=== PATIENT | male | born 1995 | race Caucasian/White ===

== ENCOUNTER 2020-09-20 23:34 | Emergency (ER) | payer OTHER, SELFPAY ==
[2020-09-21 00:16] VITALS: BP 141/100; PULSE 116; RESP 20; TEMP 37.1; O2SAT 98; BMI 27.3
--- NOTE | 2020-09-21 00:21 | ED.GENADULT ---
HPI - General Adult General Chief complaint: General Medical Stated complaint: Covid Symptoms Time Seen by Provider: 09/21/20 01:19 Source: patient Mode of arrival: ambulatory Limitations: no limitations History of Present Illness HPI narrative: 25-year-old male with past medical history of asthma recently treated for sinusitis on 09/12/2020 with antibiotic Augmentin and prednisone, presents with upper respiratory symptoms, nausea and vomiting. He does report fevers and chills but did not take a temperature, has been taking his Augmentin last dose was yesterday. Upon presentation to the emergency department he vomited, is currently tachycardic and diaphoretic. He does not report any other symptoms. He states that he felt better for short period of time during his Augmentin course but symptoms persisted, he has been working and has had multiple sick contacts. Onset (ago): week(s) Location: chest and abdomen Radiation: non-radiation Severity: moderate Relieving factors: none Associated symptoms: diaphoresis, fever/chills, malaise and nausea/vomiting Treatments prior to arrival: NSAID Related Data Home Medications Medication Instructions Recorded Confirmed albuterol sulfate 90 mcg/actuation 2 puff INHALATION Q4H PRN 09/12/20 09/12/20 aerosol inhaler budesonide-formoterol HFA 80 2 puff PO BID 09/12/20 09/12/20 mcg-4.5 mcg/actuation aerosol inhaler flu vac qs 2019(4 yr up)CD(PF) ml IM 09/12/20 09/12/20 fluticasone propionate 50 2 spray INTRANASAL DAILY 09/12/20 09/12/20 mcg/actuation nasal spray,suspension levocetirizine 5 mg tablet 5 mg PO DAILY 09/12/20 09/12/20 Previous Rx's Medication Instructions Recorded amoxicillin 875 mg-potassium 1 tab PO BID #20 tab 09/10/20 clavulanate 125 mg tablet prednisone 20 mg tablet 20 mg PO .COMPLEX #18 tab 09/10/20 ondansetron HCl [Zofran] 4 mg PO Q8H PRN #10 tab 09/21/20 Allergies Allergy/AdvReac Type Severity Reaction Status Date / Time peanut [PEANUT] Allergy Severe ANAPHYLAXIS Verified 09/17/20 01:53 Peanut (Diagnostic) Allergy Unknown swelling/hi Uncoded 09/12/20 11:14 ves Peanut Butter Flavor Allergy Unknown swelling/hi Uncoded 09/12/20 11:14 ves Peanuts Bandages Allergy Unknown swelling/hi Uncoded 09/12/20 11:14 ves Pumpkin Seed Allergy Unknown hives Uncoded 09/12/20 11:14 Review of Systems Review of Systems: Constitutional: positive Fever, positive Chills, positive fatigue, positive Malaise ENT/Mouth: No sore throat, positive runny nose Eyes: No Discharge Cardiovascular: No Chest Pain, No SOB Respiratory: No Cough, No Sputum, No Wheezing, No Smoke Exposure, No Dyspnea Gastrointestinal: Positive Nausea, positive Vomiting, No Diarrhea Genitourinary: no irregular bleeding, No Dysuria, No Urinary Frequency, No Hematuria, No Urinary Incontinence, No Urgency, No Flank Pain, Musculoskeletal: positive Myalgia Skin: No rash Neuro: No Headache Yes all other systems are reviewed and are negative [facility] Past Medical History Attestation statement: The following information was validated with the patient. Source: old records reviewed Medical History Acne vulgaris Chronic GERD Environmental and seasonal allergies Learning disability Mild intermittent asthma in adult without complication Recurrent otitis media Surgical History No pertinent past surgical history Family History Family History Father No problems noted. Mother No problems noted. Social History Social History Alcohol intake: current Alcohol intake frequency: a few times a month Alcohol type: beer Smoking Status: Never smoker Smoked in Last 30 Days: No Use of substances other than those prescribed or required for medical reasons: No Advance Directives: No Advance Directives Information Provided: No Physical Exam Vital Signs: Vital Signs: Last Vital Signs Temp 98.7 F 09/21/20 00:16 Pulse 120 H 09/21/20 01:35 Resp 20 09/21/20 01:35 BP 123/80 09/21/20 01:35 Pulse Ox 100 09/21/20 01:35 Body Mass Index 27.3 Appearance: Alert. Oriented X3. Mild distress. Positive diaphoresis, pallor, tachycardia Eyes: Pupils equal, round and reactive to light. ENT: Pharynx normal. Neck: Normal inspection. Neck supple. CVS: Tachycardic heart rate and rhythm. Pulses normal. Respiratory: No respiratory distress. Breath sounds normal. Abdomen: Soft and nontender. Skin: Skin warm and dry. Normal skin color. Normal skin turgor. Extremities: No lower extremity edema. Neuro: No motor deficit. No sensory deficit. Course Course Course Narrative: 25-year-old male with asthma recently treated for sinusitis with Augmentin presents for upper respiratory symptoms, nausea vomiting and diaphoresis. Plan of care is for CBC, Chem 7, lactic acid, cultures, and chest x-ray. We will test for COVID-19. Chest x-rays negative for acute findings. At 1:23 a.m. white count 13.4 which is consistent with his story of being treated for sinusitis with Augmentin and prednisone and current URI and gastroenteritis, sodium 134 which was repleted with 2 L of normal saline, BUN 17 indicates mild dehydration which was repleted with 2 L of normal saline. Plan of care is to discharge home. Patient verbalized understanding of and agrees to plan of care. Medical Decision Making Differential Diagnosis Differential Diagnosis: COVID-19, gastritis, gastroenteritis, influenza, viral illness Medical Records Medical records reviewed: Yes I reviewed the patient's medical records. Lab Data Lab results reviewed: Yes I reviewed the patient's lab results. Result diagrams: 09/21/20 00:47 09/21/20 00:47 Labs: Lab Results 09/21/20 09/21/20 09/21/20 Range/Units 00:46 00:47 00:47 WBC 13.4 H (4.8-10.8) X10*3/uL RBC 5.24 (4.60-5.80) X10*6/uL Hgb 15.3 (14.0-18.0) g/dl Hct 44.3 (42-52) % MCV 84.5 (80-98) fL MCH 29.2 (27.0-33.0) pg MCHC 34.5 (31.0-36.0) g/dl RDW 12.3 (11.0-16.0) % Plt Count 199 (160-400) X10*3/uL MPV 10.8 (9.4-12.4) fL Immature Gran % (Auto) 1.0 H (0.0-0.4) % Neut % (Auto) 84.0 H (45-73) % Lymph % (Auto) 6.4 L (20-40) % [place] % (Auto) 7.3 (2-11) % Eos % (Auto) 1.0 (0-4) % Baso % (Auto) 0.3 (0-2) % Lymph # (Auto) 0.9 L (1.2-4.9) X10*3/uL [place] # (Auto) 1.0 (0.1-1.2) X10*3/uL Eos # (Auto) 0.1 (0.0-0.4) X10*3/uL Baso # (Auto) 0.0 (0.0-0.2) X10*3/uL Abs Immat Gran (auto) 0.14 H (0.00-0.03) X10*3/uL Absolute Neuts (auto) 11.3 H (2.0-8.3) X10*3/uL Absolute Nucleated RBC 0.000 (0.0-0.012) X10*3/uL Nucleated RBC % (auto) 0.0 (0.0-0.2) /100WBC Sodium 134 L (135-145) mmol/L Potassium 3.9 (3.3-5.1) mmol/l Chloride 97 (96-108) mmol/L Carbon Dioxide 26 (22-29) mmol/L Anion Gap 15 (12-20) BUN 17 H (9-16) mg/dL Creatinine 0.83 (0.5-1.4) mg/dL Estim Creat Clear Calc 131.6 Estimated GFR > 60 Random Glucose 113 (60-115) mg/dL Lactic Acid 1.6 (0.5-2.0) mmol/L Calcium 9.2 (8.4-10.2) mg/dL Imaging Data Chest x-ray: Attestation: I personally reviewed and interpreted this imaging study as follows: Radiologist's impression: EXAMINATION: CHEST 1 VIEW CLINICAL INFORMATION: URI symptoms. COMPARISON: 01/26/2019. TECHNIQUE: An AP view of the chest is provided. FINDINGS: The cardiac silhouette is not enlarged. The mediastinal and hilar contours are unremarkable. There are neither pleural effusions nor pneumothoraces. There are no consolidations. The osseous structures are stable. XR/XR chest 1V IMPRESSION: No evidence for acute disease. Discharge Plan Discharge Clinical Impression: Gastroenteritis, Acute viral syndrome, COVID-19 Patient Disposition: Home, Self-Care Instructions: Acute Nausea and Vomiting (ED) Additional Instructions: You were evaluated for upper respiratory symptoms with nausea and vomiting. Your lab values are unremarkable, your chest x-ray is negative for acute findings. We tested you for COVID-19. Please maintain social isolation guidelines per State and Federal regulations. We prescribed Zofran for nausea and vomiting. Please take this medication as directed. Follow-up with primary care physician for further workup. Thank you for choosing this emergency department for evaluation. Please follow-up with primary care physician as needed. Return to the emergency department for any new, concerning, or worsening symptoms. Prescriptions: New ondansetron HCl [Zofran] 4 mg tablet 4 mg PO Q8H PRN (Reason: nausea and vomiting) Qty: 10 RF: 0 No Action fluticasone propionate 50 mcg/actuation spray,suspension 2 spray intranasal DAILY RF: 0 budesonide-formoterol 80-4.5 mcg/actuation HFA aerosol inhaler 2 puff PO BID RF: 0 Flucelvax Quad [id number] (PF) 60 mcg (15 mcg x 4)/0.5 mL syringe IM RF: 0 levocetirizine 5 mg tablet 5 mg PO DAILY RF: 0 albuterol sulfate 90 mcg/actuation HFA aerosol inhaler 2 puff inhalation Q4H PRNRF: 0 prednisone 20 mg tablet 20 mg PO .COMPLEX Qty: 18 RF: 0 amoxicillin-pot clavulanate [Augmentin] 875-125 mg tablet 1 tab PO BID Qty: 20 RF: 0
--- NOTE | 2020-09-21 00:26 | XR_ITS ---
EXAMINATION: CHEST 1 VIEW CLINICAL INFORMATION: URI symptoms. COMPARISON: 01/26/2019. TECHNIQUE: An AP view of the chest is provided. FINDINGS: The cardiac silhouette is not enlarged. The mediastinal and hilar contours are unremarkable. There are neither pleural effusions nor pneumothoraces. There are no consolidations. The osseous structures are stable. XR/XR chest 1V IMPRESSION: No evidence for acute disease.
[2020-09-21] MEDS: 0.9 % Sodium Chloride 1,000 ML 999 ML IVCONT ×2 (00:54→02:03)
[2020-09-21] MEDS: ondansetron HCL 4 MG/2 ML VIAL IVPUSH (00:55)
[2020-09-21 00:58] LABS: MANUAL DIFF FLAG NO
--- NOTE | 2020-09-21 01:10 | PC.NURSE ---
20g right ac no complications
[2020-09-21 01:13] LABS: Basophils Percent Auto 0.3 % (0-2); Eosinophils Absolute Auto 0.1 X10*3/uL (0.0-0.4); Hematocrit 44.3 % (42-52); Hemoglobin 15.3 g/dl (14.0-18.0); Imm Gran Abs Auto 0.14 X10*3/uL (0.00-0.03); Lymphocytes Absolute Auto 0.9 X10*3/uL (1.2-4.9); Lymphocytes Percent Auto 6.4 % (20-40); Mean Corpuscular HGB Conc 34.5 g/dl (31.0-36.0); Mean Corpuscular Hemoglobin 29.2 pg (27.0-33.0); Mean Corpuscular Volume 84.5 fL (80-98); Mean Platelet Volume 10.8 fL (9.4-12.4); Monocytes Percent Auto 7.3 % (2-11); Neutrophils Absolute Auto 11.3 X10*3/uL (2.0-8.3); Platelet Count 199 X10*3/uL (160-400); Red Blood Count 5.24 X10*6/uL (4.60-5.80); Red Cell Distribution Width 12.3 % (11.0-16.0); White Blood Count 13.4 X10*3/uL (4.8-10.8)
[2020-09-21 01:26] LABS: Lactic Acid 1.6 mmol/L (0.5-2.0)
[2020-09-21 01:29] LABS: Anion Gap 15 (12-20); Blood Urea Nitrogen 17 mg/dL (9-16); Calcium 9.2 mg/dL (8.4-10.2); Carbon Dioxide 26 mmol/L (22-29); Chloride 97 mmol/L (96-108); Creatinine Clr Calc Pharmacy 131.6; Estimated Glomerular Filt Rate > 60; Glucose Random 113 mg/dL (60-115); Potassium 3.9 mmol/l (3.3-5.1); Sodium 134 mmol/L (135-145)
--- NOTE | 2020-09-21 01:31 | PC.NURSE ---
pt hadley ivf, pt sitting up in bed no further vomiting noted.
[2020-09-21 01:35] VITALS: BP 123/80; PULSE 120; RESP 20; O2SAT 100
[2020-09-21 02:03] LABS: Influenza A PCR NEGATIVE (Negative); Influenza B PCR NEGATIVE (Negative); Resp Syncy Virus RNA Qual PCR NEGATIVE (Negative)
[2020-09-21 02:34] LABS: SARS COV2 PCR INHOUSE POSITIVE (Negative)
== END 2020-09-21 02:56 | disposition home or self-care (01) ==
PROVIDERS: Nurse Practitioner Family; Emergency Provider Internal Medicine; PCP Internal Medicine
DX: U07.1 COVID-19 (principal); R50.9 Fever, unspecified; K52.9 Noninfective gastroenteritis and colitis, unspecified; Z79.899 Other long term (current) drug therapy
CPT/HCPCS: 0241U; 36415; 71045; 80048; 83605; 85025; 87040; 96361; 96374; 99284; J2405

== ENCOUNTER 2020-11-07 10:26 | Outpatient (REF) | payer OTHER, SELFPAY ==
[2020-11-07 13:53] LABS: MANUAL DIFF FLAG NO
[2020-11-07 14:04] LABS: Basophils Absolute Auto 0.1 X10*3/uL (0.0-0.2); Basophils Percent Auto 0.8 % (0-2); Eosinophils Absolute Auto 0.1 X10*3/uL (0.0-0.4); Eosinophils Percent Auto 1.6 % (0-4); Hematocrit 46.7 % (42-52); Hemoglobin 15.3 g/dl (14.0-18.0); Imm Gran Abs Auto 0.03 X10*3/uL (0.00-0.03); Imm Gran Pct Auto 0.5 % (0.0-0.4); Lymphocytes Percent Auto 16.4 % (20-40); Mean Corpuscular HGB Conc 32.8 g/dl (31.0-36.0); Mean Corpuscular Hemoglobin 29.2 pg (27.0-33.0); Mean Corpuscular Volume 89.1 fL (80-98); Mean Platelet Volume 11.6 fL (9.4-12.4); Monocytes Absolute Auto 0.6 X10*3/uL (0.1-1.2); Monocytes Percent Auto 9.1 % (2-11); Neutrophils Absolute Auto 4.5 X10*3/uL (2.0-8.3); Neutrophils Percent Auto 71.6 % (45-73); Platelet Count 216 X10*3/uL (160-400); Red Blood Count 5.24 X10*6/uL (4.60-5.80); Red Cell Distribution Width 12.7 % (11.0-16.0); White Blood Count 6.3 X10*3/uL (4.8-10.8)
[2020-11-08 14:02] LABS: Absolute CD3 Count 749 cells/uL (840-3060); Absolute CD4 Count 331 cells/uL (490-1740); Absolute CD8 Count 370 cells/uL (180-1170); Absolute Lymphocytes 1200 cells/uL (850-3900); CD4 CD8 Ratio 0.89 (0.86-5.00); Percent CD3 Cells 62 % (57-85); Percent CD4 Cells 28 % (30-61); Percent CD8 Cells 31 % (12-42)
[2020-11-08 14:27] LABS: Immunoglobulin A 252 mg/dL (47-310); Immunoglobulin G 1049 mg/dL (600-1640); Immunoglobulin M 108 mg/dL (50-300)
== END 2020-11-07 10:27 | disposition home or self-care (01) ==
LOC: HO.HMGCLDS 10:26
PROVIDERS: PCP Internal Medicine; Visit Provider Physician Assistant
DX: H66.90 Otitis media, unspecified, unspecified ear (principal)
CPT/HCPCS: 36415; 82784; 85025; 86317; 86359; 86360; 86774

== ENCOUNTER → 2020-11-30 10:10 | Outpatient (BNVA) | payer OTHER, SELFPAY | PROVIDERS: PCP Internal Medicine; Visit Provider Urology ==

== ENCOUNTER 2020-12-19 08:01 | Outpatient (REF) | payer OTHER, SELFPAY ==
[2020-12-19 12:09] LABS: Anion Gap 18 (12-20); Blood Urea Nitrogen 14 mg/dL (9-16); Calcium 9.5 mg/dL (8.4-10.2); Carbon Dioxide 24 mmol/L (22-29); Chloride 102 mmol/L (96-108); Cholesterol 155 mg/dL; Estimated Glomerular Filt Rate > 60; Glucose Fasting 91 mg/dL (60-99); HDL Cholesterol 47 mg/dL; LDL Cholesterol Calculated 95 mg/dl; Potassium 3.9 mmol/L (3.3-5.1); Sodium 140 mmol/L (135-145); Triglycerides 67 mg/dL
[2020-12-19 12:10] LABS: Vitamin D 25-OH Total 10.9 ng/mL (>30)
== END 2020-12-19 08:02 | disposition home or self-care (01) ==
LOC: HO.HMGCLDS 08:01
PROVIDERS: PCP Internal Medicine; Visit Provider Internal Medicine
DX: Z00.00 Encounter for general adult medical examination without abnormal findings (principal); I10 Essential (primary) hypertension
CPT/HCPCS: 36415; 80048; 80061; 82306

== ENCOUNTER 2021-05-21 08:28 | Emergency (ER) | payer OTHER, SELFPAY ==
--- NOTE | 2021-05-21 | ECG_ITS ---
Test Reason : CHEST TIGHTNESS Blood Pressure : / mmHG Vent. Rate : 105 BPM Atrial Rate : 105 BPM P-R Int : 182 ms QRS Dur : 096 ms QT Int : 316 ms P-R-T Axes : 077 090 049 degrees QTc Int : 417 ms Sinus tachycardia Rightward axis Nonspecific ST abnormality Abnormal ECG When compared with ECG of 26-JAN-2019 19:33, No significant change was found Referred By: Generic ED Physician Electronically Signed By:ROQUE FONG
--- NOTE | 2021-05-21 10:54 | ED_ITS ---
HPI - Arrhythmia/Palpitations General Chief Complaint: Arrhythmia/Palpitations Stated Complaint: rapid heartbeat Time Seen by Provider: 05/21/21 10:45 Source: patient Mode of arrival: ambulatory Limitations: no limitations History of Present Illness HPI narrative: This is a pleasant 26 years old patient presented to the emergency department with a chief complaint of palpitations. Denies any chest pain, shortness of breath, fever, syncope or near-syncope symptoms. He was started on prednisone by his primary care physician yesterday prior to that he has been on antibiotic for sinus infection MD complaint: heart racing Onset (ago): day(s) (1) Duration: constant Severity: mild Context: occurred during rest Associated symptoms: denies other symptoms Related Data Home Medications Medication Instructions Recorded Confirmed albuterol sulfate 90 mcg/actuation 2 puff INHALATION Q4H PRN 09/12/20 05/15/21 aerosol inhaler flu vac qs 2019(4 yr up)CD(PF) ml IM 09/12/20 05/15/21 fluticasone propionate 50 2 spray INTRANASAL DAILY 09/12/20 05/15/21 mcg/actuation nasal spray,suspension levocetirizine 5 mg tablet 5 mg PO DAILY 09/12/20 05/15/21 budesonide-formoterol HFA 160 2 puff INHALATION Q12H 05/15/21 05/15/21 mcg-4.5 mcg/actuation aerosol inhaler (Symbicort) Previous Rx's Medication Instructions Recorded naproxen 500 mg tablet (Naprosyn) 500 mg PO Q12H PRN #30 tab 11/30/20 cholecalciferol (vitamin D3) 1,250 1,250 mcg PO QWEEK 90 Days #13 cap 03/12/21 mcg (50,000 unit) capsule buspirone 5 mg tablet 5 mg PO BID #60 tab 05/15/21 fexofenadine 60 mg-pseudoephedrine 1 tab PO Q12H PRN #30 tab 05/15/21 ER 120 mg tablet,ext.release,12 hr (Delfina-D 12 Hour) doxycycline hyclate 100 mg capsule 100 mg PO BID 7 Days #14 cap 05/18/21 prednisone 20 mg tablet 20 mg PO .COMPLEX #18 tab 05/20/21 Allergies Allergy/AdvReac Type Severity Reaction Status Date / Time peanut [PEANUT] Allergy Severe ANAPHYLAXIS Verified 05/20/21 08:27 levofloxacin Allergy dizzy, Verified 05/20/21 08:29 anxious could not sleep, heart racing, headaches Pumpkin Seed Allergy Unknown hives Uncoded 05/20/21 08:27 Review of Systems Review of Systems: Yes all other systems are reviewed and are negative Constitutional: Constitutional: Reports no additional constitutional complaints Eyes: Eyes: Reports no additional eye complaints ENT: Reports system reviewed and no additional complaints, except as documented Cardiovascular: Cardiovascular: Reports no additional cardiovascular complaints Psychiatric: Comments: Anxious appearing PMFSH Past Medical History Attestation statement: The following information was validated with the patient. Medical History Acne vulgaris Chronic GERD Environmental and seasonal allergies Epididymitis Generalized anxiety disorder History of COVID-19 Learning disability Mild intermittent asthma in adult without complication Recurrent otitis media Recurrent sinusitis Surgical History No pertinent past surgical history Family History Family History Father No problems noted. Mother No problems noted. Social History Social History Housing: House Alcohol intake: current Alcohol intake frequency: a few times a month Alcohol type: beer Patient Tobacco Use Status: Never used Tobacco e-Cigarette/Vaping Use: Never Used Second Hand Smoke Exposure: No Advance Directives: Yes Advance Directives Information Provided: Yes Advance Directives on File: No service: No Current occupational status: employed Physical Exam Vital Signs: Vital Signs: Last Vital Signs Temp 99 F 05/21/21 12:20 Pulse 106 H 05/21/21 12:20 Resp 16 05/21/21 12:20 BP 141/73 H 05/21/21 12:20 Pulse Ox 100 05/21/21 12:20 Body Mass Index 25.0 Const: General: cooperative and healthy appearing Orien tation/consciousness: oriented to person, oriented to place, oriented to time and patient oriented x3 HENMT: Head: Yes normal to inspection Ears: hearing grossly normal bilaterally and external ears normal Face and sinus: Yes normal facial exam and Yes sinuses nontender Mouth: Normal oral and palatal mucosa present Throat: Yes posterior oropharynx normal Neck: Neck: Yes normal visual inspection and Yes full ROM Chest: Chest palpation & inspection: normal inspection of the chest and normal palpation of entire chest wall Resp: Effort & Inspection: normal respiratory effort Auscultation: clear to auscultation bilaterally Cardio: Jugular venous distension: no JVD Rate: regular rate Rhythm: regular rhythm Heart sounds: S1 normal heart sound present GI: Inspection: Yes normal to inspection and Yes abdominal wall ecchymosis Palpation (GI): Soft to palpation and nontender Skin: General skin exam: no rashes or lesions noted and elasticity normal R ashes: no rashes Neuro: General: oriented to person, oriented to place, oriented to time and patient oriented x3 Cranial nerves: Yes CN's II-XII intact bilaterally and Yes Facial sensation intact/muscles of mastication intact Course Course Course Narrative: His workup is essentially negative, his EKG is within normal limit he has I suggested troponin is negative. I think we could discharge the patient home with follow-up with his primary care physician MDM - Arrhythmia/Palpitations Differential Diagnosis Differential diagnosis: Likely palpitations Lab Data Result diagrams: 05/21/21 10:59 05/21/21 10:59 Labs: Lab Results 05/21/21 05/21/21 05/21/21 Range/Units 10:59 10:59 10:59 WBC 11.9 H (4.8-10.8) X10*3/uL RBC 4.94 (4.60-5.80) X10*6/uL Hgb 14.5 (14.0-18.0) g/dl Hct 42.8 (42-52) % MCV 86.6 (80-98) fL MCH 29.4 (27.0-33.0) pg MCHC 33.9 (31.0-36.0) g/dl RDW 12.2 (11.0-16.0) % Plt Count 209 (160-400) X10*3/uL MPV 10.5 (9.4-12.4) fL Immature Gran % (Auto) 0.5 H (0.0-0.4) % Neut % (Auto) 77.6 H (45-73) % Lymph % (Auto) 11.0 L (20-40) % [place] % (Auto) 10.4 (2-11) % Eos % (Auto) 0.2 (0-4) % Baso % (Auto) 0.3 (0-2) % Lymph # (Auto) 1.3 (1.2-4.9) X10*3/uL [place] # (Auto) 1.2 (0.1-1.2) X10*3/uL Eos # (Auto) 0.0 (0.0-0.4) X10*3/uL Baso # (Auto) 0.0 (0.0-0.2) X10*3/uL Abs Immat Gran (auto) 0.06 H (0.00-0.03) X10*3/uL Absolute Neuts (auto) 9.2 H (2.0-8.3) X10*3/uL Absolute Nucleated RBC 0.000 (0.0-0.012) X10*3/uL Nucleated RBC % (auto) 0.0 (0.0-0.2) /100WBC Sodium 142 (135-145) mmol/L Potassium 4.2 (3.3-5.1) mmol/L Chloride 107 (96-108) mmol/L Carbon Dioxide 25 (22-29) mmol/L Anion Gap 14 (12-20) BUN 15 (9-16) mg/dL Creatinine 0.91 (0.5-1.4) mg/dL Estim Creat Clear Calc TNP Estimated GFR > 60 Random Glucose 101 (60-115) mg/dL Calcium 10.4 H D (8.4-10.2) mg/dL Total Bilirubin 0.8 (0.0-1.0) mg/dL AST 14 (5-37) U/L ALT 22 (0-40) U/L Alkaline Phosphatase 50 (39-117) U/L Troponin I High Sens < 3.5 (<3.5-35.0) ng/L Total Protein 7.9 (6.5-8.0) g/dL Albumin 5.0 (3.5-5.0) g/dL ECG Data Attestation: I personally reviewed and interpreted this ECG as follows: Pacemaker model: EKG shows sinus tachycardia rate is 105 ST-T segment isoelectric Discharge Plan Discharge Clinical Impression: Palpitation Patient Disposition: Home, Self-Care Instructions: Heart Palpitations (ED) Prescriptions: No Action cholecalciferol (vitamin D3) 1,250 mcg (50,000 unit) capsule 1,250 mcg PO QWEEK 90 Days Qty: 13 RF: 0 doxycycline hyclate 100 mg capsule 100 mg PO BID 7 Days Qty: 14 RF: 0 fluticasone propionate 50 mcg/actuation spray,suspension 2 spray intranasal DAILY RF: 0 Flucelvax Quad [id number] (PF) 60 mcg (15 mcg x 4)/0.5 mL syringe IM RF: 0 levocetirizine 5 mg tablet 5 mg PO DAILY RF: 0 albuterol sulfate 90 mcg/actuation HFA aerosol inhaler 2 puff inhalation Q4H PRNRF: 0 prednisone 20 mg tablet 20 mg PO .COMPLEX Qty: 18 RF: 0 fexofenadine-pseudoephedrine [Delfina-D 12 Hour] 60-120 mg tablet extended release 12 hr 1 tab PO Q12H PRN (Reason: allergy symptoms) Qty: 30 RF: 0 buspirone 5 mg tablet 5 mg PO BID Qty: 60 RF: 0 budesonide-formoterol [Symbicort] 160-4.5 mcg/actuation HFA aerosol inhaler 2 puff inhalation Q12H RF: 0 naproxen [Naprosyn] 500 mg tablet 500 mg PO Q12H PRN (Reason: pain) Qty: 30 RF: 0 Referrals: Melani Mayfield MD [Primary Care Provider] - 2 days Stand Alone Forms: Work/School Release Interventions: ED Discharge Assessment Last Done: 05/21/21 12:47 Discharge Date/Time: 05/21/21 12:47
[2021-05-21 11:03] LABS: MANUAL DIFF FLAG NO
[2021-05-21 11:05] LABS: Basophils Percent Auto 0.3 % (0-2); Eosinophils Percent Auto 0.2 % (0-4); Hematocrit 42.8 % (42-52); Hemoglobin 14.5 g/dl (14.0-18.0); Imm Gran Abs Auto 0.06 X10*3/uL (0.00-0.03); Imm Gran Pct Auto 0.5 % (0.0-0.4); Lymphocytes Absolute Auto 1.3 X10*3/uL (1.2-4.9); Mean Corpuscular HGB Conc 33.9 g/dl (31.0-36.0); Mean Corpuscular Hemoglobin 29.4 pg (27.0-33.0); Mean Corpuscular Volume 86.6 fL (80-98); Mean Platelet Volume 10.5 fL (9.4-12.4); Monocytes Absolute Auto 1.2 X10*3/uL (0.1-1.2); Monocytes Percent Auto 10.4 % (2-11); Neutrophils Absolute Auto 9.2 X10*3/uL (2.0-8.3); Neutrophils Percent Auto 77.6 % (45-73); Platelet Count 209 X10*3/uL (160-400); Red Blood Count 4.94 X10*6/uL (4.60-5.80); Red Cell Distribution Width 12.2 % (11.0-16.0); White Blood Count 11.9 X10*3/uL (4.8-10.8)
[2021-05-21 11:35] LABS: Alanine Aminotransferase 22 U/L (0-40); Alkaline Phosphatase 50 U/L (39-117); Anion Gap 14 (12-20); Aspartate Amino Transferase 14 U/L (5-37); Bilirubin Total 0.8 mg/dL (0.0-1.0); Blood Urea Nitrogen 15 mg/dL (9-16); Calcium 10.4 mg/dL (8.4-10.2); Carbon Dioxide 25 mmol/L (22-29); Chloride 107 mmol/L (96-108); Estimated Glomerular Filt Rate > 60; Glucose Random 101 mg/dL (60-115); Potassium 4.2 mmol/L (3.3-5.1); Sodium 142 mmol/L (135-145); Total Protein 7.9 g/dL (6.5-8.0)
[2021-05-21 11:41] LABS: Troponin-I High Sensitivity < 3.5 ng/L (<3.5-35.0)
[2021-05-21 12:20] VITALS: BP 141/73; PULSE 106; RESP 16; TEMP 37.2; O2SAT 100; BMI 25.0
[2021-05-21] MEDS: LORazepam 1 MG TABLET PO (12:28)
== END 2021-05-21 12:47 | disposition home or self-care (01) ==
PROVIDERS: Emergency Provider Emergency Medicine; PCP Internal Medicine
DX: R00.2 Palpitations (principal); R00.0 Tachycardia, unspecified
CPT/HCPCS: 36415; 80053; 84484; 85025; 93005; 99283

== ENCOUNTER 2021-05-23 08:42 | Emergency (ER) | payer OTHER, SELFPAY ==
[2021-05-23 08:50] VITALS: BP 141/94; PULSE 100; RESP 18; TEMP 36.7; O2SAT 97; BMI 25.0
--- NOTE | 2021-05-23 09:13 | ED_ITS ---
HPI - General Adult General Chief complaint: General Medical Stated complaint: heart racing blood in saliva Time Seen by Provider: 05/23/21 09:13 Source: patient Mode of arrival: ambulatory Limitations: no limitations History of Present Illness HPI narrative: 26-year-old male is here today for complaints of heart racing, mouth sores, sinus pain. Patient reports that 2 weeks ago he was placed on levofloxacin for ear infection, however he was not feeling well, had symptoms of heart racing and dizziness his antibiotic was switched to Augmentin. Patient reports that he missed couple doses at the end of the treatment and was placed on doxycycline. Patient reports that he was having headaches and not feeling well so he was stopped and was placed on prednisone. He took 1 dose of prednisone and that made his heart rate very high, patient was anxious not sleeping all night. Patient has mild rhinitis, postnasal drip, denies earaches. Reports having cold sores in the right bucal area. Patient denies SOB, CP, syncope, presyncope. Denies fever or chills. Reports to have both of the COVID vaccines Related Data Home Medications Medication Instructions Recorded Confirmed albuterol sulfate 90 mcg/actuation 2 puff INHALATION Q4H PRN 09/12/20 05/15/21 aerosol inhaler flu vac qs 2019(4 yr up)CD(PF) ml IM 09/12/20 05/15/21 fluticasone propionate 50 2 spray INTRANASAL DAILY 09/12/20 05/15/21 mcg/actuation nasal spray,suspension levocetirizine 5 mg tablet 5 mg PO DAILY 09/12/20 05/15/21 budesonide-formoterol HFA 160 2 puff INHALATION Q12H 05/15/21 05/15/21 mcg-4.5 mcg/actuation aerosol inhaler (Symbicort) Previous Rx's Medication Instructions Recorded naproxen 500 mg tablet (Naprosyn) 500 mg PO Q12H PRN #30 tab 11/30/20 cholecalciferol (vitamin D3) 1,250 1,250 mcg PO QWEEK 90 Days #13 cap 03/12/21 mcg (50,000 unit) capsule buspirone 5 mg tablet 5 mg PO BID #60 tab 05/15/21 fexofenadine 60 mg-pseudoephedrine 1 tab PO Q12H PRN #30 tab 05/15/21 ER 120 mg tablet,ext.release,12 hr (Delfina-D 12 Hour) doxycycline hyclate 100 mg capsule 100 mg PO BID 7 Days #14 cap 05/18/21 prednisone 20 mg tablet 20 mg PO .COMPLEX #18 tab 05/20/21 cetirizine 10 mg capsule (Allergy 10 mg PO DAILY PRN #30 cap 05/23/21 Relief (cetirizine)) famotidine 20 mg tablet 20 mg PO BEDTIME #10 tab 05/23/21 fluticasone propionate 50 1 spray INTRANASAL BID #16 g 05/23/21 mcg/actuation nasal spray,suspension (Flonase Allergy Relief) nystatin 100,000 unit/mL oral 5 ml PO QID 7 Days #140 ml 05/23/21 suspension Allergies Allergy/AdvReac Type Severity Reaction Status Date / Time peanut [PEANUT] Allergy Severe ANAPHYLAXIS Verified 05/23/21 08:53 levofloxacin Allergy dizzy, Verified 05/23/21 08:53 anxious could not sleep, heart racing, headaches Pumpkin Seed Allergy Unknown hives Uncoded 05/20/21 08:27 Review of Systems Review of Systems: Constitutional : No Weight loss, No Fever, No Chills, No Night Sweats, No Fatigue, No Malaise ENT/Mouth : No Hearing loss, No Ear Pain, No Nasal Congestion, No Sinus Pain, No Hoarseness, No sore throat, No Rhinorrhea, No Swallowing Difficulty Eyes: No Eye Pain, No Swelling, No Redness, No Foreign Body, No Discharge, No Vision Changes Cardiovascular : No Chest Pain, No SOB, No Dyspnea on Exertion, No Orthopnea, No Edema, No Palpitations Respiratory : No Cough, No Sputum, No Wheezing, No Smoke Exposure, No Dyspnea Gastrointestinal : No Nausea, No Vomiting, No Diarrhea, No Constipation, reports dyspepsia, No abdominal Pain, No Hematochezia, No Melena Genitourinary : no irregular bleeding, No Dysuria, No Urinary Frequency, No Hematuria, No Urinary Incontinence, No Urgency, No Flank Pain, No Urinary Flow Changes, No Hesitancy Musculoskeletal : No joint pain, No Myalgias, No Joint Swelling Skin : No Skin Lesions, No rash Neuro : No Weakness, No Numbness, No Paresthesias, No Loss of Consciousness, No Dizziness, No Headache Psych : Anxiety/Panic, No Depression, No SI/HI/AH/VH, No Social Issues, Heme/Lymph: No Bruising, No Bleeding,No Lymphadenopathy Endocrine : No Polyuria, No Polydipsia, No Temperature Intolerance Yes all o ther systems are reviewed and are negative [facility] Past Medical History Medical History Acne vulgaris Chronic GERD Environmental and seasonal allergies Epididymitis Generalized anxiety disorder History of COVID-19 Learning disability Mild intermittent asthma in adult without complication Recurrent otitis media Recurrent sinusitis Surgical History No pertinent past surgical history Family History Family History Father No problems noted. Mother No problems noted. Social History Social History Housing: House Alcohol intake: current Alcohol intake frequency: a few times a month Alcohol type: beer Patient Tobacco Use Status: Never used Tobacco e-Cigarette/Vaping Use: Never Used Second Hand Smoke Exposure: No Advance Directives: No Advance Directives Information Provided: No service: No Current occupational status: employed Physical Exam Vital Signs: Vital Signs: Last Vital Signs Temp 98.0 F 05/23/21 08:50 Pulse 100 05/23/21 08:50 Resp 18 05/23/21 08:50 BP 141/94 H 05/23/21 08:50 Pulse Ox 97 05/23/21 08:50 Body Mass Index 25.0 Const: General: healthy appearing, no acute distress and well developed Nutritional Appearance: well nourished Orientation/consciousness: patient oriented x3 HENMT: Head: Yes normal to inspection, Yes normocephalic and Yes atraumatic Ears: hearing grossly normal bilaterally, external ears normal, TM's normal bilaterally and EAC's normal (Dry and pink patient was using Q-tips) General nose exam: Normal external nose present Face and sinus: Yes normal facial exam Mouth: Normal oral and palatal mucosa present and oropharynx normal (White and patchy) Teeth and gingiva: dentition normal Throat: Yes posterior oropharynx normal (White and patchy), Yes tonsils normal and Yes uvula midline Eyes: General: appearance normal, both eyes and all related structures Neck: Neck: Yes normal visual inspection, Yes full ROM and Yes trachea midline Thyroid: Thyroid normal Resp: Auscultation: clear to auscultation bilaterally Cardio: Rate: regular rate Rhythm: regular rhythm GI: Inspection: Yes normal to inspection and No distended Palpation (GI): No hepatosplenomegaly present Auscultation: normal bowel sounds Skin: General skin exam: elasticity normal, turgor normal and dry skin Neuro: General: patient oriented x3 Course Course Course Narrative: 26 years old male is here today for complaining of sores in his mouth. Patient was placed on 3 different antibiotics for total of 2 weeks. His ears look normal dry external ear and mild pink. Patient reports that he has been using Q-tips to dry his ears. Patient was asked to avoid cleaning his ears with Q-tips. Patient reports that he had both of his COVID vaccines, however he is little concerned with his symptoms. I will test him for COVID. Nystatin swish and swallow for his mouth sores. I will send him home with nystatin, Flonase and Zyrtec. I will also give him Pepcid so he can take it at night. Patient was instructed to see his PCP for anxiety. Patient was advised to use mouth guard at night. Right side of his bucal area ? Overbite versus canker sore. Medical Decision Making Lab Data Labs: Lab Results 05/23/21 Range/Units 09:34 COVID-19 (LUL) Negative (Negative) COVID-19 Clin Com See Note Discharge Plan Discharge Clinical Impression: Recurrent sinusitis, Environmental and seasonal allergies Patient Disposition: Home, Self-Care Instructions: Canker Sores (ED), Allergic Rhinitis (ED) Additional Instructions: You were seen here today for ear pain, mouth sores. Your symptoms are most likely related to seasonal allergies. Please take Flonase twice a day for 7 days then once a day and Zyrtec once daily. Please use nystatin swish and swallow as ordered. Please use a mouth guard at night. Please follow-up with your primary care provider in 2-3 days. You may return to emergency department if your symptoms will get worse or if you will experience any additional concerning symptoms. Prescriptions: New fluticasone propionate [Flonase Allergy Relief] 50 mcg/actuation spray,suspension 1 spray intranasal BID Qty: 16 RF: 0 Allergy Relief (cetirizine) 10 mg capsule 10 mg PO DAILY PRN (Reason: allergy symptoms) Qty: 30 RF: 0 nystatin 100,000 unit/mL suspension 5 ml PO QID 7 Days Qty: 140 RF: 0 famotidine 20 mg tablet 20 mg PO BEDTIME Qty: 10 RF: 0 No Action cholecalciferol (vitamin D3) 1,250 mcg (50,000 unit) capsule 1,250 mcg PO QWEEK 90 Days Qty: 13 RF: 0 doxycycline hyclate 100 mg capsule 100 mg PO BID 7 Days Qty: 14 RF: 0 fluticasone propionate 50 mcg/actuation spray,suspension 2 spray intranasal DAILY RF: 0 Flucelvax Quad (PF) 60 mcg (15 mcg x 4)/0.5 mL syringe IM RF: 0 levocetirizine 5 mg tablet 5 mg PO DAILY RF: 0 albuterol sulfate 90 mcg/actuation HFA aerosol inhaler 2 puff inhalation Q4H PRNRF: 0 prednisone 20 mg tablet 20 mg PO .COMPLEX Qty: 18 RF: 0 fexofenadine-pseudoephedrine [Delfina-D 12 Hour] 60-120 mg tablet extended release 12 hr 1 tab PO Q12H PRN (Reason: allergy symptoms) Qty: 30 RF: 0 buspirone 5 mg tablet 5 mg PO BID Qty: 60 RF: 0 budesonide-formoterol [Symbicort] 160-4.5 mcg/actuation HFA aerosol inhaler 2 puff inhalation Q12H RF: 0 naproxen [Naprosyn] 500 mg tablet 500 mg PO Q12H PRN (Reason: pain) Qty: 30 RF: 0
[2021-05-23] MEDS: Nystatin Oral Susp 500,000 UNIT/5 ML ORAL.SUSP 400000 UNIT PO (09:37)
[2021-05-23 10:03] LABS: COVID-19 Test Negative (Negative)
== END 2021-05-23 10:20 | disposition home or self-care (01) ==
PROVIDERS: Nurse Practitioner Family; Emergency Provider Emergency Medicine; PCP Internal Medicine
DX: J32.9 Chronic sinusitis, unspecified (principal); J30.2 Other seasonal allergic rhinitis; Z20.822 Contact with and (suspected) exposure to COVID-19; K13.79 Other lesions of oral mucosa
CPT/HCPCS: 36415; 87635; 99283

== ENCOUNTER → 2021-06-05 11:30 | Outpatient (BNVA) | payer OTHER, SELFPAY | PROVIDERS: Visit Provider Urology ==

== ENCOUNTER 2021-06-15 08:00 | Emergency (ER) | payer OTHER, SELFPAY ==
--- NOTE | ~2021-06-15 | US_ITS ---
EXAMINATION: US SCROTUM CLINICAL INFORMATION: Right testicular pain. COMPARISON: Previous scrotal ultrasound January 2019 TECHNIQUE: A sonogram of the scrotum was performed assessing hood-scale appearance and color Doppler flow. Spectral Doppler analysis of the arterial and venous flow were performed in the testes bilaterally. FINDINGS: RIGHT: Right testicle measures 5 x 2.7 x 2.8 cm, volume 19 mL. No focal testicular parenchymal lesions are visualized. Spectral Doppler analysis of the arterial and venous flow is normal in the right testis. Right epididymal head is normal in size. No right hydrocele or varicocele is seen. Right epididymal Doppler flow is normal. LEFT: Left testicle measures 4.8 x 2.5 x 3.3 cm, volume 21 mL. No focal testicular parenchymal lesions are visualized. Spectral Doppler analysis of the arterial and venous flow is normal in the left testis. Left epididymal head is normal in size. There is a small left varicocele. There is a small left hydrocele.. Left epididymal Doppler flow is normal. US/US scrotum doppler IMPRESSION: No evidence of torsion. Small left hydrocele and small left varicocele.
--- NOTE | ~2021-06-15 | US_ITS ---
EXAMINATION: US SCROTUM CLINICAL INFORMATION: Right testicular pain. COMPARISON: Previous scrotal ultrasound January 2019 TECHNIQUE: A sonogram of the scrotum was performed assessing hood-scale appearance and color Doppler flow. Spectral Doppler analysis of the arterial and venous flow were performed in the testes bilaterally. FINDINGS: RIGHT: Right testicle measures 5 x 2.7 x 2.8 cm, volume 19 mL. No focal testicular parenchymal lesions are visualized. Spectral Doppler analysis of the arterial and venous flow is normal in the right testis. Right epididymal head is normal in size. No right hydrocele or varicocele is seen. Right epididymal Doppler flow is normal. LEFT: Left testicle measures 4.8 x 2.5 x 3.3 cm, volume 21 mL. No focal testicular parenchymal lesions are visualized. Spectral Doppler analysis of the arterial and venous flow is normal in the left testis. Left epididymal head is normal in size. There is a small left varicocele. There is a small left hydrocele.. Left epididymal Doppler flow is normal. US/US scrotum IMPRESSION: No evidence of torsion. Small left hydrocele and small left varicocele.
--- NOTE | 2021-06-15 08:54 | ED.ABDPAIN ---
HPI - Abdominal Pain General Chief Complaint: Abdominal Pain Stated Complaint: ABD PAIN Time Seen by Provider: 06/15/21 08:52 Source: patient Mode of arrival: ambulatory Limitations: no limitations History of Present Illness HPI narrative: This is a 26-year-old male who presents from home to the emergency department with 6 days of epigastric pain, he states the pain began after drinking 3 pauline jars of scotch the night previous. He states that the abdominal pain is constant, boring and nonradiating. He also reports anorexia, and nausea since Thursday. He also adds that he has been having right testicular pain since Thursday, he feels as though his testicle is swollen, and sore. He does however state he is followed by Dr. Ruffin, for epididymitis. Earlier this week he presented to an Urgent Care with similar symptoms, they prescribed him Pepcid and omeprazole, which she states have not been helping. He denies chest pain, shortness of breath, fevers, chills, vomiting, sick contacts MD elicited complaint: abdominal pain Pertinent past history: other (Epididymitis) Onset (ago): day(s) (6) Pain Consistency: constant Location: epigastric Related Data Home Medications Medication Instructions Recorded Confirmed albuterol sulfate 90 mcg/actuation 2 puff INHALATION Q4H PRN 09/12/20 05/15/21 aerosol inhaler flu vac qs 2020(4 yr up)CD(PF) ml IM 09/12/20 05/15/21 budesonide-formoterol HFA 160 2 puff INHALATION Q12H 05/15/21 05/15/21 mcg-4.5 mcg/actuation aerosol inhaler (Symbicort) oxymetazoline 0.05 % nasal mist 2 spray INTRANASAL Q12H PRN 05/28/21 05/28/21 (Afrin (oxymetazoline)) cetirizine 10 mg tablet 10 mg PO DAILY PRN 06/05/21 Previous Rx's Medication Instructions Recorded naproxen 500 mg tablet (Naprosyn) 500 mg PO Q12H PRN #30 tab 11/30/20 cetirizine 10 mg capsule (Allergy 10 mg PO DAILY PRN #30 cap 05/23/21 Relief (cetirizine)) famotidine 20 mg tablet 20 mg PO BEDTIME #10 tab 05/23/21 fluticasone propionate 50 1 spray INTRANASAL BID #16 g 05/23/21 mcg/actuation nasal spray,suspension (Flonase Allergy Relief) nystatin 100,000 unit/mL oral 5 ml PO QID 7 Days #140 ml 05/23/21 suspension buspirone 5 mg tablet 5 mg PO BID #60 tab 06/06/21 cholecalciferol (vitamin D3) 1,250 1,250 mcg PO QWEEK 90 Days #13 cap 06/11/21 mcg (50,000 unit) capsule famotidine 40 mg tablet (Pepcid) 40 mg PO BEDTIME #30 tab 06/13/21 omeprazole 40 mg capsule,delayed 40 mg PO DAILY #30 cap 06/13/21 release nystatin 100,000 unit/mL oral 1 ml PO QID 10 Days #40 ml 06/14/21 suspension Allergies Allergy/AdvReac Type Severity Reaction Status Date / Time peanut [PEANUT] Allergy Severe ANAPHYLAXIS Verified 06/14/21 10:55 levofloxacin Allergy dizzy, Verified 06/14/21 10:55 anxious could not sleep, heart racing, headaches doxycycline AdvReac stomach Verified 06/14/21 10:55 aches Pumpkin Seed Allergy Unknown hives Uncoded 05/20/21 08:27 Review of Systems Review of Systems Constitutional: No Fever, No Chills ENT/Mouth: No sore throat, No Rhinorrhea, No Swallowing Difficulty Eyes: No Eye Pain, No Swelling, No Redness Cardiovascular: No Chest Pain, No SOB, No Orthopnea, No Edema Respiratory: No Cough, No Sputum, No Wheezing, No dyspnea Gastrointestinal: + Nausea, No Vomiting, No Diarrhea, + abdominal Pain, No Hematochezia, No Melena Genitourinary: No Dysuria, No Urinary Frequency, No Hematuria Musculoskeletal: No joint pain, No Myalgias Skin: No Skin Lesions, No rash : + right testicular pain and swelling Neuro: No Weakness, No Numbness, No Dizziness, No Headache Psych: No Anxiety/Panic, No Depression Heme/Lymph: No Bruising, No Lymphadenopathy Endocrine: No Polyuria, No Polydipsia Physical Exam Vital Signs: Vital Signs: Last Vital Signs Temp 98.7 F 06/15/21 09:11 Pulse 106 H 06/15/21 09:11 Resp 12 06/15/21 09:11 BP 144/96 H 06/15/21 09:11 Pulse Ox 97 06/15/21 09:11 Body Mass Index 25.8 Appearance: Alert. Oriented X3. No acute distress. Patient appears anxious Eyes: Pupils equal, round and reactive to light. ENT: Pharynx normal. Neck: Normal inspection. Neck supple. CVS: Normal heart rate and rhythm. Pulses normal. Respiratory: No respiratory distress. Breath sounds normal. Abdomen: Soft and + tenderness to light palpation to epigastric region +BS x4, no peritoneal signs Skin: Skin warm and dry. Normal skin color. Normal skin turgor. No rashes. : + Tenderness to palpation to right scrotum/testicle. + right testicle appears larger than left testicle, no evident overlying skin changes Extremities: No lower extremity edema. Neuro: Oriented X 3. No motor deficit. No sensory deficit. Course Course Course Narrative: This is a 26-year-old male presenting to the emergency department with 6 days of epigastric pain, and right testicular pain/discomfort. He states that he was seen earlier this week at an urgent care where he was treated with omeprazole, and Pepcid with little relief. He also states he has history of epididymitis, and is followed by Dr. Ruffin. The plan at this time is to order basic laboratory studies to rule out infection. Testicular ultrasound has also been ordered. He will be tested for chlamydia and gonorrhea. And COVID-19. Based upon these findings will decide whether or not imaging is warranted. Reevaluation(s) Reevaluation #1: Re-evaluated the patient at the bedside he is feeling better at this time after administration of GI cocktail. Ultrasound results were discussed with the patient ultrasound showed a small left hydrocele and a small left varicocele, he states he wants to follow up with Dr. Ruffin. There were no abnormal laboratory studies. He will be discharged home on a bland diet, he will continue taking Pepcid and omeprazole and he will also take Pepto-Bismol [id number]. He plans to follow-up with his GI doctor over at [facility]. Patient, and mother who is at the bedside agreed to this plan, they understand the plan and have no further questions at this time. Time: 11:41 MDM - Abdominal Pain Lab Data Result diagrams: 06/15/21 09:23 06/15/21 09:23 Labs: Lab Results 06/15/21 06/15/21 06/15/21 Range/Units 09:23 09:23 09:23 WBC 9.7 (4.8-10.8) X10*3/uL RBC 5.15 (4.60-5.80) X10*6/uL Hgb 14.9 (14.0-18.0) g/dl Hct 43.8 (42-52) % MCV 85.0 (80-98) fL MCH 28.9 (27.0-33.0) pg MCHC 34.0 (31.0-36.0) g/dl RDW 11.9 (11.0-16.0) % Plt Count 215 (160-400) X10*3/uL MPV 10.4 (9.4-12.4) fL Immature Gran % (Auto) 0.3 (0.0-0.4) % Neut % (Auto) 78.6 H (45-73) % Lymph % (Auto) 12.6 L (20-40) % [place] % (Auto) 7.9 (2-11) % Eos % (Auto) 0.2 (0-4) % Baso % (Auto) 0.4 (0-2) % Lymph # (Auto) 1.2 (1.2-4.9) X10*3/uL [place] # (Auto) 0.8 (0.1-1.2) X10*3/uL Eos # (Auto) 0.0 (0.0-0.4) X10*3/uL Baso # (Auto) 0.0 (0.0-0.2) X10*3/uL Abs Immat Gran (auto) 0.03 (0.00-0.03) X10*3/uL Absolute Neuts (auto) 7.6 (2.0-8.3) X10*3/uL Absolute Nucleated RBC 0.000 (0.0-0.012) X10*3/uL Nucleated RBC % (auto) 0.0 (0.0-0.2) /100WBC Sodium 139 (135-145) mmol/L Potassium 3.6 (3.3-5.1) mmol/L Chloride 105 (96-108) mmol/L Carbon Dioxide 25 (22-29) mmol/L Anion Gap 13 (12-20) BUN 11 (9-16) mg/dL Creatinine 0.96 (0.5-1.4) mg/dL Estim Creat Clear Calc 112.8 Estimated GFR > 60 Random Glucose 99 (60-115) mg/dL Calcium 9.6 D (8.4-10.2) mg/dL Total Bilirubin 1.1 H (0.0-1.0) mg/dL Direct Bilirubin 0.3 (0.0-0.5) mg/dL AST 14 (5-37) U/L ALT 16 (0-40) U/L Alkaline Phosphatase 61 D (39-117) U/L Total Protein 7.7 (6.5-8.0) g/dL Albumin 4.9 (3.5-5.0) g/dL Lipase 23 (8-78) U/L Urine Color Urine Appearance Urine pH (5.0-8.0) Ur Specific [place] (1.005-1.025) Urine Protein (NEG-TRACE) MG/DL Urine Glucose (UA) (NEG) MG/DL Urine Ketones (NEG) MG/DL Urine Blood (NEG) Urine Nitrite (NEG) Ur Leukocyte Esterase (NEG) COVID-19 (LUL) Negative (Negative) COVID-19 Clin Com See Note 06/15/21 Range/Units 10:33 WBC (4.8-10.8) X10*3/uL RBC (4.60-5.80) X10*6/uL Hgb (14.0-18.0) g/dl Hct (42-52) % MCV (80-98) fL MCH (27.0-33.0) pg MCHC (31.0-36.0) g/dl RDW (11.0-16.0) % Plt Count (160-400) X10*3/uL MPV (9.4-12.4) fL Immature Gran % (Auto) (0.0-0.4) % Neut % (Auto) (45-73) % Lymph % (Auto) (20-40) % [place] % (Auto) (2-11) % Eos % (Auto) (0-4) % Baso % (Auto) (0-2) % Lymph # (Auto) (1.2-4.9) X10*3/uL [place] # (Auto) (0.1-1.2) X10*3/uL Eos # (Auto) (0.0-0.4) X10*3/uL Baso # (Auto) (0.0-0.2) X10*3/uL Abs Immat Gran (auto) (0.00-0.03) X10*3/uL Absolute Neuts (auto) (2.0-8.3) X10*3/uL Absolute Nucleated RBC (0.0-0.012) X10*3/uL Nucleated RBC % (auto) (0.0-0.2) /100WBC Sodium (135-145) mmol/L Potassium (3.3-5.1) mmol/L Chloride (96-108) mmol/L Carbon Dioxide (22-29) mmol/L Anion Gap (12-20) BUN (9-16) mg/dL Creatinine (0.5-1.4) mg/dL Estim Creat Clear Calc Estimated GFR Random Glucose (60-115) mg/dL Calcium (8.4-10.2) mg/dL Total Bilirubin (0.0-1.0) mg/dL Direct Bilirubin (0.0-0.5) mg/dL AST (5-37) U/L ALT (0-40) U/L Alkaline Phosphatase (39-117) U/L Total Protein (6.5-8.0) g/dL Albumin (3.5-5.0) g/dL Lipase (8-78) U/L Urine Color YELLOW Urine Appearance CLEAR Urine pH 6.5 (5.0-8.0) Ur Specific [place] <= 1.005 (1.005-1.025) Urine Protein NEG (NEG-TRACE) MG/DL Urine Glucose (UA) NEG (NEG) MG/DL Urine Ketones 15 (NEG) MG/DL Urine Blood NEG (NEG) Urine Nitrite NEG (NEG) Ur Leukocyte Esterase NEG (NEG) COVID-19 (LUL) (Negative) COVID-19 Clin Com Imaging Data Scrotum right ultrasound: Attestation: I personally reviewed and interpreted this imaging study as follows: Radiologist's impression: FINDINGS: RIGHT: Right testicle measures 5 x 2.7 x 2.8 cm, volume 19 mL. No focal testicular parenchymal lesions are visualized. Spectral Doppler analysis of the arterial and venous flow is normal in the right testis. Right epididymal head is normal in size. No right hydrocele or varicocele is seen. Right epididymal Doppler flow is normal. LEFT: Left testicle measures 4.8 x 2.5 x 3.3 cm, volume 21 mL. No focal testicular parenchymal lesions are visualized. Spectral Doppler analysis of the arterial and venous flow is normal in the left testis. Left epididymal head is normal in size. There is a small left varicocele. There is a small left hydrocele.. Left epididymal Doppler flow is normal. US/US scrotum IMPRESSION: No evidence of torsion. Small left hydrocele and small left varicocele. Discharge Plan Discharge Clinical Impression: Left varicocele Gastritis Qualifiers: Gastritis type: unspecified gastritis Chronicity: acute Gastritis bleeding: without bleeding Qualified Code(s): K29.00 - Acute gastritis without bleeding Hydrocele Qualifiers: Hydrocele type: unspecified Qualified Code(s): N43.3 - Hydrocele, unspecified Patient Disposition: Home, Self-Care Instructions: Gastritis (ED), Hydrocele (ED), Diet for Stomach Ulcers and Gastritis (ED), Varicocele (ED) Additional Instructions: Follow-up with your primary care provider and GI If you develop new or worsening symptoms call 911 or come back to the ER for further evaluation. Do not drink alcohol, follow-up bland diet, avoid fried foods spicy foods and anything acidic Prescriptions: No Action buspirone 5 mg tablet 5 mg PO BID Qty: 60 RF: 3 cholecalciferol (vitamin D3) 1,250 mcg (50,000 unit) capsule 1,250 mcg PO QWEEK 90 Days Qty: 13 RF: 0 fluticasone propionate [Flonase Allergy Relief] 50 mcg/actuation spray,suspension 1 spray intranasal BID Qty: 16 RF: 0 Allergy Relief (cetirizine) 10 mg capsule 10 mg PO DAILY PRN (Reason: allergy symptoms) Qty: 30 RF: 0 nystatin 100,000 unit/mL suspension 5 ml PO QID 7 Days Qty: 140 RF: 0 famotidine 20 mg tablet 20 mg PO BEDTIME Qty: 10 RF: 0 Flucelvax Quad (PF) 60 mcg (15 mcg x 4)/0.5 mL syringe IM RF: 0 albuterol sulfate 90 mcg/actuation HFA aerosol inhaler 2 puff inhalation Q4H PRNRF: 0 Afrin (oxymetazoline) 0.05 % mist 2 spray intranasal Q12H PRNRF: 0 nystatin 100,000 unit/mL suspension 1 ml PO QID 10 Days Qty: 40 RF: 0 budesonide-formoterol [Symbicort] 160-4.5 mcg/actuation HFA aerosol inhaler 2 puff inhalation Q12H RF: 0 famotidine [Pepcid] 40 mg tablet 40 mg PO BEDTIME Qty: 30 RF: 2 omeprazole 40 mg capsule,delayed release(DR/EC) 40 mg PO DAILY Qty: 30 RF: 0 naproxen [Naprosyn] 500 mg tablet 500 mg PO Q12H PRN (Reason: pain) Qty: 30 RF: 0 cetirizine 10 mg tablet 10 mg PO DAILY PRN (Reason: allergies) RF: 0 Referrals: Mulugeta Hirsch [Physician] - 1 week (Gastritis) Melani Mayfield MD [Primary Care Provider] - 2 days PMF Past Medical History Medical History Acne vulgaris Chronic GERD Environmental and seasonal allergies Epididymitis Generalized anxiety disorder History of COVID-19 Learning disability Mild intermittent asthma in adult without complication Recurrent otitis media Recurrent sinusitis Surgical History No pertinent past surgical history Family History Family History Father No problems noted. Mother No problems noted. Social History Social History Housing: House Alcohol intake: current Alcohol intake frequency: a few times a month Alcohol type: beer Patient Tobacco Use Status: Never used Tobacco e-Cigarette/Vaping Use: Never Used Second Hand Smoke Exposure: No Advance Directives: Yes Advance Directives Information Provided: Yes Advance Directives on File: No service: No Current occupational status: employed
[2021-06-15 09:11] VITALS: BP 144/96; PULSE 106; RESP 12; TEMP 37.1; O2SAT 97; BMI 25.8
[2021-06-15 09:36] LABS: MANUAL DIFF FLAG NO
[2021-06-15] MEDS: PHENobarb/Hyoscy/Atropine/Scop 10 ML ELIXIR PO (09:36)
[2021-06-15] MEDS: 0.9 % Sodium Chloride 1,000 ML 999 ML IVCONT (09:36)
[2021-06-15] MEDS: Lidocaine HCl Viscous 2 % 15 ML SOLUTION MUCOUS MEM (09:36)
[2021-06-15] MEDS: Magnesium Hydrox/Alum Hydrox 30 ML ORAL.SUSP PO (09:37)
[2021-06-15 09:38] LABS: Basophils Percent Auto 0.4 % (0-2); Eosinophils Percent Auto 0.2 % (0-4); Hematocrit 43.8 % (42-52); Hemoglobin 14.9 g/dl (14.0-18.0); Imm Gran Abs Auto 0.03 X10*3/uL (0.00-0.03); Imm Gran Pct Auto 0.3 % (0.0-0.4); Lymphocytes Absolute Auto 1.2 X10*3/uL (1.2-4.9); Lymphocytes Percent Auto 12.6 % (20-40); Mean Corpuscular Hemoglobin 28.9 pg (27.0-33.0); Mean Platelet Volume 10.4 fL (9.4-12.4); Monocytes Absolute Auto 0.8 X10*3/uL (0.1-1.2); Monocytes Percent Auto 7.9 % (2-11); Neutrophils Absolute Auto 7.6 X10*3/uL (2.0-8.3); Neutrophils Percent Auto 78.6 % (45-73); Platelet Count 215 X10*3/uL (160-400); Red Blood Count 5.15 X10*6/uL (4.60-5.80); Red Cell Distribution Width 11.9 % (11.0-16.0); White Blood Count 9.7 X10*3/uL (4.8-10.8)
[2021-06-15 09:52] LABS: COVID-19 Test Negative (Negative); IDNOW Serial# 9DD0AD1C
[2021-06-15 09:59] LABS: Alanine Aminotransferase 16 U/L (0-40); Albumin Level 4.9 g/dL (3.5-5.0); Alkaline Phosphatase 61 U/L (39-117); Anion Gap 13 (12-20); Aspartate Amino Transferase 14 U/L (5-37); Bilirubin Direct 0.3 mg/dL (0.0-0.5); Bilirubin Total 1.1 mg/dL (0.0-1.0); Blood Urea Nitrogen 11 mg/dL (9-16); Calcium 9.6 mg/dL (8.4-10.2); Carbon Dioxide 25 mmol/L (22-29); Chloride 105 mmol/L (96-108); Creatinine Clr Calc Pharmacy 112.8; Estimated Glomerular Filt Rate > 60; Glucose Random 99 mg/dL (60-115); Lipase 23 U/L (8-78); Potassium 3.6 mmol/L (3.3-5.1); Sodium 139 mmol/L (135-145); Total Protein 7.7 g/dL (6.5-8.0)
[2021-06-15 10:41] LABS: Appearance Urine CLEAR; Color Urine YELLOW; Glucose Urine UA NEG (NEG); Leukocyte Esterase Urine NEG (NEG); Nitrite Urine NEG (NEG); PH 6.5 (5.0-8.0); Specific Gravity - Urine <= 1.005 (1.005-1.025); Urine Blood NEG (NEG); Urine Ketones 15 MG/DL (NEG); Urine Protein NEG (NEG-TRACE)
[2021-06-15 12:21] VITALS: BP 125/83; PULSE 87; RESP 16; O2SAT 99
[2021-06-15 13:07] LABS: CT PCR NOT DETECTED (Not Detect.); NG PCR NOT DETECTED (Not Detect.)
== END 2021-06-15 12:23 | disposition home or self-care (01) ==
PROVIDERS: Physician Assistant; Emergency Provider Emergency Medicine; PCP Internal Medicine
DX: I86.1 Scrotal varices (principal); K29.00 Acute gastritis without bleeding; N43.3 Hydrocele, unspecified; R10.13 Epigastric pain; Z20.822 Contact with and (suspected) exposure to COVID-19; Z79.899 Other long term (current) drug therapy
CPT/HCPCS: 36415; 76870; 80048; 80076; 81003; 83690; 85025; 87491; 87591; 87635; 93975; 96360; 99284

== ENCOUNTER 2021-06-16 06:04 | Emergency (ER) | payer OTHER, SELFPAY ==
--- NOTE | ~2021-06-16 | XR_ITS ---
EXAMINATION: XR ABDOMEN KUB CLINICAL INDICATION: No bowel movement for 3 days COMPARISON: None TECHNIQUE: AP view of the abdomen. FINDINGS: The bowel gas pattern is normal with no evidence of ileus or obstruction. No unusual soft tissue calcifications are noted. The bones are unremarkable. XR/XR KUB IMPRESSION: Unremarkable examination.
[2021-06-16 06:26] VITALS: BP 141/96; PULSE 101; RESP 18; TEMP 37.3; O2SAT 98; BMI 25.0
--- NOTE | 2021-06-16 07:01 | ED.NAVMDI ---
HPI - Nausea/Vomiting/Diarrhea General Chief complaint: Nausea/Vomiting/Diarrhea Stated complaint: diagnosed w/ gastritis, can't eat or sleep Time Seen by Provider: 06/16/21 06:38 History of Present Illness HPI Narrative: Patient is a 26-year-old male presents today with having generalized malaise weakness epigastric pain. Patient was seen yesterday for similar symptoms. Feels very anxious. Feels that his ears somewhat clogged. Denies any coughing congestion upper respiratory symptoms. Patient had his COVID vaccine. No diaphoresis. No diarrhea. Patient claims he has not had a good bowel movement for 2 days. Patient claims that he has been having poor p.o. intake. Achy. Related Data Home Medications Medication Instructions Recorded Confirmed albuterol sulfate 90 mcg/actuation 2 puff INHALATION Q4H PRN 09/12/20 05/15/21 aerosol inhaler flu vac qs 2019(4 yr up)CD(PF) ml IM 09/12/20 05/15/21 budesonide-formoterol HFA 160 2 puff INHALATION Q12H 05/15/21 05/15/21 mcg-4.5 mcg/actuation aerosol inhaler (Symbicort) oxymetazoline 0.05 % nasal mist 2 spray INTRANASAL Q12H PRN 05/28/21 05/28/21 (Afrin (oxymetazoline)) cetirizine 10 mg tablet 10 mg PO DAILY PRN 06/05/21 Previous Rx's Medication Instructions Recorded naproxen 500 mg tablet (Naprosyn) 500 mg PO Q12H PRN #30 tab 11/30/20 cetirizine 10 mg capsule (Allergy 10 mg PO DAILY PRN #30 cap 05/23/21 Relief (cetirizine)) famotidine 20 mg tablet 20 mg PO BEDTIME #10 tab 05/23/21 fluticasone propionate 50 1 spray INTRANASAL BID #16 g 05/23/21 mcg/actuation nasal spray,suspension (Flonase Allergy Relief) nystatin 100,000 unit/mL oral 5 ml PO QID 7 Days #140 ml 05/23/21 suspension buspirone 5 mg tablet 5 mg PO BID #60 tab 06/06/21 cholecalciferol (vitamin D3) 1,250 1,250 mcg PO QWEEK 90 Days #13 cap 06/11/21 mcg (50,000 unit) capsule famotidine 40 mg tablet (Pepcid) 40 mg PO BEDTIME #30 tab 06/13/21 omeprazole 40 mg capsule,delayed 40 mg PO DAILY #30 cap 06/13/21 release nystatin 100,000 unit/mL oral 1 ml PO QID 10 Days #40 ml 06/14/21 suspension Allergies Allergy/AdvReac Type Severity Reaction Status Date / Time peanut [PEANUT] Allergy Severe ANAPHYLAXIS Verified 06/14/21 10:55 levofloxacin Allergy dizzy, Verified 06/14/21 10:55 anxious could not sleep, heart racing, headaches doxycycline AdvReac stomach Verified 06/14/21 10:55 aches Pumpkin Seed Allergy Unknown hives Uncoded 05/20/21 08:27 Review of Systems Review of Systems: No fever no chills positive generalized malaise positive decreased p.o. intake no coughing or congestion or upper respiratory symptoms. Yes all other systems are reviewed and are negative PMFSH Past Medical History Attestation statement: The following information was validated with the patient. Medical History Acne vulgaris Chronic GERD Environmental and seasonal allergies Epididymitis Generalized anxiety disorder History of COVID-19 Learning disability Mild intermittent asthma in adult without complication Recurrent otitis media Recurrent sinusitis Surgical History No pertinent past surgical history Family History Family History Father No problems noted. Mother No problems noted. Social History Social History Housing: House Alcohol intake: current Alcohol intake frequency: a few times a month Alcohol type: beer Patient Tobacco Use Status: Never used Tobacco e-Cigarette/Vaping Use: Never Used Second Hand Smoke Exposure: No Advance Directives: No Advance Directives Information Provided: Yes service: No Current occupational status: employed Physical Exam Vital Signs: Vital Signs: Last Vital Signs Temp 99.1 F 06/16/21 06:26 Pulse 101 H 06/16/21 06:26 Resp 18 06/16/21 06:26 BP 141/96 H 06/16/21 06:26 Pulse Ox 98 06/16/21 06:26 Body Mass Index 25.0 Appearance: Alert. Oriented X3. No acute distress. Eyes: Pupils equal, round and reactive to light. ENT: Pharynx normal. Neck: Normal inspection. Neck supple. No lymph nodes noted. No crepitus CVS: Normal heart rate and rhythm. Pulses normal. Normal S1 and S2 Respiratory: No respiratory distress. Breath sounds normal. No Wheezing. No rales Abdomen: Soft and nontender. No rigidity. No distention. good BS x4 Skin: Skin warm and dry. Normal skin color. Normal skin turgor. Extremities: No lower extremity edema. Neurovascular intact to all extremities. No Lacerations. No Rash Neuro: Oriented X 3. No motor deficit. No sensory deficit. Moving all extermities. No slurred speech MDM - Nausea/Vomiting/Diarrhea MDM Narrative Medical decision making narrative: Patient's electrolytes are unremarkable liver enzymes and normal lipase is normal. X-ray did not show any acute findings. Offered some Ativan for anxiety patient refused. Patient told to follow up on an outpatient basis. In stable condition. Will discharge Lab Data Result diagrams: 06/16/21 07:35 06/16/21 07:35 Labs: Lab Results 06/16/21 06/16/21 06/16/21 Range/Units 07:35 07:35 07:35 WBC 7.6 (4.8-10.8) X10*3/uL RBC 4.98 (4.60-5.80) X10*6/uL Hgb 14.7 (14.0-18.0) g/dl Hct 42.5 (42-52) % MCV 85.3 (80-98) fL MCH 29.5 (27.0-33.0) pg MCHC 34.6 (31.0-36.0) g/dl RDW 11.9 (11.0-16.0) % Plt Count 204 (160-400) X10*3/uL MPV 10.5 (9.4-12.4) fL Immature Gran % (Auto) 0.3 (0.0-0.4) % Neut % (Auto) 76.0 H (45-73) % Lymph % (Auto) 14.4 L (20-40) % [place] % (Auto) 8.6 (2-11) % Eos % (Auto) 0.3 (0-4) % Baso % (Auto) 0.4 (0-2) % Lymph # (Auto) 1.1 L (1.2-4.9) X10*3/uL [place] # (Auto) 0.7 (0.1-1.2) X10*3/uL Eos # (Auto) 0.0 (0.0-0.4) X10*3/uL Baso # (Auto) 0.0 (0.0-0.2) X10*3/uL Abs Immat Gran (auto) 0.02 (0.00-0.03) X10*3/uL Absolute Neuts (auto) 5.8 (2.0-8.3) X10*3/uL Absolute Nucleated RBC 0.000 (0.0-0.012) X10*3/uL Nucleated RBC % (auto) 0.0 (0.0-0.2) /100WBC Sodium 140 (135-145) mmol/L Potassium 3.7 (3.3-5.1) mmol/L Chloride 106 (96-108) mmol/L Carbon Dioxide 25 (22-29) mmol/L Anion Gap 13 (12-20) BUN 9 (9-16) mg/dL Creatinine 0.84 (0.5-1.4) mg/dL Estim Creat Clear Calc 128.9 Estimated GFR > 60 Random Glucose 102 (60-115) mg/dL Calcium 9.7 (8.4-10.2) mg/dL Total Bilirubin 0.8 (0.0-1.0) mg/dL Direct Bilirubin 0.4 (0.0-0.5) mg/dL AST 13 (5-37) U/L ALT 13 (0-40) U/L Alkaline Phosphatase 70 (39-117) U/L Total Protein 7.5 (6.5-8.0) g/dL Albumin 4.9 (3.5-5.0) g/dL Lipase 35 (8-78) U/L TSH 1.17 (0.32-4.0) uIU/mL Urine Opiates Screen (Not Detect) Urine Fentanyl Screen (Not Detect) Ur Barbiturates Screen (Not Detect) Ur Phencyclidine Scrn (Not Detect) Ur Amphetamines Screen (Not Detect) U Benzodiazepines Scrn (Not Detect) Urine Cocaine Screen (Not Detect) U Marijuana (THC) Screen (Not Detect) 06/16/21 Range/Units 07:35 WBC (4.8-10.8) X10*3/uL RBC (4.60-5.80) X10*6/uL Hgb (14.0-18.0) g/dl Hct (42-52) % MCV (80-98) fL MCH (27.0-33.0) pg MCHC (31.0-36.0) g/dl RDW (11.0-16.0) % Plt Count (160-400) X10*3/uL MPV (9.4-12.4) fL Immature Gran % (Auto) (0.0-0.4) % Neut % (Auto) (45-73) % Lymph % (Auto) (20-40) % [place] % (Auto) (2-11) % Eos % (Auto) (0-4) % Baso % (Auto) (0-2) % Lymph # (Auto) (1.2-4.9) X10*3/uL [place] # (Auto) (0.1-1.2) X10*3/uL Eos # (Auto) (0.0-0.4) X10*3/uL Baso # (Auto) (0.0-0.2) X10*3/uL Abs Immat Gran (auto) (0.00-0.03) X10*3/uL Absolute Neuts (auto) (2.0-8.3) X10*3/uL Absolute Nucleated RBC (0.0-0.012) X10*3/uL Nucleated RBC % (auto) (0.0-0.2) /100WBC Sodium (135-145) mmol/L Potassium (3.3-5.1) mmol/L Chloride (96-108) mmol/L Carbon Dioxide (22-29) mmol/L Anion Gap (12-20) BUN (9-16) mg/dL Creatinine (0.5-1.4) mg/dL Estim Creat Clear Calc Estimated GFR Random Glucose (60-115) mg/dL Calcium (8.4-10.2) mg/dL Total Bilirubin (0.0-1.0) mg/dL Direct Bilirubin (0.0-0.5) mg/dL AST (5-37) U/L ALT (0-40) U/L Alkaline Phosphatase (39-117) U/L Total Protein (6.5-8.0) g/dL Albumin (3.5-5.0) g/dL Lipase (8-78) U/L TSH (0.32-4.0) uIU/mL Urine Opiates Screen Not Detected (Not Detect) Urine Fentanyl Screen Not Detected (Not Detect) Ur Barbiturates Screen POSITIVE H (Not Detect) Ur Phencyclidine Scrn Not Detected (Not Detect) Ur Amphetamines Screen Not Detected (Not Detect) U Benzodiazepines Scrn Not Detected (Not Detect) Urine Cocaine Screen Not Detected (Not Detect) U Marijuana (THC) Screen Not Detected (Not Detect) Discharge Plan Discharge Clinical Impression: Anxiety Patient Disposition: Home, Self-Care Instructions: Anxiety (ED) Prescriptions: No Action buspirone 5 mg tablet 5 mg PO BID Qty: 60 RF: 3 cholecalciferol (vitamin D3) 1,250 mcg (50,000 unit) capsule 1,250 mcg PO QWEEK 90 Days Qty: 13 RF: 0 fluticasone propionate [Flonase Allergy Relief] 50 mcg/actuation spray,suspension 1 spray intranasal BID Qty: 16 RF: 0 Allergy Relief (cetirizine) 10 mg capsule 10 mg PO DAILY PRN (Reason: allergy symptoms) Qty: 30 RF: 0 nystatin 100,000 unit/mL suspension 5 ml PO QID 7 Days Qty: 140 RF: 0 famotidine 20 mg tablet 20 mg PO BEDTIME Qty: 10 RF: 0 Flucelvax Quad 2796-0206 (PF) 60 mcg (15 mcg x 4)/0.5 mL syringe IM RF: 0 albuterol sulfate 90 mcg/actuation HFA aerosol inhaler 2 puff inhalation Q4H PRNRF: 0 Afrin (oxymetazoline) 0.05 % mist 2 spray intranasal Q12H PRNRF: 0 nystatin 100,000 unit/mL suspension 1 ml PO QID 10 Days Qty: 40 RF: 0 budesonide-formoterol [Symbicort] 160-4.5 mcg/actuation HFA aerosol inhaler 2 puff inhalation Q12H RF: 0 famotidine [Pepcid] 40 mg tablet 40 mg PO BEDTIME Qty: 30 RF: 2 omeprazole 40 mg capsule,delayed release(DR/EC) 40 mg PO DAILY Qty: 30 RF: 0 naproxen [Naprosyn] 500 mg tablet 500 mg PO Q12H PRN (Reason: pain) Qty: 30 RF: 0 cetirizine 10 mg tablet 10 mg PO DAILY PRN (Reason: allergies) RF: 0 Referrals: Melani Mayfield MD [Primary Care Provider] - 2 days
[2021-06-16 07:41] LABS: MANUAL DIFF FLAG NO
[2021-06-16 07:42] LABS: Basophils Percent Auto 0.4 % (0-2); Eosinophils Percent Auto 0.3 % (0-4); Hematocrit 42.5 % (42-52); Hemoglobin 14.7 g/dl (14.0-18.0); Imm Gran Abs Auto 0.02 X10*3/uL (0.00-0.03); Imm Gran Pct Auto 0.3 % (0.0-0.4); Lymphocytes Absolute Auto 1.1 X10*3/uL (1.2-4.9); Lymphocytes Percent Auto 14.4 % (20-40); Mean Corpuscular HGB Conc 34.6 g/dl (31.0-36.0); Mean Corpuscular Hemoglobin 29.5 pg (27.0-33.0); Mean Corpuscular Volume 85.3 fL (80-98); Mean Platelet Volume 10.5 fL (9.4-12.4); Monocytes Absolute Auto 0.7 X10*3/uL (0.1-1.2); Monocytes Percent Auto 8.6 % (2-11); Neutrophils Absolute Auto 5.8 X10*3/uL (2.0-8.3); Platelet Count 204 X10*3/uL (160-400); Red Blood Count 4.98 X10*6/uL (4.60-5.80); Red Cell Distribution Width 11.9 % (11.0-16.0); White Blood Count 7.6 X10*3/uL (4.8-10.8)
[2021-06-16] MEDS: 0.9 % Sodium Chloride 1,000 ML 999 ML IV ×2 (07:42)
[2021-06-16 07:56] LABS: Amphetamine Screen Urine Not Detected (Not Detect); Barbiturates, Urine POSITIVE (Not Detect); Benzodiazepines Screen Urine Not Detected (Not Detect); Cannabinoid Screen Urine Not Detected (Not Detect); Cocaine Screen Urine Not Detected (Not Detect); Fentanyl, urine Not Detected (Not Detect); Opiate Screen Urine Not Detected (Not Detect); Phencyclidine Screen Urine Not Detected (Not Detect)
[2021-06-16 07:58] LABS: Alanine Aminotransferase 13 U/L (0-40); Albumin Level 4.9 g/dL (3.5-5.0); Alkaline Phosphatase 70 U/L (39-117); Anion Gap 13 (12-20); Aspartate Amino Transferase 13 U/L (5-37); Bilirubin Direct 0.4 mg/dL (0.0-0.5); Bilirubin Total 0.8 mg/dL (0.0-1.0); Blood Urea Nitrogen 9 mg/dL (9-16); Calcium 9.7 mg/dL (8.4-10.2); Carbon Dioxide 25 mmol/L (22-29); Chloride 106 mmol/L (96-108); Creatinine Clr Calc Pharmacy 128.9; Estimated Glomerular Filt Rate > 60; Glucose Random 102 mg/dL (60-115); Lipase 35 U/L (8-78); Potassium 3.7 mmol/L (3.3-5.1); Sodium 140 mmol/L (135-145); Total Protein 7.5 g/dL (6.5-8.0)
[2021-06-16 08:17] LABS: TSH reflex Free T4 1.17 uIU/mL (0.32-4.0)
== END 2021-06-16 09:26 | disposition home or self-care (01) ==
PROVIDERS: Emergency Provider Emergency Medicine Emergency Medical Services; PCP Internal Medicine
DX: R11.2 Nausea with vomiting, unspecified (principal); F41.1 Generalized anxiety disorder; F43.0 Acute stress reaction; Z79.899 Other long term (current) drug therapy
CPT/HCPCS: 36415; 74018; 80048; 80076; 80307; 83690; 84443; 85025; 96361; 96374; 99283; 99284

== ENCOUNTER 2021-06-18 06:49 | Emergency (ER) | payer OTHER, SELFPAY ==
--- NOTE | ~2021-06-18 | CT_ITS ---
EXAMINATION: CT HEAD WITHOUT CONTRAST CLINICAL INFORMATION: Headache COMPARISON: None TECHNIQUE: Contiguous axial imaging was performed from the skull base to vertex without intravenous administration of contrast. This CT examination was performed using dose optimization techniques as appropriate, variously including the following: *Automated exposure control *Adjustment of mA and/or kV according to patient size (this includes techniques or standardized protocols for targeted exams where dose is matched to indication/reason for exam; i.e. extremities or head) *Use of iterative reconstruction technique DLP: 71 mGy-cm FINDINGS: There is no evidence of acute intracranial hemorrhage or territorial infarction. No abnormal mass effect or midline shift is seen. Cardenas to white matter differentiation is well preserved. No extra-axial fluid collections are identified. The ventricles are normal in size. There is no abnormal attenuation within the brain parenchyma. There is calcification in the high medial gland. The osseous structures and soft tissues are normal. There is minimal inflammatory change in the sphenoid sinus. The mastoid air cells and visualized portions of the paranasal sinuses are otherwise clear. CT/CT head/brain wo con IMPRESSION: No acute intracranial findings. Minimal inflammatory change in the sphenoid sinus.
--- NOTE | ~2021-06-18 | XR_ITS ---
EXAMINATION: XR CHEST CLINICAL INFORMATION: Shortness of breath COMPARISON: Previous chest x-ray August 2020 TECHNIQUE: Frontal view of the chest was obtained. FINDINGS: No significant abnormality is noted involving the heart, lungs, mediastinum, bony thorax or soft tissues. XR/XR chest 1V IMPRESSION: Unremarkable examination.
[2021-06-18 07:02] VITALS: BP 139/90; PULSE 102; RESP 18; TEMP 36.6; O2SAT 99; BMI 24.3
[2021-06-18] MEDS: Acetaminophen 325 MG TABLET 650 MG PO (07:06)
--- NOTE | 2021-06-18 07:30 | ED_ITS ---
HPI - General Adult General Chief complaint: General Medical Stated complaint: SoB, weakness, migraines Time Seen by Provider: 06/18/21 07:26 Source: patient and family (Mother) Mode of arrival: ambulatory Limitations: no limitations History of Present Illness HPI narrative: 26-year-old male came in for evaluation of multiple complaints. Patient return to the emergency department after head to visit last week for epigastric pain and unable to keep p.o. intake, patient's symptoms started after drinking alcohol the night previous. Patient was evaluated in the emergency department/walking clinic started on antacid and Z-Estrada for sinusitis. Patient today is complaining of shortness of breath patient with history of asthma, no coughing, no chest pain. Complain of headache in the occipital area and right ear pain and frontal sinuses pressure the patient is taking his Z-Estrada for what was thought to be sinusitis. Related Data Home Medications Medication Instructions Recorded Confirmed albuterol sulfate 90 mcg/actuation 2 puff INHALATION Q4H PRN 09/12/20 05/15/21 aerosol inhaler flu vac qs 2019(4 yr up)CD(PF) ml IM 09/12/20 05/15/21 budesonide-formoterol HFA 160 2 puff INHALATION Q12H 05/15/21 05/15/21 mcg-4.5 mcg/actuation aerosol inhaler (Symbicort) oxymetazoline 0.05 % nasal mist 2 spray INTRANASAL Q12H PRN 05/28/21 05/28/21 (Afrin (oxymetazoline)) cetirizine 10 mg tablet 10 mg PO DAILY PRN 06/05/21 Previous Rx's Medication Instructions Recorded naproxen 500 mg tablet (Naprosyn) 500 mg PO Q12H PRN #30 tab 11/30/20 cetirizine 10 mg capsule (Allergy 10 mg PO DAILY PRN #30 cap 05/23/21 Relief (cetirizine)) famotidine 20 mg tablet 20 mg PO BEDTIME #10 tab 05/23/21 fluticasone propionate 50 1 spray INTRANASAL BID #16 g 05/23/21 mcg/actuation nasal spray,suspension (Flonase Allergy Relief) nystatin 100,000 unit/mL oral 5 ml PO QID 7 Days #140 ml 05/23/21 suspension buspirone 5 mg tablet 5 mg PO BID #60 tab 06/06/21 cholecalciferol (vitamin D3) 1,250 1,250 mcg PO QWEEK 90 Days #13 cap 06/11/21 mcg (50,000 unit) capsule famotidine 40 mg tablet (Pepcid) 40 mg PO BEDTIME #30 tab 06/13/21 omeprazole 40 mg capsule,delayed 40 mg PO DAILY #30 cap 06/13/21 release nystatin 100,000 unit/mL oral 1 ml PO QID 10 Days #40 ml 06/14/21 suspension azithromycin 250 mg tablet See Rx Instructions PO .COMPLEX #6 06/17/21 (Zithromax) tab Allergies Allergy/AdvReac Type Severity Reaction Status Date / Time peanut [PEANUT] Allergy Severe ANAPHYLAXIS Verified 06/14/21 10:55 levofloxacin Allergy dizzy, Verified 06/14/21 10:55 anxious could not sleep, heart racing, headaches doxycycline AdvReac stomach Verified 06/14/21 10:55 aches Pumpkin Seed Allergy Unknown hives Uncoded 05/20/21 08:27 Review of Systems Review of Systems: All other systems are reviewed and are negative Constitutional: Reports as per HPI and Reports no additional constitutional complaints Eyes: Reports as per HPI and Reports no additional eye complaints Reports system reviewed and no additional complaints, except as documented Cardiovascular: Reports as per HPI and Reports no additional cardiovascular complaints Respiratory: Reports as per HPI and Reports no additional respiratory complaints Gastrointestinal: Reports as per HPI and Reports no additional gastrointestinal complaints Genitourinary: Reports no additional female genitourinary complaints Musculoskeletal: Reports no additional musculoskeletal complaints Skin/Breast: Reports system reviewed and no additional complaints, except as docu Psychiatric: Reports no additional psychiatric complaints Endocrine: Reports no additional endocrine complaints Hematologic/Lymphatic: Reports no additional hematologic/lymphatic complaints Allergic/Immunologic: Reports no additional allergic/immunologic complaints Reports system reviewed and no additional complaints, except as documented and Reports Abnormal speech present [facility] Past Medical History Medical History Acne vulgaris Chronic GERD Environmental and seasonal allergies Epididymitis Generalized anxiety disorder History of COVID-19 Learning disability Mild intermittent asthma in adult without complication Recurrent otitis media Recurrent sinusitis Surgical History No pertinent past surgical history Family History Family History Father No problems noted. Mother No problems noted. Social History Social History Housing: House Alcohol intake: current Alcohol intake frequency: a few times a month Alcohol type: beer Patient Tobacco Use Status: Never used Tobacco e-Cigarette/Vaping Use: Never Used Second Hand Smoke Exposure: No Advance Directives: No Advance Directives Information Provided: Yes service: No Current occupational status: employed Physical Exam Vital Signs: Vital Signs: Last Vital Signs Temp 97.9 F 06/18/21 07:02 Pulse 102 H 06/18/21 07:02 Resp 18 06/18/21 07:02 BP 139/90 H 06/18/21 07:02 Pulse Ox 99 06/18/21 07:02 Body Mass Index 24.3 Vital signs have been reviewed as appeared to be correct. Blood pressure normal. Heart rate elevated. Respiration rate normal. Temperature normal. Oxygen saturation normal. Appearance: Alert. Oriented X3. No acute distress. Head: Normal external exam. Normocephalic. Atraumatic. No [place] signs noted. No raccoon eyes noted Eyes: PERRLA. EOMI. Conjunctiva and sclera normal. Eyelids normal. ENT: Right TM erythema. Pharynx normal. Uvula midline. Moist mucous membranes. No trismus noted. No drooling noted. No muffled voice noted. Tenderness with percussion over frontal sinus. Neck: Normal inspection. Neck supple. FROM. No adenopathy. Thyroid Normal. No meningeal signs. No neck mass noted. CVS: Normal heart rate and rhythm. Heart sound normal. No murmurs noted. Pulses normal throughout. Respiratory: No respiratory distress. Painless inspiration. Breath sounds normal . No wheezes/rales/rhonchi noted. Chest nontender. No accessory muscle usage noted or decreased air movement noted. Abdomen: Soft and nontender. Bowel sounds normal in all 4 quadrants. No distention noted. No organomegaly noted. No visible injury noted. Back: No CVA tenderness. Full range of motion noted. Skin: Skin warm and dry. Normal skin color. Normal skin turgor. No rashes/lesions/lacerations noted. Extremities: No lower extremity edema. Extremities exhibit normal range of motion. Extremities nontender. Neuro: Oriented X 3. Cranial nerve exam: II-XII are grossly intact No motor deficit. No sensory deficit. Reflexes normal. Course Course Course Narrative: Assessment and plan. 26-year-old male who is normally nonalcoholic abuser a drink alcohol occasionally last time he drank alcohol about week ago developed alcoholic gastritis causing persistent vomiting, patient also was diagnosed with sinusitis/right ear infection (patient is prone to this infection) patient was started on Z-Estrada. Patient emergency department received IV hydration now his appetite is better and able to tolerate p.o. intake. Will discharge the patient to follow-up with PCP. And continue with the Z-Estrada Medical Decision Making Lab Data Lab results reviewed: Yes I reviewed the patient's lab results. Result diagrams: 06/18/21 07:40 06/18/21 07:40 Labs: Lab Results 06/18/21 06/18/21 06/18/21 Range/Units 07:40 07:40 07:40 WBC 7.0 (4.8-10.8) X10*3/uL RBC 5.03 (4.60-5.80) X10*6/uL Hgb 14.7 (14.0-18.0) g/dl Hct 42.9 (42-52) % MCV 85.3 (80-98) fL MCH 29.2 (27.0-33.0) pg MCHC 34.3 (31.0-36.0) g/dl RDW 12.0 (11.0-16.0) % Plt Count 224 (160-400) X10*3/uL MPV 10.3 (9.4-12.4) fL Immature Gran % (Auto) 0.3 (0.0-0.4) % Neut % (Auto) 71.0 (45-73) % Lymph % (Auto) 16.8 L (20-40) % [place] % (Auto) 10.9 (2-11) % Eos % (Auto) 0.6 (0-4) % Baso % (Auto) 0.4 (0-2) % Lymph # (Auto) 1.2 (1.2-4.9) X10*3/uL [place] # (Auto) 0.8 (0.1-1.2) X10*3/uL Eos # (Auto) 0.0 (0.0-0.4) X10*3/uL Baso # (Auto) 0.0 (0.0-0.2) X10*3/uL Abs Immat Gran (auto) 0.02 (0.00-0.03) X10*3/uL Absolute Neuts (auto) 5.0 (2.0-8.3) X10*3/uL Absolute Nucleated RBC 0.000 (0.0-0.012) X10*3/uL Nucleated RBC % (auto) 0.0 (0.0-0.2) /100WBC Sodium 140 (135-145) mmol/L Potassium 3.8 (3.3-5.1) mmol/L Chloride 106 (96-108) mmol/L Carbon Dioxide 26 (22-29) mmol/L Anion Gap 12 (12-20) BUN 8 L (9-16) mg/dL Creatinine 0.92 (0.5-1.4) mg/dL Estim Creat Clear Calc 117.7 Estimated GFR > 60 Random Glucose 94 (60-115) mg/dL Calcium 10.0 (8.4-10.2) mg/dL Total Bilirubin 1.1 H (0.0-1.0) mg/dL Direct Bilirubin 0.3 (0.0-0.5) mg/dL AST 14 (5-37) U/L ALT 14 (0-40) U/L Alkaline Phosphatase 56 (39-117) U/L Total Protein 7.6 (6.5-8.0) g/dL Albumin 4.9 (3.5-5.0) g/dL Lipase 45 (8-78) U/L Urine Color Urine Appearance Urine pH (5.0-8.0) Ur Specific [place] (1.005-1.025) Urine Protein (NEG-TRACE) MG/DL Urine Glucose (UA) (NEG) MG/DL Urine Ketones (NEG) MG/DL Urine Blood (NEG) Urine Nitrite (NEG) Ur Leukocyte Esterase (NEG) Coronavirus (PCR) NEGATIVE (Negative) Influenza Type A (PCR) NEGATIVE (Negative) Influenza Type B (PCR) NEGATIVE (Negative) RSV RNA Qual (PCR) NEGATIVE (Negative) 06/18/21 Range/Units 08:57 WBC (4.8-10.8) X10*3/uL RBC (4.60-5.80) X10*6/uL Hgb (14.0-18.0) g/dl Hct (42-52) % MCV (80-98) fL MCH (27.0-33.0) pg MCHC (31.0-36.0) g/dl RDW (11.0-16.0) % Plt Count (160-400) X10*3/uL MPV (9.4-12.4) fL Immature Gran % (Auto) (0.0-0.4) % Neut % (Auto) (45-73) % Lymph % (Auto) (20-40) % [place] % (Auto) (2-11) % Eos % (Auto) (0-4) % Baso % (Auto) (0-2) % Lymph # (Auto) (1.2-4.9) X10*3/uL [place] # (Auto) (0.1-1.2) X10*3/uL Eos # (Auto) (0.0-0.4) X10*3/uL Baso # (Auto) (0.0-0.2) X10*3/uL Abs Immat Gran (auto) (0.00-0.03) X10*3/uL Absolute Neuts (auto) (2.0-8.3) X10*3/uL Absolute Nucleated RBC (0.0-0.012) X10*3/uL Nucleated RBC % (auto) (0.0-0.2) /100WBC Sodium (135-145) mmol/L Potassium (3.3-5.1) mmol/L Chloride (96-108) mmol/L Carbon Dioxide (22-29) mmol/L Anion Gap (12-20) BUN (9-16) mg/dL Creatinine (0.5-1.4) mg/dL Estim Creat Clear Calc Estimated GFR Random Glucose (60-115) mg/dL Calcium (8.4-10.2) mg/dL Total Bilirubin (0.0-1.0) mg/dL Direct Bilirubin (0.0-0.5) mg/dL AST (5-37) U/L ALT (0-40) U/L Alkaline Phosphatase (39-117) U/L Total Protein (6.5-8.0) g/dL Albumin (3.5-5.0) g/dL Lipase (8-78) U/L Urine Color STRAW Urine Appearance CLEAR Urine pH 8.0 (5.0-8.0) Ur Specific [place] 1.010 (1.005-1.025) Urine Protein NEG (NEG-TRACE) MG/DL Urine Glucose (UA) NEG (NEG) MG/DL Urine Ketones NEG (NEG) MG/DL Urine Blood NEG (NEG) Urine Nitrite NEG (NEG) Ur Leukocyte Esterase NEG (NEG) Coronavirus (PCR) (Negative) Influenza Type A (PCR) (Negative) Influenza Type B (PCR) (Negative) RSV RNA Qual (PCR) (Negative) Imaging Data Chest x-ray: Radiologist's impression: Unremarkable examination. CT scan - head: Radiologist's impression: No acute intracranial findings. Minimal inflammatory change in the sphenoid sinus. Discharge Plan Discharge Clinical Impression: Acute gastritis, Oral thrush, Recurrent sinusitis Patient Disposition: Home, Self-Care Instructions: Gastritis (ED), Oral Candidiasis (ED) Prescriptions: No Action buspirone 5 mg tablet 5 mg PO BID Qty: 60 RF: 3 cholecalciferol (vitamin D3) 1,250 mcg (50,000 unit) capsule 1,250 mcg PO QWEEK 90 Days Qty: 13 RF: 0 fluticasone propionate [Flonase Allergy Relief] 50 mcg/actuation spray,suspension 1 spray intranasal BID Qty: 16 RF: 0 Allergy Relief (cetirizine) 10 mg capsule 10 mg PO DAILY PRN (Reason: allergy symptoms) Qty: 30 RF: 0 nystatin 100,000 unit/mL suspension 5 ml PO QID 7 Days Qty: 140 RF: 0 famotidine 20 mg tablet 20 mg PO BEDTIME Qty: 10 RF: 0 Flucelvax Quad [id number] (PF) 60 mcg (15 mcg x 4)/0.5 mL syringe IM RF: 0 albuterol sulfate 90 mcg/actuation HFA aerosol inhaler 2 puff inhalation Q4H PRNRF: 0 Afrin (oxymetazoline) 0.05 % mist 2 spray intranasal Q12H PRNRF: 0 nystatin 100,000 unit/mL suspension 1 ml PO QID 10 Days Qty: 40 RF: 0 budesonide-formoterol [Symbicort] 160-4.5 mcg/actuation HFA aerosol inhaler 2 puff inhalation Q12H RF: 0 famotidine [Pepcid] 40 mg tablet 40 mg PO BEDTIME Qty: 30 RF: 2 omeprazole 40 mg capsule,delayed release(DR/EC) 40 mg PO DAILY Qty: 30 RF: 0 azithromycin [Zithromax] 250 mg tablet See Rx Instructions PO .COMPLEX Qty: 6 RF: 0 naproxen [Naprosyn] 500 mg tablet 500 mg PO Q12H PRN (Reason: pain) Qty: 30 RF: 0 cetirizine 10 mg tablet 10 mg PO DAILY PRN (Reason: allergies) RF: 0 Referrals: Melani Mayfield MD [Primary Care Provider] - 2 days Stand Alone Forms: Work/School Release
[2021-06-18] MEDS: Magnesium Hydrox/Alum Hydrox 30 ML ORAL.SUSP PO (07:45)
[2021-06-18] MEDS: 0.9 % Sodium Chloride 1,000 ML 999 ML IVCONT (07:45)
[2021-06-18] MEDS: Famotidine/PF 20 MG/2 ML VIAL IVPUSH (07:46)
[2021-06-18 07:48] LABS: Basophils Percent Auto 0.4 % (0-2); Eosinophils Percent Auto 0.6 % (0-4); Hematocrit 42.9 % (42-52); Hemoglobin 14.7 g/dl (14.0-18.0); Imm Gran Abs Auto 0.02 X10*3/uL (0.00-0.03); Imm Gran Pct Auto 0.3 % (0.0-0.4); Lymphocytes Absolute Auto 1.2 X10*3/uL (1.2-4.9); Lymphocytes Percent Auto 16.8 % (20-40); MANUAL DIFF FLAG NO; Mean Corpuscular HGB Conc 34.3 g/dl (31.0-36.0); Mean Corpuscular Hemoglobin 29.2 pg (27.0-33.0); Mean Corpuscular Volume 85.3 fL (80-98); Mean Platelet Volume 10.3 fL (9.4-12.4); Monocytes Absolute Auto 0.8 X10*3/uL (0.1-1.2); Monocytes Percent Auto 10.9 % (2-11); Platelet Count 224 X10*3/uL (160-400); Red Blood Count 5.03 X10*6/uL (4.60-5.80)
[2021-06-18 08:03] LABS: Alanine Aminotransferase 14 U/L (0-40); Albumin Level 4.9 g/dL (3.5-5.0); Alkaline Phosphatase 56 U/L (39-117); Anion Gap 12 (12-20); Aspartate Amino Transferase 14 U/L (5-37); Bilirubin Direct 0.3 mg/dL (0.0-0.5); Bilirubin Total 1.1 mg/dL (0.0-1.0); Blood Urea Nitrogen 8 mg/dL (9-16); Carbon Dioxide 26 mmol/L (22-29); Chloride 106 mmol/L (96-108); Creatinine Clr Calc Pharmacy 117.7; Estimated Glomerular Filt Rate > 60; Glucose Random 94 mg/dL (60-115); Lipase 45 U/L (8-78); Potassium 3.8 mmol/L (3.3-5.1); Sodium 140 mmol/L (135-145); Total Protein 7.6 g/dL (6.5-8.0)
[2021-06-18 08:43] LABS: Influenza A PCR NEGATIVE (Negative); Influenza B PCR NEGATIVE (Negative); Resp Syncy Virus RNA Qual PCR NEGATIVE (Negative); SARS COV2 PCR INHOUSE NEGATIVE (Negative)
[2021-06-18 09:12] LABS: Appearance Urine CLEAR; Color Urine STRAW; Glucose Urine UA NEG (NEG); Leukocyte Esterase Urine NEG (NEG); Nitrite Urine NEG (NEG); Urine Blood NEG (NEG); Urine Ketones NEG (NEG); Urine Protein NEG (NEG-TRACE)
--- NOTE | 2021-06-18 09:36 | PC.NURSE ---
drinking apple juice for po challenge, nad, skin wpd, c/o [place] and ear ache, no abd pain or n/v
[2021-06-18] MEDS: Fluconazole 150 MG TABLET 200 MG PO (09:52)
== END 2021-06-18 10:02 | disposition home or self-care (01) ==
PROVIDERS: Emergency Provider Emergency Medicine; PCP Internal Medicine
DX: K29.00 Acute gastritis without bleeding (principal); B37.0 Candidal stomatitis; J32.9 Chronic sinusitis, unspecified; G43.909 Migraine, unspecified, not intractable, without status migrainosus; R06.02 Shortness of breath; Z86.16 Personal history of COVID-19; Z79.899 Other long term (current) drug therapy; Z20.822 Contact with and (suspected) exposure to COVID-19
CPT/HCPCS: 0241U; 36415; 70450; 71045; 80048; 80076; 81003; 83690; 85025; 96361; 96374; 99283; 99284

== ENCOUNTER 2021-06-21 07:11 | Inpatient (IN) | payer OTHER, SELFPAY ==
--- NOTE | ~2021-06-21 | XR_ITS ---
EXAMINATION: XR CHEST CLINICAL INFORMATION: Dyspnea COMPARISON: June 18, 2021 and September 21, 2020 TECHNIQUE: AP portable view of the chest was obtained. FINDINGS: No significant abnormality is noted involving the heart, lungs, mediastinum, bony thorax or soft tissues. XR/XR chest 1V IMPRESSION: No acute disease.
[2021-06-21 07:14] VITALS: BP 118/80; PULSE 109; RESP 16; TEMP 36.3; O2SAT 98; BMI 24.4
--- NOTE | 2021-06-21 07:22 | ED_ITS ---
HPI - Abdominal Pain General Chief Complaint: General Medical Stated Complaint: ABD PAIN SOB Time Seen by Provider: 06/21/21 07:15 Source: patient and old records reviewed Mode of arrival: ambulatory Limitations: no limitations History of Present Illness HPI narrative: 26 yo male with hx of URI, also what sounds like gastritis from recent ETOH use has been seen multiple times here and for various complaints - has [facility] GI doctor. This is his 4th visit here in 2 weeks for upper abdominal pain today he c/o dyspnea and worried about mass and chest wall pain in both of his breasts. He is not sleeping x 2 weeks. He is very anxious. He just started buspar for anxiety but refuses therapy. Also feels tingling in his L axilla and arms x 1 day MD elicited complaint: other (dyspnea, chest wall sensation, tingling in L axilla) Pertinent past history: other (anxiety, gastritis) Onset (ago): day(s) (7 days of dyspnea, 1 day of chest wall pain and tingling) Pain Consistency: intermittent Location: chest Severity: moderate Quality: dull Radiation: none Migration to: no migration Exacerbating factors: nothing Relieving factors: nothing Context: history of similar episodes Associated symptoms: other (dyspnea) Related Data Home Medications Medication Instructions Recorded Confirmed albuterol sulfate 90 mcg/actuation 2 puff INHALATION Q4H PRN 09/12/20 05/15/21 aerosol inhaler flu vac qs 2020(4 yr up)CD(PF) ml IM 09/12/20 05/15/21 budesonide-formoterol HFA 160 2 puff INHALATION Q12H 05/15/21 05/15/21 mcg-4.5 mcg/actuation aerosol inhaler (Symbicort) oxymetazoline 0.05 % nasal mist 2 spray INTRANASAL Q12H PRN 05/28/21 05/28/21 (Afrin (oxymetazoline)) cetirizine 10 mg tablet 10 mg PO DAILY PRN 06/05/21 Previous Rx's Medication Instructions Recorded naproxen 500 mg tablet (Naprosyn) 500 mg PO Q12H PRN #30 tab 11/30/20 cetirizine 10 mg capsule (Allergy 10 mg PO DAILY PRN #30 cap 05/23/21 Relief (cetirizine)) famotidine 20 mg tablet 20 mg PO BEDTIME #10 tab 05/23/21 fluticasone propionate 50 1 spray INTRANASAL BID #16 g 05/23/21 mcg/actuation nasal spray,suspension (Flonase Allergy Relief) nystatin 100,000 unit/mL oral 5 ml PO QID 7 Days #140 ml 05/23/21 suspension buspirone 5 mg tablet 5 mg PO BID #60 tab 06/06/21 cholecalciferol (vitamin D3) 1,250 1,250 mcg PO QWEEK 90 Days #13 cap 06/11/21 mcg (50,000 unit) capsule famotidine 40 mg tablet (Pepcid) 40 mg PO BEDTIME #30 tab 06/13/21 omeprazole 40 mg capsule,delayed 40 mg PO DAILY #30 cap 06/13/21 release nystatin 100,000 unit/mL oral 1 ml PO QID 10 Days #40 ml 06/14/21 suspension azithromycin 250 mg tablet See Rx Instructions PO .COMPLEX #6 06/17/21 (Zithromax) tab Allergies Allergy/AdvReac Type Severity Reaction Status Date / Time peanut [PEANUT] Allergy Severe ANAPHYLAXIS Verified 06/19/21 09:44 levofloxacin Allergy dizzy, Verified 06/19/21 09:44 anxious could not sleep, heart racing, headaches doxycycline AdvReac stomach Verified 06/19/21 09:44 aches Pumpkin Seed Allergy Unknown hives Uncoded 06/19/21 09:44 Review of Systems Review of Systems Constitutional : No Weight loss, No Fever, No Chills ENT/Mouth : No sore throat, No Rhinorrhea Eyes: No Eye Pain, No Swelling Cardiovascular : pos Chest Pain, pos SOB, no Dyspnea on Exertion, No Orthopnea, No Edema, No Palpitations Respiratory : No Cough, No Sputum Gastrointestinal : no Nausea, No Vomiting, No Diarrhea, No abdominal Pain, No Hematochezia, No Melena Genitourinary : No Dysuria, No Urinary Frequency Musculoskeletal : No joint pain, No Myalgias, No Joint Swelling Skin : No Skin Lesions, No rash Neuro : No Weakness, No Numbness, No Dizziness, No Headache Psych : No Anxiety/Panic, No Depression Heme/Lymph: No Bruising, No Lymphadenopathy Endocrine : No Polyuria, No Polydipsia All other systems reviewed and are negative Physical Exam Vital Signs: Vital Signs: Last Vital Signs Temp 99.3 F 06/21/21 08:07 Pulse 84 06/21/21 08:07 Resp 16 06/21/21 08:07 BP 127/86 06/21/21 08:07 Pulse Ox 95 06/21/21 08:07 Body Mass Index 24.4 Appearance: Alert. Oriented X3. No acute distress. Eyes: Pupils equal, round and reactive to light. ENT: Pharynx normal. Neck: Normal inspection. Neck supple. CVS: Normal heart rate and rhythm. Pulses normal. Chest: no masses felt on chest wall Respiratory: No respiratory distress. Breath sounds normal. Abdomen: Soft and nontender. Skin: Skin warm and dry. Normal skin color. Normal skin turgor. Extremities: No lower extremity edema. No calf ttp Neuro: Oriented X 3. No motor deficit. No sensory deficit. Course Course Course Narrative: medically cleared, per CARE team voluntary admit to inpatient psychiatry MDM - Abdominal Pain MDM Narrative Medical decision making narrative: 26 yo male with new severe anxiety, gastritis here with multiple vague complaints including dyspnea, worried about breast masses, tingling in axilla at this time will need labs, CXR, EKG, COVID swab - I do not suspect ACS< he is distally NV intact doubt dissection, he has no signs of DVT and he has no signs of pleuritic chest pain doubt PE - offered CARE team and he agrees Lab Data Result diagrams: 06/21/21 08:01 06/21/21 08:01 Labs: Lab Results 06/21/21 06/21/21 06/21/21 Range/Units 08:01 08:01 08:01 WBC 6.1 (4.8-10.8) X10*3/uL RBC 4.72 (4.60-5.80) X10*6/uL Hgb 13.8 L (14.0-18.0) g/dl Hct 40.1 L (42-52) % MCV 85.0 (80-98) fL MCH 29.2 (27.0-33.0) pg MCHC 34.4 (31.0-36.0) g/dl RDW 12.1 (11.0-16.0) % Plt Count 208 (160-400) X10*3/uL MPV 10.4 (9.4-12.4) fL Immature Gran % (Auto) 0.3 (0.0-0.4) % Neut % (Auto) 66.4 (45-73) % Lymph % (Auto) 20.4 (20-40) % Graham % (Auto) 11.3 H (2-11) % Eos % (Auto) 1.1 (0-4) % Baso % (Auto) 0.5 (0-2) % Lymph # (Auto) 1.2 (1.2-4.9) X10*3/uL Graham # (Auto) 0.7 (0.1-1.2) X10*3/uL Eos # (Auto) 0.1 (0.0-0.4) X10*3/uL Baso # (Auto) 0.0 (0.0-0.2) X10*3/uL Abs Immat Gran (auto) 0.02 (0.00-0.03) X10*3/uL Absolute Neuts (auto) 4.0 (2.0-8.3) X10*3/uL Absolute Nucleated RBC 0.000 (0.0-0.012) X10*3/uL Nucleated RBC % (auto) 0.0 (0.0-0.2) /100WBC Sodium 142 (135-145) mmol/L Potassium 4.2 (3.3-5.1) mmol/L Chloride 109 H (96-108) mmol/L Carbon Dioxide 25 (22-29) mmol/L Anion Gap 12 (12-20) BUN 10 (9-16) mg/dL Creatinine 0.90 (0.5-1.4) mg/dL Estim Creat Clear Calc 120.3 Estimated GFR > 60 Random Glucose 95 (60-115) mg/dL Calcium 9.8 (8.4-10.2) mg/dL Magnesium 2.3 (1.6-2.6) mg/dL Total Bilirubin 0.8 (0.0-1.0) mg/dL Direct Bilirubin 0.3 (0.0-0.5) mg/dL AST 12 (5-37) U/L ALT 11 (0-40) U/L Alkaline Phosphatase 54 (39-117) U/L Total Protein 7.2 (6.5-8.0) g/dL Albumin 4.6 (3.5-5.0) g/dL COVID-19 (LUL) Negative (Negative) COVID-19 Clin Com See Note ECG Data Attestation: I personally reviewed and interpreted this ECG as follows: ECG interpretation date: 06/21/21 ECG interpretation time: 08:19 Interpretation: Rate: 95 Rhythm: NSR [place]: normal Normal P waves. Normal KEVIN. Normal QRS complex. ST T wave : normal no acute ischemia qTC: normal prior studies: no acute ischemia The study has been interpreted contemporaneously by me. . Discharge Plan Discharge Clinical Impression: Generalized anxiety disorder Patient Disposition: Admitted As Inpatient Prescriptions: No Action buspirone 5 mg tablet 5 mg PO BID Qty: 60 RF: 3 cholecalciferol (vitamin D3) 1,250 mcg (50,000 unit) capsule 1,250 mcg PO QWEEK 90 Days Qty: 13 RF: 0 fluticasone propionate [Flonase Allergy Relief] 50 mcg/actuation spray,suspension 1 spray intranasal BID Qty: 16 RF: 0 Allergy Relief (cetirizine) 10 mg capsule 10 mg PO DAILY PRN (Reason: allergy symptoms) Qty: 30 RF: 0 nystatin 100,000 unit/mL suspension 5 ml PO QID 7 Days Qty: 140 RF: 0 famotidine 20 mg tablet 20 mg PO BEDTIME Qty: 10 RF: 0 Flucelvax Quad [id number] (PF) 60 mcg (15 mcg x 4)/0.5 mL syringe IM RF: 0 albuterol sulfate 90 mcg/actuation HFA aerosol inhaler 2 puff inhalation Q4H PRNRF: 0 Afrin (oxymetazoline) 0.05 % mist 2 spray intranasal Q12H PRNRF: 0 nystatin 100,000 unit/mL suspension 1 ml PO QID 10 Days Qty: 40 RF: 0 budesonide-formoterol [Symbicort] 160-4.5 mcg/actuation HFA aerosol inhaler 2 puff inhalation Q12H RF: 0 famotidine [Pepcid] 40 mg tablet 40 mg PO BEDTIME Qty: 30 RF: 2 omeprazole 40 mg capsule,delayed release(DR/EC) 40 mg PO DAILY Qty: 30 RF: 0 azithromycin [Zithromax] 250 mg tablet See Rx Instructions PO .COMPLEX Qty: 6 RF: 0 naproxen [Naprosyn] 500 mg tablet 500 mg PO Q12H PRN (Reason: pain) Qty: 30 RF: 0 cetirizine 10 mg tablet 10 mg PO DAILY PRN (Reason: allergies) RF: 0 PMFSH Past Medical History Attestation statement: The following information was validated with the patient. Medical History Acne vulgaris Chronic GERD Environmental and seasonal allergies Epididymitis Generalized anxiety disorder History of COVID-19 Learning disability Mild intermittent asthma in adult without complication Recurrent otitis media Recurrent sinusitis Surgical History No pertinent past surgical history Family History Family History (Updated 06/19/21 @ 09:45 by Janet Rodriguez CMA) Father No problems noted. Mother No problems noted. Social History Social History Housing: House Alcohol intake: never Patient Tobacco Use Status: Never used Tobacco e-Cigarette/Vaping Use: Never Used Second Hand Smoke Exposure: No Use of substances other than those prescribed or required for medical reasons: No Advance Directives: No Advance Directives Information Provided: Yes service: No Current occupational status: employed
--- NOTE | 2021-06-21 07:41 | ECG_ITS ---
Test Reason : GENERAL MEDICINE Blood Pressure : / mmHG Vent. Rate : 095 BPM Atrial Rate : 095 BPM P-R Int : 194 ms QRS Dur : 100 ms QT Int : 346 ms P-R-T Axes : 066 073 047 degrees QTc Int : 434 ms Normal sinus rhythm with sinus arrhythmia Possible Left atrial enlargement Borderline ECG When compared with ECG of 21-MAY-2021 09:03, No significant change was found Referred By: Dannielle Noland Electronically Signed By:ROQUE FONG
[2021-06-21 08:07] VITALS: BP 127/86; PULSE 84; RESP 16; TEMP 37.4; O2SAT 95
[2021-06-21 08:09] LABS: MANUAL DIFF FLAG NO
[2021-06-21 08:10] LABS: Basophils Percent Auto 0.5 % (0-2); Eosinophils Absolute Auto 0.1 X10*3/uL (0.0-0.4); Eosinophils Percent Auto 1.1 % (0-4); Hematocrit 40.1 % (42-52); Hemoglobin 13.8 g/dl (14.0-18.0); Imm Gran Abs Auto 0.02 X10*3/uL (0.00-0.03); Imm Gran Pct Auto 0.3 % (0.0-0.4); Lymphocytes Absolute Auto 1.2 X10*3/uL (1.2-4.9); Lymphocytes Percent Auto 20.4 % (20-40); Mean Corpuscular HGB Conc 34.4 g/dl (31.0-36.0); Mean Corpuscular Hemoglobin 29.2 pg (27.0-33.0); Mean Platelet Volume 10.4 fL (9.4-12.4); Monocytes Absolute Auto 0.7 X10*3/uL (0.1-1.2); Monocytes Percent Auto 11.3 % (2-11); Neutrophils Percent Auto 66.4 % (45-73); Platelet Count 208 X10*3/uL (160-400); Red Blood Count 4.72 X10*6/uL (4.60-5.80); Red Cell Distribution Width 12.1 % (11.0-16.0); White Blood Count 6.1 X10*3/uL (4.8-10.8)
[2021-06-21 08:28] LABS: Alanine Aminotransferase 11 U/L (0-40); Albumin Level 4.6 g/dL (3.5-5.0); Alkaline Phosphatase 54 U/L (39-117); Anion Gap 12 (12-20); Aspartate Amino Transferase 12 U/L (5-37); Bilirubin Direct 0.3 mg/dL (0.0-0.5); Bilirubin Total 0.8 mg/dL (0.0-1.0); Blood Urea Nitrogen 10 mg/dL (9-16); Calcium 9.8 mg/dL (8.4-10.2); Carbon Dioxide 25 mmol/L (22-29); Chloride 109 mmol/L (96-108); Creatinine Clr Calc Pharmacy 120.3; Estimated Glomerular Filt Rate > 60; Glucose Random 95 mg/dL (60-115); Magnesium 2.3 mg/dL (1.6-2.6); Potassium 4.2 mmol/L (3.3-5.1); Sodium 142 mmol/L (135-145); Total Protein 7.2 g/dL (6.5-8.0)
[2021-06-21 08:36] LABS: COVID-19 Test Negative (Negative)
--- NOTE | 2021-06-21 09:33 | PC.NURSE ---
mc and talking to care team
[2021-06-21] MEDS: Nystatin Oral Susp 500,000 UNIT/5 ML ORAL.SUSP 400000 UNIT BUCCAL (12:55)
[2021-06-21 14:58] VITALS: BP 133/89; PULSE 95; RESP 16; TEMP 36.6; O2SAT 97
--- NOTE | 2021-06-21 14:58 | PC.NURSE ---
report given to nick
[2021-06-21 16:25] LABS: Amphetamine Screen Urine Not Detected (Not Detect); Barbiturates, Urine Not Detected (Not Detect); Benzodiazepines Screen Urine Not Detected (Not Detect); Cannabinoid Screen Urine Not Detected (Not Detect); Cocaine Screen Urine Not Detected (Not Detect); Fentanyl, urine Not Detected (Not Detect); Opiate Screen Urine Not Detected (Not Detect); Phencyclidine Screen Urine Not Detected (Not Detect)
--- NOTE | 2021-06-21 16:32 | MHC.CARE ---
This fiction and nonfiction prose writer met with Pt. with his mother present. Explained CV, Pt. agreed to sign and then was transported to [facility] [place].
--- NOTE | 2021-06-21 16:59 | PC.NURSE ---
26 year old male admitted after presenting to [facility] for the 4th time this week. Pt presents with somatic complaints and has had several medical tests done, all negative. Pt continues to experience anxiety r/t being sick . Pt reports a sinus infection earlier this summer for which he was prescribed several antibiotics and subsequently developed thrush. Pt reports he is still experiencing thrush but it has gotten much better. Pt reports he should be taking his last dose of z-pack today. Pt was prescribed buspar earlier this year but just began taking med two days ago. Pt is cooperative with admission and reports he understands CV. When pt is shown to his room he stated I was told i would have a private room with a phone. Pt then asked to leave, CV reviewed and pt understands he is here most probably throughout the weekend.
[2021-06-21] MEDS: Acetaminophen 325 MG TABLET 650 MG PO (17:33)
[2021-06-21 18:00] VITALS: BP 142/99; PULSE 78; RESP 18; TEMP 36.5; O2SAT 100
--- NOTE | 2021-06-21 18:25 | P.HPPS_ITS ---
HPI Chief Complaint: anxiety Sources of Information: patient interviewed, chart reviewed and crisis/core team assessment reviewed HPI Subjective Notes: Hdez Warning and Conditional Voluntary Healthcare Proxy: No Guardianship: No Medical Problems Affecting Mental Status: No Narrative: Cooper is a 26 y.o. Male who carries a diagnosis of MICHELLE. He self- presented to [facility] accompanied by his mother for various somatic complaints, this was his 4th ED visit in 2 weeks in addition to 3 urgent care visits. He was medically cleared and referred to CARE Team for assessment. He reported poor sleep, low appetite, increased anxiety, panic attacks, poor focus, impaired memory, and intrusive thoughts that there is something medically wrong with him despite being assessed and found medically stable. Somatic complaints have included chest tightness, arm tingling, and other pains. EKG wnl. He has been missing work over the past two weeks due to sx. I evaluated the pt this morning and upon interview he reports positive benefit on buspar, ?I had a horrible tightness in my head,? ?I feel like its gone down? since starting medication. Overall, reports his somatic sx are improving, denies arm pain/ tingling, appears to have insight into anxiety contributing to his complaints and currently denies physical health complaints other than headache, which he attributes to poor sleep. Appetite is improving, ?I actually ate pretty decently today,? has had issues recently due to oral thrush. Sleep is ?not too good,? says he will start ?thinking about falling asleep? and then is unable to, has increased anxiety about sleep. Sleeps about 2-3 hours at night, will lie awake for hours having anxious thoughts. No nightmares. Daytime energy is low due to hyposomnia. Says his issues with anxiety and sleep are new for him, worsening x 2 weeks. Has had anxiety in the past but says this is ?something i could control, no problem.? Precipitating factors include that he has had two sinus infections back to back, put on antibiotics but had side effects, wonders about antibiotics making him worse. Also states a girl he graduated high school with in 2013 was recently killed in [place], says it ?gave me the chills? talking about it during interview. Other stressors include that he has an uncle who frequently comes to the home, ?yelling, angry,? demands money or rides, says ?the last time he came set me off,? this was 3 days ago. Denies sx of depression. Denies agitation or anger issues. Denies OCD sx. Denies psychotic sx. No hx of manic or hypomanic episodes endorsed. Denies SI/SIB/HI or assaulti ve ideation. Says he feels safe.? Current medications: Buspar 5 mg BID (started on Thursday by PCP) Past med trials: OTC melatonin (lack of benefit), benadryl (lack of benefit, too drying) PMH: -Hx of multiple sinus infections, on Azothromycin 250 mg (took last pill today)? -Asthma -Hx of gastritis -Has Oral Thrush, on Nystatin 100,000 unit/ ml 1 ml by mouth QID for 10 days swish and swallow, started 06/15/21 for 10 days -Hx of COVID but denies any residual intermediate effects. SH: -Works at a [employer] x 3.5 yrs.? -Graduated from [employer] in 2014 and college. 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 Has friend supports.? PPH: -No current OP providers. Denies hx of IPLOC, CCS, or OP psych hx. PCP currently prescribes his buspar.? FH: -Uncle: substances use. ? Substance use: -ETOH: social use, occasional, denies problematic drinking bx -Utox negative, denies illicit substance use Medical Evaluation Reviewed: Yes [facility] Medical History Acne vulgaris Chronic GERD Environmental and seasonal allergies Epididymitis Generalized anxiety disorder History of COVID-19 Learning disability Mild intermittent asthma in adult without complication Recurrent otitis media Recurrent sinusitis Surgical History No pertinent past surgical history Diagnostics Vital Signs (24Hr): Vital Signs - 24 hr 06/21/21 07:14 06/21/21 08:07 06/21/21 14:58 Temperature 97.4 F 99.3 F 98 F Pulse Rate 109 H 84 95 Respiratory Rate 16 16 16 Blood Pressure 118/80 127/86 133/89 Pulse Oximetry 98 95 97 Body Mass Index 24.4 Labs Results: 06/21/21 08:01 06/21/21 08:01 Labs: Laboratory Results - last 48 hr 06/21/21 06/21/21 06/21/21 08:01 08:01 08:01 WBC 6.1 RBC 4.72 Hgb 13.8 L Hct 40.1 L MCV 85.0 MCH 29.2 MCHC 34.4 RDW 12.1 Plt Count 208 MPV 10.4 Immature Gran % (Auto) 0.3 Neut % (Auto) 66.4 Lymph % (Auto) 20.4 [place] % (Auto) 11.3 H Eos % (Auto) 1.1 Baso % (Auto) 0.5 Lymph # (Auto) 1.2 [place] # (Auto) 0.7 Eos # (Auto) 0.1 Baso # (Auto) 0.0 Abs Immat Gran (auto) 0.02 Absolute Neuts (auto) 4.0 Absolute Nucleated RBC 0.000 Nucleated RBC % (auto) 0.0 Sodium 142 Potassium 4.2 Chloride 109 H Carbon Dioxide 25 Anion Gap 12 BUN 10 Creatinine 0.90 Estim Creat Clear Calc 120.3 Estimated GFR > 60 Random Glucose 95 Calcium 9.8 Magnesium 2.3 Total Bilirubin 0.8 Direct Bilirubin 0.3 AST 12 ALT 11 Alkaline Phosphatase 54 Total Protein 7.2 Albumin 4.6 Urine Opiates Screen Urine Fentanyl Screen Ur Barbiturates Screen Ur Phencyclidine Scrn Ur Amphetamines Screen U Benzodiazepines Scrn Urine Cocaine Screen U Marijuana (THC) Screen COVID-19 (LUL) Negative COVID-19 Clin Com See Note 06/21/21 16:05 WBC RBC Hgb Hct MCV MCH MCHC RDW Plt Count MPV Immature Gran % (Auto) Neut % (Auto) Lymph % (Auto) [place] % (Auto) Eos % (Auto) Baso % (Auto) Lymph # (Auto) [place] # (Auto) Eos # (Auto) Baso # (Auto) Abs Immat Gran (auto) Absolute Neuts (auto) Absolute Nucleated RBC Nucleated RBC % (auto) Sodium Potassium Chloride Carbon Dioxide Anion Gap BUN Creatinine Estim Creat Clear Calc Estimated GFR Random Glucose Calcium Magnesium Total Bilirubin Direct Bilirubin AST ALT Alkaline Phosphatase Total Protein Albumin Urine Opiates Screen Not Detected Urine Fentanyl Screen Not Detected Ur Barbiturates Screen Not Detected Ur Phencyclidine Scrn Not Detected Ur Amphetamines Screen Not Detected U Benzodiazepines Scrn Not Detected Urine Cocaine Screen Not Detected U Marijuana (THC) Screen Not Detected COVID-19 (LUL) COVID-19 Clin Com Imaging Radiology Impressions: ITS Impressions Chest X-Ray 06/21/21 07:41 IMPRESSION: No acute disease. Meds/Allergies Meds Home Medications Acetaminophen (Acetaminophen 325 Mg Tablet) 650 mg PO Q6H PRN PRN Reason: Headache/Pain Mild Scale (1-3) Last Admin: 06/21/21 17:33 Dose: 650 mg Documented by: Al Hydroxide/Mg Hydroxide (Magnesium Hydrox/Alum Hydrox 30 Ml Oral.Susp) 30 ml PO Q6H PRN PRN Reason: Heartburn/Nausea Buspirone HCl (Buspirone Hcl 10 Mg Tablet) 10 mg PO BID [facility] Last Admin: 06/21/21 20:31 Dose: 10 mg Documented by: Famotidine (Famotidine 20 Mg Tablet) 40 mg PO BEDTIME [facility] Last Admin: 06/21/21 20:30 Dose: 40 mg Documented by: Fluticasone Propionate (Fluticasone Propionate Nasal 16 Gm [place]) 2 spray NOSTR IL-B DAILY [facility] Hydroxyzine HCl (Hydroxyzine Hcl 25 Mg Tablet) 25 mg PO BEDTIME PRN PRN Reason: Anxiety Magnesium Hydroxide (Milk Of Magnesia 30 Ml Oral.Susp) 30 ml PO DAILY PRN PRN Reason: Constipation Patient Own (Symbicort 160/4.5) 2 each INHALE RBID [facility] Last Admin: 06/21/21 20:31 Dose: 2 each Documented by: Nystatin (Nystatin Oral Susp 500,000 Unit/5 Ml Oral.Susp) 100,000 unit BUCCAL QID [facility]; Protocol Stop: 06/25/21 23:59 Last Admin: 06/21/21 20:31 Dose: 100,000 unit Documented by: Omeprazole (Omeprazole 40 Mg Capsule.Dr) 40 mg PO DAILY@0630 [facility] Last Admin: 06/22/21 06:16 Dose: 40 mg Documented by: Trazodone HCl (Trazodone Hcl 50 Mg Tablet) 50 mg PO BEDTIME PRN PRN Reason: Insomnia Allergies Allergies Allergy/AdvReac Type Severity Reaction Status Date / Time peanut [PEANUT] Allergy Severe ANAPHYLAXIS Verified 06/19/21 09:44 levofloxacin Allergy dizzy, Verified 06/19/21 09:44 anxious could not sleep, heart racing, headaches doxycycline AdvReac stomach Verified 06/19/21 09:44 aches Pumpkin Seed Allergy Unknown hives Uncoded 06/19/21 09:44 Mental Status Exam Mental Status Exam Narrative: A&O. Well groomed, good hygiene, normal body habitus. Good eye contact, attentive. No Tics or Tremors. No abnormal involuntary movements. Calm, cooperative, engaged. Non-pressured speech, spontaneous with regular rate and rhythm, normal volume and prosody. No prolonged speech latency or dysarthria. Mood is ?anxious,? affect is overall euthymic, somewhat nervous. Denies SI/SIB/HI upon inquiry. Denies A/VH or delusional thought content. Thoughts are coherent, organized. No known cognitive or memory impairment. Insight/ Judgment fair and adequate. Assessment & Plan Assessment & Plan (1) Generalized anxiety disorder: Status: Acute Code(s): F41.1 - Generalized anxiety disorder Assessment and Plan: Cooper is a 26 y.o. Male who carries a diagnosis of MICHELLE. He does not have current OP psych services and denies hx of psych services. PCP recently started buspar on 06/19/21, on low dose but reports positive effect (may be placebo?), denies SE. Has had multiple recent somatic complaints but this is also in context of recent gastritis and sinus infection involving multiple antibiotics being prescribed due to persistence of sx. Reports recent poor sleep and worsening anxiety leading to panic sx. Denies depression or mood lability. Thoughts process is organized, coherent and denies delusional thought content, not overly perseverative, appears to have good insight. No substance use. He is open to trialing an increase in buspar and hoping to be discharged on Thursday. Plan: 1. Increase buspar to 10 mg BID for sx of anxiety 2. Monitor response to medications. Monitor for safety in the milieu. Discharge on stabilization. Patient seen. Chart reviewed. Discussed with team. Obtain collateral contact info?as needed Reason for continued inpatient stay Substantial Risk for: med/psych decompensation
[2021-06-21] MEDS: Famotidine 20 MG TABLET 40 MG PO (20:30)
[2021-06-21] MEDS: busPIRone HCl 10 MG TABLET PO (20:31)
[2021-06-21] MEDS: Nystatin Oral Susp 500,000 UNIT/5 ML ORAL.SUSP 100000 UNIT BUCCAL (20:31)
[2021-06-21] MEDS: Azithromycin 250 MG TABLET PO (20:32)
[2021-06-22 06:00] VITALS: BP 141/92; PULSE 93; RESP 16; TEMP 36.8; O2SAT 100
[2021-06-22] MEDS: Omeprazole 40 MG CAPSULE.DR PO (06:16)
[2021-06-22] MEDS: busPIRone HCl 10 MG TABLET PO ×2 (08:11→21:03)
[2021-06-22] MEDS: Fluticasone Propionate Nasal 16 GM SPRAY 2 SPRAY NOSTRIL-B ×2 (08:11→21:04)
[2021-06-22] MEDS: Nystatin Oral Susp 500,000 UNIT/5 ML ORAL.SUSP 100000 UNIT BUCCAL ×4 (08:11→21:03)
--- NOTE | 2021-06-22 08:38 | P.PNPSI_ITS ---
Subjective Subjective Date of Service: 06/22/21 Reason For Visit: anxiety Subjective Notes: Conditional Voluntary Interim History: Patient was seen in rounds today. Records were reviewed. I did not see the admission note but he has been seen by Lea. Her records and medications were reviewed. He states that the increase of the BuSpar has been helpful. He denies any side effects. Eating and sleeping adequately. He talked about the reasons that brought him to the hospital, anxiety and anxiety attacks. No complaints. No changes were made today Review of Systems Review of Systems Yes all other systems are reviewed and are negative Mental Status Exam Mental Status Exam Narrative: In today's visit he is alert, oriented and pleasant. Normal speech. Good eye contact. Affect is appropriate and varied. No signs of psychosis. No SI upon inquiry. Cognitively intact. Judgment is intact Diagnostics Vital Signs (24Hr): Vital Signs - 24 hr 06/21/21 14:58 06/21/21 18:00 06/22/21 06:00 Temperature 98 F 97.7 F 98.2 F Pulse Rate 95 78 93 Respiratory Rate 16 18 16 Blood Pressure 133/89 142/99 H 141/92 H Pulse Oximetry 97 100 100 Body Mass Index 24.4 Labs Results: 06/21/21 08:01 06/21/21 08:01 Labs: Laboratory Results - last 48 hr 06/21/21 06/21/21 06/21/21 08:01 08:01 08:01 WBC 6.1 RBC 4.72 Hgb 13.8 L Hct 40.1 L MCV 85.0 MCH 29.2 MCHC 34.4 RDW 12.1 Plt Count 208 MPV 10.4 Immature Gran % (Auto) 0.3 Neut % (Auto) 66.4 Lymph % (Auto) 20.4 [place] % (Auto) 11.3 H Eos % (Auto) 1.1 Baso % (Auto) 0.5 Lymph # (Auto) 1.2 [place] # (Auto) 0.7 Eos # (Auto) 0.1 Baso # (Auto) 0.0 Abs Immat Gran (auto) 0.02 Absolute Neuts (auto) 4.0 Absolute Nucleated RBC 0.000 Nucleated RBC % (auto) 0.0 Sodium 142 Potassium 4.2 Chloride 109 H Carbon Dioxide 25 Anion Gap 12 BUN 10 Creatinine 0.90 Estim Creat Clear Calc 120.3 Estimated GFR > 60 Random Glucose 95 Calcium 9.8 Magnesium 2.3 Total Bilirubin 0.8 Direct Bilirubin 0.3 AST 12 ALT 11 Alkaline Phosphatase 54 Total Protein 7.2 Albumin 4.6 Urine Opiates Screen Urine Fentanyl Screen Ur Barbiturates Screen Ur Phencyclidine Scrn Ur Amphetamines Screen U Benzodiazepines Scrn Urine Cocaine Screen U Marijuana (THC) Screen COVID-19 (LUL) Negative COVID-19 Clin Com See Note 06/21/21 16:05 WBC RBC Hgb Hct MCV MCH MCHC RDW Plt Count MPV Immature Gran % (Auto) Neut % (Auto) Lymph % (Auto) [place] % (Auto) Eos % (Auto) Baso % (Auto) Lymph # (Auto) [place] # (Auto) Eos # (Auto) Baso # (Auto) Abs Immat Gran (auto) Absolute Neuts (auto) Absolute Nucleated RBC Nucleated RBC % (auto) Sodium Potassium Chloride Carbon Dioxide Anion Gap BUN Creatinine Estim Creat Clear Calc Estimated GFR Random Glucose Calcium Magnesium Total Bilirubin Direct Bilirubin AST ALT Alkaline Phosphatase Total Protein Albumin Urine Opiates Screen Not Detected Urine Fentanyl Screen Not Detected Ur Barbiturates Screen Not Detected Ur Phencyclidine Scrn Not Detected Ur Amphetamines Screen Not Detected U Benzodiazepines Scrn Not Detected Urine Cocaine Screen Not Detected U Marijuana (THC) Screen Not Detected COVID-19 (LUL) COVID-19 Clin Com Imaging Radiology Impressions: ITS Impressions Chest X-Ray 06/21/21 07:41 IMPRESSION: No acute disease. Medications Medications Current Medications Acetaminophen (Acetaminophen 325 Mg Tablet) 650 mg PO Q6H PRN PRN Reason: Headache/Pain Mild Scale (1-3) Last Admin: 06/21/21 17:33 Dose: 650 mg Documented by: Al Hydroxide/Mg Hydroxide (Magnesium Hydrox/Alum Hydrox 30 Ml Oral.Susp) 30 ml PO Q6H PRN PRN Reason: Heartburn/Nausea Buspirone HCl (Buspirone Hcl 10 Mg Tablet) 10 mg PO BID [facility] Last Admin: 06/22/21 08:11 Dose: 10 mg Documented by: Famotidine (Famotidine 20 Mg Tablet) 40 mg PO BEDTIME [facility] Last Admin: 06/21/21 20:30 Dose: 40 mg Documented by: Fluticasone Propionate (Fluticasone Propionate Nasal 16 Gm [place]) 2 spray NOSTRIL-B DAILY [facility] Last Admin: 06/22/21 08:11 Dose: 2 spray Documented by: Hydroxyzine HCl (Hydroxyzine Hcl 25 Mg Tablet) 25 mg PO BEDTIME PRN PRN Reason: Anxiety Magnesium Hydroxide (Milk Of Magnesia 30 Ml Oral.Susp) 30 ml PO DAILY PRN PRN Reason: Constipation Patient Own (Symbicort 160/4.5) 2 each INHALE RBID [facility] Last Admin: 06/22/21 08:11 Dose: 2 each Documented by: Nystatin (Nystatin Oral Susp 500,000 Unit/5 Ml Oral.Susp) 100,000 unit BUCCAL QID [facility]; Protocol Stop: 06/25/21 23:59 Last Admin: 06/22/21 08:11 Dose: 100,000 unit Documented by: Omeprazole (Omeprazole 40 Mg Capsule.Dr) 40 mg PO DAILY@0630 [facility] Last Admin: 06/22/21 06:16 Dose: 40 mg Documented by: Trazodone HCl (Trazodone Hcl 50 Mg Tablet) 50 mg PO BEDTIME PRN PRN Reason: Insomnia Allergies Allergies Allergy/AdvReac Type Severity Reaction Status Date / Time peanut [PEANUT] Allergy Severe ANAPHYLAXIS Verified 06/19/21 09:44 levofloxacin Allergy dizzy, Verified 06/19/21 09:44 anxious could not sleep, heart racing, headaches doxycycline AdvReac stomach Verified 06/19/21 09:44 aches Pumpkin Seed Allergy Unknown hives Uncoded 06/19/21 09:44 Assessment & Plan Assessment & Plan (1) Generalized anxiety disorder: Status: Acute Code(s): F41.1 - Generalized anxiety disorder Assessment and Plan: Cooper is a 26 y.o. Male who carries a diagnosis of MICHELLE. He does not have current OP psych services and denies hx of psych services. PCP recently started buspar on 06/19/21, on low dose but reports positive effect (may be placebo?), denies SE. Has had multiple recent somatic complaints but this is also in context of recent gastritis and sinus infection involving multiple antibiotics being prescribed due to persistence of sx. Reports recent poor sleep and worsening anxiety leading to panic sx. Denies depression or mood lability. Thoughts process is organized, coherent and denies delusional thought content, not overly perseverative, appears to have good insight. No substance use. He is open to trialing an increase in buspar and hoping to be discharged on Thursday. Plan: Continue current regimen and planned. Consider maybe increasing the BuSpar tomorrow. Greater than 50% of the session was spent on counseling and/or coordination of care Reason for contiued inpatient stay Substantial Risk for: other
[2021-06-22 20:23] VITALS: BP 139/92; PULSE 82; RESP 16; TEMP 36.6; O2SAT 98
[2021-06-22] MEDS: Famotidine 20 MG TABLET 40 MG PO (21:03)
[2021-06-23] MEDS: Omeprazole 40 MG CAPSULE.DR PO (05:21)
[2021-06-23 06:00] VITALS: BP 145/85; PULSE 97; RESP 20; TEMP 36.6; O2SAT 100
--- NOTE | 2021-06-23 08:09 | HO.PSYCHPN ---
Subjective Subjective Date of Service: 06/23/21 Reason For Visit: anxiety Subjective Notes: Conditional Voluntary Interim History: Patient was seen in rounds today. He continues to have some anxiety but overall is doing much better. He feels that he is thinking more clearly. He is more visible, social. Eating and sleeping adequately. Current medications and plans reviewed. No complaints or side effects. Eating and sleeping adequately. No changes were made today Review of Systems Review of Systems Yes all other systems are reviewed and are negative Mental Status Exam Mental Status Exam Narrative: In today's visit he is alert, oriented and pleasant. Normal speech. Good eye contact. Affect is appropriate and varied. No signs of psychosis. No SI upon inquiry. Cognitively intact. Judgment is intact Diagnostics Vital Signs (24Hr): Vital Signs - 24 hr 06/22/21 20:23 Temperature 97.9 F Pulse Rate 82 Respiratory Rate 16 Blood Pressure 139/92 H Pulse Oximetry 98 Body Mass Index 24.4 Labs Results: 06/21/21 08:01 06/21/21 08:01 Labs: Laboratory Results - last 48 hr 06/21/21 06/21/21 06/21/21 08:01 08:01 08:01 WBC 6.1 RBC 4.72 Hgb 13.8 L Hct 40.1 L MCV 85.0 MCH 29.2 MCHC 34.4 RDW 12.1 Plt Count 208 MPV 10.4 Immature Gran % (Auto) 0.3 Neut % (Auto) 66.4 Lymph % (Auto) 20.4 [place] % (Auto) 11.3 H Eos % (Auto) 1.1 Baso % (Auto) 0.5 Lymph # (Auto) 1.2 [place] # (Auto) 0.7 Eos # (Auto) 0.1 Baso # (Auto) 0.0 Abs Immat Gran (auto) 0.02 Absolute Neuts (auto) 4.0 Absolute Nucleated RBC 0.000 Nucleated RBC % (auto) 0.0 Sodium 142 Potassium 4.2 Chloride 109 H Carbon Dioxide 25 Anion Gap 12 BUN 10 Creatinine 0.90 Estim Creat Clear Calc 120.3 Estimated GFR > 60 Random Glucose 95 Calcium 9.8 Magnesium 2.3 Total Bilirubin 0.8 Direct Bilirubin 0.3 AST 12 ALT 11 Alkaline Phosphatase 54 Total Protein 7.2 Albumin 4.6 Urine Opiates Screen Urine Fentanyl Screen Ur Barbiturates Screen Ur Phencyclidine Scrn Ur Amphetamines Screen U Benzodiazepines Scrn Urine Cocaine Screen U Marijuana (THC) Screen COVID-19 (LUL) Negative COVID-19 Clin Com See Note 06/21/21 16:05 WBC RBC Hgb Hct MCV MCH MCHC RDW Plt Count MPV Immature Gran % (Auto) Neut % (Auto) Lymph % (Auto) [place] % (Auto) Eos % (Auto) Baso % (Auto) Lymph # (Auto) [place] # (Auto) Eos # (Auto) Baso # (Auto) Abs Immat Gran (auto) Absolute Neuts (auto) Absolute Nucleated RBC Nucleated RBC % (auto) Sodium Potassium Chloride Carbon Dioxide Anion Gap BUN Creatinine Estim Creat Clear Calc Estimated GFR Random Glucose Calcium Magnesium Total Bilirubin Direct Bilirubin AST ALT Alkaline Phosphatase Total Protein Albumin Urine Opiates Screen Not Detected Urine Fentanyl Screen Not Detected Ur Barbiturates Screen Not Detected Ur Phencyclidine Scrn Not Detected Ur Amphetamines Screen Not Detected U Benzodiazepines Scrn Not Detected Urine Cocaine Screen Not Detected U Marijuana (THC) Screen Not Detected COVID-19 (LUL) COVID-19 Clin Com Imaging Radiology Impressions: ITS Impressions Chest X-Ray 06/21/21 07:41 IMPRESSION: No acute disease. Medications Medications Current Medications Acetaminophen (Acetaminophen 325 Mg Tablet) 650 mg PO Q6H PRN PRN Reason: Headache/Pain Mild Scale (1-3) Last Admin: 06/21/21 17:33 Dose: 650 mg Documented by: Al Hydroxide/Mg Hydroxide (Magnesium Hydrox/Alum Hydrox 30 Ml Oral.Susp) 30 ml PO Q6H PRN PRN Reason: Heartburn/Nausea Buspirone HCl (Buspirone Hcl 10 Mg Tablet) 10 mg PO BID [facility] Last Admin: 06/22/21 21:03 Dose: 10 mg Documented by: Famotidine (Famotidine 20 Mg Tablet) 40 mg PO BEDTIME [facility] Last Admin: 06/22/21 21:03 Dose: 40 mg Documented by: Fluticasone Propionate (Fluticasone Propionate Nasal 16 Gm [place]) 2 spray NOSTRIL-B DAILY [facility] Last Admin: 06/22/21 08:11 Dose: 2 spray Documented by: Hydroxyzine HCl (Hydroxyzine Hcl 25 Mg Tablet) 25 mg PO BEDTIME PRN PRN Reason: Anxiety Magnesium Hydroxide (Milk Of Magnesia 30 Ml Oral.Susp) 30 ml PO DAILY PRN PRN Reason: Constipation Patient Own (Symbicort 160/4.5) 2 each INHALE RBID [facility] Last Admin: 06/22/21 20:20 Dose: 2 each Documented by: Nystatin (Nystatin Oral Susp 500,000 Unit/5 Ml Oral.Susp) 100,000 unit BUCCAL QID [facility]; Protocol Stop: 06/25/21 23:59 Last Admin: 06/22/21 21:03 Dose: 100,000 unit Documented by: Omeprazole (Omeprazole 40 Mg Capsule.Dr) 40 mg PO DAILY@0630 [facility] Last Admin: 06/23/21 05:21 Dose: 40 mg Documented by: Trazodone HCl (Trazodone Hcl 50 Mg Tablet) 50 mg PO BEDTIME PRN PRN Reason: Insomnia Allergies Allergies Allergy/AdvReac Type Severity Reaction Status Date / Time peanut [PEANUT] Allergy Severe ANAPHYLAXIS Verified 06/19/21 09:44 levofloxacin Allergy dizzy, Verified 06/19/21 09:44 anxious could not sleep, heart racing, headaches doxycycline AdvReac stomach Verified 06/19/21 09:44 aches Pumpkin Seed Allergy Unknown hives Uncoded 06/19/21 09:44 Assessment & Plan Assessment & Plan (1) Generalized anxiety disorder: Status: Acute Code(s): F41.1 - Generalized anxiety disorder Assessment and Plan: Cooper is a 26 y.o. Male who carries a diagnosis of MICHELLE. He does not have current OP psych services and denies hx of psych services. PCP recently started buspar on 06/19/21, on low dose but reports positive effect (may be placebo?), denies SE. Has had multiple recent somatic complaints but this is also in context of recent gastritis and sinus infection involving multiple antibiotics being prescribed due to persistence of sx. Reports recent poor sleep and worsening anxiety leading to panic sx. Denies depression or mood lability. Thoughts process is organized, coherent and denies delusional thought content, not overly perseverative, appears to have good insight. No substance use. He is open to trialing an increase in buspar and hoping to be discharged on Thursday. Plan: Continue current regimen and planned. Consider maybe increasing the BuSpar tomorrow. Greater than 50% of the session was spent on counseling and/or coordination of care Reason for contiued inpatient stay Substantial Risk for: other
[2021-06-23] MEDS: Nystatin Oral Susp 500,000 UNIT/5 ML ORAL.SUSP 100000 UNIT BUCCAL ×4 (08:34→21:14)
[2021-06-23] MEDS: busPIRone HCl 10 MG TABLET PO ×2 (08:34→21:14)
[2021-06-23] MEDS: Fluticasone Propionate Nasal 16 GM SPRAY 2 SPRAY NOSTRIL-B (08:34)
[2021-06-23] MEDS: Famotidine 20 MG TABLET 40 MG PO (21:14)
[2021-06-23 21:22] VITALS: BP 128/72; PULSE 91; TEMP 36.5; O2SAT 100
[2021-06-24] MEDS: busPIRone HCl 10 MG TABLET PO (09:28)
[2021-06-24] MEDS: Nystatin Oral Susp 500,000 UNIT/5 ML ORAL.SUSP 100000 UNIT BUCCAL (09:28)
[2021-06-24] MEDS: Omeprazole 40 MG CAPSULE.DR PO (09:37)
[2021-06-24 10:02] VITALS: BP 152/88; PULSE 103; RESP 16; TEMP 36.7; O2SAT 100
--- NOTE | 2021-06-24 12:44 | PM.PSYDC ---
DS: Providers Provider Date of Service: 06/24/21 Date of admission: 06/21/21 14:58 Primary care physician: Melani Mayfield MD DS: Diagnosis Discharge Diagnosis (1) Generalized anxiety disorder: Status: Acute DS: Medications Discharge Medications Home Medications: Home Medications Medication Instructions Recorded Confirmed famotidine 40 mg tablet 1 tab PO BEDTIME 06/21/21 06/21/21 fluticasone propionate 50 2 spray INTRANASAL DAILY 06/21/21 06/21/21 mcg/actuation nasal spray,suspension nystatin 100,000 unit/mL oral 1 ml PO QID 06/21/21 06/21/21 suspension omeprazole 40 mg capsule,delayed 1 cap PO DAILY 06/21/21 06/21/21 release Previous Rx's Medication Instructions Recorded Patient Own Medication 2 ea INHALATION RBID #0 06/24/21 buspirone 10 mg tablet 10 mg PO BID 30 Days #60 tab 06/24/21 Mental Status Exam Mental Status Exam Narrative: In today's visit he is alert, oriented and pleasant. Normal speech. Good eye contact. Affect is appropriate and varied. No signs of psychosis. No SI/HI/AVH upon inquiry. mood good mood. Cognitively intact. Judgment is intact Data Data Completed and Pending Completed studies during hospitalization [Text1]: 06/21/21 06/21/21 06/21/21 08:01 08:01 08:01 WBC 6.1 RBC 4.72 Hgb 13.8 L Hct 40.1 L MCV 85.0 MCH 29.2 MCHC 34.4 RDW 12.1 Plt Count 208 MPV 10.4 Immature Gran % (Auto) 0.3 Neut % (Auto) 66.4 Lymph % (Auto) 20.4 [place] % (Auto) 11.3 H Eos % (Auto) 1.1 Baso % (Auto) 0.5 Lymph # (Auto) 1.2 [place] # (Auto) 0.7 Eos # (Auto) 0.1 Baso # (Auto) 0.0 Abs Immat Gran (auto) 0.02 Absolute Neuts (auto) 4.0 Absolute Nucleated RBC 0.000 Nucleated RBC % (auto) 0.0 Sodium 142 Potassium 4.2 Chloride 109 H Carbon Dioxide 25 Anion Gap 12 BUN 10 Creatinine 0.90 Estim Creat Clear Calc 120.3 Estimated GFR > 60 Random Glucose 95 Calcium 9.8 Magnesium 2.3 Total Bilirubin 0.8 Direct Bilirubin 0.3 AST 12 ALT 11 Alkaline Phosphatase 54 Total Protein 7.2 Albumin 4.6 Urine Opiates Screen Urine Fentanyl Screen Ur Barbiturates Screen Ur Phencyclidine Scrn Ur Amphetamines Screen U Benzodiazepines Scrn Urine Cocaine Screen U Marijuana (THC) Screen COVID-19 (LUL) Negative COVID-19 Clin Com See Note 06/21/21 16:05 WBC RBC Hgb Hct MCV MCH MCHC RDW Plt Count MPV Immature Gran % (Auto) Neut % (Auto) Lymph % (Auto) [place] % (Auto) Eos % (Auto) Baso % (Auto) Lymph # (Auto) [place] # (Auto) Eos # (Auto) Baso # (Auto) Abs Immat Gran (auto) Absolute Neuts (auto) Absolute Nucleated RBC Nucleated RBC % (auto) Sodium Potassium Chloride Carbon Dioxide Anion Gap BUN Creatinine Estim Creat Clear Calc Estimated GFR Random Glucose Calcium Magnesium Total Bilirubin Direct Bilirubin AST ALT Alkaline Phosphatase Total Protein Albumin Urine Opiates Screen Not Detected Urine Fentanyl Screen Not Detected Ur Barbiturates Screen Not Detected Ur Phencyclidine Scrn Not Detected Ur Amphetamines Screen Not Detected U Benzodiazepines Scrn Not Detected Urine Cocaine Screen Not Detected U Marijuana (THC) Screen Not Detected COVID-19 (LUL) COVID-19 Clin Com Imaging Diagnostic Imaging Impressions Chest X-Ray 06/21/21 07:41 IMPRESSION: No acute disease. DS: Summary Hospital Course Hospital Course: per Enoch 06/21 H&P: Cooper is a 26 y.o. Male who carries a diagnosis of MICHELLE. He self-presented to [facility] ED accompanied by his mother for various somatic complaints, this was his 4th ED visit in 2 weeks in addition to 3 urgent care visits. He was medically cleared and referred to CARE Team for assessment. He reported poor sleep, low appetite, increased anxiety, panic attacks, poor focus, impaired memory, and intrusive thoughts that there is something medically wrong with him despite being assessed and found medically stable. Somatic complaints have included chest tightness, arm tingling, and other pains. EKG wnl. He has been missing work over the past two weeks due to sx. I evaluated the pt this morning and upon interview he reports positive benefit on buspar, ?I had a horrible tightness in my head,? ?I feel like its gone down? since starting medication. Overall, reports his somatic sx are improving, denies arm pain/ tingling, appears to have insight into anxiety contributing to his complaints and currently denies physical health complaints other than headache, which he attributes to poor sleep. Appetite is improving, ?I actually ate pretty decently today,? has had issues recently due to oral thrush. Sleep is ?not too good,? says he will start ?thinking about falling asleep? and then is unable to, has increased anxiety about sleep. Sleeps about 2-3 hours at night, will lie awake for hours having anxious thoughts. No nightmares. Daytime energy is low due to hyposomnia. Says his issues with anxiety and sleep are new for him, worsening x 2 weeks. Has had anxiety in the past but says this is ?something i could control, no problem.? Precipitating factors include that he has had two sinus infections back to back, put on antibiotics but had side effects, wonders about antibiotics making him worse. Also states a girl he graduated high school with in 2013 was recently killed in [place], says it ?gave me the chills? talking about it during interview. Other stressors include that he has an uncle who frequently comes to the home, ?yelling, angry,? demands money or rides, says ?the last time he came set me off,? this was 3 days ago. Denies sx of depression. Denies agitation or anger issues. Denies OCD sx. Denies psychotic sx. No hx of manic or hypomanic episodes endorsed. Denies SI/SIB/HI or assaultive ideation. Says he feels safe.? Current medications: Buspar 5 mg BID (started on Thursday by PCP) Past med trials: OTC melatonin (lack of benefit), benadryl (lack of benefit, too drying) PMH: -Hx of multiple sinus infections, on Azothromycin 250 mg (took last pill today)? -Asthma -Hx of gastritis -Has Oral Thrush, on Nystatin 100,000 unit/ ml 1 ml by mouth QID for 10 days swish and swallow, started 06/15/21 for 10 days -Hx of COVID but denies any residual emt intermediate effects. SH: -Works at a [employer] x 3.5 yrs.? -Graduated from [employer] in 2014 and college. -Lives with parents and grandparents, has correction plan to buy a two family home with parents. Has friend supports.? PPH: -No current OP providers. Denies hx of IPLOC, CCS, or OP psych hx. PCP currently prescribes his buspar.? FH: -Uncle: substances use. ? Substance use: -ETOH: social use, occasional, denies problematic drinking bx -Utox negative, denies illicit substance use per [facility] 06/22 Progress Note: Patient was seen in rounds today.? Records were reviewed.? I did not see the admission note but he has been seen by Lea.? Her records and medications were reviewed.? He states that the increase of the BuSpar has been helpful.? He denies any side effects.? Eating and sleeping adequately.? He talked about the reasons that brought him to the hospital, anxiety and anxiety attacks.? No complaints.? No changes were made today per [facility] 06/23 Progress Note: Patient was seen in rounds today.? He continues to have some anxiety but overall is doing much better.? He feels that he is thinking more clearly.? He is more visible, social.? Eating and sleeping adequately.? Current medications and plans reviewed.? No complaints or side effects.? Eating and sleeping adequately.? No changes were made today 06/24: pt continues to feel well, wouldl wilder to discharge from the hospital. anxiety has abated, no SI/HI/AVH, interested in outpt treatment. meds reviewed, reconciled, and prescribed. not a tobacco user. good mood. discharged to home per pt's request 06/24. Time Spent with Patient Time attestation: Total time spent providing and/or coordinating discharge services: Discharge Plan Discharge Patient Disposition: Home, Self-Care Discharge Diagnosis: Generalized Anxiety Disorder Referrals: Melani Mayfield MD [Primary Care Provider] - 07/04/21 9:00 am Discharge Medications: New buspirone 10 mg Tablet 10 mg PO BID 30 Days Qty: 60 RF: 0 Patient Own Medication 2 ea inhalation RBID Qty: 0 RF: 0 Continued nystatin 100,000 unit/mL suspension 1 ml PO QID RF: 0 famotidine 40 mg tablet 1 tab PO BEDTIME RF: 0 omeprazole 40 mg capsule,delayed release(DR/EC) 1 cap PO DAILY RF: 0 fluticasone propionate 50 mcg/actuation spray,suspension 2 spray intranasal DAILY RF: 0 Discontinued buspirone 5 mg tablet 1 tab PO BID RF: 0 azithromycin 250 mg tablet PO RF: 0 Discharge Orders: Discharge Order (Routine); Ordered 06/24/21 Ordered By: Pablo Rice Diet: advance to usual diet Activity on Discharge: As tolerated Stand Alone Forms: Patient Portal Discharge page, Community Support Care Plan Goals: maintain independent living in outpatient treatment setting. Health Concerns: none Plan of Treatment: take medications as prescribed, attend appointments as scheduled Assessment: not at imminent risk of harm to self or others. Discharge Date/Time: 06/24/21 13:36
== END 2021-06-24 13:36 | disposition home or self-care (01) | DRG 756 ==
LOC: HO.ED 10:26 → HO.PADLT16 15:09
PROVIDERS: Admitting Provider Psychiatry & Neurology Psychiatry; Emergency Provider Emergency Medicine; PCP Internal Medicine; Visit Provider Psychiatry & Neurology Psychiatry
DX: F41.1 Generalized anxiety disorder (principal); K21.9 Gastro-esophageal reflux disease without esophagitis; Z20.822 Contact with and (suspected) exposure to COVID-19; Z86.16 Personal history of COVID-19; Z79.1 Long term (current) use of non-steroidal anti-inflammatories (NSAID); Z79.899 Other long term (current) drug therapy
CPT/HCPCS: 36415; 71045; 80048; 80076; 80307; 83735; 85025; 87635; 93005; 99285

== ENCOUNTER 2021-07-23 16:12 | Outpatient (REF) | payer OTHER, SELFPAY ==
[2021-07-23 16:30] LABS: MANUAL DIFF FLAG NO
[2021-07-23 16:53] LABS: Basophils Absolute Auto 0.1 X10*3/uL (0.0-0.2); Basophils Percent Auto 0.7 % (0-2); Eosinophils Absolute Auto 0.1 X10*3/uL (0.0-0.4); Eosinophils Percent Auto 1.2 % (0-4); Hematocrit 43.5 % (42-52); Hemoglobin 14.5 g/dl (14.0-18.0); Imm Gran Abs Auto 0.02 X10*3/uL (0.00-0.03); Imm Gran Pct Auto 0.3 % (0.0-0.4); Lymphocytes Absolute Auto 1.4 X10*3/uL (1.2-4.9); Lymphocytes Percent Auto 19.8 % (20-40); Mean Corpuscular HGB Conc 33.3 g/dl (31.0-36.0); Mean Corpuscular Hemoglobin 28.9 pg (27.0-33.0); Mean Corpuscular Volume 86.8 fL (80-98); Mean Platelet Volume 10.9 fL (9.4-12.4); Monocytes Absolute Auto 0.7 X10*3/uL (0.1-1.2); Monocytes Percent Auto 9.5 % (2-11); Neutrophils Percent Auto 68.5 % (45-73); Platelet Count 226 X10*3/uL (160-400); Red Blood Count 5.01 X10*6/uL (4.60-5.80); Red Cell Distribution Width 11.9 % (11.0-16.0); White Blood Count 7.2 X10*3/uL (4.8-10.8)
[2021-07-23 17:15] LABS: Alanine Aminotransferase 13 U/L (0-40); Albumin Level 4.9 g/dL (3.5-5.0); Alkaline Phosphatase 54 U/L (39-117); Amylase 43 U/L (28-100); Anion Gap 11 (12-20); Aspartate Amino Transferase 13 U/L (5-37); Bilirubin Direct < 0.2 mg/dL (0.0-0.5); Bilirubin Total 0.4 mg/dL (0.0-1.0); Blood Urea Nitrogen 10 mg/dL (9-16); C Reactive Protein 0.07 mg/dL (< or = 0.50); Calcium 9.7 mg/dL (8.4-10.2); Carbon Dioxide 28 mmol/L (22-29); Chloride 107 mmol/L (96-108); Estimated Glomerular Filt Rate > 60; Glucose Random 101 mg/dL (60-115); Lipase 30 U/L (8-78); Sodium 142 mmol/L (135-145); Total Protein 7.7 g/dL (6.5-8.0)
[2021-07-23 17:38] LABS: Erythrocyte Sedimentation Rate 2 MM/HR (0-15)
[2021-07-24 14:35] LABS: Immunoglobulin A 264 mg/dL (47-310)
[2021-07-25 16:11] LABS: Transglutaminase Ab IgG <1.0 U/mL; Transglutaminase IgA <1.0 U/mL
[2021-07-25 16:15] LABS: Gliadin Deamidated IgA Ab <1.0 U/mL; Gliadin Deamidated IgG Ab 1.6 U/mL
[2021-07-27 12:02] LABS: Endomysial IgA Antibody Negative (Negative)
== END 2021-07-23 16:13 | disposition home or self-care (01) ==
LOC: HO.LAB 16:12
PROVIDERS: PCP Internal Medicine; Visit Provider Internal Medicine
DX: R10.13 Epigastric pain (principal)
CPT/HCPCS: 36415; 80048; 80076; 82150; 82784; 83516; 83690; 85025; 85652; 86140; 86255; 86256

== ENCOUNTER 2021-07-29 06:20 | Day surgery (SDC) | payer OTHER, SELFPAY ==
--- NOTE | 2021-07-26 08:35 | HO.ANESPROP2 ---
Documented by User: Becky Kwon NP 07/26/21 08:36 HPI - Anesthesia Eval Consult details Narrative: 26yo M for Upper Endoscopy [facility] Active Problems Active Problems: All Active Problems (Updated 07/05/21 @ 17:15 by Dorothy Garcia PA-C) GERD (gastroesophageal reflux disease) (Acute) Ear pain, left (Acute) Upper respiratory tract infection (Acute) Genital lesion, male (Acute) Oral thrush (Acute) Acute gastritis (Acute) Generalized anxiety disorder (Acute) Recurrent sinusitis (Acute) Epididymal congestion pain (Acute) Learning disability (Acute) Recurrent otitis media (Acute) Environmental and seasonal allergies (Acute) Acne vulgaris (Acute) Chronic GERD (Acute) Mild intermittent asthma in adult without complication (Acute) Past Medical History Medical History Acne vulgaris Chronic GERD Environmental and seasonal allergies Epididymitis Generalized anxiety disorder History of COVID-19 Learning disability Mild intermittent asthma in adult without complication Recurrent otitis media Recurrent sinusitis Family History Family History Father No problems noted. Mother No problems noted. Surgical History Surgical History No pertinent past surgical history Social History Social History Household Members: Family Housing: House Do you presently have visiting nurse or other home services: No Alcohol intake: never Patient Tobacco Use Status: Never used Tobacco e-Cigarette/Vaping Use: Never Used Second Hand Smoke Exposure: No Use of substances other than those prescribed or required for medical reasons: No Are you DNR?: No Advance Directives: No Advance Directives Information Provided: No Advance Directives on File: No service: No Current occupational status: employed Sexual orientation: Straight/Heterosexual Meds Allergies Allergy/AdvReac Type Severity Reaction Status Date / Time peanut [PEANUT] Allergy Severe ANAPHYLAXIS Verified 07/16/21 16:35 levofloxacin Allergy dizzy, Verified 07/16/21 16:35 anxious could not sleep, heart racing, headaches doxycycline AdvReac stomach Verified 07/16/21 16:35 aches Pumpkin Seed Allergy Unknown hives Uncoded 07/16/21 16:35 Home Medications Medication Instructions Recorded Confirmed Last Taken Type fluticasone propionate 50 2 spray INTRANASAL DAILY 06/21/21 07/10/21 06/21/21 History mcg/actuation nasal spray,suspension omeprazole 40 mg capsule,delayed 1 cap PO DAILY 06/21/21 07/10/21 06/20/21 History release budesonide-formoterol HFA 160 2 puff INHALATION BID 07/10/21 07/10/21 Unknown History mcg-4.5 mcg/actuation aerosol inhaler (Symbicort) Exam Exam Date and Time: July 26, 2021 0835 Pertinent Lab Results Pertinent Lab Results: Laboratory Tests 07/23/21 07/23/21 16:27 16:27 WBC 7.2 Hgb 14.5 Hct 43.5 Plt Count 226 Sodium 142 Potassium 4.0 Chloride 107 Carbon Dioxide 28 BUN 10 Creatinine 0.95 Narrative Narrative: EKG 05/2021 Vent. Rate : 095 BPM ? ? Atrial Rate : 095 BPM ?? P-R Int : 194 ms? QRS Dur : 100 ms ? ? QT Int : 346 ms ? ? ? P-R-T Axes : 066 073 047 degrees ?? QTc Int : 434 ms ? Normal sinus rhythm with sinus arrhythmia Possible Left atrial enlargement Borderline ECG When compared with ECG of 21-MAY-2021 09:03, No significant change was found Assessment and Plan Assessment Anesthesia Assessment: Chart Reviewed Documented by User: Keiko Swan MD 07/29/21 07:06 [facility] Past Medical History Medical History Acne vulgaris Chronic GERD Environmental and seasonal allergies Epididymitis Generalized anxiety disorder History of COVID-19 Learning disability Mild intermittent asthma in adult without complication Recurrent otitis media Recurrent sinusitis Family History Family History Father No problems noted. Mother No problems noted. Family history of problems with anesthesia: No Surgical History Surgical History No pertinent past surgical history History of Problems with Anesthesia: No Social History Social History Household Members: Family Housing: House Do you presently have visiting nurse or other home services: No Alcohol intake: never Patient Tobacco Use Status: Never used Tobacco e-Cigarette/Vaping Use: Never Used Second Hand Smoke Exposure: No Use of substances other than those prescribed or required for medical reasons: No Are you DNR?: No Advance Directives: No Advance Directives Information Provided: No Advance Directives on File: No service: No Current occupational status: employed Sexual orientation: Straight/Heterosexual Meds Allergies Allergy/AdvReac Type Severity Reaction Status Date / Time peanut [PEANUT] Allergy Severe ANAPHYLAXIS Verified 07/16/21 16:35 levofloxacin Allergy dizzy, Verified 07/16/21 16:35 anxious could not sleep, heart racing, headaches doxycycline AdvReac stomach Verified 07/16/21 16:35 aches Pumpkin Seed Allergy Unknown hives Uncoded 07/16/21 16:35 Home Medications Medication Instructions Recorded Confirmed Last Taken Type fluticasone propionate 50 2 spray INTRANASAL DAILY 06/21/21 07/10/21 06/21/21 History mcg/actuation nasal spray,suspension omeprazole 40 mg capsule,delayed 1 cap PO DAILY 06/21/21 07/10/21 06/20/21 History release budesonide-formoterol HFA 160 2 puff INHALATION BID 07/10/21 07/10/21 Unknown History mcg-4.5 mcg/actuation aerosol inhaler (Symbicort) Exam Airway Mallampati Class: I TM Dist: >3cm Neck ROM: Full Heart: rrr Lungs: cta Assessment and Plan Assessment Anesthesia Assessment: Anesthesia Plan Discussed and Chart Reviewed Final Anesthetic Review Family History of Problems with Anesthesia: No History of Problems with Anesthesia: No NPO: Yes ASA Class: II Final Preanesthetic Review: No Changes in Pt Med Stat, Meds/Allgs Chart Reviewed and Consent Obtained/Reviewed Patient Risk: Intermediate Procedure Risk: Intermediate Anesthetic Plan Anesthetic Plan: MAC: Disposition: Standard PACU
[2021-07-29 06:36] VITALS: BMI 25.2
[2021-07-29 06:47] VITALS: BP 124/85; PULSE 82; RESP 16; TEMP 36.4; O2SAT 97
[2021-07-29] MEDS: Lactated Ringers 1,000 ML 100 ML IVCONT (06:48)
[2021-07-29 08:02] VITALS: BP 105/56; PULSE 75; RESP 12; TEMP 36.1; O2SAT 97
--- NOTE | 2021-07-29 08:14 | P.BOP_ITS ---
Brief Operative Note Date of Service: 07/29/21 Pre-op diagnosis: Abdominal pain Post-op diagnosis: other (Hiatal hernia, GERD) Procedure: EGD with biopsies Surgeon: Saud Velasquez Anesthesia: MAC Was an Punch Press Operator Helper used for this Procedure?: No Estimated blood loss (mL): 2.0 Pathology: other (A. Descending duodenum B. Gastric antrum C. EG Junction at 36cm) Condition: stable Disposition: PACU
[2021-07-29 08:15] VITALS: BP 116/84; PULSE 0; RESP 18; O2SAT 100
[2021-07-29 08:36] VITALS: BP 125/78; PULSE 75; RESP 18; TEMP 36.7; O2SAT 100
--- NOTE | 2021-07-29 08:38 | OP_ITS ---
SURGEON: Saud Velasquez MD INDICATIONS: The patient presents for evaluation of abdominal pain, nausea, and anorexia. Full consent has been obtained from him for this, including risks of bleeding and perforation. PREOPERATIVE DIAGNOSIS: POSTOPERATIVE DIAGNOSIS: PROCEDURE PERFORMED: Esophagogastroduodenoscopy with biopsies. ESTIMATED BLOOD LOSS: COMPLICATIONS: ANESTHESIA: Monitored anesthesia care. ASSISTANTS: SPECIMENS: PREOPERATIVE DIAGNOSES: Abdominal pain, nausea, anorexia, and weight loss. POSTOPERATIVE DIAGNOSES: Abdominal pain, nausea, anorexia, and weight loss, small hiatal hernia, gastroesophageal reflux, rule out celiac disease, rule out gastritis and/or Helicobacter pylori. DESCRIPTION OF PROCEDURE: The patient was placed in the left lateral decubitus position. The Olympus video gastroscope was passed in the posterior oropharynx and upper esophagus under direct vision. The scope was passed slowly into the distal esophagus. The gastroesophageal junction appeared at 36 cm. This area was notable for some erythema and edema, but no erosions nor ulceration. There was no Aguirre's mucosa. The scope entered into the stomach. There was a small hiatal hernia. The scope was advanced to pylorus and the duodenum was cannulated the descending portion. The duodenum including the bulb appeared normal without mass or ulceration. Biopsies were obtained from the second and third portion of the duodenum. The scope was withdrawn back in the stomach. Gastric antrum and body appeared normal with good peristalsis. Scope was retroflexed visualizing the proximal stomach carefully, which appeared normal, without any sign of mass or ulceration. Scope was straightened and biopsies were obtained from the gastric antrum. The scope was withdrawn back into the esophagus. Biopsies were obtained at the EG junction at 36 cm. Proximal to this, the esophageal mucosa appeared normal, without any sign of esophagitis nor candidiasis. The scope was withdrawn from the patient. He tolerated the procedure well and was returned to the recovery area in stable condition. IMPRESSION: 1. Small hiatal hernia, mild changes of gastroesophageal reflux. 2. Rule out gastritis and/or Helicobacter pylori. 3. Rule out celiac disease. PLAN: The results of the biopsies will be checked. He did recently have blood work including celiac disease serologies, CBC, and liver profile, which were all nonrevealing. He is scheduled for an abdominal ultrasound in the near future. He recently stopped his omeprazole and did not have any worsening of his symptoms. I will therefore have him stay off that, but we will give him a prescription to use famotidine on a p.r.n. basis. I will also give him a prescription to use dicyclomine as needed for any abdominal discomfort in regard to some potential underlying irritable bowel syndrome. He will be seen in the next 1 or 2 months for followup. This has been discussed with his mother. MD JOSS Humphreys/PAXTON / [id number]
== END 2021-07-29 08:59 | disposition home or self-care (01) ==
PROVIDERS: PCP Internal Medicine; Visit Provider Internal Medicine
PROC: 0DJ08ZZ Inspection of Upper Intestinal Tract, Via Natural or Artificial Opening Endoscopic (ICD-10-PCS; CPT 43235; principal; 2021-07-29 07:30)
DX: R10.13 Epigastric pain (principal); R11.0 Nausea; R63.0 Anorexia; K21.9 Gastro-esophageal reflux disease without esophagitis; K44.9 Diaphragmatic hernia without obstruction or gangrene; J45.20 Mild intermittent asthma, uncomplicated; Z79.51 Long term (current) use of inhaled steroids; Z86.16 Personal history of COVID-19; Z79.899 Other long term (current) drug therapy
CPT/HCPCS: 43239; 88305; 88342

== ENCOUNTER 2021-08-01 08:26 | Outpatient (REF) | payer OTHER, SELFPAY ==
--- NOTE | ~2021-08-01 | US_ITS ---
EXAMINATION: US ABDOMEN COMPLETE CLINICAL INFORMATION: Epigastric pain. COMPARISON: [facility] 06/16/2021. TECHNIQUE: Real-time imaging of the abdominal viscera. FINDINGS: PANCREAS: Normal. ABDOMINAL AORTA: The proximal, mid, and distal segments are normal in caliber. INFERIOR VENA CAVA: Visualized portions are normal. LIVER: Normal. The liver is normal in size. The liver contour is normal. Parenchymal echogenicity is normal. No focal hepatic lesion. There is no intrahepatic biliary duct dilatation seen. GALLBLADDER: Echogenic bile noted layering in the gallbladder lumen. The gallbladder is physiologically distended without evidence of stones, polyps, wall thickening or pericholecystic fluid. COMMON BILE DUCT: Normal in caliber measuring 0.3 cm in diameter. RIGHT KIDNEY: 0.3 cm lower pole calculus. No hydronephrosis or focal parenchymal lesions. The kidney measures 11.0 cm in maximum dimension. LEFT KIDNEY: Normal. No hydronephrosis. No renal calculi or focal parenchymal lesions. The kidney measures 10.5 cm in maximum dimension. SPLEEN: Normal. The spleen measures 10.0 cm in maximum dimension. FREE FLUID: None. US/US abdomen complete IMPRESSION: Nonobstructing right lower pole renal calculus. Minimal sludge in the gallbladder lumen.
== END 2021-08-01 08:27 | disposition home or self-care (01) ==
LOC: HO.HMGCX 08:26
PROVIDERS: PCP Internal Medicine; Visit Provider Internal Medicine
DX: R10.13 Epigastric pain (principal)
CPT/HCPCS: 76700

== ENCOUNTER 2021-10-14 09:44 | Outpatient (REF) | payer OTHER, SELFPAY ==
[2021-10-14 10:17] LABS: Mean Corpuscular HGB Conc 33.3 g/dl (31.0-36.0); Mean Corpuscular Volume 87.1 fL (80.0-98.0); Mean Platelet Volume 10.7 fL (9.4-12.4); Platelet Count 204 X10*3/uL (160-400); Red Blood Count 4.82 X10*6/uL (4.60-5.80); Red Cell Distribution Width 12.2 % (11.0-16.0); White Blood Count 6.1 X10*3/uL (4.8-10.8)
[2021-10-14 10:38] LABS: Iron 106 mcg/dL (45-160); Percent Iron Saturation 38 % (15-50); Total Iron Binding Capacity 277 mcg/dL (228-428); Unsaturated Iron Binding 171 ug/dL
[2021-10-14 10:59] LABS: TSH reflex Free T4 1.08 uIU/mL (0.32-4.0)
== END 2021-10-14 09:45 | disposition home or self-care (01) ==
LOC: HO.LAB 09:44
PROVIDERS: PCP Physician Assistant; Visit Provider Physician Assistant
DX: Z13.29 Encounter for screening for other suspected endocrine disorder (principal); H93.13 Tinnitus, bilateral; D50.9 Iron deficiency anemia, unspecified
CPT/HCPCS: 36415; 83540; 84443; 85027

== ENCOUNTER → 2021-11-06 09:58 | Outpatient (BNVA) | payer OTHER, SELFPAY | PROVIDERS: PCP Internal Medicine; Visit Provider Urology ==

== ENCOUNTER 2022-11-29 08:45 | Outpatient (REF) | payer OTHER, SELFPAY ==
[2022-11-29 10:59] LABS: Hematocrit 43.8 % (42.0-52.0); Hemoglobin 14.6 g/dl (14.0-18.0); Mean Corpuscular HGB Conc 33.3 g/dl (31.0-36.0); Mean Corpuscular Hemoglobin 28.5 pg (27.0-33.0); Mean Corpuscular Volume 85.5 fL (80.0-98.0); Mean Platelet Volume 10.9 fL (9.4-12.4); Platelet Count 230 X10*3/uL (160-400); Red Blood Count 5.12 X10*6/uL (4.60-5.80); Red Cell Distribution Width 12.3 % (11.0-16.0); White Blood Count 5.4 X10*3/uL (4.8-10.8)
[2022-11-29 11:22] LABS: Alanine Aminotransferase 44 U/L (0-40); Albumin Level 4.6 g/dL (3.5-5.0); Alkaline Phosphatase 70 U/L (39-117); Anion Gap 15 (12-20); Aspartate Amino Transferase 21 U/L (5-37); Bilirubin Total 0.5 mg/dL (0.0-1.0); Blood Urea Nitrogen 12 mg/dL (9-16); Calcium 9.4 mg/dL (8.4-10.2); Carbon Dioxide 25 mmol/L (22-29); Chloride 104 mmol/L (96-108); Estimated Glomerular Filt Rate > 60; Glucose Fasting 93 mg/dL (60-99); Potassium 4.4 mmol/L (3.3-5.1); Sodium 140 mmol/L (135-145); Total Protein 7.2 g/dL (6.5-8.0)
[2022-11-29 11:37] LABS: TSH reflex Free T4 0.88 uIU/mL (0.32-4.0)
== END 2022-11-29 08:46 | disposition home or self-care (01) ==
LOC: HO.HMGCLDS 08:45
PROVIDERS: PCP Physician Assistant; Visit Provider Physician Assistant
DX: Z13.29 Encounter for screening for other suspected endocrine disorder (principal); Z87.19 Personal history of other diseases of the digestive system
CPT/HCPCS: 36415; 80053; 84443; 85027

== ENCOUNTER 2022-12-30 09:56 | Outpatient (REF) | payer OTHER, SELFPAY ==
[2022-12-30 12:00] LABS: Hematocrit 44.9 % (42.0-52.0); Hemoglobin 14.7 g/dl (14.0-18.0); Mean Corpuscular HGB Conc 32.7 g/dl (31.0-36.0); Mean Corpuscular Hemoglobin 28.6 pg (27.0-33.0); Mean Corpuscular Volume 87.4 fL (80.0-98.0); Mean Platelet Volume 11.5 fL (9.4-12.4); Platelet Count 206 X10*3/uL (160-400); Red Blood Count 5.14 X10*6/uL (4.60-5.80); Red Cell Distribution Width 12.7 % (11.0-16.0)
[2022-12-30 12:30] LABS: Alanine Aminotransferase 16 U/L (0-40); Albumin Level 4.7 g/dL (3.5-5.0); Alkaline Phosphatase 75 U/L (39-117); Aspartate Amino Transferase 16 U/L (5-37); Bilirubin Direct 0.2 mg/dL (0.0-0.5); Bilirubin Total 0.8 mg/dL (0.0-1.0); Total Protein 7.5 g/dL (6.5-8.0)
== END 2022-12-30 09:57 | disposition home or self-care (01) ==
LOC: HO.HMGCLDS 09:56
PROVIDERS: PCP Physician Assistant; Visit Provider Physician Assistant
DX: Z13.1 Encounter for screening for diabetes mellitus (principal); R79.89 Other specified abnormal findings of blood chemistry
CPT/HCPCS: 36415; 80076; 85027

== ENCOUNTER 2023-07-18 09:07 | Outpatient (AMB) | payer OTHER, SELFPAY ==
--- NOTE | 2023-07-18 09:30 | AM.OFFWIN_ITS ---
Intake Vital Signs 07/18/23 09:38 Height 5 ft 8 in Weight 78.018 kg BMI 26.1 BP 100/70 Blood Pressure Location Lt brachial Position Sitting Pulse 97 Pulse Source Pulse Oximeter Temp 98.5 F Temp Source Oral Intake Visit Reasons: EP, bilateral ear pain ([phone]) Intake Note: Pt is here today c/o bilateral ear pain Patient Tobacco Use Status: Never used Tobacco Allergies peanut [PEANUT] Allergy (Severe, Verified 07/18/23 09:31) ANAPHYLAXIS levofloxacin Allergy (Verified 07/18/23 09:31) dizzy, anxious could not sleep, heart racing, headaches doxycycline Adverse Reaction (Verified 07/18/23:31) stomach aches Pumpkin Seed Allergy (Unknown, Uncoded 07/18/23:) hives Do you need a note to return to daycare/school/sports/work: No HPI HPI Comments History of Present Illness Details 0943 This is a 28-year-old male presenting to the clinic with complaints of bilateral ear pain, left ear worse than right ear for the past 4 days. Patient tells me that he feels a constant throbbing sensation in his ear, has woken him from his sleep due to pain. Reports multiple sick contacts mother has bronchitis multiple coworkers at work sick with upper respiratory infections. Patient's states he might be little bit congested. Denies fevers, chills, chest pain, shortness of breath, headache, vision changes, otorrhea, trauma. Physical exam erythematous and bulging left tympanic membrane, with associated pain with manipulation of external ear. Right tympanic membrane erythematous, no bulging. No pain with manipulation of external right ear. No mastoid tenderness bilaterally. No foreign bodies visualized. Left-sided and right-sided otitis media and otitis externa on the left ear. Unlikely mastoiditis, malignant otitis, perforated tympanic membrane. No signs of encephalitis or meningitis. Other differentials include viral illness and sinusitis. Plan will discharge home on Augmentin and Ciprodex. Patient has an allergy to levofloxacin and consist of dizziness and anxiousness, I think Ciprodex would be appropriate to send for this patient. Educated patient on diagnosis and treatment plan, answered all question, patient verbalizes understanding. At this time patient will be discharged home, advised to return with new or worsening symptoms. Educated on worrisome signs and symptoms and when to return. At this time I feel comfortable discharge home. [facility] Medical History Tinnitus of both ears Generalized anxiety disorder Recurrent sinusitis Epididymitis History of COVID-19 Learning disability Recurrent otitis media Environmental and seasonal allergies Acne vulgaris Chronic GERD Mild intermittent asthma in adult without complication Surgical History No pertinent past surgical history Family History Father No problems noted. Mother No problems noted. Social History Household Members: Family Housing: House Do you presently have visiting nurse or other home services: No Alcohol intake: current Alcohol intake frequency: holidays/special occasions only Alcohol type: beer Patient Tobacco Use Status: Never used Tobacco e-Cigarette/Vaping Use: Never Used Second Hand Smoke Exposure: No service: No Current occupational status: employed Current occupation: [employer] Current occupational exposures/hazards: No Sexual orientation: Straight/Heterosexual Cognitive needs: No Hearing needs: No Vision needs: No Review of Systems Const Details: Constitutional : No Weight loss, No Fever, No Chills, No Fatigue, No Malaise ENT/Mouth : No sore throat, No Rhinorrhea, + ear pain Eyes: No Eye Pain, No Swelling, No Redness Cardiovascular : No Chest Pain, No SOB, No Dyspnea on Exertion, No Orthopnea, No Edema, No Palpitations Respiratory : No Cough, No Sputum, No Wheezing Gastrointestinal : No Nausea, No Vomiting, No Diarrhea, No Constipation, No abdominal Pain, No Hematochezia, No Melena Genitourinary : No Dysuria, No Urinary Frequency, No Hematuria, Musculoskeletal : No joint pain, No Myalgias, No Joint Swelling Skin : No Skin Lesions, No rash Neuro : No Weakness, No Numbness, No Dizziness, No Headache Psych : No Anxiety/Panic, No Depression All other systems reviewed and are negative All systems reviewed & are unremarkable except as noted in HPI and below Physical Exam Vital Signs: Last Vital Signs Temp 98.5 F 07/18/23 09:38 Pulse 97 07/18/23 09:38 BP 100/70 07/18/23 09:38 BMI result Body Mass Index 26.1 vss Appearance: Alert.? Oriented X3.? No acute distress.? Head: Normocephalic, atraumatic, no step-offs or deformities Eyes: Pupils equal, round and reactive to light.? ENT: Pharynx normal.? erythematous and bulging left tympanic membrane, with associated pain with manipulation of external ear. Right tympanic membrane erythematous, no bulging. No pain with manipulation of external right ear. No mastoid tenderness bilaterally. No foreign bodies visualized. Neck: Normal inspection.? Neck supple.? CVS: Normal heart rate and rhythm.? Pulses normal.? Respiratory: No respiratory distress.? Breath sounds normal.? Abdomen: Soft and nontender.? Skin: Skin warm and dry.? Normal skin color.? Normal skin turgor.? Extremities: No lower extremity edema.? No calf ttp. 5/5 strength to bilateral upper and lower extremities Neuro: Oriented X 3.? No motor deficit.? No sensory deficit. CN 2-12 intact Assessment & Plan Assessment & Plan (1) Otitis media: Code(s): H66.90 - Otitis media, unspecified, unspecified ear Qualifiers: Otitis media type: serous Chronicity: acute Laterality: bilateral Recurrence: non-recurrent Qualified Code(s): H65.03 - Acute serous otitis media, bilateral (2) Otitis externa: Code(s): H60.90 - Unspecified otitis externa, unspecified ear Plan Take your medications as prescribed. If you were prescribed antibiotics today, it is important that you take your medication to their entirety, do not skip any doses, do not finish them early. Follow-up with your primary care provider this week. Return to the emergency department with new or worsening symptoms. Such as fevers, chills, chest pain, shortness of breath, nausea, vomiting, dizziness, headache, vision changes, lethargy In case of emergency call 911 Medications: New amoxicillin-pot clavulanate 875-125 mg 1 tab PO BID 10 days 20 tabs 0RF ciprofloxacin-dexamethasone 0.3-0.1 % 4 drps otic (ears) BID 7 days 7.5 mL 0RF Coding Level of Care Code Est Pt Level 3 (75682) Diagnoses Non-recurrent acute serous otitis media of both ears H65.03 Otitis media type: serous Chronicity: acute Laterality: bilateral Recurrence: non-recurrent Otitis externa H60.90
[2023-07-18 09:38] VITALS: BP 100/70; PULSE 97; TEMP 36.9; BMI 26.1
== END 2023-07-18 14:56 | disposition home or self-care (01) ==
PROVIDERS: PCP Physician Assistant; Visit Provider Physician Assistant
DX: H65.03 Acute serous otitis media, bilateral (principal); H60.93 Unspecified otitis externa, bilateral
CPT/HCPCS: 99213

== ENCOUNTER 2023-12-25 07:02 | Outpatient (REF) | payer OTHER, SELFPAY ==
[2023-12-25 11:07] LABS: Alanine Aminotransferase 18 U/L (0-40); Albumin Level 4.7 g/dL (3.5-5.0); Alkaline Phosphatase 61 U/L (39-117); Anion Gap 12 (12-20); Aspartate Amino Transferase 18 U/L (5-37); Bilirubin Total 0.5 mg/dL (0.0-1.0); Blood Urea Nitrogen 23 mg/dL (9-16); Calcium 9.7 mg/dL (8.4-10.2); Carbon Dioxide 29 mmol/L (22-29); Chloride 103 mmol/L (96-108); Estimated Glomerular Filt Rate > 60; Glucose Fasting 87 mg/dL (60-99); Potassium 3.7 mmol/L (3.3-5.1); Sodium 140 mmol/L (135-145); Total Protein 7.8 g/dL (6.5-8.0)
== END 2023-12-25 07:03 | disposition home or self-care (01) ==
LOC: HO.HMGCLDS 07:02
PROVIDERS: PCP Physician Assistant; Visit Provider Physician Assistant
DX: Z13.1 Encounter for screening for diabetes mellitus (principal)
CPT/HCPCS: 36415; 80053

== ENCOUNTER 2024-01-12 14:58 | Outpatient (AMB) | payer OTHER, SELFPAY ==
--- NOTE | 2024-01-12 14:58 | MHC.PC.OV ---
Vital Signs 01/12/24 14:59 Height 5 ft 8 in Weight 170 lb 0.2 oz BMI 25.8 BP 122/80 Blood Pressure Location Lt brachial Position Sitting Pulse 112 H Pulse Source Pulse Oximeter Pulse Oximetry (%) 99 Oxygen Delivery Method Room Air Intake Visit Reasons: PE R/S from 01/03 Intake Note: Patient is here today for a physical. Occupational Therapy Technician Required: No Allergies peanut [PEANUT] Allergy (Severe, Verified 01/12/24 15:06) ANAPHYLAXIS levofloxacin Allergy (Verified 01/12/24 15:06) dizzy, anxious could not sleep, heart racing, headaches doxycycline Adverse Reaction (Verified 01/12/24 15:06) stomach aches Pumpkin Seed Allergy (Unknown, Uncoded 01/12/24 14:59) hives Medication List - Last Reconciled 01/12/24 by Aureliano Burns PA-C budesonide-formoterol 160-4.5 mcg/actuation (Symbicort) 2 puffs inhalation BID cetirizine (Allergy Relief (cetirizine)) 10 mg PO DAILY PRN dicyclomine mg PO fluticasone propionate 50 mcg/actuation 2 sprays intranasal DAILY hydroxyzine HCl 20 mg (2 x 10 mg) PO BEDTIME 30 days mupirocin calcium 2% 1 appl topical BID 15 days Tobacco use date assessed: 01/12/24 Dental Screening Dental Screen Date: 01/12/24 Did you have a dental visit in the last 12 months?: Yes Did you have a dental problem in the last 6 months where you did not have access to dental care?: No Was dental information given to patient?: Patient has dentist HPI PE R/S from 01/03 HPI Details Patient is a 28 year male here today for routine annual physical. Patient has a past medical history of generalized anxiety disorder, GERD, chronic sinusitis, asthma. .. MICHELLE: He reports his anxiety has been generally well controlled, does use hydroxyzine on a p.r.n. basis.. .. 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 .. Asthma:? Patient reports asthma has been well controlled with his maintenance inhaler.? Denies any nighttime awakenings with asthma symptoms. Vaccines: UTD with all Vaccine Labs:? Reviewed labs in all within normal limits Laboratory Tests 10/14/21 11/29/22 09:56 08:52 RBC 4.82 5.12 AST 21 ALT 44 H TSH 0.88 PFSH Medical History (Updated 01/13/24 @ 07:07 by Aureliano Burns PA-C) Elevated LFTs COVID-19 virus infection Epididymal congestion pain Generalized anxiety disorder Epididymitis History of COVID-19 Learning disability Environmental and seasonal allergies Acne vulgaris Chronic GERD Mild intermittent asthma in adult without complication Surgical History No pertinent past surgical history Family History Father No problems noted. Mother No problems noted. Social History (Updated 01/12/24 @ 15:10 by Aureliano Burns PA-C) Household Members: Family Housing: House Do you presently have visiting nurse or other home services: No Alcohol intake: current Alcohol intake frequency: holidays/special occasions only Alcohol type: beer Patient Tobacco Use Status: Never used Tobacco e-Cigarette/Vaping Use: Never Used Second Hand Smoke Exposure: No service: No Current occupational status: employed Current occupation: [employer] Current occupational exposures/hazards: No Sexual orientation: Straight/Heterosexual Cognitive needs: No Hearing needs: No Vision needs: No Questionnaire PHQ-9 Over the last 2 weeks, how often have you been bothered by any of the following problems? 1. Little interest or pleasure in doing things: not at all 2. Feeling down, depressed, or hopeless: not at all 3. Trouble falling or staying asleep, or sleeping too much: not at all 4. Feeling tired or having little energy: not at all 5. Poor appetite or overeating: not at all 6. Feeling bad about yourself - or that you are a failure or have let yourself or your family down: not at all 7. Trouble concentrating on things, such as reading the newspaper or watching television: not at all 8. Moving or speaking so slowly that other people could have noticed. Or the opposite - being so fidgety or restless that you have been moving around a lot more than usual: not at all 9. Thoughts that you would be better off or of hurting yourself in some way: not at all Total score: 0 Depression Screening Interpretation: Negative Depression Screening Done: Yes [id number] - PHQ-9 Billing: Yes Source: Developed by Drs. Saud Desai, Vivienne Griffiths, Everardo Tucker and colleagues, with an educational yancy from [employer]. Thrive Questionnaire Date Thrive assessed: 01/12/24 I am a: Patient What is your living situation today?: I have a steady place to live Within the past 12 months, did the food you bought not last and you didn't have the money to get more?: Never true Within the past 12 months, did you worry whether your food would run out before you got money to buy more?: Never true Do you have trouble paying for medicines?: No Do you have trouble getting transportation to medical appointments?: No Do you have trouble paying your heating and electricity bill?: No Do you have trouble taking care of your child, family member or friend?: No Do you have trouble with day-to-day activities such as bathing, preparing meals, shopping, managing finances, etc.?: No Are you currently unemployed and looking for a job?: No Are you interested in more education?: No Please select the resources that you would like help with: None Currently or been in a relationship where the following occur: no concerns reported THRIVE Score: 0 AUDIT C Alcohol Use Questionnaire (AUDIT-C) 1. How often do you have a drink containing alcohol?: Monthly or less 2. How many drinks containing alcohol do you have on a typical day when you are drinking?: 1 or 2 3. How often do you have six or more drinks on one occasion?: Never Total Score: 1 MICHELLE-7 AMB Questionnaire MICHELLE-7 Date MICHELLE - 7 assessed: 01/12/24 Feeling nervous, anxious, or on edge: 0 = Not at all Not being able to stop or control worryin = Not at all Worrying too much about different things: 0 = Not at all Trouble relaxin = Not at all Being so restless that it is hard to sit still: 0 = Not at all Becoming easily annoyed or irritable: 0 = Not at all Feeling afraid as if something awful might happen: 0 = Not at all Total MICHELLE-7 score (0-4 normal; 5-9 mild; 10-14 moderate; 15-21 severe): 0 Source: Developed by Drs. Saud Desai, Vivienne Griffiths, Everardo Tucker and colleagues, with an educational yancy from [employer]. MICHELLE-7 Assessment Billing MICHELLE-7 Assessment Tool: MICHELLE-7 Assessment [id number] ACT Questionnaire In the past 4 weeks, how much of the time did your asthma keep you from getting as much done at work, school or at home?: None of the time During the past 4 weeks, how often have you had shortness of breath?: Not at all During the past 4 weeks, how often did your asthma symptoms wake you up at night or earlier than usual in the morning?: Not at all During the past 4 weeks, how often have you had to use your rescue inhaler or nebulizer medication?: Not at all How would you rate your asthma control during the past 4 weeks?: Well controlled ACT Interpretation: Negative Score: 24 Review of Systems Const Denies body aches, Denies chills, Denies excessive sweating, Denies fatigue, Denies fever(s) and Denies headache(s) Eyes Denies blurry vision ENT Denies dysphagia, Denies vertigo, Denies dizziness, Denies headache(s), Denies hearing loss and Denies tinnitus Card Denies chest pain, Denies chest pain with activity, Denies syncope, Denies irregular heart rhythm and Denies dyspnea Resp Denies chest congestion, Denies cough, Denies hemoptysis, Denies dyspnea and Denies wheezing GI Denies abdominal pain, Denies melena, Denies hematochezia, Denies coffee ground emesis, Denies dysphagia, Denies diarrhea, Denies nausea and Denies vomiting Denies difficulty urinating, Denies dysuria, Denies urinary frequency, Denies urinary hesitancy and Denies urinary urgency Musc Denies arthralgias, Denies limited range of motion, Denies muscle cramps and Denies muscle weakness Skin/Breast Denies rash and Denies skin ulcer Neuro Denies Abnormal speech present, Denies confusion, Denies vertigo, Denies dizziness, Denies syncope, Denies headache(s), Denies memory loss and Denies seizure-like activity Psych Denies anxiety, Denies confusion, Denies depression, Denies memory loss, Denies panic attacks and Denies paranoia Endo Denies excessive sweating, Denies fatigue, Denies flushing, Denies polydipsia and Denies polyuria Aller/Immun Denies wheezing Physical exam (Primary Care) Vital Signs: Last Vital Signs Pulse 112 H 01/12/24 14:59 BP 122/80 01/12/24 14:59 Pulse Ox 99 01/12/24 14:59 Oxygen Delivery Method Room Air 01/12/24 14:59 BMI result Body Mass Index 25.8 Tobacco/Smoking Status: Tobacco use Status Tobacco use date assessed 01/12/24 01/12/24 15:00 Patient Tobacco Use Status Never used Tobacco 01/12/24 15:10 e-Cigarette/Vaping Use Never Used 01/12/24 15:10 PHQ-9: PHQ-9 Score PHQ-9: Total score 0 01/12/24 15:09 Depression Screening Interpretation: Negative Thrive Assessment: Date of Thrive Assessment Date Thrive assessed 01/12/24 01/12/24 15:00 Currently or been in a relationship where the following occur: no concerns reported Const General: cooperative, comfortable, no acute distress, alert and awake; No confusion Orientation/consciousness: oriented to person, oriented to place, patient oriented x3 and No confusion HENMT Head: Yes normocephalic Ears: external ears normal and TM's normal bilaterally Face and sinus: No sinus tenderness Mouth: Normal oral and palatal mucosa present and tongue normal Teeth and gingiva: dentition normal and gingiva normal Throat: Yes posterior oropharynx normal, Yes tonsils normal and Yes uvula midline Eyes Conjunctivae: conjunctivae normal Sclerae: sclerae normal Pupils: Equal, round and reactive pupils present EOM: EOMs intact bilaterally Direct Ophthalmoscopy: No no photophobia Neck Neck: Yes no lymphadenopathy, No tender and Yes no JVD Thyroid: Thyroid normal Carotids: no bruits Chest Chest palpation & inspection: no tenderness Resp Effort & Inspection: normal respiratory effort, no audible wheezes, not labored and no stridor Auscultation: no crackles, no rales, no rhonchi and no wheezes Cardio Jugular venous distension: no JVD Rate: regular rate, not bradycardic and not tachycardic Rhythm: regular rhythm Bruits: no carotid bruits Peripheral pulses: Peripheral pulses 2+ throughout GI Inspection: Yes normal to inspection, No abdominal wall ecchymosis and No visible herniation Palpation (GI): Soft to palpation, nontender, no guarding, not rigid and No hepatosplenomegaly present Auscultation: normoactive bowel sounds General: Yes no CVA tenderness Back/Spine/Pelvis Back: no CVA tenderness and No back tenderness Cervical Spine: cervical ROM normal Thoracic/Lumbar Spine: thoracic and lumbar spine normal to inspection, straight leg raise negative bilaterally, No thoraco-lumbar ROM limited and No lumbar spinal tenderness Skin Lesions: no lesions Rashes: no rashes Wounds: no wounds Neuro General: oriented to person, oriented to place, patient oriented x3, CN's II-XI intact bilaterally and No confusion Cranial nerves: Yes Equal, round and reactive pupils present and Yes Normal accommodation reflex present Cognition (Neuro): normal cognition Speech: No Abnormal speech present Gait exam (Neuro): Normal gait present Motor exam (neuro): 5/5 motor strength present throughout Extrem Right upper extremity: full ROM; no cyanosis Left upper extremity: full ROM; no cyanosis Right lower extremity: no edema Left lower extremity: no edema Psych Appearance: grossly normal Mental Status: mental status grossly normal Affect: normal affect Attitude: cooperative Thought process: Normal thought process present Assessment and Plan Assessment & Plan (1) Annual physical exam: Code(s): Z00.00 - Encounter for general adult medical examination without abnormal findings (2) Screening for diabetes mellitus (DM): Code(s): Z13.1 - Encounter for screening for diabetes mellitus (3) Mild intermittent asthma in adult without complication: Code(s): J45.20 - Mild intermittent asthma, uncomplicated Plan: Reports his asthma has been very well controlled with maintenance inhaler and p.r.n. use of his albuterol inhaler. Also does see an ballet soloist and is getting allergy injections which have been helpful. He denies any nighttime awakenings with asthma symptoms or recent asthma exacerbations. Otherwise asthma has been fairly well controlled. Orders: Orders Comprehensive [place]. Panel Fast 01/12/24 Z13.1 - Encounter for screening for diabetes mellitus Complete Blood Count no Diff 01/12/24 K21.9 - Gastro-esophageal reflux disease without esophagitis Coding Level of Care Code Est Pt Prev Care [id number]([id number]) Diagnoses Annual physical exam Z00.00 Screening for diabetes mellitus (DM) Z13.1 Mild intermittent asthma in adult without complication J45.20 Additional Codes MICHELLE-7 Assessment Billing - MICHELLE-7 Assessment Tool: MICHELLE-7 Assessment [id number] ([id number])
[2024-01-12 14:59] VITALS: BP 122/80; PULSE 112; O2SAT 99; BMI 25.8
== END 2024-01-12 15:18 | disposition home or self-care (01) ==
PROVIDERS: PCP Physician Assistant; Visit Provider Physician Assistant
DX: Z00.00 Encounter for general adult medical examination without abnormal findings (principal); Z13.1 Encounter for screening for diabetes mellitus; J45.20 Mild intermittent asthma, uncomplicated
CPT/HCPCS: 99395

== ENCOUNTER 2024-06-16 16:06 | Outpatient (REF) | payer OTHER, SELFPAY ==
--- NOTE | ~2024-06-16 | XR_ITS ---
EXAMINATION: XR SHOULDER, RIGHT CLINICAL INFORMATION: Right-sided pain COMPARISON: None available. TECHNIQUE: AP external rotation, Grashey, scapular Y, and axillary views of the right shoulder. FINDINGS: No fracture, dislocation or destructive process. XR/XR shoulder RT min 2V IMPRESSION: Negative Electronically signed by: Juan Francisco Mcelroy MD 06/21/2024 02:36 PM EDT
--- NOTE | ~2024-06-16 | XR_ITS ---
EXAMINATION: XR HUMERUS, RIGHT CLINICAL INFORMATION: Right shoulder pain and humerus pain COMPARISON: None available. TECHNIQUE: AP and lateral views of the right humerus. FINDINGS: Right humerus intact. Included portions of the elbow intact. Shoulder will be described in a separate radiograph. XR/XR humerus RT IMPRESSION: Negative Electronically signed by: Juan Francisco Mcelroy MD 06/21/2024 02:29 PM EDT
== END 2024-06-16 16:07 | disposition home or self-care (01) ==
LOC: HO.HMGCX 16:06
PROVIDERS: PCP Physician Assistant; Visit Provider Physician Assistant
DX: S46.211A Strain of muscle, fascia and tendon of other parts of biceps, right arm, initial encounter (principal); M25.511 Pain in right shoulder
CPT/HCPCS: 73030; 73060

== ENCOUNTER 2024-07-03 15:37 | Emergency (ER) | payer OTHER, SELFPAY ==
--- NOTE | ~2024-07-03 | XR_ITS ---
EXAMINATION: XR SHOULDER, LEFT XR CLAVICLE, LEFT CLINICAL INFORMATION: Injured while playing softball COMPARISON: None available. TECHNIQUE: AP external rotation, Grashey, scapular Y, and axillary views of the left shoulder. FINDINGS: Suboptimal patient positioning due to limited range of motion of the left shoulder. Radiopaque density projects over the mid left clavicle on AP views is concerning for a midclavicular fracture. Glenohumeral and acromioclavicular alignment is anatomic with normal joint space. No abnormal soft tissue calcifications. XR/XR shoulder LT min 2V IMPRESSION: Radiopaque density projects over the mid left clavicle on AP views and is concerning for a midclavicular fracture. Recommend correlation with point tenderness. Findings were verbally communicated with on 07/03/2024 at 4:50pm. Electronically signed by: Isabelle Rashid MD 07/03/2024 04:55 PM EDT
--- NOTE | ~2024-07-03 | XR_ITS ---
EXAMINATION: XR SHOULDER, LEFT XR CLAVICLE, LEFT CLINICAL INFORMATION: Injured while playing softball COMPARISON: None available. TECHNIQUE: AP external rotation, Grashey, scapular Y, and axillary views of the left shoulder. FINDINGS: Suboptimal patient positioning due to limited range of motion of the left shoulder. Radiopaque density projects over the mid left clavicle on AP views is concerning for a midclavicular fracture. Glenohumeral and acromioclavicular alignment is anatomic with normal joint space. No abnormal soft tissue calcifications. XR/XR clavicle LT IMPRESSION: Radiopaque density projects over the mid left clavicle on AP views and is concerning for a midclavicular fracture. Recommend correlation with point tenderness. Findings were verbally communicated with on 07/03/2024 at 4:50pm. Electronically signed by: Isabelle Rashid MD 07/03/2024 04:55 PM EDT
[2024-07-03 15:50] VITALS: BP 137/91; PULSE 121; RESP 19; TEMP 36.6; O2SAT 98; BMI 25.8
--- NOTE | 2024-07-03 15:50 | ED_ITS ---
HPI - General Adult General Chief complaint: Extremity Injury, Upper Stated complaint: LT collar bone inj Time Seen by Provider: 07/03/24 17:01 Source: patient Mode of arrival: ambulatory Limitations: no limitations History of Present Illness ED Provider: Audra Fritz PA-C HPI narrative: Patient is a 29 year old assigned male at with a history of GERD and asthma presenting to the emergency department today with left clavicle pain. Patient states that he was playing softball, went to field a ground ball, when he felt his left clavicle pop. Patient denies any dizziness, lightheadedness, abdominal pain, nausea, vomiting, fever, chills, blurry vision, double vision, loss of vision, chest pain, difficulty breathing, shortness of breath, back pain, night sweats, pain with urination, increased urinary frequency, increased urinary urgency, blood in his urine or stool, syncope or a near syncopal episode, bowel incontinence, bladder incontinence, or any other complaints at this time. Location: left (clavicle) Relieving factors: none Exacerbating factors: none Associated symptoms: denies other symptoms Treatments prior to arrival: none Related Data Home Medications ?Medication ?Instructions ?Recorded ?Confirmed fluticasone propionate 50 2 spray intranasal DAILY 06/21/21 01/12/24 mcg/actuation nasal spray,suspension budesonide-formoterol HFA 160 2 puff inhalation BID 07/10/21 01/12/24 mcg-4.5 mcg/actuation aerosol inhaler (Symbicort) dicyclomine 10 mg capsule mg PO 08/09/21 01/12/24 cetirizine 10 mg tablet (Allergy 10 mg PO DAILY PRN 08/29/21 01/12/24 Relief (cetirizine)) Previous Rx's ?Medication ?Instructions ?Recorded mupirocin calcium 2 % topical cream 1 appl topical BID 15 days #15 12/30/22 grams hydroxyzine HCl 10 mg tablet 20 mg (2 x 10 mg) PO BEDTIME 30 01/29/23 days #60 tabs Allergies Allergy/AdvReac Type Severity Reaction Status Date / Time peanut [PEANUT] Allergy Severe ANAPHYLAXIS Verified 07/03/24 15:51 levofloxacin Allergy dizzy, Verified 07/03/24 15:51 anxious could not sleep, heart racing, headaches doxycycline AdvReac stomach Verified 07/03/24 15:51 aches Pumpkin Seed Allergy Unknown hives Uncoded 07/03/24 15:51 Review of Systems 2 Constitutional: Constitutional: Reports no additional constitutional complaints, Denies chills, Denies fever(s) and Denies night sweats Eyes: Eyes: Reports no additional eye complaints, Denies blurry vision, Denies change in vision, Denies diplopia, Denies eye discharge, Denies loss of vision and Denies eye pain ENT: Denies dizziness Cardiovascular: Cardiovascular: Reports no additional cardiovascular complaints, Denies chest pain, Denies lightheadedness, Denies Loss of Consciousness and Denies dyspnea Respiratory: Respiratory: Reports no additional respiratory complaints and Denies dyspnea Gastrointestinal: Gastrointestinal: Reports no additional gastrointestinal complaints, Denies abdominal pain, Denies melena, Denies hematochezia, Denies change in bowel habits and Denies change in stool character Genitourinary: Genitourinary: Reports no additional male genitourinary complaints, Denies hematuria, Denies oliguria, Denies difficulty urinating, Denies dysuria, Denies urinary frequency, Denies urinary hesitancy, Denies urinary incontinence and Denies urinary urgency Musculoskeletal: Musculoskeletal: Reports no additional musculoskeletal complaints, Denies numbness and Denies tingling Comments: left clavicle pain Neurologic: Denies dizziness, Denies loss of vision, Denies numbness and Denies tingling Psychiatric: Psychiatric: Reports no additional psychiatric complaints Endocrine: Endocrine: Reports no additional endocrine complaints Hematologic/Lymphatic: Hematologic/Lymphatic: Reports no additional hematologic/lymphatic complaints Allergic/Immunologic: Allergic/Immunologic: Reports no additional allergic/immunologic complaints [facility] Past Medical History Attestation statement: The following information was validated with the patient. Source: old records reviewed and nursing notes reviewed Medical History Elevated LFTs COVID-19 virus infection Epididymal congestion pain Generalized anxiety disorder Epididymitis History of COVID-19 Learning disability Environmental and seasonal allergies Acne vulgaris Chronic GERD Mild intermittent asthma in adult without complication Surgical History No pertinent past surgical history Family History Family History Father No problems noted. Mother No problems noted. Social History Social History Household Members: Family Housing: House Do you presently have visiting nurse or other home services: No Alcohol intake: current Alcohol intake frequency: holidays/special occasions only Alcohol type: beer Patient Tobacco Use Status: Never used Tobacco e-Cigarette/Vaping Use: Never Used Second Hand Smoke Exposure: No Advance Directives: No Advance Directives Information Provided: No Do you have a plan to hurt others: No Plan service: No Current occupational status: employed Current occupation: [employer] Current occupational exposures/hazards: No Sexual orientation: Straight/Heterosexual Cognitive needs: No Hearing needs: No Vision needs: No Physical Exam ED Vital Signs: Vital Signs - 24 hr 07/03/24 15:50 07/03/24 17:50 Temperature 98 F 97.9 F Pulse Rate 121 H 85 Respiratory Rate 19 20 Blood Pressure 137/91 H 126/89 Pulse Oximetry 98 98 Oxygen Delivery Method Room Air Room Air BMI result Body Mass Index 25.8 Const General: cooperative, no acute distress, alert and awake Nutritional Appearance: well nourished Orientation/consciousness: patient oriented x3 Limitations: no limitations HENMT Head: Yes normal to inspection and Yes atraumatic Ears: hearing grossly normal bilaterally and external ears normal General nose exam: Normal external nose present, no nasal discharge noted and no epistaxis Face and sinus: Yes normal facial exam, No abrasion and No laceration Mouth: Normal oral and palatal mucosa present, no drooling and no muffled voice Eyes General: appearance normal, both eyes and all related structures Periorbital: periorbital findings normal Eyelids: Yes eyelids normal Conjunctivae: conjunctivae normal Pupils: Equal, round and reactive pupils present EOM: EOMs intact bilaterally Neck Neck: Yes normal visual inspection, Yes full ROM and Yes no lymphadenopathy Chest Other: Resp Effort & Inspection: normal respiratory effort and able to speak in complete sentences GI Inspection: Yes normal to inspection Neuro General: patient oriented x3 and moves all extremities Cranial nerves: Yes Equal, round and reactive pupils present Cognition (Neuro): normal cognition Extrem General: Yes full ROM and Yes capillary refill normal Psych Appearance: grossly normal Mental Status: mental status grossly normal Affect: normal affect Attitude: cooperative Thought process: Normal thought process present Thought content: Normal thought content present Insight: Good insight present (Psych) Course Course Course Narrative: RME performed by Audra Fritz PA-C. Patient is a 29 year old assigned male at presenting to the emergency department with left shoulder / clavicle pain. Patient states that he went to field a ground ball while plying softball when he injured his left clavicle. 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 Imaging ordered. Patient placed back in the waiting room pending room availability and results. Medications Administered Discontinued Medications Generic Name Dose Route Start Last Admin Trade Name Aracelis PRN Reason Stop Dose Admin Oxycodone HCl 10 mg 07/03/24 17:45 07/03/24 17:48 Oxycodone Hcl Immed Release 5 Mg Tablet PO 07/03/24 17:46 10 mg ONCE ONE Administration Medical Decision Making Medical Decision Making [facility] Narrative: Patient is a 29 year old assigned male at with a history of GERD and asthma presenting to the emergency department today with left clavicle pain. Patient's physical exam was as noted in the physical exam portion of this note. Patient's left clavicle is elevated and pain to palpation. Patient's left shoulder and clavicle x-ray showed a mid left clavicle fracture. I spoke to the orthopedic team who agreed with the plan of having the patient placed in a sling and following up outpatient. I explained my physical exam findings as well as all test results to the patient. I answered all questions asked by the patient. Patient's left upper extremity was placed in a sling, without incident. Patient's PMS was intact prior to and after sling placement. I stressed the importance of the patient taking his medication as directed (either prescribed or as the over the counter packaging recommends). I stressed the importance of the patient following up with his primary care provider and an orthopedic provider. I stressed the importance of the patient returning to the emergency department immediately if his symptoms were to worsen or if he were to develop any dizziness, shortness of breath, difficulty breathing, chest pain, blurry vision, loss of vision, nausea, vomiting, abdominal pain, fever, chills, back pain, or any other complaints. Patient verbalized agreement and understanding with this treatment plan and discharge. Differential Diagnosis Differential Diagnoses: The differential diagnosis associated with the presentation includes Left clavicle fracture Admission/Observation Consideration of admission/observation: Escalation of care including admission/observation considered Patient would have been admitted to the hospital had his work up had any findings where hospital admission was appropriate and his clinical presentation warranted hospital admission. Consult Healthcare Provider Management of the patient was discussed with: Label Stitcher (spoke to the orthopedic team as noted in the MDM Rationale portion of this note.) Independent Interpretation I performed an independent interpretation of an: Plain X-Ray Interpretation: My interpretation is in agreement with the radiologist's impression of these imaging studies. L EXAMINATION: XR SHOULDER, LEFT XR CLAVICLE, LEFT CLINICAL INFORMATION: Injured while playing softball COMPARISON: None available. TECHNIQUE: AP external rotation, Grashey, scapular Y, and axillary views of the left shoulder. FINDINGS: Suboptimal patient positioning due to limited range of motion of the left shoulder. Radiopaque density projects over the mid left clavicle on AP views is concerning for a midclavicular fracture. Glenohumeral and acromioclavicular alignment is anatomic with normal joint space. No abnormal soft tissue calcifications. XR/XR clavicle LT IMPRESSION: Radiopaque density projects over the mid left clavicle on AP views and is concerning for a midclavicular fracture. Recommend correlation with point tenderness. Findings were verbally communicated with on 07/03/2024 at 4:50pm. Electronically signed by: Isabelle Rashid MD 07/03/2024 04:55 PM EDT RP Dictated By: Bozena Rashid Signed By: Electronically signed by Bozena Rashid 07/03/24 2454 Radiology Impression Discussion of test interpretation with radiology: I have reviewed the radiologist's reading. Discharge Plan Discharge Clinical Impression: Clavicle fracture Patient Disposition: Home, Self-Care Instructions: Clavicle Fracture (ED) Additional Instructions: Follow up with your primary care provider and an orthopedic provider. Return to the emergency department immediately if your symptoms worsen or if you develop any dizziness, shortness of breath, difficulty breathing, chest pain, blurry vision, loss of vision, nausea, vomiting, abdominal pain, fever, chills, back pain, or any other complaints. Prescriptions: No Action hydroxyzine HCl 10 mg tablet 20 mg PO BEDTIME 30 Days Qty: 60 2RF Rx Instructions: Take 1-2 tablets before bed fluticasone propionate 50 mcg/actuation spray,suspension 2 spray intranasal DAILY budesonide-formoterol [Symbicort] 160-4.5 mcg/actuation HFA aerosol inhaler 2 puff inhalation BID cetirizine [Allergy Relief (cetirizine)] 10 mg tablet 10 mg PO DAILY PRN dicyclomine 10 mg capsule PO mupirocin calcium 2 % cream 1 appl topical BID 15 Days Qty: 15 0RF Referrals: [facility] [place] [facility] [Provider Group] (Call to establish and follow up with an orthopedic provider. ) Aureliano Burns PA-C [Primary Care Provider] - Stand Alone Forms: Work/School Release Interventions: ED Discharge Assessment Last Done: 07/03/24 17:50 Discharge Date/Time: 07/03/24 17:51 Print Language: Citizen Of [place]
[2024-07-03] MEDS: oxyCODONE HCl Immed Release 5 MG TABLET 10 MG PO (17:48)
[2024-07-03 17:50] VITALS: BP 126/89; PULSE 85; RESP 20; TEMP 36.6; O2SAT 98
== END 2024-07-03 17:51 | disposition home or self-care (01) ==
PROVIDERS: Emergency Provider Internal Medicine; PCP Physician Assistant
DX: S42.002A Fracture of unspecified part of left clavicle, initial encounter for closed fracture (principal); M25.512 Pain in left shoulder; W18.39XA Other fall on same level, initial encounter; Y93.64 Activity, baseball; Y92.320 Baseball field as the place of occurrence of the external cause; Y99.8 Other external cause status
CPT/HCPCS: 73000; 73030; 99283

== ENCOUNTER 2024-07-14 08:49 | Outpatient (AMB) | payer OTHER, SELFPAY ==
[2024-07-14 08:55] VITALS: BMI 25.8
--- NOTE | 2024-07-14 08:55 | MHC.OFFVIS ---
Vital Signs 07/14/24 08:55 Height 5 ft 8 in Weight 170 lb BMI 25.8 Intake Visit Reasons: FC - left clavicle fx, DOI 07/03/24 Intake Note: Cooper is a 29 year old right hand dominant male who presents today for a evaluation of his left clavicle fx, DOI 07/03/24. Patient states that he was playing softball, went to field a ground ball, when he felt/heard his left clavicle pop. He mentions that his pain is sore and uncomfortable. Patient report having a lot of pain with certain movements. Patient states that he was given 2 oxycodones and had him take Tylenol which didn't give him relief but helped with the swelling. 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 Allergies peanut [PEANUT] Allergy (Severe, Verified 07/14/24 08:59) ANAPHYLAXIS levofloxacin Allergy (Verified 07/14/24 08:59) dizzy, anxious could not sleep, heart racing, headaches doxycycline Adverse Reaction (Verified 07/14/24 08:59) stomach aches Pumpkin Seed Allergy (Unknown, Uncoded 07/03/24 15:51) hives HPI HPI FC - left clavicle fx, DOI 07/03/24: Details: 29-year-old right hand dominant male who presents in the office today, as a new patient, for an evaluation of left clavicle fracture. The patient presented to the ED on 07/03/24 status post experiencing a pop in his left clavicle while fielding a ground ball during a softball game. X-rays of the left clavicle were obtained. He was placed in a sling without incident. He was recommended taking OTC medication for pain. While in the office today, the patient describes his pain as sore and has discomfort in the left clavicle. He also mentions severe pain with certain movements. He states that he was given two tablets of oxycodone and additionally can take OTC Tylenol for the pain. He mentions no relief from the medication; however, it did help him with the edema. The patient has a social history of working at [employer]. 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 FORMERLY [facility], 1928–1983 Medical History Elevated LFTs COVID-19 virus infection Epididymal congestion pain Generalized anxiety disorder Epididymitis History of COVID-19 Learning disability Environmental and seasonal allergies Acne vulgaris Chronic GERD Mild intermittent asthma in adult without complication Surgical History No pertinent past surgical history Family History Father No problems noted. Mother No problems noted. Social History (Updated 07/14/24 @ 09:00 by Amy Stanford) Household Members: Family Housing: House Do you presently have visiting nurse or other home services: No Alcohol intake: current Alcohol intake frequency: holidays/special occasions only Alcohol type: beer Patient Tobacco Use Status: Never used Tobacco e-Cigarette/Vaping Use: Never Used Second Hand Smoke Exposure: No service: No Current occupational status: employed Current occupation: [employer] Current occupational exposures/hazards: No Sexual orientation: Straight/Heterosexual Cognitive needs: No Hearing needs: No Vision needs: No Review of Systems Const All systems reviewed & are unremarkable except as noted in HPI and below Physical Exam Vital Signs: BMI result Body Mass Index 25.8 Const General: cooperative and no acute distress Orientation/consciousness: patient oriented x3 Resp Effort & Inspection: normal respiratory effort and able to speak in complete sentences Cardio Peripheral pulses: Peripheral pulses 2+ throughout Skin General skin exam: no rashes or lesions noted Neuro General: patient oriented x3 Extrem Other: Left clavicle: Obvious deformity in the left clavicle. No skin breakdown or skin tenting. 80 degrees of forward flexion and abduction. NVI. Assessment & Plan Assessment & Plan (1) Closed left clavicular fracture: Code(s): S42.002A - Fracture of unspecified part of left clavicle, initial encounter for closed fracture Category: Medical Plan Mr. Castro is a 29-year-old right hand dominant male who presents in the office today, as a new patient, for an evaluation of left clavicle fracture. The patient presented to the ED on 07/03/24 status post experiencing a pop in his left clavicle while fielding a ground ball during a softball game. X-rays of the left clavicle were obtained. He was placed in a sling without incident. He was recommended taking OTC medication for pain. While in the office today, the patient describes his pain as sore and has discomfort in the left clavicle. He also mentions severe pain with certain movements. He states that he was given two tablets of oxycodone and additionally can take OTC Tylenol for the pain. He mentions no relief from the medication; however, it did help him with the edema. The patient has a social history of working at [employer]. 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 Dr. Kasper was available to speak with me and see the patient today; and a collaborative treatment plan was made. We discussed proceeding with the left clavicle open reduction and internal fixation. I discussed in detail the procedure and what to expect pre and post operatively. We discussed the risks, benefits and alternatives to the surgery and the rehabilitation course. The risks include infection, bleeding, nerve injury, ongoing pain, swelling, and stiffness, perioperative risk of injury to bones and soft tissues, and blood clots. I have answered all questions and with their understanding they have consented to move forward with a left clavicle open reduction and internal fixation to be performed on 07/19/[address] Kasper. Follow-up will be at the post operative appointment on 07/28/24 , or sooner if needed. X-rays of the left clavicle which were obtained while in the office today and were reviewed by me, Nathalie Aguilar PA-C, revealed redemonstration of the left clavicle fracture with shortening and displacement. X-rays of the left shoulder/clavicle, obtained on 07/03/24, revealed: Radiopaque density projects over the mid left clavicle on AP views and is concerning for a midclavicular fracture. Recommend correlation with point tenderness. Orders: Orders XR clavicle LT Today S42.002A - Fracture of unspecified part of left clavicle, initial encounter for closed fracture Patient Instructions: Scribed by Pham Holt, medical biller, for Nathalie Aguilar PA-C on 07/14/24 at 9:19 am EST. Coding Level of Care Code New Pt Level 4 (02822) Diagnoses Closed left clavicular fracture S42.002A
== END 2024-07-14 09:40 | disposition home or self-care (01) ==
PROVIDERS: PCP Physician Assistant; Visit Provider Physician Assistant
DX: S42.002A Fracture of unspecified part of left clavicle, initial encounter for closed fracture (principal)
CPT/HCPCS: 99204

== ENCOUNTER 2024-07-14 10:13 | Outpatient (REF) | payer OTHER, SELFPAY ==
--- NOTE | ~2024-07-14 | XR_ITS ---
EXAMINATION: XR CLAVICLE, LEFT CLINICAL INFORMATION: Fracture of left clavicle COMPARISON: X-ray left clavicle July 03, 2024. TECHNIQUE: 2 views of left clavicle FINDINGS: Comminuted fracture the middle one 3rd portion of the clavicle noted with the over a full shafts width caudally displacement of the distal fragment. The displacement appears increased compared to prior of the bones are overlapping approximately 3.5 cm. The remaining bones joints and soft tissues are unremarkable. XR/XR clavicle LT IMPRESSION: Comminuted fracture of the left clavicle with increased displacement compared to prior. Electronically signed by: Jaylen Gardner MD 07/20/2024 09:43 AM EDT
== END 2024-07-14 10:14 | disposition home or self-care (01) ==
LOC: HO.HOSX 10:13
PROVIDERS: Visit Provider Physician Assistant
DX: S42.002A Fracture of unspecified part of left clavicle, initial encounter for closed fracture (principal)
CPT/HCPCS: 73000

== ENCOUNTER 2024-07-19 06:50 | Day surgery (SDC) | payer OTHER, SELFPAY ==
--- NOTE | 2024-07-15 13:24 | HO.ANESPROP2 ---
Documented by User: Becky Kwon NP 07/15/24 13:24 HPI - Anesthesia Eval Consult details Narrative: 29yo M for Left Clavicle ORIF PMFSH Active Problems Active Problems: All Active Problems Closed left clavicular fracture (Acute) Strain of right biceps (Acute) Right shoulder pain (Acute) Screening for diabetes mellitus (DM) (Acute) Annual physical exam (Acute) GERD (gastroesophageal reflux disease) (Acute) Generalized anxiety disorder (Acute) Learning disability (Acute) Environmental and seasonal allergies (Acute) Acne vulgaris (Acute) Chronic GERD (Acute) Mild intermittent asthma in adult without complication (Acute) Past Medical History Medical History Elevated LFTs COVID-19 virus infection Generalized anxiety disorder Epididymitis History of COVID-19 Epididymal congestion pain Learning disability Environmental and seasonal allergies Acne vulgaris Chronic GERD Mild intermittent asthma in adult without complication Family History Family History Father No problems noted. Mother No problems noted. Family history of problems with anesthesia: No Surgical History Surgical History History of esophagogastroduodenoscopy (EGD) No pertinent past surgical history History of Problems with Anesthesia: No Social History Social History Household Members: Family Housing: House Do you presently have visiting nurse or other home services: No Alcohol intake: current Alcohol intake frequency: holidays/special occasions only Alcohol type: beer Patient Tobacco Use Status: Never used Tobacco e-Cigarette/Vaping Use: Never Used Second Hand Smoke Exposure: No Use of substances other than those prescribed or required for medical reasons: No Are you DNR?: No Advance Directives: No Advance Directives Information Provided: Yes Recently lost weight without trying: No service: No Current occupational status: employed Current occupation: [employer] Current occupational exposures/hazards: No Sexual orientation: Straight/Heterosexual Cognitive needs: No Hearing needs: No Vision needs: No Meds Allergies Allergy/AdvReac Type Severity Reaction Status Date / Time peanut [PEANUT] Allergy Severe ANAPHYLAXIS Verified 07/14/24 08:59 levofloxacin Allergy dizzy, Verified 07/14/24 08:59 anxious could not sleep, heart racing, headaches doxycycline AdvReac stomach Verified 07/14/24 08:59 aches Pumpkin Seed Allergy Unknown hives Uncoded 07/03/24 15:51 Home Medications ?Medication ?Instructions ?Recorded ?Confirmed ?Last Taken ?Type fluticasone propionate 50 2 spray intranasal DAILY 06/21/21 07/19/24 06/21/21 History mcg/actuation nasal spray,suspension budesonide-formoterol HFA 160 2 puff inhalation BID 07/10/21 07/19/24 07/19/24 05:30 History mcg-4.5 mcg/actuation aerosol inhaler (Symbicort) dicyclomine 10 mg capsule 10 mg PO Q6-8H PRN Abdominal 08/09/21 07/19/24 Unknown History Discomfort cetirizine 10 mg tablet (Allergy 10 mg PO DAILY PRN Allergy Symptoms 08/29/21 07/19/24 Unknown History Relief (cetirizine)) hydroxyzine HCl 10 mg tablet 20 mg PO BEDTIME PRN Insomnia 07/19/24 07/19/24 Unknown History Assessment and Plan Assessment Anesthesia Assessment: Chart Reviewed Final Anesthetic Review Family History of Problems with Anesthesia: No History of Problems with Anesthesia: No Documented by User: Keiko Castellanos MD 07/19/24 08:07 PMFSH Past Medical History Medical History Elevated LFTs COVID-19 virus infection Generalized anxiety disorder Epididymitis History of COVID-19 Epididymal congestion pain Learning disability Environmental and seasonal allergies Acne vulgaris Chronic GERD Mild intermittent asthma in adult without complication Family History Family History Father No problems noted. Mother No problems noted. Surgical History Surgical History History of esophagogastroduodenoscopy (EGD) No pertinent past surgical history Social History Social History Household Members: Family Housing: House Do you presently have visiting nurse or other home services: No Alcohol intake: current Alcohol intake frequency: holidays/special occasions only Alcohol type: beer Patient Tobacco Use Status: Never used Tobacco e-Cigarette/Vaping Use: Never Used Second Hand Smoke Exposure: No Use of substances other than those prescribed or required for medical reasons: No Are you DNR?: No Advance Directives: No Advance Directives Information Provided: Yes Recently lost weight without trying: No service: No Current occupational status: employed Current occupation: [employer] Current occupational exposures/hazards: No Sexual orientation: Straight/Heterosexual Cognitive needs: No Hearing needs: No Vision needs: No Meds Allergies Allergy/AdvReac Type Severity Reaction Status Date / Time peanut [PEANUT] Allergy Severe ANAPHYLAXIS Verified 07/14/24 08:59 levofloxacin Allergy dizzy, Verified 07/14/24 08:59 anxious could not sleep, heart racing, headaches doxycycline AdvReac stomach Verified 07/14/24 08:59 aches Pumpkin Seed Allergy Unknown hives Uncoded 07/03/24 15:51 Home Medications ?Medication ?Instructions ?Recorded ?Confirmed ?Last Taken ?Type fluticasone propionate 50 2 spray intranasal DAILY 06/21/21 07/19/24 06/21/21 History mcg/actuation nasal spray,suspension budesonide-formoterol HFA 160 2 puff inhalation BID 07/10/21 07/19/24 07/19/24 05:30 History mcg-4.5 mcg/actuation aerosol inhaler (Symbicort) dicyclomine 10 mg capsule 10 mg PO Q6-8H PRN Abdominal 08/09/21 07/19/24 Unknown History Discomfort cetirizine 10 mg tablet (Allergy 10 mg PO DAILY PRN Allergy Symptoms 08/29/21 07/19/24 Unknown History Relief (cetirizine)) hydroxyzine HCl 10 mg tablet 20 mg PO BEDTIME PRN Insomnia 07/19/24 07/19/24 Unknown History Exam Airway Mallampati Class: II TM Dist: >3cm Neck ROM: Full Loose/Missing/Broken Teeth: No Heart: RRR Lungs: CTA Assessment and Plan Assessment Anesthesia Assessment: Anesthesia Plan Discussed Final Anesthetic Review NPO: Yes ASA Class: II Final Preanesthetic Review: Meds/Allgs Chart Reviewed, Consent Obtained/Reviewed and Anes Risks/Benef Reviewed Patient Risk: Low Procedure Risk: Intermediate Anesthetic Plan Anesthetic Plan: GA Disposition: Standard PACU
[2024-07-19] VITALS (10 sets, daily range): BP systolic 126–150; BP diastolic 71–87; PULSE 79–105; RESP 15–18; TEMP 36.4–36.9; O2SAT 95–100; BMI 24.2
--- NOTE | 2024-07-19 07:21 | MHC.SHP ---
Pre-Procedural Eval Section A - 24 Hr Update-Section A only Date of Service: 07/19/24 The patient is an INPATIENT: No Changes since office visit: No Cold of Flu in the past 2 weeks, No New Medical Problems, No Changes in Medication and No Patient answered all questions The patient has been examined within 24 hours of the surgical procedure. The History & Physical has been completed within 30 days and I have reviewed it.: Yes Section B - Complete if H&P > 30 days Chief Complaint: Fracture of unspecified part of left clavicle, Allergies: Allergies Allergy/AdvReac Type Severity Reaction Status Date / Time peanut [PEANUT] Allergy Severe ANAPHYLAXIS Verified 07/14/24 08:59 levofloxacin Allergy dizzy, Verified 07/14/24 08:59 anxious could not sleep, heart racing, headaches doxycycline AdvReac stomach Verified 07/14/24 08:59 aches Pumpkin Seed Allergy Unknown hives Uncoded 07/03/24 15:51 Plan I have reviewed the history and physical and performed a pertinent physical examination on my patient. No changes have occurred unless specified. Time Spent With Patient Time: Total time managing care of this patient today ____ minutes.
[2024-07-19] MEDS: Lactated Ringers 1,000 ML 100 ML IVCONT (07:39)
--- NOTE | 2024-07-19 11:11 | P.BOP_ITS ---
Brief Operative Note Date of Service: 07/19/24 Pre-op diagnosis: Left clavicle fracture Post-op diagnosis: same Procedure: ORIF left clavicle Implants: [place] 8 hole bridge plate Surgeon: Edwar Kasper MD Anesthesia: GETA and local Was an Box Chipper used for this Procedure?: Yes Box Chipper: Hoa Fox Estimated blood loss (mL): 75 IV fluids (mL): 800 Pathology: none sent Condition: stable Disposition: PACU
--- NOTE | 2024-07-19 11:13 | P.OP_ITS ---
Operative Note Operative Note Date of Service: 07/19/24 Narrative: Date of Service: 07/19/24 Pre-op diagnosis: Left clavicle fracture Post-op diagnosis: same Procedure: ORIF left clavicle Implants: [place] 8 hole bridge plate Surgeon: Edwar Kasper MD Anesthesia: GETA and local Was an Automation Machine Builder used for this Procedure?: Yes Automation Machine Builder: Hoa Fox Estimated blood loss (mL): 75 IV fluids (mL): 800 Pathology: none sent Condition: stable Disposition: PACU Patient was brought to the operating room and placed in the beach chair position on the surgical table. The site was prepped and draped in standard sterile fashion and a time out was called to identify proper site, proper procedure and IV antibiotics per weight were administered. I began by making a superior incision over the clavicle. Once through skin Littler scissors were used to dissect through the clavicular fascia. The fracture was markedly displaced superiorly with two large free floating fragement at the fracture site. The medial fracture fragment was identified and a lobster claw tenaculum was used to stabilize it. The lateral fracture fragments were then identified and, using a combination of irrigation and sharp debridement, I cleaned up the fracture fragments. This was the shortened with anterior comminution and an 8 hole bridge plate was selected. I used an additional lobster claw to provisionally reduce the fracture and the bridge plate was placed superiorly and held in place with olive-tipped K-wires while radiographs were obtained. Visually I was satisfied with the fracture reduction and radiographs demonstrated sufficient length of the plate and on bone medially and laterally I then used standard AO technique to place 4 bicortical screws medial to the fracture and 4 bicortical screws lateral so that the plate spanned the comminuted midshaft fracture. Care was takenb not to plunge, A fiberwire 2.0 suture was used to bundle the cortical fragments together with the plate at the fracture as there were no keys for reduction. Again biplanar fluoroscopy was used to confirm appropriate hardware location, fracture reduction and screw length. Once I was satisfied with these parameters I copiously irrigated and closed with absorbable suture, skin glue and Steri-Strips. Patient was placed in sterile dressing and extubated brought to recovery room stable condition there were no known complications.
[2024-07-19] MEDS: oxyCODONE HCl Immed Release 5 MG TABLET PO (11:40)
[2024-07-19] MEDS: ondansetron HCL 4 MG/2 ML VIAL IVPUSH (11:49)
[2024-07-19] MEDS: Haloperidol Lactate 5 MG/ML VIAL 1 MG IVPUSH (12:23)
--- NOTE | 2024-07-19 12:25 | PC.NURSE ---
patient became nauseous again while dressing. Assisted back to stretcher and obtained and administered iv haldol. patient resting with eyes closed will reassess in 15 minutes.
--- NOTE | 2024-07-19 12:37 | PC.NURSE ---
attmepted to get up and became dizzy and nauseous assisted back to stretcher. MOm at bedside
== END 2024-07-19 13:28 | disposition home or self-care (01) ==
PROVIDERS: PCP Physician Assistant; Visit Provider Orthopaedic Surgery
PROC: (CPT 23515; principal; 2024-07-19 09:30)
DX: S42.002A Fracture of unspecified part of left clavicle, initial encounter for closed fracture (principal); X58.XXXA Exposure to other specified factors, initial encounter; Y93.64 Activity, baseball; Y92.9 Unspecified place or not applicable; Y99.8 Other external cause status; G21.9 Secondary parkinsonism, unspecified; J45.20 Mild intermittent asthma, uncomplicated; R79.89 Other specified abnormal findings of blood chemistry; L70.0 Acne vulgaris; F41.1 Generalized anxiety disorder; Z88.1 Allergy status to other antibiotic agents
CPT/HCPCS: 23515; C1713; J0131; J0690; J1100; J1630; J2003; J2250; J2405; J2704; J2795; J3010

== ENCOUNTER → 2024-07-19 06:50 | Outpatient (BNV) | payer OTHER, SELFPAY | PROVIDERS: PCP Physician Assistant; Visit Provider Orthopaedic Surgery | DX: S42.002A Fracture of unspecified part of left clavicle, initial encounter for closed fracture (principal) | CPT/HCPCS: 23515 ==

== ENCOUNTER 2024-07-28 09:43 | Outpatient (AMB) | payer OTHER, SELFPAY ==
--- NOTE | 2024-07-28 09:58 | A.OFFVIS_ITS ---
Vital Signs 07/28/24 09:59 Height 5 ft 8 in Weight 165 lb BMI 25.1 Intake Visit Reasons: PO LT clavicle ORIF 07/19/24 NE Intake Note: Cooper a 29 year old male who presents today for a post operative visit s/p left clavicle ORIF, DOS 07/19/24 NE. Patient reports he is doing well, he has minimal pain that comes with certain arm movements. States not needing pain medication the past couple of days. Allergies peanut [PEANUT] Allergy (Severe, Verified 07/28/24 10:01) ANAPHYLAXIS levofloxacin Allergy (Verified 07/28/24 10:01) dizzy, anxious could not sleep, heart racing, headaches doxycycline Adverse Reaction (Verified 07/28/24 10:01) stomach aches Pumpkin Seed Allergy (Unknown, Uncoded 07/28/24 10:01) hives Medication List - Last Reconciled 07/28/24 by Hoa Fox PA-C budesonide-formoterol 160-4.5 mcg/actuation (Symbicort) 2 puffs inhalation BID cetirizine (Allergy Relief (cetirizine)) 10 mg PO DAILY PRN dicyclomine 10 mg PO Q6-8H PRN fluticasone propionate 50 mcg/actuation 2 sprays intranasal DAILY hydrocodone-acetaminophen 5-325 mg 1 tab PO Q8H PRN 7 days hydroxyzine HCl 20 mg PO BEDTIME PRN HPI HPI PO LT clavicle ORIF 07/19/24 NE: Details: 29-year-old male who returns to the office today for post-op left clavicle ORIF, 07/19/[address] Kasper. He states he has minimal pain that comes with certain arm movements. He is unable to move his body due to the pain. He is doing well otherwise and has no other concerns today. [facility] Medical History Elevated LFTs COVID-19 virus infection Generalized anxiety disorder Epididymitis History of COVID-19 Epididymal congestion pain Learning disability Environmental and seasonal allergies Acne vulgaris Chronic GERD Mild intermittent asthma in adult without complication Surgical History History of esophagogastroduodenoscopy (EGD) No pertinent past surgical history Family History Father No problems noted. Mother No problems noted. Social History Household Members: Family Housing: House Do you presently have visiting nurse or other home services: No Alcohol intake: current Alcohol intake frequency: holidays/special occasions only Alcohol type: beer Patient Tobacco Use Status: Never used Tobacco e-Cigarette/Vaping Use: Never Used Second Hand Smoke Exposure: No service: No Current occupational status: employed Current occupation: [employer] Current occupational exposures/hazards: No Sexual orientation: Straight/Heterosexual Cognitive needs: No Hearing needs: No Vision needs: No Review of Systems Const All systems reviewed & are unremarkable except as noted in HPI and below Physical Exam Vital Signs: BMI result Body Mass Index 25.1 Extrem Other: Left clavicle: Incision clean, dry and intact. No redness or drainage. NVI. Results Reviewed Results Reviewed: X-rays of the left clavicle obtained in the office today show intact hardware with stable fracture alignment. Assessment & Plan Assessment & Plan (1) Closed left clavicular fracture: Code(s): S42.002A - Fracture of unspecified part of left clavicle, initial encounter for closed fracture Category: Medical Qualifiers: Encounter type: subsequent encounter Clavicle location: lateral end Fracture alignment: displaced Fracture healing: with routine healing Qualified Code(s): S42.032D - Displaced fracture of lateral end of left clavicle, subsequent encounter for fracture with routine healing Plan Steri strips will remain intact. I did educate the patient on care of the incision to avoid soaking or scrubbing the area. He can shower but I recommend he pats it dry afterwards. I did explain that the steri strips may fall off on their own. If he does have concerns such as erythema, drainage or increased tenderness he will contact the office for a wound check. He will begin a course of physical therapy to work on gentle ROM and periscapular stabilization. He will avoid any type of lifting, pushing, pulling, or carrying greater than a cellphone. He will use the sling out of the house for caution. He will return to work on 08/15 working from home only as he is unable to drive. I would like to see him back in 4 weeks with x-rays, sooner if needed. Orders: Orders XR clavicle LT Today M89.8X1 - Other specified disorders of bone, shoulder PT Evaluation and Treatment Today S42.002A - Fracture of unspecified part of left clavicle, initial encounter for closed fracture Patient Instructions: Scribed for Hoa Fox PA-C, by Sherman Encinas biomedical equipment support specialist, on 07/28/2024 at 10:00 AM EST.? I, Hoa Fox PA-C, have personally reviewed and agree with the information entered by the scribe. Coding Level of Care Code Global (25573) Diagnoses Closed displaced fracture of acromial end of left clavicle with routine healing, subsequent encounter S42.032D Encounter type: subsequent encounter Clavicle location: lateral end Fracture alignment: displaced Fracture healing: with routine healing
[2024-07-28 09:59] VITALS: BMI 25.1
== END 2024-07-28 10:51 | disposition home or self-care (01) ==
LOC: HO.HOS 09:43
PROVIDERS: PCP Physician Assistant; Visit Provider Physician Assistant
DX: S42.032D Displaced fracture of lateral end of left clavicle, subsequent encounter for fracture with routine healing (principal)
CPT/HCPCS: 99024

== ENCOUNTER 2024-07-28 09:43 | Outpatient (REF) | payer OTHER, SELFPAY | END 2024-07-28 09:44 | disposition home or self-care (01) | LOC: HO.HOSX 09:43 | PROVIDERS: PCP Physician Assistant; Visit Provider Physician Assistant | DX: M89.8X1 Other specified disorders of bone, shoulder (principal) | CPT/HCPCS: 73000 ==

== ENCOUNTER 2024-08-24 10:00 | Outpatient (AMB) | payer OTHER, SELFPAY ==
--- NOTE | 2024-08-24 10:16 | A.OFFVIS_ITS ---
Vital Signs 08/24/24 10:17 Height 5 ft 8 in Weight 165 lb BMI 25.1 Intake Visit Reasons: PO LT clavicle ORIF 07/19/24 NE w xray Intake Note: Cooper a 29 year old male who presents today for a post operative LT clavicle ORIF, DOS: 07/19/24 NE. Patient reports he is doing well, states tired and soreness with working with PT. States no pain. Allergies peanut [PEANUT] Allergy (Severe, Verified 08/24/24 10:18) ANAPHYLAXIS levofloxacin Allergy (Verified 08/24/24 10:18) dizzy, anxious could not sleep, heart racing, headaches doxycycline Adverse Reaction (Verified 08/24/24 10:18) stomach aches Pumpkin Seed Allergy (Unknown, Uncoded 08/24/24 10:18) hives Medication List - Last Reconciled 08/24/24 by Hoa Fox PA-C budesonide-formoterol 160-4.5 mcg/actuation (Symbicort) 2 puffs inhalation BID cetirizine (Allergy Relief (cetirizine)) 10 mg PO DAILY PRN dicyclomine 10 mg PO Q6-8H PRN fluticasone propionate 50 mcg/actuation 2 sprays intranasal DAILY hydrocodone-acetaminophen 5-325 mg 1 tab PO Q8H PRN 7 days hydroxyzine HCl 20 mg PO BEDTIME PRN HPI HPI PO LT clavicle ORIF 07/19/24 NE w xray: Details: 29-year-old male who returns to the office today for post-op left clavicle ORIF, 07/19/[address] Kasper. He states he has no pain however he continues to have soreness and fatigue in his shoulder with working on physical therapy. He has been working on physical therapy as instructed. He is doing well otherwise and has no other concerns today. [facility] Medical History Elevated LFTs COVID-19 virus infection Generalized anxiety disorder Epididymitis History of COVID-19 Epididymal congestion pain Learning disability Environmental and seasonal allergies Acne vulgaris Chronic GERD Mild intermittent asthma in adult without complication Surgical History History of esophagogastroduodenoscopy (EGD) No pertinent past surgical history Family History Father No problems noted. Mother No problems noted. Social History Household Members: Family Housing: House Do you presently have visiting nurse or other home services: No Alcohol intake: current Alcohol intake frequency: holidays/special occasions only Alcohol type: beer Patient Tobacco Use Status: Never used Tobacco e-Cigarette/Vaping Use: Never Used Second Hand Smoke Exposure: No service: No Current occupational status: employed Current occupation: [employer] Current occupational exposures/hazards: No Sexual orientation: Straight/Heterosexual Cognitive needs: No Hearing needs: No Vision needs: No Review of Systems Const All systems reviewed & are unremarkable except as noted in HPI and below Physical Exam Vital Signs: BMI result Body Mass Index 25.1 Extrem Other: Left clavicle: Incision well healed. No erythema, no swelling. He has full ROM in all planes. NVI. Results Reviewed Results Reviewed: X-rays of the left clavicle obtained in the office today show intact hardware with stable fracture alignment. Assessment & Plan Assessment & Plan (1) Closed left clavicular fracture: Code(s): S42.002A - Fracture of unspecified part of left clavicle, initial encounter for closed fracture Category: Medical Qualifiers: Clavicle location: lateral end Encounter type: subsequent encounter Fracture alignment: displaced Fracture healing: with routine healing Qualified Code(s): S42.032D - Displaced fracture of lateral end of left clavicle, subsequent encounter for fracture with routine healing Plan He will continue working with physical therapy and increase strength as tolerated. He will continue working from home untill I see him back in 6 weeks with new x-rays, sooner if needed. Orders: Orders XR clavicle LT Today M89.8X1 - Other specified disorders of bone, shoulder Patient Instructions: Scribed for Hoa Fox PA-C, by Sherman Encinas medical case worker, on 08/24/2024 at 10:15 AM EST.? I, Hoa oFx PA-C, have personally reviewed and agree with the information entered by the scribe. Coding Level of Care Code Global (11003) Diagnoses Closed displaced fracture of acromial end of left clavicle with routine healing, subsequent encounter S42.032D Clavicle location: lateral end Encounter type: subsequent encounter Fracture alignment: displaced Fracture healing: with routine healing
[2024-08-24 10:17] VITALS: BMI 25.1
== END 2024-08-24 10:31 | disposition home or self-care (01) ==
PROVIDERS: PCP Physician Assistant; Visit Provider Physician Assistant
DX: S42.032D Displaced fracture of lateral end of left clavicle, subsequent encounter for fracture with routine healing (principal)
CPT/HCPCS: 99024

== ENCOUNTER 2024-08-24 11:09 | Outpatient (REF) | payer OTHER, SELFPAY ==
--- NOTE | ~2024-08-24 | XR_ITS ---
EXAMINATION: XR CLAVICLE, LEFT CLINICAL INFORMATION: M89.8X1 - Other specified disorders of bone, shoulder COMPARISON: Prior radiographs for 07/28/2024 TECHNIQUE: 2 views of left clavicle FINDINGS: And screw fixation again noted crossing the previously noted middle 3rd clavicle fracture. Hardware intact. Fracture remains visible and unchanged. No definite callus. No change in alignment. Remaining bones joints and soft tissues are unremarkable. XR/XR clavicle LT IMPRESSION: Stable appearance of the left clavicle fracture with orthopedic fixation intact and unchanged. No definite fracture healing by x-ray. Electronically signed by: Jaylen Gardner MD 08/28/2024 01:35 PM [facility]
== END 2024-08-24 11:10 | disposition home or self-care (01) ==
LOC: HO.HOSX 11:09
PROVIDERS: Visit Provider Physician Assistant
DX: M89.8X1 Other specified disorders of bone, shoulder (principal); S42.032D Displaced fracture of lateral end of left clavicle, subsequent encounter for fracture with routine healing
CPT/HCPCS: 73000

== ENCOUNTER 2024-10-03 09:47 | Outpatient (REF) | payer OTHER, SELFPAY ==
--- NOTE | ~2024-10-03 | XR_ITS ---
EXAMINATION: XR CLAVICLE LEFT HISTORY: M89.8X1 - Other specified disorders of bone, shoulder COMPARISON: Comparison is made with the prior examination dated 08/24/2024. FINDINGS: Two views of the left clavicle are submitted. The patient is again noted to be status post internal fixation of a fracture of the midclavicle with a sideplate and multiple orthopedic screws. Hardware is unchanged in position. The fracture lines remain visible. The AC joint space is preserved. The soft tissues are unremarkable. XR/XR clavicle LT IMPRESSION: Internally fixed fracture of the midshaft of the left clavicle without change. Electronically signed by: Saud Norton MD 10/03/2024 03:09 PM RUPESH
== END 2024-10-03 09:48 | disposition home or self-care (01) ==
LOC: HO.HOSX 09:47
PROVIDERS: Visit Provider Physician Assistant
DX: S42.032D Displaced fracture of lateral end of left clavicle, subsequent encounter for fracture with routine healing (principal); M89.8X1 Other specified disorders of bone, shoulder
CPT/HCPCS: 73000

== ENCOUNTER 2024-10-03 11:17 | Outpatient (AMB) | payer OTHER, SELFPAY ==
--- NOTE | 2024-10-03 11:23 | A.OFFVIS_ITS ---
Vital Signs 10/03/24 11:33 Height 5 ft 8 in Weight 165 lb BMI 25.1 Intake Visit Reasons: PO LT clavicle ORIF 07/19/24 NE w xray Intake Note: Cooper is a 29 year old male who presents today for a post operative LT clavicle ORIF, DOS 07/19/24 NE. Patient reports he is doing well, states he is attending PT and has had improvement in his ROM, however he is still lacking in strength. States only pain comes with sleeping in wrong positions. Allergies peanut [PEANUT] Allergy (Severe, Verified 10/03/24 11:24) ANAPHYLAXIS levofloxacin Allergy (Verified 10/03/24 11:24) dizzy, anxious could not sleep, heart racing, headaches doxycycline Adverse Reaction (Verified 10/03/24 11:24) stomach aches Pumpkin Seed Allergy (Unknown, Uncoded 10/03/24 11:24) hives HPI HPI PO LT clavicle ORIF 07/19/24 NE w xray: Details: 29-year-old gentleman returns to the office today 6 weeks status post ORIF left clavicle with Dr. Kasper on 07/19/2024. States he is working with physical therapy and his range of motion is improving. They are also working on strength work. 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 [facility] Medical History Elevated LFTs COVID-19 virus infection Generalized anxiety disorder Epididymitis History of COVID-19 Epididymal congestion pain Learning disability Environmental and seasonal allergies Acne vulgaris Chronic GERD Mild intermittent asthma in adult without complication Surgical History History of esophagogastroduodenoscopy (EGD) No pertinent past surgical history Family History Father No problems noted. Mother No problems noted. Social History Household Members: Family Housing: House Do you presently have visiting nurse or other home services: No Alcohol intake: current Alcohol intake frequency: holidays/special occasions only Alcohol type: beer Patient Tobacco Use Status: Never used Tobacco e-Cigarette/Vaping Use: Never Used Second Hand Smoke Exposure: No service: No Current occupational status: employed Current occupation: [employer] Current occupational exposures/hazards: No Sexual orientation: Straight/Heterosexual Cognitive needs: No Hearing needs: No Vision needs: No Review of Systems Const All systems reviewed & are unremarkable except as noted in HPI and below Physical Exam Vital Signs: BMI result Body Mass Index 25.1 Extrem Other: Left clavicle incision well healed. No prominent hardware. Full range of motion in all planes. He is able to activate rotator cuff strength. Neurovascularly intact. Results Reviewed Results Reviewed: Xrays were obtained in the office today and personally reviewed by me of the left clavicle show intact hardware with interval healing. Assessment & Plan Assessment & Plan (1) Closed left clavicular fracture: Code(s): S42.002A - Fracture of unspecified part of left clavicle, initial encounter for closed fracture Category: Medical Qualifiers: Encounter type: subsequent encounter Clavicle location: lateral end Fracture alignment: displaced Fracture healing: with routine healing Qualified Code(s): S42.032D - Displaced fracture of lateral end of left clavicle, subsequent encounter for fracture with routine healing Plan: He will continue to work with physical therapy increasing his strength training. He can continue to increase activities as tolerated however I encouraged him to avoid impact or contact activities. He will continue to work full-time wit hout restrictions at his regular job. His part-time job as a bus inspector he will remain out of work as he needs to perform and pass a DOT physical exam which she is not able to do at this time given his limitations with strength. He will see me back in 6 weeks with x-rays sooner if needed. Orders: Orders XR clavicle LT Today M89.8X1 - Other specified disorders of bone, shoulder Coding Level of Care Code Global (44966) Diagnoses Closed displaced fracture of acromial end of left clavicle with routine healing, subsequent encounter S42.032D Encounter type: subsequent encounter Clavicle location: lateral end Fracture alignment: displaced Fracture healing: with routine healing
[2024-10-03 11:33] VITALS: BMI 25.1
== END 2024-10-03 11:52 | disposition home or self-care (01) ==
PROVIDERS: PCP Physician Assistant; Visit Provider Physician Assistant
DX: S42.032D Displaced fracture of lateral end of left clavicle, subsequent encounter for fracture with routine healing (principal)
CPT/HCPCS: 99024

== ENCOUNTER → 2024-10-03 11:39 | Outpatient (BNV) | payer OTHER, SELFPAY | PROVIDERS: Visit Provider Radiology Diagnostic Radiology | DX: M89.8X1 Other specified disorders of bone, shoulder (principal) | CPT/HCPCS: 73000 ==

== ENCOUNTER 2024-11-17 06:00 | Outpatient (RCR) | payer OTHER, SELFPAY ==
--- NOTE | 2024-08-10 10:58 | MHC.PT.EP ---
[facility] [place] Office [place] Office [place] Office [address] [place] [address] Dr Nicholas Arredondo [address] [phone] F: [phone] F: [phone] F: [phone] F: [phone] Physical Therapy Plan of Care Date of Evaluation: 08/10/24 Date of Surgery: Diagnosis: ORIF L clavicle fracture 07/19/24 Assessment: Patient is a 29 year old R handed male who presents with s/s consistent with s/p ORIF L clavicle, L shoulder pain. 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 Patient past medical history includes asthma. Current impairments include pain, posture, ROM, strength, activity tolerance and functional mobility. Functional limitations include decreased ability to sleep, lift, dress, push, pull, carry and play softball. Patient is motivated with good rehab potential. Skilled PT will address impairments and functional limitations in order to achieve goals. Frequency and Duration: The patient will be seen 2x/week for 5 weeks Short Term Goals: I with HEP - 2 weeks AROM full and pain free - 3 weeks Pain free sleeping - 3 weeks Shelter Goals: Strength 4+/5 grossly - 5 weeks SPADI 10/130 or less - 5 weeks Restore PLOF max pain 10/07 - [address] mechanics - 6 weeks Treatment Plan: Modalities to reduce pain, spasms and effusion. Manual therapy to restore motion and function. Therapeutic exercise to improve strength and flexibility. Neuromuscular re-education for posture and balance. Therapeutic activities to return to functional activities of daily living. Electronically signed by: Pablo Armas, PT Please sign and return to therapist. Thank you for your referral.
--- NOTE | 2024-12-21 10:24 | MHC.PT.DC ---
[facility] [place] Office [place] Office [place] Office [address] Nicholas Arreodndo [address] [phone] F: [phone] F: [phone] F: [phone] F: [phone] Physical Therapy Discharge Report Diagnosis: ORIF L clavicle fracture 07/19/24 Date of Surgery: Date of Evaluation: 08/10/24 Date of Discharge: 11/21/24 Treatments to Date: 18 Cancellations to Date: No Shows to Date: Discharge Status: Achieved Goals Improved Function Independent with HEP Discharge Summary: 11/17/24: pt progressed well with skilled PT achieving goals and restoring PLOF. Pt will attempt to proceed with HEP only. We will d/c to HEP at this time as he has met all of his goals. 11/10/24: pt continues progress. no adverse reactions. doing well with work related tasks and progression . 11/03/24: pt confidence in ability improving as is strength and tolerance to work related activities. 10/27/24: pt progressing well with skilled PT. increased work related sim with fatigue but no adverse reactions. 10/20/24: pt progressing well with CKC. we will continue to progress resistance and lifitng as tolerated. fatigue only noted. 10/13/24: pt progressing well with skilled PT. we progressed CKC act. we will progress box lifting ex to promote work related progression. 10/06/24: x rays show stable hardware. progressing with CKC. no adverse reactions. continue to progress as tolerated. 09/29/24: pt progressing. we will taper to 1x/week and progress CKC/weight bearing ex. 09/27/24: pt progressing well with skilled PT. no adverse reactions from above. Full AROM. still with strength impairments. 09/23/24: soreness noted after last treatment. we held body blade today. post shoulder soreness after wall pounds so we instructed in post cap stretch for hep. 09/20/24: pt continues to progress well. progressing strength with no adverse reactions. near full AROM and pain free. 09/15/24: pt progressing well with skilled PT with improved ROM and strength. continue to progress as tolerated. 09/13/24: pt has been feeling better overall with improved strength and ROM, still fatigues with ER ex. 09/08/24: pt progressing well still. improved ROM and strength tolerance. we have been able to steadily progress throughout PT so far. 09/06/24: Pt progressing well. no adverse reactions to above. pain free throughout. fatigue noted. we will continue to progress. 09/01/24: sore for a day after last visit. issued updated HEP today with bands and instructions. 08/30/24: progressed pain free strength to tolerance. assess response and progress as tolerated. 08/23/24: pt progressing well overall. some soreness but otherwise no adverse reactions. 08/18/24: pt progressing well with skilled PT. ROM progressing. good carryover and appropriate response with discomfort. continue to progress as tolerated. 08/16/24: pt progressed with ROM cautiously as he still has pain/discomfort in different positions. HEP will stay the same for now. Patient is a 29 year old R handed male who presents with s/s consistent with s/p ORIF L clavicle, L shoulder pain. 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 Patient past medical history includes asthma. Current impairments include pain, posture, ROM, strength, activity tolerance and functional mobility. Functional limitations include decreased ability to sleep, lift, dress, push, pull, carry and play softball. Patient is motivated with good rehab potential. Skilled PT will address impairments and functional limitations in order to achieve goals. Electronically signed by: Pablo Armas, PT Please sign and return to therapist. Thank you for your referral.
== END 2024-12-21 10:24 | disposition home or self-care (01) ==
LOC: HO.PTCHIC 06:00
PROVIDERS: PCP Physician Assistant; Visit Provider Physician Assistant
DX: S42.002D Fracture of unspecified part of left clavicle, subsequent encounter for fracture with routine healing (principal); Z98.890 Other specified postprocedural states
CPT/HCPCS: 97110; 97161

== ENCOUNTER 2024-11-25 07:26 | Outpatient (REF) | payer OTHER, SELFPAY ==
--- NOTE | ~2024-11-25 | XR_ITS ---
CLINICAL HISTORY: M89.8X1 - Other specified disorders of bone, shoulder 2 views left clavicle Comparison: DX/SR - XR CLAVICLE LT - 10/03/24 11:39 EST DX/SR - XR CLAVICLE LT - 08/24/24 10:03 EST DX/SR - XR CLAVICLE LT - 07/28/24 10:07 EDT Findings: Post internal fixation of the fracture of the mid clavicle with sideplate and screws in anatomic alignment without evidence of hardware failure. AC joint intact. No periostitis or bony destruction. No radiopaque foreign body. Impression: 1. Intact ORIF hardware transfixing a healing/healed mid clavicular fracture on the left This document has been electronically signed by: Sravan Campuzano MD on 11/25/2024 11:27:10
--- OUTSIDE RECORDS SUMMARY | 2024-11-26 07:29 | XMS_ITS | Encounter Summary ---
Author Organization [employer] Address [address] [place] [address] [address] [place] [address] Care Team Providers Care Assisted Living Director Name Role Phone Unavailable Primary Care Provider Unavailabl e Encounter Details Date Type Department Care Team (Latest Contact Info) Description 06/22/2019 Abstract [facility] CONVERSIONS Dental, Provider, DDS Social History [...]
--- OUTSIDE RECORDS SUMMARY | 2024-11-26 07:29 | XMS_ITS | Encounter Summary ---
Author Organization [facility] Address [address] [place] [address] Phone Care Team Providers Care Filter Cleaner Name Role Phone Maria Teresa Montano MD Primary Care Provider [phone] Encounter Details Date Type Department Care Team (Late st Contact Info) Description 06/27/2015 Documentation EM Family Medicine [address] [place] [address] Family Medicine, Physician [address] [place], [place] [phone] Social History Tobacco Use Types Packs/Day Years [...] on filedocumented in this encounter Care Teams Filter Cleaner Relationship Specialty Start Date End Date Maria Teresa Montano MD [address] [place] [address] PCP - General 05/08/17 03/24/23 documented as of this encounter
--- OUTSIDE RECORDS SUMMARY | 2024-11-26 07:29 | XMS_ITS | Encounter Summary ---
Author Organization [facility] Address [address] [place] [address] Phone Care Team Providers Care Military Personnel Specialist Name Role Phone Maria Teresa Montano MD Primary Care Provider [phone] Encounter Details Date Type Department Care Team (Late st Contact Info) Description 06/16/2016 Documentation EM Family Medicine [address] [place] [address] Family Medicine, Physician [address] [place], [place] [phone] Social History Tobacco Use Types Packs/Day Years [...] on filedocumented in this encounter Care Teams Military Personnel Specialist Relationship Specialty Start Date End Date Maria Teresa Montano MD [address] [place] [address] [place] [address] PCP - General 05/08/17 03/24/23 documented as of this encounter
--- OUTSIDE RECORDS SUMMARY | 2024-11-26 07:29 | XMS_ITS | Encounter Summary ---
Author Organization [facility] Address [address] [place] [address] Phone Care Team Providers Care Merchandising Coordinator Name Role Phone Maria Teresa Montano MD Primary Care Provider [phone] Encounter Details Date Type Department Care Team (Late st Contact Info) Description 05/14/2017 Conversion Encounter [facility] [place] [address] [place] [address] Social History Tobacco Use Types Packs/Day Years [...] on filedocumented in this encounter Care Teams Merchandising Coordinator Relationship Specialty Start Date End Date Maria Teresa Montano MD [address] [place] [address] PCP - General 05/08/17 03/24/23 documented as of this encounter
--- OUTSIDE RECORDS SUMMARY | 2024-11-26 07:29 | XMS_ITS | Patient Health Record ---
Author Organization [facility] Address [address] [place] [address] Care Team Providers Care Mfg Assoc Name Role Phone Aureliano Burns Primary Care Provider Saud Mathews [phone] ALLERGIES Allergen (clinical drug ingredient) Drug/Non Drug [...] Problem Anorexia (R63.0) Active confirmed Anore jorge (32953242) Problem Abdominal pain, epigastric (R10.13) Active confirmed 55939969 Problem Gastroesophageal reflux (K21.9) Active confirmed Esophageal reflux finding (157178518) PLAN OF TREATMENT Pending Test Test Name [...] Insured Coverage Start Date Coverage End Date [facility] [address] [place] [id number] MALGORZATA DOMINGA Self - patient is the insured MEDICAL (GENERAL) HISTORY Medical History History ICD Code Denies [place],DM,CVA,renal disease He describes a negative upper endoscopy in approximately 2016 at [facility] allergies Asthma Oral thrush in relation to [...]
--- OUTSIDE RECORDS SUMMARY | 2024-11-26 07:29 | XMS_ITS | Encounter Summary ---
Author Organization [facility] Address [address] [place] [address] Phone Care Team Providers Care Tsa Screener Name Role Phone Maria Teresa Montano MD Primary Care Provider [phone] Encounter Details Date Type Department Care Team (Late st Contact Info) Description 07/27/2012 Documentation EM Family Medicine [address] [place] [address] Family Medicine, Physician [address] [place], [place] [phone] Social History Tobacco Use Types Packs/Day Years [...] on filedocumented in this encounter Care Teams Tsa Screener Relationship Specialty Start Date End Date Maria Teresa Montano MD [address] [place] [address] PCP - General 05/08/17 03/24/23 documented as of this encounter
--- OUTSIDE RECORDS SUMMARY | 2024-11-26 07:29 | XMS_ITS | Encounter Summary ---
Author Organization [facility] Address [address] [place] [address] Phone Care Team Providers Care English Division Chair Name Role Phone Maria Teresa Montano MD Primary Care Provider [phone] Encounter Details Date Type Department Care Team (Late st Contact Info) Description 12/28/2015 Documentation EM Family Medicine [address] [place] [address] Family Medicine, Physician [address] [place], [place] [phone] Social History Tobacco Use Types Packs/Day Years [...] on filedocumented in this encounter Care Teams English Division Chair Relationship Specialty Start Date End Date Maria Teresa Montano MD [address] [place] [address] PCP - General 05/08/17 03/24/23 documented as of this encounter
--- OUTSIDE RECORDS SUMMARY | 2024-11-26 07:29 | XMS_ITS | Encounter Summary ---
Author Organization [facility] Address [address] [place] [address] Phone Care Team Providers Care Brand Coordinator Name Role Phone Maria Teresa Montano MD Primary Care Provider [phone] Encounter Details Date Type Department Care Team (Late st Contact Info) Description 10/27/2011 Documentation EM Family Medicine [address] [place] [address] Family Medicine, Physician [address] [place], [place] [phone] Social History Tobacco Use Types Packs/Day Years [...] on filedocumented in this encounter Care Teams Brand Coordinator Relationship Specialty Start Date End Date Maria Teresa Montano MD [address] [place] [address] PCP - General 05/08/17 03/24/23 documented as of this encounter
--- OUTSIDE RECORDS SUMMARY | 2024-11-26 07:29 | XMS_ITS | Clinical Summary ---
Author Organization [facility] Address [address] [place] [address] Phone Care Team Providers Care Deportation Officer Name Role Phone Unavailable Primary Care Provider [...] 3 - 3-dose series) 05/23/1996 03/28/1996, 1995 Influenza Vaccines (#1) 2024 05/29/20 16, 06/13/2015, 06/29/2014, Additional history exists COVID-19 Vaccine ( season) 2024 DTaP,Tdap,and Td Vaccines (8 - Td or Tdap) 07/01/2026 07/01/2016, 05/27/2006, 05/13/1999, Additional history exists HIB Vaccines Completed 08/30/1996, 09/1995, 1995, Additional history exists MMR Vaccines Completed 04/28/1999, 08/30/1996 IPV Vaccines Completed 05/13/1999, 09/1995, 1995, Additional history exists Varicella Vaccines Completed 05/25/2008, 05/22/1998 HPV Vaccines Completed 11/19/2011, 06/29, 05/16/2011 Hepatitis A Vaccines Completed 05/17/2014, 05/16/20 11 Meningococcal Vaccine Aged Out 11/10/2014, 007 No longer eligible based on patient's age to complete this topic Men B Vaccine Aged Out No longer elig ible based on patient's age to complete this topic Pneumococcal Vaccine Aged Out No long er eligible based on patient's age to complete this topic
--- OUTSIDE RECORDS SUMMARY | 2024-11-26 07:29 | XMS_ITS | Clinical Summary ---
Author Organization [employer] Address [address] [place] [address] [address] [place] [address] Care Team Providers Care Executive Wellness Programs Director Name Role Phone Unavailable Primary Care [...]
--- OUTSIDE RECORDS SUMMARY | 2024-11-26 07:29 | XMS_ITS | Encounter Summary ---
Author Organization [facility] Address [address] [place] [address] Phone Care Team Providers Care Window Display Designer Name Role Phone Maria Teresa Montano MD Primary Care Provider [phone] Encounter Details Date Type Department Care Team (Late st Contact Info) Description 05/21/2016 Documentation EM Family Medicine [address] [place] [address] Family Medicine, Physician [address] [place], [place] [phone] Social History Tobacco Use Types Packs/Day Years [...] on filedocumented in this encounter Care Teams Window Display Designer Relationship Specialty Start Date End Date Maria Teresa Montano MD [address] [place] [address] [place] [phone] PCP - General 05/08/17 03/24/23 documented as of this encounter
--- OUTSIDE RECORDS SUMMARY | 2024-11-26 07:29 | XMS_ITS | Encounter Summary ---
Author Organization [facility] Address [address] [place] [address] Phone Care Team Providers Care Newspaper Publisher Name Role Phone Maria Teresa Montano MD Primary Care Provider [phone] Encounter Details Date Type Department Care Team (Late st Contact Info) Description 05/16/2010 Documentation EM Family Medicine [address] [place] [address] Family Medicine, Physician [address] [place], [place] [phone] Social History Tobacco Use Types Packs/Day Years [...] on filedocumented in this encounter Care Teams Newspaper Publisher Relationship Specialty Start Date End Date Maria Teresa Montano MD [address] [place] [address] PCP - General 05/08/17 03/24/23 documented as of this encounter
--- OUTSIDE RECORDS SUMMARY | 2024-11-26 07:29 | XMS_ITS | Encounter Summary ---
Author Organization [facility] Address [address] [place] [address] Phone Care Team Providers Care Psychotherapist Name Role Phone Maria Teresa Montano MD Primary Care Provider [phone] Encounter Details Date Type Department Care Team (Late st Contact Info) Description 05/16/2010 Documentation EM Family Medicine [address] [place] [address] Family Medicine, Physician [address] [place], [place] [phone] Social History Tobacco Use Types Packs/Day Years [...] on filedocumented in this encounter Care Teams Psychotherapist Relationship Specialty Start Date End Date Maria Teresa Montano MD [address] [place] [address] PCP - General 05/08/17 03/24/23 documented as of this encounter
--- OUTSIDE RECORDS SUMMARY | 2024-11-26 07:29 | XMS_ITS | Encounter Summary ---
Author Organization [facility] Address [address] [place] [address] Phone Care Team Providers Care Sales And Production Manager Name Role Phone Maria Teresa Montano MD Primary Care Provider [phone] Encounter Details Date Type Department Care Team (Late st Contact Info) Description 05/16/2010 Documentation EM Family Medicine [address] [place] [address] Family Medicine, Physician [address] [place], [place] [phone] Social History Tobacco Use Types Packs/Day Years [...] on filedocumented in this encounter Care Teams Sales And Production Manager Relationship Specialty Start Date End Date Maria Teresa Montano MD [address] [place] [address] PCP - General 05/08/17 03/24/23 documented as of this encounter
--- OUTSIDE RECORDS SUMMARY | 2024-11-26 07:29 | XMS_ITS | Encounter Summary ---
Author Organization [facility] Address [address] [place] [address] Phone Care Team Providers Care Paper Wrapping Machine Operator Name Role Phone Maria Teresa Montano MD Primary Care Provider [phone] Encounter Details Date Type Department Care Team (Late st Contact Info) Description 05/16/2010 Documentation EM Family Medicine [address] [place] [address] Family Medicine, Physician [address] [place], [place] [phone] Social History Tobacco Use Types Packs/Day Years [...] on filedocumented in this encounter Care Teams Paper Wrapping Machine Operator Relationship Specialty Start Date End Date Maria Teresa Montano MD [address] [place] [address] PCP - General 05/08/17 03/24/23 documented as of this encounter
== END 2024-11-25 07:27 | disposition home or self-care (01) ==
LOC: HO.HOSX 07:26
PROVIDERS: Visit Provider Physician Assistant
DX: M89.8X1 Other specified disorders of bone, shoulder (principal); S42.032A Displaced fracture of lateral end of left clavicle, initial encounter for closed fracture; X58.XXXA Exposure to other specified factors, initial encounter; Y93.9 Activity, unspecified; Y92.9 Unspecified place or not applicable; Y99.9 Unspecified external cause status
CPT/HCPCS: 73000

== ENCOUNTER 2024-11-25 07:57 | Outpatient (AMB) | payer OTHER, SELFPAY ==
--- OUTSIDE RECORDS SUMMARY | 2024-11-25 08:00 | XMS_ITS | Encounter Summary ---
Author Organization [facility] Address [address] [place] [address] Phone Care Team Providers Care Campground Attendant Name Role Phone Maria Teresa Montano MD Primary Care Provider [phone] Encounter Details Date Type Department Care Team (Late st Contact Info) Description 05/21/2016 Documentation EM Family Medicine [address] [place] [address] Family Medicine, Physician [address] [place], [place] [phone] Social History Tobacco Use Types Packs/Day Years Used Date Smoking Tobacco: Never Comments:Never smoker Sex and Gender Information Value Date Recorded Sex Assigned at Not on file Legal Sex Male 5:07 PM EDT Gender Identity Not on file Sexual Orientation Not on file documented as of this encounter Plan of Treatment Not on file documented as of this encounter Visit Diagnoses Not on filedocumented in this encounter Care Teams Campground Attendant Relationship Specialty Start Date End Date Maria Teresa Montano MD [address] [place] [address] [place] [address] PCP - General 05/08/17 03/24/23 documented as of this encounter
--- OUTSIDE RECORDS SUMMARY | 2024-11-25 08:00 | XMS_ITS | Encounter Summary ---
Author Organization [facility] Address [address] [place] [address] Phone Care Team Providers Care Technical Cable Jointer Name Role Phone Maria Teresa Montano MD Primary Care Provider [phone] Encounter Details Date Type Department Care Team (Late st Contact Info) Description 05/16/2010 Documentation EM Family Medicine [address] [place] [address] Family Medicine, Physician [address] [place], [place] [phone] Social History Tobacco Use Types Packs/Day Years Used Date Smoking Tobacco: Never Assessed Sex and Gender Information Value Date Recorded Sex Assigned at Not on file Legal Sex Male 5:07 PM EDT Gender Identity Not on file Sexual Orientation Not on file documented as of this encounter Plan of Treatment Not on file documented as of this encounter Visit Diagnoses Not on filedocumented in this encounter Care Teams Technical Cable Jointer Relationship Specialty Start Date End Date Maria Teresa Montano MD [address] [place] [address] PCP - General 05/08/17 03/24/23 documented as of this encounter
--- OUTSIDE RECORDS SUMMARY | 2024-11-25 08:00 | XMS_ITS | Encounter Summary ---
Author Organization [facility] Address [address] [place] [address] Phone Care Team Providers Care Gm Video Name Role Phone Maria Teresa Montano MD Primary Care Provider [phone] Encounter Details Date Type Department Care Team (Late st Contact Info) Description 12/28/2015 Documentation EM Family Medicine [address] [place] [address] Family Medicine, Physician [address] [place], [place] [phone] Social History Tobacco Use Types Packs/Day Years [...] on filedocumented in this encounter Care Teams Gm Video Relationship Specialty Start Date End Date Maria Teresa Montano MD [address] [place] [address] PCP - General 05/08/17 03/24/23 documented as of this encounter
--- OUTSIDE RECORDS SUMMARY | 2024-11-25 08:00 | XMS_ITS | Encounter Summary ---
Author Organization [facility] Address [address] [place] [address] Phone Care Team Providers Care Senior Clinical Data Manager Name Role Phone Maria Teresa Montano MD Primary Care Provider [phone] Encounter Details Date Type Department Care Team (Late st Contact Info) Description 05/16/2010 Documentation EM Family Medicine [address] [place] [address] Family Medicine, Physician [address] [place], [place] [phone] Social History Tobacco Use Types Packs/Day Years [...] on filedocumented in this encounter Care Teams Senior Clinical Data Manager Relationship Specialty Start Date End Date Maria Teresa Montano MD [address] [place] [address] PCP - General 05/08/17 03/24/23 documented as of this encounter
--- OUTSIDE RECORDS SUMMARY | 2024-11-25 08:00 | XMS_ITS | Clinical Summary ---
Author Organization [facility] Address [address] [place] [address] Phone Care Team Providers Care Tiger Machine Operator Name Role Phone Unavailable Primary Care Provider Unavailabl e Immunizations Immunization Administration Dates Next Due DTP 11/29/1996 DTaP 5 05/13/1999, 6,1995,08/28 H1N1 08/28/2009 HPV, Quadrivalent 11/19/2011,07/17/2011,05/16/20 11 Hep A, Adult 05/17/2014 Hep A, ped/adol 05/16/2011 Hep B, ped/adol 03/28/1996,1995 Hib (PRP-T) 08/30/1996, 6,1995,08/28 IPV 1995,1995,1995 Influenza Split 06/16/2013, 2,05/13/2011,06/04 Influenza, injectable, quadr ivalent, preservative free 05/29/2016,06/13/2015,06/29/2014 Influenza, injectable, trivalent 009,07/07/2008,07/28/2007,07/15,07/30/2005 MMR 04/28/1999,08/30/1996 Meningococcal Conj (Menactra) MCV4P 11/10/2014,0 05/27/2007 OPV 05/13/1999 Tdap 07/01/2016,05/27/2006 Varicella 05/25/2008,05/22/1998 Family History Relation Name Status Comments Father Alive Father: Alive a nd well Maternal Grandfather Materna l grandfather: , Lupus erythematosus Mother Alive Mother: Migrain es Other Family history of Asthma Paternal Grandfather Paterna l grandfather: Heart Condition Social History Tobacco Use Types Packs/Day Years Used Date Smoking Tobacco: Never Comments:Never smoker Sex and Gender Information Value Date Recorded Sex Assigned at Not on file Legal Sex Male 5:07 PM EDT Gender Identity Not on file Sexual Orientation Not on file Last Filed Vital Signs Vital Sign Reading Time Taken Comments Blood Pressure 140/98 05/29/2016 12:00 AM EDT Pulse 100 05/29/2016 12:00 AM EDT Temperature 37 ??C (98.6 ??F) 02/19/2016 12:00 AM EDT Respiratory Rate - - Oxygen Saturation 100% 06/22/2015 12:00 AM EDT Inhaled Oxygen Concentration - - Weight 80.3 kg (177 lb) 05/29/2016 12:00 AM EDT Height 172.7 cm (5' 8 ) 05/21/2016 12:00 AM EDT Body Mass Index 26.91 05/21/2016 12:00 AM EDT Plan of Treatment Health Maintenance Due Date Last Done Comments Hepatitis B Vaccines (3 of 3 - 3-dose series) 05/23/1996 03/28/1996, 1995 Consider Men B Vaccine (1 of 2 - Bexsero 2-dose series) 2011 Influenza Vaccines (#1) 2024 05/29/20 16, 06/13/2015, 06/29/2014, Additional history exists COVID-19 Vaccine ( - 2023- season) 2024 DTaP,Tdap,and Td Vaccines (8 - Td or Tdap) 07/01/2026 07/01/2016, 05/27/2006, 05/13/1999, Additional history exists HIB Vaccines Completed 08/30/1996, 09/1995, 1995, Additional history exists MMR Vaccines Completed 04/28/1999, 08/30/1996 IPV Vaccines Completed 05/13/1999, 09/1995, 1995, Additional history exists Varicella Vaccines Completed 05/25/2008, 05/22/1998 HPV Vaccines Completed 11/19/2011, 06/29, 05/16/2011 Hepatitis A Vaccines Completed 05/17/2014, 05/16/20 Meningococcal Vaccine Aged Out 11/10/2014, 007 No longer eligible based on patient's age to complete this topic Men B Vaccine Aged Out No longer elig ible based on patient's age to complete this topic Pneumococcal Vaccine Aged Out No long er eligible based on patient's age to complete this topic
--- OUTSIDE RECORDS SUMMARY | 2024-11-25 08:00 | XMS_ITS | Encounter Summary ---
Author Organization [facility] Address [address] [place] [address] Phone Care Team Providers Care Supervisor [place] Name Role Phone Maria Teresa Montano MD Primary Care Provider [phone] Encounter Details Date Type Department Care Team (Late st Contact Info) Description 05/16/2010 Documentation EM Family Medicine [address] [place] [address] Family Medicine, Physician [address] [place], [place] [phone] Social History Tobacco Use Types Packs/Day Years [...] on filedocumented in this encounter Care Teams Supervisor [place] Relationship Specialty Start Date End Date Maria Teresa Montano MD [address] [place] [phone] PCP - General 05/08/17 03/24/23 documented as of this encounter
--- OUTSIDE RECORDS SUMMARY | 2024-11-25 08:00 | XMS_ITS | Encounter Summary ---
Author Organization [facility] Address [address] [place] [address] Phone Care Team Providers Care Back Hand Name Role Phone Maria Teresa Montano MD Primary Care Provider [phone] Encounter Details Date Type Department Care Team (Late st Contact Info) Description 10/27/2011 Documentation EM Family Medicine [address] [place] [address] Family Medicine, Physician [address] [place], [place] [phone] Social History Tobacco Use Types Packs/Day Years [...] on filedocumented in this encounter Care Teams Back Hand Relationship Specialty Start Date End Date Maria Teresa Montano MD [address] [place] [address] PCP - General 05/08/17 03/24/23 documented as of this encounter
--- OUTSIDE RECORDS SUMMARY | 2024-11-25 08:00 | XMS_ITS | Encounter Summary ---
Author Organization [facility] Address [address] [place] [address] Phone Care Team Providers Care Enterprise Analyst Name Role Phone Maria Teresa Montano MD Primary Care Provider [phone] Encounter Details Date Type Department Care Team (Late st Contact Info) Description 06/16/2016 Documentation EM Family Medicine [address] [place] [address] Family Medicine, Physician [address] [place], [place] [phone] Social History Tobacco Use Types Packs/Day Years [...] on filedocumented in this encounter Care Teams Enterprise Analyst Relationship Specialty Start Date End Date Maria Teresa Montano MD [address] [place] [address] [place] [address] PCP - General 05/08/17 03/24/23 documented as of this encounter
--- OUTSIDE RECORDS SUMMARY | 2024-11-25 08:00 | XMS_ITS | Encounter Summary ---
Author Organization [employer] Address [address] [place] [address] [address] [place] [address] Care Team Providers Care Embossing Machine Tender Name Role Phone Unavailable Primary Care Provider Unavailabl e Encounter Details Date Type Department Care Team (Latest Contact Info) Description 06/22/2019 Abstract [facility] CONVERSIONS Dental, Provider, DDS Social History Tobacco Use Types Packs/Day Years Used Date Smoking Tobacco: Never Assessed Sex and Gender Information Value Date Recorded Sex Assigned at Male 07/28/2022 10:23 AM EDT Legal Sex Male 10:23 AM EDT Gender Identity Male 07/28/2022 10:23 AM EDT Sexual Orientation Straight 07/28/2022 10 :23 AM EDT documented as of this encounter Plan of Treatment Not on file documented as of this encounter Visit Diagnoses Not on filedocumented in this encounter
--- OUTSIDE RECORDS SUMMARY | 2024-11-25 08:00 | XMS_ITS | Data Portability ---
Author Organization [facility], [address] Address [address] [place] [address] Care Team Providers Care Optics Technical Officer Name Role Phone ADAM KIRBY Primary Care Provider [phone] Assessment No assessment recorded. Plan of Treatment Reminders Order Date Submit Date Provider Last Modified By Organization Details Last Modified Time Details Appointments None recorded. Lab None recorded. Referral None recorded. Procedures None recorded. Surgeries None recorded. Imaging None recorded. Medication Orders neomycin-po lymyxin-hyd rocort 3.5 mg-10,000 unit/mL-1 % ear drops,susp 2022 023 [facility] #[id number], [address] [place], [address], 3 08:32:10 prednisone 20 mg tablet 2022 023 [facility] #[id number], [address] [place], [address], 3 08:32:09 fexofenadin e-pseudoeph edrine ER 180 mg-240 mg tablet,ext. release 24 hr 2022 023 [facility] #[id number], [address] [place], [address], 3 08:32:10 amoxicillin 875 mg-potassiu m clavulanate 125 mg tablet 2022 023 [facility] #[id number], [address] [place], [address], 3 08:15:59 prednisone 20 mg tablet 2022 023 [facility] #[id number], [address] [place], [address], 3 08:16:14 Patient TargetsNo targets recorded. Patient Instructions Encounter Date Encounter Id Patient Instructions Last Modified By Organization Details Last Modified Time 11/29/2022 [id number] Sinusitis is an infection of the lining of the sinus cavities in your head. Sinusitis often follows a cold. It causes pain and pressure in your head and face. In most cases, sinusitis gets better on its own in 1 to 2 weeks. But some mild symptoms may last for several weeks. Sometimes antibiotics are needed. if you are having problems. It's also a good idea to know your test results and keep a list of the medicines you take. How can you care for yourself at home? Take an rmfw-zlk-csmeeqn pain medicine. Avoid Ibuprofen, Aleve and Aspirin if . If the doctor prescribed antibiotics, take them as directed. Do not stop taking them just because you feel better. You need to take the full course of antibiotics. Be careful when taking pczg-xrx-ajffuyz cold or influenza (flu) medicines and Tylenol at the same time. Many of these medicines have acetaminophen, which is Tylenol. Read the labels to make sure that you are not taking more than the recommended dose. Too much acetaminophen (Tylenol) can be harmful. Breathe warm, moist air from a steamy shower, a hot bath, or a sink filled with hot water. Avoid cold, dry air. Using a humidifier in your home may help. Follow the directions for cleaning the machine. Use saline (saltwater) nasal washes. This can help keep your nasal passages open and wash out mucus and bacteria. You can buy saline nose drops at a grocery store or drugstore. Or you can make your own at home by adding 1 teaspoon (5 millilitres) of salt and 1 teaspoon (5 millilitres) of baking soda to 2 cups (500 mL) of distilled water. If you make your own, fill a bulb syringe with the solution, insert the tip into your nostril, and squeeze gently. Blow your nose. Put a hot, wet towel or a warm gel pack on your face 3 or 4 times a day for 5 to 10 minutes each time. Try a decongestant nasal spray like oxymetazoline (Drixoral). Do not use it for more than 3 days in a row. Using it for more than 3 days can make your congestion worse. Not available 11/29/2022 08:19:42 04/04/2023 [id number] earache: care instructions [email or web address] Not available 04/04/2023 08:32:07 ear infection (otitis media): care instructions Not available 04/04/2023 08:32:07 Sinusitis is an infection of the lining of the sinus cavities in your head. Sinusitis often follows a cold. It causes pain and pressure in your head and face. In most cases, sinusitis gets better on its own in 1 to 2 weeks. But some mild symptoms may last for several weeks. Sometimes antibiotics are needed. if you are having problems. It's also a good idea to know your test results and keep a list of the medicines you take. How can you care for yourself at home? Take an bnyh-lpm-chiptqh pain medicine. Avoid Ibuprofen, Aleve and Aspirin if . If the doctor prescribed antibiotics, take them as directed. Do not stop taking them just because you feel better. You need to take the full course of antibiotics. Be careful when taking bxws-mkq-ohmumhs cold or influenza (flu) medicines and Tylenol at the same time. Many of these medicines have acetaminophen, which is Tylenol. Read the labels to make sure that you are not taking more than the recommended dose. Too much acetaminophen (Tylenol) can be harmful. Breathe warm, moist air from a steamy shower, a hot bath, or a sink filled with hot water. Avoid cold, dry air. Using a humidifier in your home may help. Follow the directions for cleaning the machine. Use saline (saltwater) nasal washes. This can help keep your nasal passages open and wash out mucus and bacteria. You can buy saline nose drops at a grocery store or drugstore. Or you can make your own at home by adding 1 teaspoon (5 millilitres) of salt and 1 teaspoon (5 millilitres) of baking soda to 2 cups (500 mL) of distilled water. If you make your own, fill a bulb syringe with the solution, insert the tip into your nostril, and squeeze gently. Blow your nose. Put a hot, wet towel or a warm gel pack on your face 3 or 4 times a day for 5 to 10 minutes each time. Try a decongestant nasal spray like oxymetazoline (Drixoral). Do not use it for more than 3 days in a row. Using it for more than 3 days can make your congestion worse. Not available 04/04/2023 08:32:05 Water in the ear , from swimming or bathing, makes the ear canal prone to infection. Hot and humid weather also predisposes to infection. Symptoms of otitis externa include: ear pain, fullness or itching in the ear, ear drainage, and temporary loss of hearing. These symptoms are similar to those caused by otitis media (middle ear infection). To differentiate between external ear infection and middle ear infection, the provider looks in the ear with an instrument called an otoscope. It is important to distinguish between the two infections, as they are treated differently: External otitis is treated with drops in the ear canal, while middle ear infection is sometimes treated with an antibiotic by mouth. MEASURES YOU SHOULD TAKE TO HELP TREAT EXTERNAL EAR INFECTION: 1. Use the ear drops regularly, as directed on the prescription. 2. The roland to treatment is getting the drops down into the canal and keeping the medicine there. To accomplish this: Lie on your side, with the unaffected ear down. Put three to four drops in the infected ear canal, then gently pull the outer ear back and forth several times, working the medicine deeper into the ear canal. Remain still, tedm-cet-wuzd-down for about 15 minutes. 3. Keep the ear as dry as possible. Swimming should be postponed until the infection has cleared. Try to avoid getting water in the ear when bathing. If water does get in the ear, the canal can be gently dried with a hair blow dryer. Use the low heat setting, and keep the blow dryer about six inches from the ear. 4. Weds-vtg-ojpfryq pain medications can relieve discomfort associated with external otitis. Acetaminophen (Tylenol), ibuprofen, or naproxen can be taken, depending on individual preference. 5. Return to the [facility] in about one week. The provider can check to make sure the infection has cleared, continue the medicine if needed, okay a return to swimming, etc. 6. To prevent repeated episodes of otitis externa, try to keep the ear canal dry. Gentle swabbing with Q-tips (never deep into the canal), along with a hair blow dryer (low heat), can be used to dry the ear canal if it gets wet. 7. Should you develop severe pain, fever, severe headache, or stiff neck, see your personal/referral doctor or go to the closest emergency department promptly. Otitis externa does not normally cause these symptoms; another problem, requiring different treatment, could be present Not available 04/04/2023 08:31:58 Reason for Referral None Reported. Problems Name Problem SNOMED Code Status Onset Date Resolution Date Notes Provider Name and Address Organization Details Recorded Time Asthma [id number] Active 023 LOIDA ortez, [place] - [facility] 11/29/2022 08:14:32 Problem Notes None recorded. Medical Equipment None Reported. Allergies Allergen ID Allergen Name Allergen Category Reaction Reaction Severity Criticality Documentation Date Start Date Code Code System Note Provider Name and Address Organization Details Recorded Time 510033 levofloxa danielle medicatio n Not available Not available Not available 11/29/2022 27812 RxNorm LOIDA Solorzano null, PA - [facility] 3 08:13:13 782381 doxycycli ne Not available Not available Not available Not available 11/29/2022 3640 RxNorm LOIDA Solorzano null, PA - [facility] 3 08:13:21 693087 peanut allergeni c extract food,medi cation Not available Not available Not available 04/04/2023 76791 8 RxNorm Jennifer Fortedeepthi null, PA - [facility] 3 08:16:19 Medications Name Sig Start Date Stop Date Status Note LastModified by Organization Details LastModified Time amoxicillin 500 mg capsule TAKE 1 CAPSULE BY MOUTH EVERY 12 HOURS FOR 7 DAYS 11/29 completed Not Available Not Available Not Available cetirizine 10 mg tablet TAKE 1 TABLET BY MOUTH EVERY DAY active Not Available Not Available No t Available benzonatate 200 mg capsule TAKE 1 CAPSULE (ORAL) 3 TIMES PER DAY NEEDED - COUGH FOR 7 DAYS 11/29 completed Not Available Not Available Not Available prednisone 20 mg tablet Take 2 tablets every day by oral route in the morning for 3 days. 2022 active Not Available Not Available Not Avai lable fluticasone propionate 50 mcg/actuati on nasal spray,suspe nsion SPRAY 1 SPRAY(S) (NASAL) 2 TIMES PER DAY IN EACH NOSTRIL FOR ALLERGY SYMPTOMS 04/04 completed Not Available Not Available Not Available dicyclomine 10 mg capsule TAKE 1 TO 2 CAPSULES BY MOUTH EVERY 6 HOURS NEEDED FOR CRAMPING 11/29 completed Not Available Not Available Not Available amoxicillin 875 mg-potassiu m clavulanate 125 mg tablet Take 1 tablet every 12 hours by oral route with meals for 10 days. 04/04 completed Not Available Not Available Not Available neomycin-po lymyxin-hyd rocort 3.5 mg-10,000 unit/mL-1 % ear drops,susp INSTILL 4 DROPS INTO AFFECTED EAR(S) BY OTIC ROUTE 3 TIMES PER DAY x 10 days 2022 active Not Available Not Available Not Avai lable fexofenadin e-pseudoeph edrine ER 180 mg-240 mg tablet,ext. release 24 hr Take 1 tablet every day by oral route in the evening for 10 days. 2022 active Not Available Not Available Not Avai lable Symbicort 160 mcg-4.5 mcg/actuati on HFA aerosol inhaler INHALE 2 PUFFS INTO THE LUNGS TWICE DAILY. active Not Available Not Available No t Available Auvi-Q 0.3 mg/0.3 mL injection, auto-inject or INJECT NEEDED FOR SEVERE ALLERGIC REACTION INCLUDING ANAPHYLAX IS DIRECTED AND THEN CALL 911 active Not Available Not Available No t Available Paxlovid 300 mg (150 mg x 2)-100 mg tablets in a dose pack TAKE EXACTLY INDICATED ON PACKAGE 11/29 completed Not Available Not Available Not Available Vitals Date Recorded Body height Body mass index (BMI) Body weight Pain severity - 0-10 verbal numeric rating [Score] - Reported Respiratory rate Oxygen saturation Oxygen saturation in Arterial blood by Pulse oximetry Heart rate Body temperature Systolic blood pressure Diastolic blood pressure Provider Name and Address Organization Details Last Updated DateTime 3 172.72 cm 26.6 kg/m2 85072.6 6 g 10 18 /min 97 % 97 % 109 /min 98.9 [degF] 134 mm[Hg] 89 mm[Hg] Jennifer Andersonlydia PA - [facility] 3 08:18:08 Date Recorded Body height Body mass index (BMI) Body weight Body temperature Respiratory rate Oxygen saturation Oxygen saturation in Arterial blood by Pulse oximetry Heart rate Systolic blood pressure Diastolic blood pressure Provider Name and Address Organization Details Last Updated DateTime 3 172.72 cm 25.8 kg/m2 78407.7 g 98.1 [degF] 18 /min 97 % 97 % 78 /min 134 mm[Hg] 94 mm[Hg] LOIDA Solorzano PA - [facility] 3 08:16:19 Social History Question Answer Notes LastModified by Organizat ion Details LastModified Time Tobacco Smoking Status Never Smoker LOIDA ortez PA - [facility] 11/29/2022 08:14:43 What Is Your Level Of Alcohol Consumption? Occasional Information not available 11/29/2022 How Many Times Per Week Do You Consume Alcohol? Less Than 1 Time Per Week emonfette Information not available 04/04/2023 What Is Your Water Source? City Information not available 11/29/2022 What Is Your Heat Source? Gas Information not available 11/29/2022 Have You Had Direct Contact, Or Contact During Intimacy, With Monkeypox Rash, Scabs, Or Body Fluids From A Person With Monkeypox? No Information not available 11/29/2022 Do You Use Any Illicit Or Recreational Drugs? No Information not available 11/29/2022 Have You Recently Traveled Abroad? No Information not available 11/29/2022 Do You Or Have You Ever Used Any Other Forms Of Tobacco Or Nicotine? No Information not available 11/29/2022 Sex: Unknown Functional Status None recorded. Mental Status None recorded. Family History Relationship Description Onset Age of this Age Resolved Age Notes LastModified by Organization Details LastModified Time Father No current problems or disability Not available 08:14:34 Mother No current problems or disability Not available 08:14:34 Medical History No medical history recorded. Immunizations Vaccine Type Date Status Note Provider Nam e and Address Organization Details Recorded Time Influenza, split virus, quadrivalent, preservative 7 completed Jennifer Monfette null, PA - [facility] 04/04/2023 08:15:27 Influenza, split virus, quadrivalent, preservative 8 completed Jennifer Monfette null, PA - [facility] 04/04/2023 08:15:27 Influenza, split virus, quadrivalent, preservative 9 completed Jennifer Monfette null, PA - [facility] 04/04/2023 08:15:27 Influenza, MDCK, quadrivalent, PF 2 completed Jennifer Monfette null, PA - [facility] 04/04/2023 08:15:27 MMR 9 completed Jennifer Monfette null, PA - [facility] 04/04/2023 08:15:27 MMR 6 completed Jennifer Monfette null, PA - [facility] 04/04/2023 08:15:27 COVID-19, mRNA, LNP-S, PF, 30 mcg/0.3 mL dose 1 completed Jennifer Monfette null, PA - [facility] 04/04/2023 08:15:27 COVID-19, mRNA, LNP-S, PF, 30 mcg/0.3 mL dose 1 completed Jennifer Monfette null, PA - [facility] 04/04/2023 08:15:27 pneumococcal polysaccharide PPV23 8 completed Jennifer Monfette null, PA - [facility] 04/04/2023 08:15:27 Tdap 6 completed Jennifer Monfette null, PA - [facility] 04/04/2023 08:15:27 varicella 8 completed Jennifer Monfette null, PA - [facility] 04/04/2023 08:15:27 varicella 8 completed Jennifer Monfette null, PA - [facility] 04/04/2023 08:15:27 Hep B, adolescent or pediatric 6 completed Jennifer Monfette null, PA - [facility] 04/04/2023 08:15:27 Hep B, adolescent or pediatric 5 completed Jennifer Monfette null, PA - [facility] 04/04/2023 08:15:27 Hep B, adolescent or pediatric 5 completed Jennifer Monfette null, PA - [facility] 04/04/2023 08:15:27 Influenza, split virus, quadrivalent, PF 6 completed Jennifer Monfette null, PA - [facility] 04/04/2023 08:15:27 Influenza, split virus, quadrivalent, PF 1 completed Jennifer Monfette null, PA - [facility] 04/04/2023 08:15:27 Past Encounters Encounter ID Performer Location Encounter Start Date Encounter Closed Date Diagnosis/Indication Diagnosis SNOMED-CT Code Diagnosis ICD10 Code Diagnosis Note [id number] [address] [place] [address] 10/02/2021 19:50:16 10/02/2021 20:16:30 [id number] [address] [address] [place] [address] 08/18/2017 14:02:57 08/18/2017 14:51:03 [id number] [address] [place] [address] 0 05/28/2019 14:42:42 05/28/2019 15:54:42 [id number] [address] [place] [address] 0 06/23/2022 15:41:38 06/23/2022 18:23:50 [id number] [address] [place] [address] 0 01/05/2022 09:08:08 01/05/2022 11:16:41 [id number] [address] [facility] [place] [address] 10/02/2021 17:20:30 10/02/2021 19:54:44 [id number] [address] [facility] [place] [address] 11/13/2019 12:17:34 11/13/2019 13:19:34 [id number] [address] [place] [address] [place] [address] 10/19/2019 08:14:59 10/19/2019 09:34:53 [id number] [address] [facility] [place] [address] 10/22/2019 14:51:00 10/22/2019 15:51:02 [id number] [address] [address] [place] [address] [place] [address] 07/02/2017 10:18:17 07/02/2017 10:35:10 [id number] Maximo Rizo NP [address] [address] [facility] [place] [address] 11/29/2022 08:03:17 11/29/2022 08:27:56 Acute sinusitis 85297698 J01.90 [id number] Maximo Rizo NP [address] [address] [facility] [place] [address] 04/04/2023 08:03:45 04/04/2023 08:39:28 Otitis externa of right ear [id number] 714718 H60.91 Acute sinusitis 08952175 J01.90 Health Concerns Section Related Observation LastModified by Organization Detai ls LastModified Time None Recorded Concern Status LastModified by Organization Details LastModified Time None Recorded Advance Directives Directive None Recorded Payers Encounter Date Sequence Insurance Name Policy Number Policy Leal Covered Member ID Leal Member ID Guarantor Name 10/02/2021 1 [facility] [id number] Cooper Castro [id number] Cooper Castro 01/05/2022 1 [facility] [id number] Cooper Castro [id number] Cooper Castro 06/23/2022 1 [facility] [id number] Cooper Castro [id number] Cooper Castro 11/29/2022 1 [facility] Cooper Castro [id number] Cooper Castro 04/04/2023 1 [facility] [id number] Cooper Castro [id number] Cooper Castro Notes Date Note Type Note Provider Name and Address Organization Details Recorded Time 11/29/2022 text/html CongestionReport ed bypatient.Notes:ear pain and pressure, nasal congestion with post nasal drip x 3 weeks. denies any fever or fever with chills. no SOB or respiratory distress. Maximo Rizo NP [address] [place], [address], [place] - [facility] 11/29/2022 08:25:12 04/04/2023 text/html Sinus Complaints UCReported bypatient.Location:sinu s pain;facial pain;sinus pressure Associated Symptoms:no fever; no nausea or vomiting; no sore throat; no ear fullness; no nasal itching; no eye itching; no dizziness;difficulty breathing;Post nasal drip;nasal passage blockage;cough Onset/Timing:worse in am; worse in pm Quality:minimal discomfort;worsening; clear Duration:frequent Severity:moderate Context:no recent upper respiratory infection; no recent sick contacts; not worse with seasonal allergen exposure;worse with environmental exposure Risk Factors:no current smoking or tobacco use; no history of nasal trauma Alleviating factors:oral steroids Aggravating factors:worse during an upper respiratory infection (a cold); worse with excess fatigue Prior Treatmentoral decongestantEar Pain Brief HPIReported bypatient.Location:pain radiates to jaw; right Onset/Timing:new onset; started 2days ago Duration:occurs daily; constant pain Quality:no itching; no discharge from the ears; no burning;aching pain;sharp pain Severity:getting worse; no fever; able to perform daily activities;interferes with ability to sleep Context:no recent trauma; no recent ear infection; no recent swimming; no immunocompromise; no dental problems; no recent airplane travel; no scuba diving; non-smoker;recent URI Alleviating factors:decongestant Aggravating factors:humidity; sinus infections; allergies Associated Symptoms:no cough; no jaw popping or clicking; No decreased appetite; no discharge from ear; no hearing loss; no sore throat; no dental pain; no jaw pain; no tinnitus;nasal congestion;nasal discharge;sense of fullness/pressure; no decreased hearing; no muffled hearing Maximo Rizo NP [address] [place], [place] [address] [place], [address], [place] - [facility] 04/04/2023 08:32:49
--- OUTSIDE RECORDS SUMMARY | 2024-11-25 08:00 | XMS_ITS | Encounter Summary ---
Author Organization [facility] Address [address] [place] [address] Phone Care Team Providers Care Slubber Hand Name Role Phone Maria Teresa Montano MD Primary Care Provider [phone] Encounter Details Date Type Department Care Team (Late st Contact Info) Description 05/14/2017 Conversion Encounter [facility] [place] [address] [place] [address] Social History Tobacco Use Types Packs/Day Years [...] on filedocumented in this encounter Care Teams Slubber Hand Relationship Specialty Start Date End Date Maria Teresa Montano MD [address] [place] [address] PCP - General 05/08/17 03/24/23 documented as of this encounter
--- OUTSIDE RECORDS SUMMARY | 2024-11-25 08:00 | XMS_ITS | Clinical Summary ---
Author Organization [employer] Address [address] [place] [address] [address] [place] [address] Care Team Providers Care Reservoir Engineer Name Role Phone Unavailable Primary Care Provider Unavailabl e Social History Tobacco Use Types Packs/Day Years Used Date Smoking Tobacco: Never Assessed Sex and Gender Information Value Date Recorded Sex Assigned at Male 07/28/2022 10:23 AM EDT Legal Sex Male 10:23 AM EDT Gender Identity Male 07/28/2022 10:23 AM EDT Sexual Orientation Straight 07/28/2022 10 :23 AM EDT Plan of Treatment Health Maintenance Due Date Last Done Comments Depression Screening 1995 Alcohol/Substance Use Screening 2007 Tobacco Screening 2007 Family Planning (PISQ) 2010 DTaP/Tdap/Td Vaccines (1 - Tdap) 2014 Hepatitis B Vaccines (1 of 3 - 19+ 3-dose series) 2014 COVID-19 Vaccine ( - 2023-2 5 season) 2024 Influenza Vaccine (#1) 2024 Zoster Vaccines (1 of 2) 2045 RSV Patients and Pa tients Aged 60 years or older (1 - 1-dose 75+ series) 2070 HIB Vaccines Aged Out No longer eligi ble based on patient's age to complete this topic HPV Vaccines Aged Out No longer eligi ble based on patient's age to complete this topic Hepatitis A Vaccines Aged Out No long er eligible based on patient's age to complete this topic IPV Vaccines Aged Out No longer eligi ble based on patient's age to complete this topic Meningococcal Vaccine Aged Out No eloise dwight eligible based on patient's age to complete this topic Pneumococcal Vaccine: Pediat rics (0 to 5 Years) and At-Risk Patients (6 to 49) Years) Aged Out No longer eligible b ased on patient's age to complete this topic RSV under 20 months Aged Out No longe r eligible based on patient's age to complete this topic Rotavirus Vaccines Aged Out No longer eligible based on patient's age to complete this topic
--- OUTSIDE RECORDS SUMMARY | 2024-11-25 08:00 | XMS_ITS | Encounter Summary ---
Author Organization [facility] Address [address] [place] [address] Phone Care Team Providers Care Building Construction Foreman Name Role Phone Maria Teresa Montano MD Primary Care Provider [phone] Encounter Details Date Type Department Care Team (Late st Contact Info) Description 06/27/2015 Documentation EM Family Medicine [address] [place] [address] Family Medicine, Physician [address] [place], [place] [phone] Social History Tobacco Use Types Packs/Day Years [...] on filedocumented in this encounter Care Teams Building Construction Foreman Relationship Specialty Start Date End Date Maria Teresa Montano MD [address] [place] [address] PCP - General 05/08/17 03/24/23 documented as of this encounter
--- OUTSIDE RECORDS SUMMARY | 2024-11-25 08:00 | XMS_ITS | Encounter Summary ---
Author Organization [facility] Address [address] [place] [address] Phone Care Team Providers Care Geomatics Professor Name Role Phone Maria Teresa Montano MD Primary Care Provider [phone] Encounter Details Date Type Department Care Team (Late st Contact Info) Description 07/27/2012 Documentation EM Family Medicine [address] [place] [address] Family Medicine, Physician [address] [place], [place] [phone] Social History Tobacco Use Types Packs/Day Years [...] on filedocumented in this encounter Care Teams Geomatics Professor Relationship Specialty Start Date End Date Maria Teresa Montano MD [address] [place] [address] PCP - General 05/08/17 03/24/23 documented as of this encounter
--- OUTSIDE RECORDS SUMMARY | 2024-11-25 08:00 | XMS_ITS | Patient Health Record ---
Author Organization [facility] Address [address] [place] [address] Care Team Providers Care Bowl Turner Name Role Phone Aureliano Burns Primary Care Provider Saud Mathews [phone] ALLERGIES Allergen (clinical drug ingredient) Drug/Non Drug Allergy documented on EMR Reaction Allergy Type Onset Date Status doxycycline Doxycycline Unknown Drug Allergy Act nigel pumkin seeds (uncoded) Unknown Allergy Active peanut butter (uncoded) Unknown Allergy Active all nuts (uncoded) Unknown Allergy A ctive levofloxacin Levofloxacin Unknown Drug Allergy A ctive REASON FOR REFERRAL No Information MEDICATIONS Medication SIG (Take, Route, Frequency, Duration) Notes Start Date End Date Status Dicyclomine HCl 10 MG 2 capsules Orally Three times a day for 30 day(s) PRN Active Omeprazole 20 MG 1 capsule 30 minutes before morning meal Orally Once a day Not-Taking Symbicort 160-4.5 MCG/ACT Inhalation for 30 Active Famotidine 40 MG Oral for 90 PRN A ctive IMMUNIZATIONS Vaccine Route Administration Date Status Comme nts Influenza Unknown 06/28/2021 Administered SOCIAL HISTORY Tobacco Use: Social History Observation Description Date Details (start date - stop date) Never Smoker NA - NA Sex Assigned At : Social History Observation Description Sex Assigned At Unknown Tobacco Use/Smoking Question Answer Notes Patient is a nonsmoker Alcohol Screen Question Answer Notes Did you have a drink containing alcohol in the p ast year? No Points 0 Interpretation Negative PROBLEMS Problem Type ICD Code Onset Dates Problem Status W/U Status Risk SNOMED Code Notes Problem Anorexia (R63.0) Active confirmed Anore jorge (67244081) Problem Abdominal pain, epigastric (R10.13) Active confirmed [id number] Problem Gastroesophageal reflux (K21.9) Active confirmed Esophageal reflux finding (657291196) PLAN OF TREATMENT Pending Test Test Name Order Date CHEM 7 PROFILE 07/23/2021 LIVER PROFILE 07/23/2021 AMYLASE 07/23/2021 LIPASE 07/23/2021 CRP 07/23/2021 CBC w DIFF 07/23/2021 SED RATE (ESR) 07/23/2021 CELIAC PANEL #10 07/23/2021 US ABD 07/23/2021 Future Test Test Name Order Date UPPER GI ENDOSCOPY 07/23/2021 Insurance Providers Payer Name Payer Address Payer Phone Subscriber Number Group Number Insured Name Patient Relationship to Insured Coverage Start Date Coverage End Date [facility] [address] [place] [phone] [id number] MALGORZATA DOMINGA Self - patient is the insured MEDICAL (GENERAL) HISTORY Medical History History ICD Code Denies [place],DM,CVA,renal disease He describes a negative upper endoscopy in approximately 2016 at [facility] allergies Asthma Oral thrush in relation to antibiotics Abdominal discomfort and ref lux treated with p.r.n. dicyclomine and famotidine Upper endoscopy in 07/2021 w ith the finding of a small hiatal hernia, but otherwise normal exam--duodenal biopsies were negative for celiac disease, gastric biopsies were negative for H. pylori, and esophageal biopsies were negative for Aguirre's esophagus. Negative abdominal ultrasoun d in July of 2021 except for a tiny right renal stone Asymptomatic kidney stone se en in July of 2021 ultrasound--he was advised of this and told to followup with his PCP Surgical History Surgery Date(Month/Year)
--- OUTSIDE RECORDS SUMMARY | 2024-11-25 08:00 | XMS_ITS | Encounter Summary ---
Author Organization [facility] Address [address] [place] [address] Phone Care Team Providers Care Nurse Aide Evaluator Name Role Phone Maria Teresa Montano MD Primary Care Provider [phone] Encounter Details Date Type Department Care Team (Late st Contact Info) Description 05/16/2010 Documentation EM Family Medicine [address] [place] [address] Family Medicine, Physician [address] [place], [place] [phone] Social History Tobacco Use Types Packs/Day Years [...] on filedocumented in this encounter Care Teams Nurse Aide Evaluator Relationship Specialty Start Date End Date Maria Teresa Montano MD [address] [place] [address] PCP - General 05/08/17 03/24/23 documented as of this encounter
[2024-11-25 08:20] VITALS: BMI 25.5
--- NOTE | 2024-11-25 08:20 | A.OFFVIS_ITS ---
Vital Signs 11/25/24 08:20 Height 5 ft 8 in Weight 168 lb BMI 25.5 Intake Visit Reasons: OV LT clavicle ORIF 07/19/24 NE w xray Intake Note: Cooper is a 29 year old male who presents today for a post operative LT clavicle ORIF, DOS 07/19/24 NE. States he has completed P.T and is lifting 75 lbs. States he has improved with his ROM as well. No current concerns. Allergies peanut [PEANUT] Allergy (Severe, Verified 11/25/24 08:24) ANAPHYLAXIS levofloxacin Allergy (Verified 11/25/24 08:24) dizzy, anxious could not sleep, heart racing, headaches doxycycline Adverse Reaction (Verified 11/25/24 08:24) stomach aches Pumpkin Seed Allergy (Unknown, Uncoded 11/25/24 08:24) hives Medication List - Last Reconciled 11/25/24 by Hoa Fox PA-C budesonide-formoterol 160-4.5 mcg/actuation (Symbicort) 2 puffs inhalation BID cetirizine (Allergy Relief (cetirizine)) 10 mg PO DAILY PRN dicyclomine 10 mg PO Q6-8H PRN fluticasone propionate 50 mcg/actuation 2 sprays intranasal DAILY hydroxyzine HCl 20 mg PO BEDTIME PRN HPI HPI OV LT clavicle ORIF 07/19/24 NE w xray: Details: 29-year-old gentleman returns to the office today status post ORIF left clavicle on 07/19/[address] Kasper. He has completed physical therapy and has been lifting up to 75 lb without any issues. On a daily basis he has no pain or discomfort with activities. He would like to return to work where he has to occasionally lift up to 100 lb which she feels comfortable joint. [facility] Medical History Elevated LFTs COVID-19 virus infection Generalized anxiety disorder Epididymitis History of COVID-19 Epididymal congestion pain Learning disability Environmental and seasonal allergies Acne vulgaris Chronic GERD Mild intermittent asthma in adult without complication Surgical History History of esophagogastroduodenoscopy (EGD) No pertinent past surgical history Family History Father No problems noted. Mother No problems noted. Social History Household Members: Family Housing: House Do you presently have visiting nurse or other home services: No Alcohol intake: current Alcohol intake frequency: holidays/special occasions only Alcohol type: beer Patient Tobacco Use Status: Never used Tobacco e-Cigarette/Vaping Use: Never Used Second Hand Smoke Exposure: No service: No Current occupational status: employed Current occupation: [employer] Current occupational exposures/hazards: No Sexual orientation: Straight/Heterosexual Cognitive needs: No Hearing needs: No Vision needs: No Review of Systems Const All systems reviewed & are unremarkable except as noted in HPI and below Physical Exam Vital Signs: BMI result Body Mass Index 25.5 Extrem Other: Left clavicle incision well healed. Slightly prominent hardware, no skin breakdown. Full range of motion in all planes. He is able to activate rotator cuff strength. Neurovascularly intact. Results Reviewed Results Reviewed: Xrays were obtained in the office today and personally reviewed by me of the left clavicle show intact hardware with interval healing. Assessment & Plan Assessment & Plan (1) Closed left clavicular fracture: Code(s): S42.002A - Fracture of unspecified part of left clavicle, initial encounter for closed fracture Category: Medical Qualifiers: Encounter type: subsequent encounter Clavicle location: lateral end Fracture alignment: displaced Fracture healing: with routine healing Qualified Code(s): S42.032D - Displaced fracture of lateral end of left clavicle, subsequent encounter for fracture with routine healing Plan: We will continue with his home exercise program to maintain his range of motion and strength. Continue to increase activities as tolerated. He can return to work on 11/26/2024 without restrictions. If he feels the hardware is becoming more prominent or bothersome or he notices skin breakdown he will contact our office to discuss hardware removal otherwise he will follow up as needed. Orders: Orders XR clavicle LT Today M89.8X1 - Other specified disorders of bone, shoulder Coding Level of Care Code Est Pt Level 3 (40883) Complex EM visit Add On G2211 Diagnoses Closed displaced fracture of acromial end of left clavicle with routine healing, subsequent encounter S42.032D Encounter type: subsequent encounter Clavicle location: lateral end Fracture alignment: displaced Fracture healing: with routine healing
== END 2024-11-25 08:32 | disposition home or self-care (01) ==
PROVIDERS: Visit Provider Physician Assistant
DX: S42.032D Displaced fracture of lateral end of left clavicle, subsequent encounter for fracture with routine healing (principal)
CPT/HCPCS: 99213

== ENCOUNTER → 2024-11-25 08:00 | Outpatient (BNV) | payer OTHER, SELFPAY | PROVIDERS: Visit Provider Radiology Diagnostic Radiology | DX: M89.8X1 Other specified disorders of bone, shoulder (principal) | CPT/HCPCS: 73000 ==

== ENCOUNTER 2024-12-24 08:47 | Outpatient (REF) | payer OTHER, SELFPAY ==
[2024-12-24 11:52] LABS: Hematocrit 42.7 % (42.0-52.0); Hemoglobin 14.4 g/dl (14.0-18.0); Mean Corpuscular HGB Conc 33.7 g/dl (31.0-36.0); Mean Corpuscular Hemoglobin 29.1 pg (27.0-33.0); Mean Corpuscular Volume 86.4 fL (80.0-98.0); Mean Platelet Volume 11.1 fL (9.4-12.4); Platelet Count 217 X10*3/uL (160-400); Red Blood Count 4.94 X10*6/uL (4.60-5.80); Red Cell Distribution Width 12.7 % (11.0-16.0)
[2024-12-24 12:15] LABS: Alanine Aminotransferase 12 U/L (0-40); Albumin Level 4.5 g/dL (3.5-5.0); Alkaline Phosphatase 57 U/L (39-117); Anion Gap 9 (12-20); Aspartate Amino Transferase 20 U/L (5-37); Bilirubin Total 0.3 mg/dL (0.0-1.0); Blood Urea Nitrogen 13 mg/dL (9-16); Calcium 9.1 mg/dL (8.4-10.2); Carbon Dioxide 26 mmol/L (22-29); Chloride 110 mmol/L (96-108); Estimated Glomerular Filt Rate > 60; Glucose Fasting 96 mg/dL (60-99); Potassium 4.1 mmol/L (3.3-5.1); Sodium 141 mmol/L (135-145); Total Protein 7.3 g/dL (6.5-8.0)
== END 2024-12-24 08:48 | disposition home or self-care (01) ==
LOC: HO.HMGCLDS 08:47
PROVIDERS: PCP Physician Assistant; Visit Provider Physician Assistant
DX: Z13.1 Encounter for screening for diabetes mellitus (principal); K21.9 Gastro-esophageal reflux disease without esophagitis
CPT/HCPCS: 36415; 80053; 85027

== ENCOUNTER 2025-01-17 07:50 | Outpatient (AMB) | payer OTHER, SELFPAY ==
--- NOTE | 2025-01-17 07:54 | MHC.PC.OV ---
Vital Signs 01/17/25 07:55 Height 5 ft 8 in Weight 159 lb BMI 24.2 BP 130/84 Blood Pressure Location Lt brachial Position Sitting Pulse 81 Pulse Source Pulse Oximeter Pulse Oximetry (%) 98 Oxygen Delivery Method Room Air Intake Visit Reasons: PE Tea Blender Required: No Accompanied by: Self / Same As Patient Allergies peanut [PEANUT] Allergy (Severe, Verified 01/17/25 08:00) ANAPHYLAXIS levofloxacin Allergy (Verified 01/17/25 08:00) dizzy, anxious could not sleep, heart racing, headaches doxycycline Adverse Reaction (Verified 01/17/25 08:00) stomach aches Pumpkin Seed Allergy (Unknown, Uncoded 01/17/25 08:00) hives Medication List - Last Reconciled 01/17/25 by Aureliano Burns PA-C budesonide-formoterol 160-4.5 mcg/actuation (Symbicort) 2 puffs inhalation BID cetirizine (Allergy Relief (cetirizine)) 10 mg PO DAILY PRN fluticasone propionate 50 mcg/actuation 2 sprays intranasal DAILY Tobacco use date assessed: 01/17/25 Dental Screening Dental Screen Date: 01/17/25 Did you have a dental visit in the last 12 months?: Yes Did you have a dental problem in the last 6 months where you did not have access to dental care?: No Was dental information given to patient?: Patient has dentist HPI PE HPI Details Patient is a 29 year male here today for routine annual physical. Patient has a past medical history of generalized anxiety disorder, GERD, chronic sinusitis, asthma. --> broke his left clavicle in the fall of 2023 which required surgery with hardware placement and was followed by [facility], he has an x-ray of the clavicle showing routine healing .. MICHELLE: He reports his anxiety has been generally well controlled. .. Allergies: Takes Zyrtek and flonase, he is followed by box machine operator last health education assistant and gets allergy injections. .. Asthma:? Patient reports asthma has been well controlled with his maintenance inhaler.? Denies any nighttime awakenings with asthma symptoms. Vaccines: UTD with all Vaccine Labs:? Reviewed labs in all within normal limits Laboratory Tests 12/30/22 12/24/24 10:00 09:05 RBC 5.14 4.94 Creatinine 0.93 PFSH Medical History Elevated LFTs COVID-19 virus infection Generalized anxiety disorder Epididymitis History of COVID-19 Epididymal congestion pain Learning disability Environmental and seasonal allergies Acne vulgaris Chronic GERD Mild intermittent asthma in adult without complication Surgical History History of esophagogastroduodenoscopy (EGD) No pertinent past surgical history Family History Father No problems noted. Mother No problems noted. Social History Household Members: Family Housing: House Do you presently have visiting nurse or other home services: No Alcohol intake: current Alcohol intake frequency: holidays/special occasions only Alcohol type: beer Patient Tobacco Use Status: Never used Tobacco e-Cigarette/Vaping Use: Never Used Second Hand Smoke Exposure: No service: No Current occupational status: employed Current occupation: [employer] Current occupational exposures/hazards: No Sexual orientation: Straight/Heterosexual Cognitive needs: No Hearing needs: No Vision needs: No Questionnaire PHQ-9 Over the last 2 weeks, how often have you been bothered by any of the following problems? 1. Little interest or pleasure in doing things: not at all 2. Feeling down, depressed, or hopeless: not at all 3. Trouble falling or staying asleep, or sleeping too much: not at all 4. Feeling tired or having little energy: not at all 5. Poor appetite or overeating: not at all 6. Feeling bad about yourself - or that you are a failure or have let yourself or your family down: not at all 7. Trouble concentrating on things, such as reading the newspaper or watching television: not at all 8. Moving or speaking so slowly that other people could have noticed. Or the opposite - being so fidgety or restless that you have been moving around a lot more than usual: not at all 9. Thoughts that you would be better off or of hurting yourself in some way: not at all Total score: 0 Depression Screening Interpretation: Negative Depression Screening Done: Yes 43349 - PHQ-9 Billing: Yes Source: Developed by Drs. Saud Desai, Vivienne Griffiths, Everardo Tucker and colleagues, with an educational yancy from [employer]. Thrive Questionnaire Date Thrive assessed: 01/10/25 I am a: Patient What is your living situation today?: I have a steady place to live Within the past 12 months, did the food you bought not last and you didn't have the money to get more?: Never true Within the past 12 months, did you worry whether your food would run out before you got money to buy more?: Never true Do you have trouble paying for medicines?: No Do you have trouble getting transportation to medical appointments?: No Do you have trouble paying your heating and electricity bill?: No Do you have trouble taking care of your child, family member or friend?: No Do you have trouble with day-to-day activities such as bathing, preparing meals, shopping, managing finances, etc.?: No Are you currently unemployed and looking for a job?: No Are you interested in more education?: No Please select the resources that you would like help with: None Currently or been in a relationship where the following occur: No concerns reported THRIVE Score: 0 AUDIT C Alcohol Use Questionnaire (AUDIT-C) 1. How often do you have a drink containing alcohol?: 2-4 times a month 2. How many drinks containing alcohol do you have on a typical day when you are drinking?: 1 or 2 3. How often do you have six or more drinks on one occasion?: Never Total Score: 2 MICHELLE-7 AMB Questionnaire MICHELLE-7 Date MICHELLE - 7 assessed: 01/17/25 Feeling nervous, anxious, or on edge: 0 = Not at all Not being able to stop or control worryin = Not at all Worrying too much about different things: 0 = Not at all Trouble relaxin = Not at all Being so restless that it is hard to sit still: 0 = Not at all Becoming easily annoyed or irritable: 0 = Not at all Feeling afraid as if something awful might happen: 0 = Not at all Total MICHELLE-7 score (0-4 normal; 5-9 mild; 10-14 moderate; 15-21 severe): 0 Source: Developed by Vivienne FabianW. Tunde, Everardo Tucker and colleagues, with an educational yancy from [employer]. MICHELLE-7 Assessment Billing MICHELLE-7 Assessment Tool: MICHELLE-7 Assessment 39274 ACT Questionnaire In the past 4 weeks, how much of the time did your asthma keep you from getting as much done at work, school or at home?: None of the time During the past 4 weeks, how often have you had shortness of breath?: Not at all During the past 4 weeks, how often did your asthma symptoms wake you up at night or earlier than usual in the morning?: Not at all During the past 4 weeks, how often have you had to use your rescue inhaler or nebulizer medication?: Not at all How would you rate your asthma control during the past 4 weeks?: Completely controlled ACT Interpretation: Negative Score: 25 Review of Systems Const Denies body aches, Denies chills, Denies excessive sweating, Denies fatigue, Denies fever(s) and Denies headache(s) Eyes Denies blurry vision ENT Denies dysphagia, Denies vertigo, Denies dizziness, Denies headache(s), Denies hearing loss and Denies tinnitus Card Denies chest pain, Denies chest pain with activity, Denies syncope, Denies irregular heart rhythm and Denies dyspnea Resp Denies chest congestion, Denies cough, Denies hemoptysis, Denies dyspnea and Denies wheezing GI Denies abdominal pain, Denies melena, Denies hematochezia, Denies coffee ground emesis, Denies dysphagia, Denies diarrhea, Denies nausea and Denies vomiting Denies difficulty urinating, Denies dysuria, Denies urinary frequency, Denies urinary hesitancy and Denies urinary urgency Musc Denies arthralgias, Denies limited range of motion, Denies muscle cramps and Denies muscle weakness Skin/Breast Denies rash and Denies skin ulcer Neuro Denies Abnormal speech present, Denies confusion, Denies vertigo, Denies dizziness, Denies syncope, Denies headache(s), Denies memory loss and Denies seizure-like activity Psych Denies anxiety, Denies confusion, Denies depression, Denies memory loss, Denies panic attacks and Denies paranoia Endo Denies excessive sweating, Denies fatigue, Denies flushing, Denies polydipsia and Denies polyuria Aller/Immun Denies wheezing Physical exam (Primary Care) Tobacco/Smoking Status: Tobacco use Status Tobacco use date assessed 01/12/24 01/12/24 15:00 Patient Tobacco Use Status Never used Tobacco 07/19/24 11:19 e-Cigarette/Vaping Use Never Used 07/14/24 09:00 Depression Screening Interpretation: Negative Thrive Assessment: Date of Thrive Assessment Date Thrive assessed 01/10/25 01/10/25 21:32 Currently or been in a relationship where the following occur: No concerns reported Const General: cooperative, comfortable, no acute distress, alert and awake; No confusion Orientation/consciousness: oriented to person, oriented to place, patient oriented x3 and No confusion HENMT Head: Yes normocephalic Ears: external ears normal and TM's normal bilaterally Face and sinus: No sinus tenderness Mouth: Normal oral and palatal mucosa present and tongue normal Teeth and gingiva: dentition normal and gingiva normal Throat: Yes posterior oropharynx normal, Yes tonsils normal and Yes uvula midline Eyes Conjunctivae: conjunctivae normal Sclerae: sclerae normal Pupils: Equal, round and reactive pupils present EOM: EOMs intact bilaterally Direct Ophthalmoscopy: No no photophobia Neck Neck: Yes no lymphadenopathy, No tender and Yes no JVD Thyroid: Thyroid normal Carotids: no bruits Chest Chest palpation & inspection: no tenderness Resp Effort & Inspection: normal respiratory effort, no audible wheezes, not labored and no stridor Auscultation: no crackles, no rales, no rhonchi and no wheezes Cardio Jugular venous distension: no JVD Rate: regular rate, not bradycardic and not tachycardic Rhythm: regular rhythm Bruits: no carotid bruits Peripheral pulses: Peripheral pulses 2+ throughout GI Inspection: Yes normal to inspection, No abdominal wall ecchymosis and No visible herniation Palpation (GI): Soft to palpation, nontender, no guarding, not rigid and No hepatosplenomegaly present Auscultation: normoactive bowel sounds General: Yes no CVA tenderness Back/Spine/Pelvis Back: no CVA tenderness and No back tenderness Cervical Spine: cervical ROM normal Thoracic/Lumbar Spine: thoracic and lumbar spine normal to inspection, straight leg raise negative bilaterally, No thoraco-lumbar ROM limited and No lumbar spinal tenderness Skin Lesions: no lesions Rashes: no rashes Wounds: no wounds Neuro General: oriented to person, oriented to place, patient oriented x3, CN's II-XI intact bilaterally and No confusion Cranial nerves: Yes Equal, round and reactive pupils present and Yes Normal accommodation reflex present Cognition (Neuro): normal cognition Speech: No Abnormal speech present Gait exam (Neuro): Normal gait present Motor exam (neuro): 5/5 motor strength present throughout Extrem Right upper extremity: full ROM; no cyanosis Left upper extremity: full ROM; no cyanosis Right lower extremity: no edema Left lower extremity: no edema Psych Appearance: grossly normal Mental Status: mental status grossly normal Affect: normal affect Attitude: cooperative Thought process: Normal thought process present Coding Level of Care Code Est Pt Prev Care 18-39y(98672) Diagnoses Annual physical exam Z00.00 Screening for diabetes mellitus (DM) Z13.1 Environmental and seasonal allergies J30.89 Mild intermittent asthma in adult without complication J45.20 Additional Codes PHQ-9 - 63809 - PHQ-9 Billing: Yes ([id number]) MICHELLE-7 Assessment Billing - MICHELLE-7 Assessment Tool: MICHELLE-7 Assessment 63064 ([id number]) Asthma Control Questionnaire - ACT Interpretation: Negative ([id number]) Assessment & Plan Assessment & Plan (1) Annual physical exam: Code(s): Z00.00 - Encounter for general adult medical examination without abnormal findings Category: Medical Plan: As per HPI (2) Screening for diabetes mellitus (DM): Code(s): Z13.1 - Encounter for screening for diabetes mellitus Category: Medical Plan: As per HPI (3) Environmental and seasonal allergies: Code(s): J30.89 - Other allergic rhinitis Category: Medical Plan: Continues to see an health education assistant, continues on cetirizine for his allergies on a daily basis. (4) Mild intermittent asthma in adult without complication: Code(s): J45.20 - Mild intermittent asthma, uncomplicated Category: Medical Plan: Patient's asthma has been fairly well controlled with p.r.n. use of his albuterol inhaler and Symbicort. He denies any recent asthma exacerbations or nighttime awakenings with asthma symptoms. Orders: Orders Complete Blood Count no Diff Today Z13.1 - Encounter for screening for diabetes mellitus Comprehensive [place]. Panel Fast Today Z13.1 - Encounter for screening for diabetes mellitus
--- OUTSIDE RECORDS SUMMARY | 2025-01-17 07:54 | XMS_ITS | Clinical Summary ---
Author Organization [facility] Address [address] [place] [address] Phone Care Team Providers Care Puller Through Name Role Phone Unavailable Primary Care Provider [...]
--- OUTSIDE RECORDS SUMMARY | 2025-01-17 07:54 | XMS_ITS | Encounter Summary ---
Author Organization [facility] Address [address] [place] [address] Phone Care Team Providers Care Activity Specialist Name Role Phone Maria Teresa Montano MD Primary Care Provider [phone] Encounter Details Date Type Department Care Team (Late st Contact Info) Description 05/16/2010 Documentation EM Family Medicine [address] [place] [address] Family Medicine, Physician [address] [place], [place] [phone] Social History Tobacco Use Types Packs/Day Years [...] on filedocumented in this encounter Care Teams Activity Specialist Relationship Specialty Start Date End Date Maria Teresa Montano MD [address] [place] [address] PCP - General 05/08/17 03/24/23 documented as of this encounter
--- OUTSIDE RECORDS SUMMARY | 2025-01-17 07:54 | XMS_ITS | Clinical Summary ---
Author Organization [facility] [employer] Address [address] [place] [address] [address] [place] [address] Care Team Providers Care Washer Cutter Name Role Phone Unavailable Primary Care Provider [...]
--- OUTSIDE RECORDS SUMMARY | 2025-01-17 07:54 | XMS_ITS | Encounter Summary ---
Author Organization [facility] Address [address] [place] [address] Phone Care Team Providers Care Investment Executive Name Role Phone Maria Teresa Montano MD Primary Care Provider [phone] Encounter Details Date Type Department Care Team (Late st Contact Info) Description 07/27/2012 Documentation EM Family Medicine [address] [place] [address] Family Medicine, Physician [address] [place], [place] [phone] Social History Tobacco Use Types Packs/Day Years [...] on filedocumented in this encounter Care Teams Investment Executive Relationship Specialty Start Date End Date Maria Teresa Montano MD [address] [place] [address] PCP - General 05/08/17 03/24/23 documented as of this encounter
--- OUTSIDE RECORDS SUMMARY | 2025-01-17 07:54 | XMS_ITS | Encounter Summary ---
Author Organization [facility] Address [address] [place] [address] Phone Care Team Providers Care Assistant Teaching Professor Name Role Phone Maria Teresa Montano MD Primary Care Provider [phone] Encounter Details Date Type Department Care Team (Late st Contact Info) Description 05/14/2017 Conversion Encounter [facility] [address] [place] [address] Social History Tobacco Use Types Packs/Day Years [...] on filedocumented in this encounter Care Teams Assistant Teaching Professor Relationship Specialty Start Date End Date Maria Teresa Montano MD [address] [place] [address] PCP - General 05/08/17 03/24/23 documented as of this encounter
--- OUTSIDE RECORDS SUMMARY | 2025-01-17 07:54 | XMS_ITS | Encounter Summary ---
Author Organization [employer] Address [address] [place] [address] [address] [place] [address] Care Team Providers Care Escrow Closer Name Role Phone Unavailable Primary Care Provider Unavailabl e Encounter Details Date Type Department Care Team (Latest Contact Info) Description 06/22/2019 Abstract [facility] CONVERSIONS Dental, Provider, DDS Social History Tobacco [...]
--- OUTSIDE RECORDS SUMMARY | 2025-01-17 07:54 | XMS_ITS | Encounter Summary ---
Author Organization [facility] Address [address] [place] [address] Phone Care Team Providers Care Analytic Manager Name Role Phone Maria Teresa Montano MD Primary Care Provider [phone] Encounter Details Date Type Department Care Team (Late st Contact Info) Description 05/21/2016 Documentation EM Family Medicine [address] [place] [address] Family Medicine, Physician [address] [place], [place] [phone] Social History Tobacco Use Types Packs/Day Years [...] on filedocumented in this encounter Care Teams Analytic Manager Relationship Specialty Start Date End Date Maria Teresa Montano MD [address] [place] [address] [place] [address] PCP - General 05/08/17 03/24/23 documented as of this encounter
--- OUTSIDE RECORDS SUMMARY | 2025-01-17 07:54 | XMS_ITS | Encounter Summary ---
Author Organization [facility] Address [address] [place] [address] Phone Care Team Providers Care Research Assistant Name Role Phone Maria Teresa Montano MD Primary Care Provider [phone] Encounter Details Date Type Department Care Team (Late st Contact Info) Description 05/16/2010 Documentation EM Family Medicine [address] [place] [address] Family Medicine, Physician [address] [place], [place] [phone] Social History Tobacco Use Types Packs/Day Years [...] on filedocumented in this encounter Care Teams Research Assistant Relationship Specialty Start Date End Date Maria Teresa Montano MD [address] [place] [address] PCP - General 05/08/17 03/24/23 documented as of this encounter
--- OUTSIDE RECORDS SUMMARY | 2025-01-17 07:54 | XMS_ITS | Encounter Summary ---
Author Organization [facility] Address [address] [place] [address] Phone Care Team Providers Care Fire Controlman Name Role Phone Maria Teresa Montano MD Primary Care Provider [phone] Encounter Details Date Type Department Care Team (Late st Contact Info) Description 05/16/2010 Documentation EM Family Medicine [address] [place] [address] Family Medicine, Physician [address] [place], [place] [phone] Social History Tobacco Use Types Packs/Day Years [...] on filedocumented in this encounter Care Teams Fire Controlman Relationship Specialty Start Date End Date Maria Teresa Montano MD [address] [place] [address] PCP - General 05/08/17 03/24/23 documented as of this encounter
--- OUTSIDE RECORDS SUMMARY | 2025-01-17 07:54 | XMS_ITS | Encounter Summary ---
Author Organization [facility] Address [address] [place] [address] Phone Care Team Providers Care Hand Mixer Name Role Phone Maria Teresa Montano MD Primary Care Provider [phone] Encounter Details Date Type Department Care Team (Late st Contact Info) Description 06/27/2015 Documentation EM Family Medicine [address] [place] [address] Family Medicine, Physician [address] [place], [place] [phone] Social History Tobacco Use Types Packs/Day Years [...] on filedocumented in this encounter Care Teams Hand Mixer Relationship Specialty Start Date End Date Maria Teresa Montano MD [address] [place] [address] PCP - General 05/08/17 03/24/23 documented as of this encounter
--- OUTSIDE RECORDS SUMMARY | 2025-01-17 07:54 | XMS_ITS | Encounter Summary ---
Author Organization [facility] Address [address] [place] [address] Phone Care Team Providers Care Inspector General Name Role Phone Maria Teresa Montano MD Primary Care Provider [phone] Encounter Details Date Type Department Care Team (Late st Contact Info) Description 05/16/2010 Documentation EM Family Medicine [address] [place] [address] Family Medicine, Physician [address] [place], [place] [phone] Social History Tobacco Use Types Packs/Day Years [...] on filedocumented in this encounter Care Teams Inspector General Relationship Specialty Start Date End Date Maria Teresa Montano MD [address] [place] [address] PCP - General 05/08/17 03/24/23 documented as of this encounter
--- OUTSIDE RECORDS SUMMARY | 2025-01-17 07:54 | XMS_ITS | Encounter Summary ---
Author Organization [facility] Address [address] [place] [address] Phone Care Team Providers Care Car Changer Name Role Phone Maria Teresa Montano MD Primary Care Provider [phone] Encounter Details Date Type Department Care Team (Late st Contact Info) Description 10/27/2011 Documentation EM Family Medicine [address] [place] [address] Family Medicine, Physician [address] [place], [place] [phone] Social History Tobacco Use Types Packs/Day Years [...] on filedocumented in this encounter Care Teams Car Changer Relationship Specialty Start Date End Date Maria Teresa Montano MD [address] [place] [address] PCP - General 05/08/17 03/24/23 documented as of this encounter
--- OUTSIDE RECORDS SUMMARY | 2025-01-17 07:54 | XMS_ITS | Data Portability ---
Author Organization [facility] Address [address] [place] [address] Care Team Providers Care Application Systems Engineer Name Role Phone ADAM KIRBY Primary Care Provider Assessment No assessment recorded. Plan of Treatment Reminders Order Date Submit Date Provider Last Modified By Organization Details Last Modified Time Details Appointments None recorded. Lab None recorded. Referral None recorded. Procedures None recorded. Surgeries None recorded. Imaging None recorded. Medication Orders neomycin-po lymyxin-hyd rocort 3.5 mg-10,000 unit/mL-1 % ear drops,susp 2022 023 [id number], [address] [place], [address], 3 08:32:10 prednisone 20 mg tablet 2022 023 [id number], [address] [place], [address], 3 08:32:09 fexofenadin e-pseudoeph edrine ER 180 mg-240 mg tablet,ext. release 24 hr 2022 023 [id number], [address] [place], [address], 3 08:32:10 amoxicillin 875 mg-potassiu m clavulanate 125 mg tablet 2022 023 [id number], [address] [place], [address], 3 08:15:59 prednisone 20 mg tablet 2022 023 [facility][id number], [address] [place], [address], 3 08:16:14 Patient TargetsNo targets recorded. Patient Instructions Encounter Date Encounter Id Patient Instructions Last Modified By Organization Details Last Modified Time 11/29/2022 [id number] Sinusitis is an infection of the lining [...] care for yourself at home? Take an ornk-yol-obnzjcs pain medicine. Avoid Ibuprofen, Aleve and Aspirin if . If the doctor prescribed antibiotics, take them as directed. Do not stop taking them just because you feel better. You need to take the full course of antibiotics. Be careful when taking nurk-wkv-qjkhdgp cold or influenza (flu) medicines and Tylenol [...] congestion worse. Not available 11/29/2022 08:19:42 04/04/2023 [id number] earache: care instructions [email or web address] Not available 04/04/2023 [...] care for yourself at home? Take an ckzo-kyq-wrjdguk pain medicine. Avoid Ibuprofen, Aleve and Aspirin if . If the doctor prescribed antibiotics, take them as directed. Do not stop taking them just because you feel better. You need to take the full course of antibiotics. Be careful when taking fzti-qxt-nzgjrhf cold or influenza (flu) medicines and Tylenol [...] deeper into the ear canal. Remain still, ksvd-nbd-pwds-down for about 15 minutes. 3. Keep the [...] about six inches from the ear. 4. Vlrr-tzz-qnabsuv pain medications can relieve discomfort associated with external otitis. Acetaminophen (Tylenol), ibuprofen, or naproxen can be taken, depending on individual preference. 5. Return to the [facility] in about one week. The provider can [...] and Address Organization Details Recorded Time Asthma [id number] Active 023 LOIDA ortez, [place] - [facility] 11/29/2022 08:14:32 Problem Notes None recorded. Medical Equipment None Reported. Allergies Allergen ID Allergen Name Allergen Category Reaction Reaction Severity Criticality Documentation Date Start Date Code Code System Note Provider Name and Address Organization Details Recorded Time 584245 levofloxa danielle medicatio n Not available Not available Not available 11/29/2022 76927 RxNorm LOIDA Solorzano null, [place] - [facility] 3 08:13:13 587808 doxycycli ne Not available Not available Not available Not available 11/29/2022 3640 RxNorm LOIDA Solorzano null, [place] - [facility] 3 08:13:21 924288 peanut allergeni c extract food,medi cation Not available Not available Not available 04/04/2023 87178 8 RxNorm Jennifer Fortedeepthi null, [place] - [...] Updated DateTime 3 172.72 cm 26.6 kg/m2 93522.6 6 g 10 18 /min 97 % [...] Updated DateTime 3 172.72 cm 25.8 kg/m2 33395.7 g 98.1 [degF] 18 /min 97 % [...] SNOMED-CT Code Diagnosis ICD10 Code Diagnosis Note [id number] [facility] [address] [place] [address] 10/02/2021 19:50:16 10/02/2021 20:16:30 [id number] [facility] [address] [place] [address] 08/18/2017 14:02:57 08/18/2017 14:51:03 [id number] [facility] [facility] [place] [address] 05/28/2019 14:42:42 05/28/2019 15:54:42 [id number] [address] [place] [address] 06/23/2022 15:41:38 06/23/2022 18:23:50 [id number] [facility] [facility] [address] [place] [address] 01/05/2022 09:08:08 01/05/2022 11:16:41 [id number] [facility] [address] [facility] [place] [address] 10/02/2021 17:20:30 10/02/2021 19:54:44 [id number] [facility] [facility] [address] [facility] [place] [address] 11/13/2019 12:17:34 11/13/2019 13:19:34 [id number] [address] [place] [address] [place] [address] 10/19/2019 08:14:59 10/19/2019 09:34:53 [id number] [address] [facility] [place] [address] 10/22/2019 14:51:00 10/22/2019 15:51:02 [id number] [facility] [facility] [address] [place] [address] [place] [address] 07/02/2017 10:18:17 07/02/2017 10:35:10 [id number] Maximo Rizo NP [address] [address] [address] [facility] [place] [address] 11/29/2022 08:03:17 11/29/2022 08:27:56 Acute sinusitis 24199659 J01.90 [id number] Maximo Rizo NP [address] [facility] [place] [address] 04/04/2023 08:03:45 04/04/2023 08:39:28 Otitis externa of right ear [id number] 897182 H60.91 Acute sinusitis 05165954 J01.90 Health Concerns Section Related Observation LastModified by Organization Detai ls LastModified Time None Recorded Concern Status LastModified by Organization Details LastModified Time None Recorded Advance Directives Directive None Recorded Payers Encounter Date Sequence Insurance Name Policy Number Policy Leal Covered Member ID Leal Member ID Guarantor Name 10/02/2021 1 [facility] [id number] Cooper Castro [id number] Cooper Castro 01/05/2022 1 [facility] [id number] Cooper Castro [id number] Cooper Castro 06/23/2022 1 [facility] [id number] Cooper Castro [id number] Cooper Castro 11/29/2022 1 [facility] Cooper Castro [id number] Cooper Humphreys Courtneyumang 04/04/2023 1 [facility] [id number] Cooper Castro [id number] Cooper Castro Notes Date Note Type Note Provider Name and Address Organization Details Recorded Time 11/29/2022 text/html CongestionReport ed bypatient.Notes:ear pain and pressure, nasal congestion with post nasal drip x 3 weeks. denies any fever or fever with chills. no SOB or respiratory distress. Maximo Rizo NP [address] [facility] [place], [address], [place] - [facility] 11/29/2022 08:25:12 04/04/2023 [...] hearing; no muffled hearing Maximo Rizo NP [address] [place] [address] [place], [address], [place] - [facility] 04/04/2023 08:32:49
--- OUTSIDE RECORDS SUMMARY | 2025-01-17 07:54 | XMS_ITS | Encounter Summary ---
Author Organization [facility] Address [address] [place] [address] Phone Care Team Providers Care Gas Engine Mechanic Name Role Phone Maria Teresa Montano MD Primary Care Provider [phone] Encounter Details Date Type Department Care Team (Late st Contact Info) Description 12/28/2015 Documentation EM Family Medicine [address] [place] [address] Family Medicine, Physician [address] [place], [place] [phone] Social History Tobacco Use Types Packs/Day Years [...] on filedocumented in this encounter Care Teams Gas Engine Mechanic Relationship Specialty Start Date End Date Maria Teresa Montano MD [address] [place] [address] PCP - General 05/08/17 03/24/23 documented as of this encounter
--- OUTSIDE RECORDS SUMMARY | 2025-01-17 07:54 | XMS_ITS | Encounter Summary ---
Author Organization [facility] Address [address] [place] [address] Phone Care Team Providers Care Director Of Pulmonary Unit Name Role Phone Maria Teresa Montano MD Primary Care Provider [phone] Encounter Details Date Type Department Care Team (Late st Contact Info) Description 06/16/2016 Documentation EM Family Medicine [address] [place] [address] Family Medicine, Physician [address] [place], [place] [phone] Social History Tobacco Use Types Packs/Day Years [...] on filedocumented in this encounter Care Teams Director Of Pulmonary Unit Relationship Specialty Start Date End Date Maria Teresa Montano MD [address] [place] [address] [place] [address] PCP - General 05/08/17 03/24/23 documented as of this encounter
[2025-01-17 07:55] VITALS: BP 130/84; PULSE 81; O2SAT 98; BMI 24.2
== END 2025-01-17 08:11 | disposition home or self-care (01) ==
LOC: HO.HMCH 07:51
PROVIDERS: PCP Physician Assistant; Visit Provider Physician Assistant
DX: Z00.00 Encounter for general adult medical examination without abnormal findings (principal); Z13.1 Encounter for screening for diabetes mellitus; J30.89 Other allergic rhinitis; J45.20 Mild intermittent asthma, uncomplicated

== ENCOUNTER → 2025-01-17 07:50 | Outpatient (BNVA) | payer OTHER, SELFPAY | PROVIDERS: PCP Physician Assistant; Visit Provider Physician Assistant | DX: Z00.00 Encounter for general adult medical examination without abnormal findings (principal); J45.20 Mild intermittent asthma, uncomplicated; J30.89 Other allergic rhinitis | CPT/HCPCS: 96127; 96160 ==

== ENCOUNTER 2025-04-13 10:48 | Outpatient (AMB) | payer OTHER, SELFPAY ==
--- NOTE | 2025-04-13 10:56 | MHC.OFFVIS ---
Vital Signs 04/13/25 11:00 Height 5 ft 8 in Weight 159 lb BMI 24.2 BP 138/89 Blood Pressure Location Rt brachial Position Sitting Pulse 79 Pulse Source Monitor Intake Visit Reasons: OV- discuss SPENCER, s/p LT clavicle ORIF on 07/19/24 Intake Note: Cooper is a 29 year old male who presents today for a follow up to discuss removal of hardware status post left clavicle ORIF, DOS 07/19/[address] Kasper. Patient reports he is doing well, states uncomfortable at times. He states no pain and has good ROM. Allergies peanut (PEANUT) Allergy (Severe, Verified 04/13/25 11:00) ANAPHYLAXIS levofloxacin Allergy (Verified 04/13/25 11:00) dizzy, anxious could not sleep, heart racing, headaches doxycycline Adverse Reaction (Verified 04/13/25 11:00) stomach aches Pumpkin Seed Allergy (Unknown, Uncoded 04/13/25 11:00) hives HPI HPI OV- discuss SPENCER, s/p LT clavicle ORIF on 07/19/24: Details: 29-year-old gentleman presents to the office today for a follow-up left clavicle status post ORIF on 07/19/[address] Kasper. He states he has been healing well however he does notice some irritation under the skin with the plate is. [facility] Medical History Elevated LFTs COVID-19 virus infection Generalized anxiety disorder Epididymitis History of COVID-19 Epididymal congestion pain Learning disability Environmental and seasonal allergies Acne vulgaris Chronic GERD Mild intermittent asthma in adult without complication Surgical History History of esophagogastroduodenoscopy (EGD) No pertinent past surgical history Family History Father No problems noted. Mother No problems noted. Social History Household Members: Family Housing: House Do you presently have visiting nurse or other home services: No Alcohol intake: current Alcohol intake frequency: holidays/special occasions only Alcohol type: beer Patient Tobacco Use Status: Never used Tobacco e-Cigarette/Vaping Use: Never Used Second Hand Smoke Exposure: No service: No Current occupational status: employed Current occupation: [employer] Current occupational exposures/hazards: No Sexual orientation: Straight/Heterosexual Cognitive needs: No Hearing needs: No Vision needs: No Review of Systems Const All systems reviewed & are unremarkable except as noted in HPI and below Physical Exam Vital Signs: Last Vital Signs Pulse 79 04/13/25 11:00 BP 138/89 04/13/25 11:00 BMI result Body Mass Index 24.2 Const General: cooperative and no acute distress Orientation/consciousness: patient oriented x3 Resp Effort & Inspection: normal respiratory effort and able to speak in complete sentences Cardio Peripheral pulses: Peripheral pulses 2+ throughout Neuro General: patient oriented x3 Extrem Other: Left clavicle incision well healed. Slightly prominent hardware, no skin breakdown. Full range of motion in all planes. He is able to activate rotator cuff strength. Neurovascularly intact. Results Reviewed Results Reviewed: Xrays were obtained in the office today and personally reviewed by me of the left clavicle show intact hardware with interval healing. Assessment & Plan Assessment & Plan (1) Retained orthopedic hardware: Code(s): Z96.9 - Presence of functional implant, unspecified Category: Medical (2) Closed left clavicular fracture: Code(s): S42.002A - Fracture of unspecified part of left clavicle, initial encounter for closed fracture Category: Medical Qualifiers: Encounter type: subsequent encounter Clavicle location: lateral end Fracture alignment: displaced Fracture healing: with routine healing Qualified Code(s): S42.032D - Displaced fracture of lateral end of left clavicle, subsequent encounter for fracture with routine healing Plan Given the extent of discomfort from retained orthopedic hardware, the recommendation is to remove the hardware in an attempt to improve his daily function and activities without pain. I explained to the patient the procedure in detail along with the risks, benefits and alternatives. Risks including but not limited to infection, wound breakdown, ongoing pain, re-fracture, or inability to remove the hardware. He does understand all this and would like to proceed with Removal of hardware left clavicle with Dr. Kasper. He will be booked accordingly. Orders: Orders XR clavicle LT Today M89.8X1 - Other specified disorders of bone, shoulder Coding Level of Care Code Est Pt Level 4 (18412) Complex EM visit Add On G2211 Diagnoses Retained orthopedic hardware Z96.9 Closed displaced fracture of acromial end of left clavicle with routine healing, subsequent encounter S42.032D Encounter type: subsequent encounter Clavicle location: lateral end Fracture alignment: displaced Fracture healing: with routine healing
[2025-04-13 11:00] VITALS: BP 138/89; PULSE 79; BMI 24.2
--- OUTSIDE RECORDS SUMMARY | 2025-04-13 11:31 | XMS_ITS | Encounter Summary ---
Author Organization [facility] Address [address] [place] [address] Phone Care Team Providers Care Sewing Demonstrator Name Role Phone Maria Teresa Montano MD Primary Care Provider [phone] Encounter Details Date Type Department Care Team (Late st Contact Info) Description 07/27/2012 Documentation EM Family Medicine [address] [place] [address] Family Medicine, Physician [address] [place], [place] [id number] Social History Tobacco Use Types Packs/Day Years [...] on filedocumented in this encounter Care Teams Sewing Demonstrator Relationship Specialty Start Date End Date Maria Teresa Montano MD [address] [place] [id number] PCP - General 05/08/17 03/24/23 documented as of this encounter
--- OUTSIDE RECORDS SUMMARY | 2025-04-13 11:31 | XMS_ITS | Data Portability ---
Author Organization [facility], [address] Address [address] [place] [address] Care Team Providers Care Grinding Room Supervisor Name Role Phone ADAM KIRBY Primary Care Provider Assessment No assessment recorded. Plan of Treatment Reminders Order Date Submit Date Provider Last Modified By Organization Details Last Modified Time Details Appointments None recorded. Lab None recorded. Referral None recorded. Procedures None recorded. Surgeries None recorded. Imaging None recorded. Medication Orders neomycin-po lymyxin-hyd rocort 3.5 mg-10,000 unit/mL-1 % ear drops,susp 2022 023 [facility]/Pharmacy #[id number], [address] [place], [address], 3 08:32:10 prednisone 20 mg tablet 2022 023 [facility] [address] [place], [address], 3 08:32:09 fexofenadin e-pseudoeph edrine ER 180 mg-240 mg tablet,ext. release 24 hr 2022 023 [facility]/Pharmacy #0693, [address] [place], [address], 3 08:32:10 amoxicillin 875 mg-potassiu m clavulanate 125 mg tablet 2022 023 [facility]/Pharmacy #0693, [address] [place], [address], 3 08:15:59 prednisone 20 mg tablet 2022 023 [facility]/Pharmacy #8212, [address] [facility] [place], [address], 3 08:16:14 Patient TargetsNo targets recorded. Patient Instructions Encounter Date Encounter Id Patient Instructions Last Modified By Organization Details Last Modified Time 11/29/2022 [id number] Sinusitis is an infection of the lining [...] care for yourself at home? Take an jfhu-bwr-zvrjuic pain medicine. Avoid Ibuprofen, Aleve and Aspirin if . If the doctor prescribed antibiotics, take them as directed. Do not stop taking them just because you feel better. You need to take the full course of antibiotics. Be careful when taking kagf-pyf-evtlklw cold or influenza (flu) medicines and Tylenol [...] congestion worse. Not available 11/29/2022 08:19:42 04/04/2023 [id number] earache: care instructions Not available 04/04/2023 08:32:07 ear infection (otitis [...] care for yourself at home? Take an kwqq-aud-dbstmvj pain medicine. Avoid Ibuprofen, Aleve and Aspirin if . If the doctor prescribed antibiotics, take them as directed. Do not stop taking them just because you feel better. You need to take the full course of antibiotics. Be careful when taking lgag-xan-xathbml cold or influenza (flu) medicines and Tylenol [...] deeper into the ear canal. Remain still, essj-rls-xnnd-down for about 15 minutes. 3. Keep the [...] about six inches from the ear. 4. Sdjh-zdk-sbpzbon pain medications can relieve discomfort associated with external otitis. Acetaminophen (Tylenol), ibuprofen, or naproxen can be taken, depending on individual preference. 5. Return to the [facility] in about one week. The provider [...] and Address Organization Details Recorded Time Asthma [id number] Active 023 LOIDA ortez, [place] - [facility] 11/29/2022 08:14:32 Problem Notes None recorded. Medical Equipment None Reported. Allergies Allergen ID Allergen Name Allergen Category Reaction Reaction Severity Criticality Documentation Date Start Date Code Code System Note Provider Name and Address Organization Details Recorded Time 529362 levofloxa danielle medicatio n Not available Not available Not available 11/29/2022 39066 RxNorm LOIDA Solorzano null, [place] - [facility] 3 08:13:13 822445 doxycycli ne Not available Not available Not available Not available 11/29/2022 3640 RxNorm LOIDA ortez, PA - [facility] 3 08:13:21 170375 peanut allergeni c extract food,medi cation Not available Not available Not available 04/04/2023 68868 8 RxNorm Jennifer Anaid ortez, PA - [facility] 3 08:16:19 Medications [...] blood by Pulse oximetry Heart rate Systolic And Diastolic Provider Name and Address Organization Details Last Updated DateTime 3 172.72 cm 25.8 kg/m2 26173.7 g 98.1 [degF] 18 /min 97 % 97 % 78 /min 134/94 mm[Hg] LOIDA NURJESSICALD Rashad PA - [facility] 3 08:16:19 Date Recorded Body height Body mass index (BMI) Body weight Respiratory rate Oxygen saturation Oxygen saturation in Arterial blood by Pulse oximetry Heart rate Body temperature Systolic And Diastolic Provider Name and Address Organization Details Last Updated DateTime 3 172.72 cm 26.6 kg/m2 96347.6 6 g 18 /min 97 % 97 % 109 /min 98.9 [degF] 134/89 mm[Hg] Jennifer Hamptondominique PA - [facility] 3 08:18:08 Social History Question Answer Notes LastModified by [employer] ion Details LastModified Time Tobacco Smoking Status Never Smoker LOIDA ortez PA - [facility] 11/29/2022 08:14:43 What Is Your Water Source? City Information not available 11/29/2022 What Is Your Heat Source? Gas Information not available 11/29/2022 Have You Had Direct Contact, Or Contact During Intimacy, With Monkeypox Rash, Scabs, Or Body Fluids From A Person With Monkeypox? No Information not available 11/29/2022 Have You Recently Traveled Abroad? No Information not available 11/29/2022 Sex: Unknown Functional Status Question Answer Note LastModified by [employer] ion Details LastModified Time How many times per week do you consume alcohol? Less than 1 time per week emonfette Information not available 04/04/2023 Do you use any illicit or recreational drugs? No Information not available 11/29/2022 Do you or have you ever used any other forms of tobacco or nicotine? No Information not available 11/29/2022 What is your level of alcohol consumption? Occasional Information not available 11/29/2022 Mental Status None recorded. Family History Relationship [...] SNOMED-CT Code Diagnosis ICD10 Code Diagnosis Note [id number] [address] [place] [address] 10/02/2021 19:50:16 10/02/2021 20:16:30 [id number] [address] [place] [address] 08/18/2017 14:02:57 08/18/2017 14:51:03 [id number] [address] [place] [address] 05/28/2019 14:42:42 05/28/2019 15:54:42 [id number] [address] [place] [address] 06/23/2022 15:41:38 06/23/2022 18:23:50 [id number] [address] [place] [address] 01/05/2022 09:08:08 01/05/2022 11:16:41 [id number] [address] [place] [address] 10/02/2021 17:20:30 10/02/2021 19:54:44 [id number] [address] [place] [address] 11/13/2019 12:17:34 11/13/2019 13:19:34 [id number] [address] [place] [address] 10/19/2019 08:14:59 10/19/2019 09:34:53 [id number] [address] [place] [address] 10/22/2019 14:51:00 10/22/2019 15:51:02 [id number] [address] [place] [address] 07/02/2017 10:18:17 07/02/2017 10:35:10 [id number] Maximo Rizo NP [address] [place] [address] 11/29/2022 08:03:17 11/29/2022 08:27:56 Acute sinusitis 53014206 J01.90 [id number] Maximo Rizo NP [address] [place] [address] 04/04/2023 08:03:45 04/04/2023 08:39:28 Otitis externa of right ear 2416113161 016617 H60.91 Acute sinusitis 47240680 J01.90 Health Concerns Section Related Observation LastModified by Organization Detai ls LastModified Time None Recorded Concern Status LastModified by Organization Details LastModified Time None Recorded Advance Directives Directive None Recorded Payers Insurance Date Sequence Insurance Name Policy Number Policy Leal Covered Member ID Leal Member ID Guarantor Name 11/27/2022 1 [facility] [id number] Cooper Castro [id number] Cooper Humphreys Courtneyumang 04/04/2023 1 [facility] [place] Cooper Castro [id number] Cooper Castro 04/04/2023 1 [facility] [id number] Cooper Castro [id number] Cooper Humphreys Courtneyumang Notes Date Note Type Note Provider Name and Address Organization Details Recorded Time 11/29/2022 text/html CongestionReport ed bypatient.Notes:ear pain and pressure, nasal congestion with post nasal drip x 3 weeks. denies any fever or fever with chills. no SOB or respiratory distress. Maximo Rizo NP [address] [facility] [place], [address], [place] - [facility] 11/29/2022 08:25:12 04/04/2023 [...] hearing; no muffled hearing Maximo Rizo NP [address] [place], [address], [place] - [facility] 04/04/2023 08:32:49
--- OUTSIDE RECORDS SUMMARY | 2025-04-13 11:31 | XMS_ITS | Encounter Summary ---
Author Organization [employer] Address [address] [facility] [address] [place] [address] Care Team Providers Care Carpet Repairer Name Role Phone Unavailable Primary Care Provider Unavailabl e Encounter Details Date Type Department Care Team (Latest Contact Info) Description 06/22/2019 Abstract [facility] CONVERSIONS Dental, Provider, DDS Social History Tobacco [...]
== END 2025-04-13 11:57 | disposition home or self-care (01) ==
LOC: HO.HOS 10:49
PROVIDERS: PCP Physician Assistant; Visit Provider Physician Assistant
DX: Z96.9 Presence of functional implant, unspecified (principal); S42.032D Displaced fracture of lateral end of left clavicle, subsequent encounter for fracture with routine healing
CPT/HCPCS: 99214

== ENCOUNTER → 2025-04-13 10:54 | Outpatient (BNV) | payer OTHER, SELFPAY | PROVIDERS: Visit Provider Radiology Diagnostic Radiology | DX: M89.8X1 Other specified disorders of bone, shoulder (principal) | CPT/HCPCS: 73000 ==

== ENCOUNTER 2025-04-13 11:22 | Outpatient (REF) | payer OTHER, SELFPAY ==
--- NOTE | ~2025-04-13 | XR_ITS ---
EXAMINATION: XR CLAVICLE, LEFT CLINICAL INFORMATION: M89.8X1 - Other specified disorders of bone, shoulder COMPARISON: November 17, 2024 TECHNIQUE: Two views of the left clavicle. FINDINGS: Cephalad plate and screws traverse a healed fracture of the left clavicle. Hardware is intact without loosening or breaks. XR/XR clavicle LT IMPRESSION: Healed left clavicle fracture post-ORIF Electronically signed by: Krish Fong MD 04/13/2025 11:17 AM EDT
--- OUTSIDE RECORDS SUMMARY | 2025-04-14 11:48 | XMS_ITS | Encounter Summary ---
Author Organization [employer] Address [address] [facility] [address] [place] [address] Care Team Providers Care Credit Front Office Developer Name Role Phone Unavailable Primary Care Provider Unavailabl e Encounter Details Date Type Department Care Team (Latest Contact Info) Description 06/22/2019 Abstract [facility] CONVERSIONS Dental, Provider, DDS Social History Tobacco [...]
--- OUTSIDE RECORDS SUMMARY | 2025-04-14 11:48 | XMS_ITS | Encounter Summary ---
Author Organization [facility] Address [address] [place] [address] Phone Care Team Providers Care Ui Ux Web Developer Name Role Phone Maria Teresa Montano MD Primary Care Provider [phone] Encounter Details Date Type Department Care Team (Late st Contact Info) Description 07/27/2012 Documentation EM Family Medicine [address] [place] [address] Family Medicine, Physician [address] [place], [place] [phone] Social History Tobacco Use Types Packs/Day Years [...] on filedocumented in this encounter Care Teams Ui Ux Web Developer Relationship Specialty Start Date End Date Maria Teresa Montano MD [address] [place] [address] PCP - General 05/08/17 03/24/23 documented as of this encounter
--- OUTSIDE RECORDS SUMMARY | 2025-04-14 11:48 | XMS_ITS | Data Portability ---
Author Organization [facility], [address] Address [address] [place] [address] Care Team Providers Care Clay Worker Name Role Phone ADAM KIRBY Primary Care Provider Assessment No assessment recorded. Plan of Treatment Reminders Order Date Submit Date Provider Last Modified By Organization Details Last Modified Time Details Appointments None recorded. Lab None recorded. Referral None recorded. Procedures None recorded. Surgeries None recorded. Imaging None recorded. Medication Orders neomycin-po lymyxin-hyd rocort 3.5 mg-10,000 unit/mL-1 % ear drops,susp 2022 023 [facility]/Pharmacy #[id number], [address] [place], [address], 3 08:32:10 prednisone 20 mg tablet 2022 023 [facility] [address] [place], [address], 3 08:32:09 fexofenadin e-pseudoeph edrine ER 180 mg-240 mg tablet,ext. release 24 hr 2022 023 [facility]/Pharmacy #0693, [address] [place], [address], 3 08:32:10 amoxicillin 875 mg-potassiu m clavulanate 125 mg tablet 2022 023 [facility]/Pharmacy #0693, [address] [place], [address], 3 08:15:59 prednisone 20 mg tablet 2022 023 [facility]/Pharmacy #2237, [address] [facility] [place], [address], 3 08:16:14 Patient TargetsNo targets recorded. Patient Instructions Encounter Date Encounter Id Patient Instructions Last Modified By Organization Details Last Modified Time 11/29/2022 [id number] Sinusitis is an infection of the lining [...] care for yourself at home? Take an uubj-nsa-rxdktau pain medicine. Avoid Ibuprofen, Aleve and Aspirin if . If the doctor prescribed antibiotics, take them as directed. Do not stop taking them just because you feel better. You need to take the full course of antibiotics. Be careful when taking wjmd-psq-raucnlf cold or influenza (flu) medicines and Tylenol [...] congestion worse. Not available 11/29/2022 08:19:42 04/04/2023 [id number] earache: care instructions Not available 04/04/2023 08:32:07 [...] care for yourself at home? Take an heat-leg-sisnijx pain medicine. Avoid Ibuprofen, Aleve and Aspirin if . If the doctor prescribed antibiotics, take them as directed. Do not stop taking them just because you feel better. You need to take the full course of antibiotics. Be careful when taking tozt-sph-abwiefd cold or influenza (flu) medicines and Tylenol [...] deeper into the ear canal. Remain still, npzj-umh-ulrz-down for about 15 minutes. 3. Keep the [...] about six inches from the ear. 4. Ssme-qzc-denbbah pain medications can relieve discomfort associated with external otitis. Acetaminophen (Tylenol), ibuprofen, or naproxen can be taken, depending on individual preference. 5. Return to the [facility] in about one week. The provider can [...] and Address Organization Details Recorded Time Asthma [id number] Active 023 LOIDA ortez, PA - [facility] 11/29/2022 08:14:32 Problem Notes None recorded. Medical Equipment None Reported. Allergies Allergen ID Allergen Name Allergen Category Reaction Reaction Severity Criticality Documentation Date Start Date Code Code System Note Provider Name and Address Organization Details Recorded Time 881330 levofloxa danielle medicatio n Not available Not available Not available 11/29/2022 41268 RxNorm LOIDA Solorzano null, PA - [facility] 3 08:13:13 846460 doxycycli ne Not available Not available Not available Not available 11/29/2022 3640 RxNorm LOIDA ortez, PA - [facility] 3 08:13:21 661074 peanut allergeni c extract food,medi cation Not available Not available Not available 04/04/2023 02221 8 RxNorm Jennifer Anaid ortez, PA - [...] Updated DateTime 3 172.72 cm 25.8 kg/m2 69086.7 g 98.1 [degF] 18 /min 97 % [...] Updated DateTime 3 172.72 cm 26.6 kg/m2 19994.6 6 g 18 /min 97 % 97 % 109 /min 98.9 [degF] 134/89 mm[Hg] Jennifer Hamptondominique PA - [facility] 3 08:18:08 Social History Question Answer Notes LastModified by [employer] ion Details LastModified Time Tobacco Smoking Status [...] Functional Status Question Answer Note LastModified by [employer] ion Details LastModified Time How many times [...] SNOMED-CT Code Diagnosis ICD10 Code Diagnosis Note [id number] [address] [place] [address] 10/02/2021 19:50:16 10/02/2021 20:16:30 [id number] [address] [place] [address] 08/18/2017 14:02:57 08/18/2017 14:51:03 [id number] [address] [place] [address] 05/28/2019 14:42:42 05/28/2019 15:54:42 [id number] [address] [place] [address] 06/23/2022 15:41:38 06/23/2022 18:23:50 [id number] [address] [place] [address] 01/05/2022 09:08:08 01/05/2022 11:16:41 [id number] [address] [place] [address] 10/02/2021 17:20:30 10/02/2021 19:54:44 [id number] [address] [place] [address] 11/13/2019 12:17:34 11/13/2019 13:19:34 [id number] [address] [place] [address] 10/19/2019 08:14:59 10/19/2019 09:34:53 [id number] [address] [place] [address] 10/22/2019 14:51:00 10/22/2019 15:51:02 [id number] [address] [place] [address] 07/02/2017 10:18:17 07/02/2017 10:35:10 [id number] Maximo Rizo NP [address] [place] [address] 11/29/2022 08:03:17 11/29/2022 08:27:56 Acute sinusitis 17169113 J01.90 [id number] Maximo Rizo NP [address] [place] [address] 04/04/2023 08:03:45 04/04/2023 08:39:28 Otitis externa of right ear 8624136455 183456 H60.91 Acute sinusitis 46487771 J01.90 Health Concerns Section Related Observation LastModified by Organization Detai ls LastModified Time None Recorded Concern Status LastModified by Organization Details LastModified Time None Recorded Advance Directives Directive None Recorded Payers Insurance Date Sequence Insurance Name Policy Number Policy Leal Covered Member ID Leal Member ID Guarantor Name 11/27/2022 1 [facility] [id number] Cooper Castro [id number] Cooper Humphreys Courtneyumang 04/04/2023 1 [facility] Cooper Castro [id number] Cooper Castro 04/04/2023 1 [facility] [id number] Cooper Castro [id number] Cooper Humphreys Courtneyumang Notes Date Note Type Note Provider Name and Address Organization Details Recorded Time 11/29/2022 text/html CongestionReport ed bypatient.Notes:ear pain and pressure, nasal congestion with post nasal drip x 3 weeks. denies any fever or fever with chills. no SOB or respiratory distress. Maximo Rioz NP [address] [facility] [place], [address], [place] - [facility] 11/29/2022 08:25:12 04/04/2023 [...] Rizo NP [address] [place], [address], [place] - [facility] 04/04/2023 08:32:49
== END 2025-04-13 11:23 | disposition home or self-care (01) ==
LOC: HO.HOSX 11:22
PROVIDERS: Visit Provider Physician Assistant
DX: S42.032D Displaced fracture of lateral end of left clavicle, subsequent encounter for fracture with routine healing (principal); M89.8X1 Other specified disorders of bone, shoulder; Z96.89 Presence of other specified functional implants; X58.XXXD Exposure to other specified factors, subsequent encounter
CPT/HCPCS: 73000

== ENCOUNTER 2025-05-06 09:10 | Outpatient (AMB) | payer OTHER, SELFPAY ==
--- OUTSIDE RECORDS SUMMARY | 2025-05-06 09:11 | XMS_ITS | Encounter Summary ---
Author Organization [employer] Address [address] [facility] [address] [place] [address] Care Team Providers Care Outside Sales Executive Name Role Phone Unavailable Primary Care Provider Unavailabl e Encounter Details Date Type Department Care Team (Latest Contact Info) Description 06/22/2019 Abstract [facility] CONVERSIONS Dental, Provider, DDS Social History [...]
[2025-05-06 09:12] VITALS: BP 126/80; PULSE 71; RESP 18; TEMP 36.8; O2SAT 98; BMI 23.7
--- NOTE | 2025-05-06 09:12 | MHC.OFFWIV ---
Intake Vital Signs 05/06/25 09:12 Height 5 ft 8 in Weight 156 lb BMI 23.7 BP 126/80 Blood Pressure Location Lt brachial Position Sitting Respiration 18 Pulse 71 Pulse Source Pulse Oximeter Temp 98.3 F Temp Source Oral Pulse Oximetry (%) 98 Oxygen Delivery Method Room Air Intake Visit Reasons: EP-back and shoulder pain Intake Note: Pt is here today for a walk in visit. Pt c/o R shoulder blade pain for 2 weeks now. Patient Tobacco Use Status: Never used Tobacco Allergies peanut (PEANUT) Allergy (Severe, Verified 05/26/25 11:42) ANAPHYLAXIS levofloxacin Allergy (Verified 05/26/25 11:42) dizzy, anxious could not sleep, heart racing, headaches doxycycline Adverse Reaction (Verified 05/26/25 11:42) stomach aches Pumpkin Seed Allergy (Unknown, Uncoded 05/17/25 11:05) hives HPI EP-back and shoulder pain HPI Details Pt is a 29-year-old male who comes to the walk-in clinic complaining of 2 weeks of pain to the right shoulder blade area, with no recent acute trauma or repetitive use injury reported or apparent. He has history of displaced left clavicle repaired, with hardware still in place. He denies weakness, numbness or tingling to the right upper extremity. [facility] Medical History Hx of fracture of clavicle (06/2024) Elevated LFTs COVID-19 virus infection Generalized anxiety disorder Epididymitis History of COVID-19 Epididymal congestion pain Learning disability Environmental and seasonal allergies Acne vulgaris Chronic GERD Mild intermittent asthma in adult without complication Surgical History History of surgery (06/2024) History of esophagogastroduodenoscopy (EGD) (2020) Family History Father No problems noted. Mother No problems noted. Social History Household Members: Family Housing: House Are you a primary health care liaison to a significant other at home: No Do you presently have visiting nurse or other home services: No Alcohol intake: current Alcohol intake frequency: holidays/special occasions only Alcohol type: beer Patient Tobacco Use Status: Never used Tobacco e-Cigarette/Vaping Use: Never Used Second Hand Smoke Exposure: No service: No Current occupational status: employed Current occupation: [employer] Current occupational exposures/hazards: No Sexual orientation: Straight/Heterosexual Cognitive needs: No Hearing needs: No Vision needs: No Review of Systems Const All systems reviewed & are unremarkable except as noted in HPI and below Physical Exam Exam Exam: No visible trauma, but positive tenderness to palpation to the right trapezius area, with small palpable spasm. Full range of motion and strength to the right upper extremity and neurovascularly intact distally. Vital Signs: Last Vital Signs Temp 98.3 F 05/06/25 09:12 Pulse 71 05/06/25 09:12 Resp 18 05/06/25 09:12 BP 126/80 05/06/25 09:12 Pulse Ox 98 05/06/25 09:12 Oxygen Delivery Method Room Air 05/06/25 09:12 BMI result Body Mass Index 23.7 Assessment & Plan Assessment & Plan (1) Muscle spasm: Code(s): M62.838 - Other muscle spasm Plan: Patient is a 30-year-old apparent muscle spasm to the right trapezius area. He is planning on undergoing removal of hardware to the opposite clavicle, from displaced fracture. However no apparent trauma to the right neck/shoulder area. We discussed heat, stretch and massage to the area, and he can take anti-inflammatories and muscle relaxer. He is follow up soon with Orthopedics and can discuss this further with them if issue persists and it is needed. He knows to go to the emergency department with any worrisome symptoms. Medications: New tizanidine 2 mg PO Q8H PRN 20 caps 0RF muscle spasticity naproxen 500 mg PO BID PRN 28 tabs 0RF pain 14 days Coding Level of Care Code Est Pt Level 4 (64793) Diagnoses Muscle spasm M62.838
== END 2025-05-06 09:59 | disposition home or self-care (01) ==
LOC: HO.HMCWIC 09:10
PROVIDERS: PCP Physician Assistant; Visit Provider Physician Assistant Medical
DX: M62.838 Other muscle spasm (principal)

== ENCOUNTER 2025-05-17 10:52 | Day surgery (SDC) | payer OTHER, SELFPAY ==
--- OUTSIDE RECORDS SUMMARY | 2025-05-05 13:03 | XMS_ITS | Encounter Summary ---
Author Organization [facility] Address [address] [place] [address] Phone Care Team Providers Care Oven Stripper Name Role Phone Maria Teresa Montano MD Primary Care Provider [phone] Encounter Details Date Type Department Care Team (Late st Contact Info) Description 07/27/2012 Documentation EM Family Medicine [address] [place] [address] Family Medicine, Physician [address] [place], [place] [phone] Social History Tobacco Use Types Packs/Day Years [...] on filedocumented in this encounter Care Teams Oven Stripper Relationship Specialty Start Date End Date Maria Teresa Montano MD [address] [place] [address] PCP - General 05/08/17 03/24/23 documented as of this encounter
[2025-05-12 14:56] VITALS: BMI 24.2
--- NOTE | 2025-05-15 07:33 | HO.ANESPROP2 ---
Documented by User: Desirae Savage NP 05/15/25 07:36 HPI - Anesthesia Eval Consult details Narrative: 30 yr old male for removal orthopedic hardware, left clavicle. Asthma: controlled on maintenance inhaler s/p left clavicle ORIF 06/2024 with GA, ETT 7.5 PMFSH Active Problems Active Problems: All Active Problems (Updated 05/12/25 @ 14:59 by Aide Bennett RN) Retained orthopedic hardware (Acute) Closed left clavicular fracture (Acute) Strain of right biceps (Acute) Right shoulder pain (Acute) Screening for diabetes mellitus (DM) (Acute) Annual physical exam (Acute) GERD (gastroesophageal reflux disease) (Acute) Generalized anxiety disorder (Acute) Learning disability (Acute) Environmental and seasonal allergies (Acute) Acne vulgaris (Acute) Chronic GERD (Acute) Mild intermittent asthma in adult without complication (Acute) Past Medical History Medical History Hx of fracture of clavicle (06/2024) Elevated LFTs COVID-19 virus infection Generalized anxiety disorder Epididymitis History of COVID-19 Epididymal congestion pain Learning disability Environmental and seasonal allergies Acne vulgaris Chronic GERD Mild intermittent asthma in adult without complication Family History Family History Father No problems noted. Mother No problems noted. Family history of problems with anesthesia: No Surgical History Surgical History History of surgery (06/2024) History of esophagogastroduodenoscopy (EGD) (2020) History of Problems with Anesthesia: No Social History Social History Household Members: Family Housing: House Are you a primary life care planner to a significant other at home: No Do you presently have visiting nurse or other home services: No Alcohol intake: current Alcohol intake frequency: holidays/special occasions only Alcohol type: beer Patient Tobacco Use Status: Never used Tobacco e-Cigarette/Vaping Use: Never Used Second Hand Smoke Exposure: No Use of substances other than those prescribed or required for medical reasons: No Have you been hit, kicked, punched, or otherwise hurt by someone within the past year? If so, by whom?: No Are you DNR?: No Advance Directives: No Advance Directives Information Provided: Yes Poor oral hygiene: No service: No Current occupational status: employed Current occupation: [employer] Current occupational exposures/hazards: No Sexual orientation: Straight/Heterosexual Cognitive needs: No Hearing needs: No Vision needs: No Meds Allergies Allergy/AdvReac Type Severity Reaction Status Date / Time peanut (PEANUT) Allergy Severe ANAPHYLAXIS Verified 05/17/25 11:05 levofloxacin Allergy dizzy, Verified 05/17/25 11:05 anxious could not sleep, heart racing, headaches doxycycline AdvReac stomach Verified 05/17/25 11:05 aches Pumpkin Seed Allergy Unknown hives Uncoded 05/17/25 11:05 Home Medications ?Medication ?Instructions ?Recorded ?Confirmed ?Last Taken ?Type fluticasone propionate 50 2 spray intranasal DAILY 06/21/21 05/17/25 06/21/21 History mcg/actuation nasal spray,suspension budesonide-formoterol HFA 160 2 puff inhalation BID 07/10/21 05/17/25 07/19/24 05:30 History mcg-4.5 mcg/actuation aerosol inhaler (Symbicort) cetirizine 10 mg tablet (Allergy 10 mg PO DAILY PRN Allergy Symptoms 08/29/21 05/17/25 Unknown History Relief (cetirizine)) Exam Height,Weight and Vital Signs: Height 5 ft 8 in Weight 72.121 kg Pertinent Lab Results Pertinent Lab Results: Laboratory Tests 12/24/24 09:05 WBC 4.0 L RBC 4.94 Hgb 14.4 Hct 42.7 Plt Count 217 Sodium 141 Potassium 4.1 BUN 13 Creatinine 0.93 Assessment and Plan Final Anesthetic Review Family History of Problems with Anesthesia: No History of Problems with Anesthesia: No Documented by User: Keiko Swan MD 05/17/25 13:19 [facility] Past Medical History Medical History Hx of fracture of clavicle (06/2024) Elevated LFTs COVID-19 virus infection Generalized anxiety disorder Epididymitis History of COVID-19 Epididymal congestion pain Learning disability Environmental and seasonal allergies Acne vulgaris Chronic GERD Mild intermittent asthma in adult without complication Family History Family History Father No problems noted. Mother No problems noted. Surgical History Surgical History History of surgery (06/2024) History of esophagogastroduodenoscopy (EGD) (2020) Social History Social History Household Members: Family Housing: House Are you a primary life care planner to a significant other at home: No Do you presently have visiting nurse or other home services: No Alcohol intake: current Alcohol intake frequency: holidays/special occasions only Alcohol type: beer Patient Tobacco Use Status: Never used Tobacco e-Cigarette/Vaping Use: Never Used Second Hand Smoke Exposure: No Use of substances other than those prescribed or required for medical reasons: No Have you been hit, kicked, punched, or otherwise hurt by someone within the past year? If so, by whom?: No Are you DNR?: No Advance Directives: No Advance Directives Information Provided: Yes Poor oral hygiene: No service: No Current occupational status: employed Current occupation: [employer] Current occupational exposures/hazards: No Sexual orientation: Straight/Heterosexual Cognitive needs: No Hearing needs: No Vision needs: No Meds Allergies Allergy/AdvReac Type Severity Reaction Status Date / Time peanut (PEANUT) Allergy Severe ANAPHYLAXIS Verified 05/17/25 11:05 levofloxacin Allergy dizzy, Verified 05/17/25 11:05 anxious could not sleep, heart racing, headaches doxycycline AdvReac stomach Verified 05/17/25 11:05 aches Pumpkin Seed Allergy Unknown hives Uncoded 05/17/25 11:05 Home Medications ?Medication ?Instructions ?Recorded ?Confirmed ?Last Taken ?Type fluticasone propionate 50 2 spray intranasal DAILY 06/21/21 05/17/25 06/21/21 History mcg/actuation nasal spray,suspension budesonide-formoterol HFA 160 2 puff inhalation BID 07/10/21 05/17/25 07/19/24 05:30 History mcg-4.5 mcg/actuation aerosol inhaler (Symbicort) cetirizine 10 mg tablet (Allergy 10 mg PO DAILY PRN Allergy Symptoms 08/29/21 05/17/25 Unknown History Relief (cetirizine)) Exam Airway Mallampati Class: II TM Dist: >3cm Neck ROM: Full Heart: rrr Lungs: cta Assessment and Plan Assessment Anesthesia Assessment: Anesthesia Plan Discussed and Chart Reviewed Final Anesthetic Review NPO: Yes ASA Class: II Final Preanesthetic Review: No Changes in Pt Med Stat, Meds/Allgs Chart Reviewed and Consent Obtained/Reviewed Patient Risk: Low Procedure Risk: Low Anesthetic Plan Anesthetic Plan: GA Disposition: Standard PACU
[2025-05-17] VITALS (8 sets, daily range): BP systolic 120–138; BP diastolic 77–91; PULSE 56–91; RESP 14–16; TEMP 36.2–36.6; O2SAT 97–100; BMI 23.8
[2025-05-17] MEDS: Lactated Ringers 1,000 ML 100 ML IVCONT (11:24)
--- NOTE | 2025-05-17 13:22 | MHC.SHP ---
Pre-Procedural Eval Section A - 24 Hr Update-Section A only Date of Service: 05/17/25 The patient is an INPATIENT: No Changes since office visit: No Cold of Flu in the past 2 weeks, No New Medical Problems, No Changes in Medication and No Patient answered all questions The patient has been examined within 24 hours of the surgical procedure. The History & Physical has been completed within 30 days and I have reviewed it.: Yes Section B - Complete if H&P > 30 days Chief Complaint: Displaced fracture of lateral end of left clavicle Allergies: Allergies Allergy/AdvReac Type Severity Reaction Status Date / Time peanut (PEANUT) Allergy Severe ANAPHYLAXIS Verified 05/17/25 11:05 levofloxacin Allergy dizzy, Verified 05/17/25 11:05 anxious could not sleep, heart racing, headaches doxycycline AdvReac stomach Verified 05/17/25 11:05 aches Pumpkin Seed Allergy Unknown hives Uncoded 05/17/25 11:05 Plan I have reviewed the history and physical and performed a pertinent physical examination on my patient. No changes have occurred unless specified. Time Spent With Patient Time: Total time managing care of this patient today ____ minutes.
--- NOTE | 2025-05-17 14:22 | P.BOP_ITS ---
Brief Operative Note Date of Service: 05/17/25 Pre-op diagnosis: Retained ortho hardware Post-op diagnosis: same Procedure: SPENCER right clavicle Implants: none Surgeon: Edwar Kasper MD Anesthesia: GLMA and local Was an Can Filling And Closing Machine Tender used for this Procedure?: No Estimated blood loss (mL): 50 IV fluids (mL): 500 Pathology: none sent Condition: stable Disposition: PACU
--- NOTE | 2025-05-19 07:41 | P.OP_ITS ---
Operative Note Operative Note Date of Service: 05/17/25 Narrative: Date of Service: 05/17/25 Pre-op diagnosis: Retained ortho hardware Post-op diagnosis: same Procedure: SPENCER right clavicle Implants: none Surgeon: Edwar Kasper MD Anesthesia: GLMA and local Was an Baseball [employer] used for this Procedure?: No Estimated blood loss (mL): 50 IV fluids (mL): 500 Pathology: none sent Condition: stable Disposition: PACU Procedure in detail: Patient was brought to the operating room and placed in the modified beach chair position on the surgical table. He was prepped and draped in standard sterile fashion and a time out was called to identify proper site, proper procedure and IV antibiotics per weight were administered. I began by making an incision over the previous surgical incision. Full thickness flaps were taken down to the plate and a periosteal elevator was used to remove soft tissue from the plate. The screws and the plate were then removed without difficulty. The screw holes and extraneous bone were debrided with a currette and rongeur. I then irrigated and performed a layered closure with absorbable suture and skin glue. Local anesthetic was administered before and after incision. The patient was placed in sterile dressings, extubated and brought to the recovery room in stable condition. There were no known complications.
== END 2025-05-17 15:40 | disposition home or self-care (01) ==
PROVIDERS: PCP Physician Assistant; Visit Provider Orthopaedic Surgery
PROC: (CPT 20680; principal; 2025-05-17 14:10)
DX: Z47.2 Encounter for removal of internal fixation device (principal); Z96.698 Presence of other orthopedic joint implants
CPT/HCPCS: 20680; J0131; J0330; J0690; J1100; J2003; J2250; J2405; J2704; J2795; J3010

== ENCOUNTER → 2025-05-17 10:52 | Outpatient (BNV) | payer OTHER, SELFPAY | PROVIDERS: PCP Physician Assistant; Visit Provider Orthopaedic Surgery | DX: Z47.2 Encounter for removal of internal fixation device (principal) | CPT/HCPCS: 20680 ==

== ENCOUNTER 2025-05-26 09:47 | Outpatient (REF) | payer OTHER, SELFPAY ==
--- NOTE | ~2025-05-26 | XR_ITS ---
EXAMINATION: XR CLAVICLE, LEFT CLINICAL INFORMATION: M89.8X1 - Other specified disorders of bone, shoulder COMPARISON: 04/13/2025. TECHNIQUE: Two views of the left clavicle. FINDINGS: Previously seen plate and screw fixation has been removed. There are multiple screw tracks through the clavicle. There is a healed mid diaphyseal fracture present. No fracture lines visible. Remainder of the bony and soft tissue structures appear normal. XR/XR clavicle LT IMPRESSION: Removal of plate and screw fixation of the left clavicle. No acute findings or complication identified. Electronically signed by: Kevin Barnett MD 05/26/2025 11:47 AM EDT
--- OUTSIDE RECORDS SUMMARY | 2025-05-30 10:58 | XMS_ITS | Encounter Summary ---
Author Organization [facility] Address [address] [place] [address] Phone Care Team Providers Care Overlock Collar Setter Name Role Phone Maria Teresa Montano MD Primary Care Provider [phone] Encounter Details Date Type Department Care Team (Late st Contact Info) Description 05/16/2010 Documentation EM Family Medicine [address] [place] [address] Family Medicine, Physician [address] [place], [place] [phone] Social History Tobacco Use Types Packs/Day Years [...] on filedocumented in this encounter Care Teams Overlock Collar Setter Relationship Specialty Start Date End Date Maria Teresa Montano MD [address] [place] [address] PCP - General 05/08/17 03/24/23 documented as of this encounter
--- OUTSIDE RECORDS SUMMARY | 2025-05-30 10:58 | XMS_ITS | Encounter Summary ---
Author Organization [facility] Address [address] [place] [address] Phone Care Team Providers Care Manager Client Service Name Role Phone Maria Teresa Montano MD Primary Care Provider [phone] Encounter Details Date Type Department Care Team (Late st Contact Info) Description 07/27/2012 Documentation EM Family Medicine [address] [place] [address] Family Medicine, Physician [address] [place], [place] [phone] Social History Tobacco Use Types Packs/Day Years [...] on filedocumented in this encounter Care Teams Manager Client Service Relationship Specialty Start Date End Date Maria Teresa Montano MD [address] [place] [address] PCP - General 05/08/17 03/24/23 documented as of this encounter
--- OUTSIDE RECORDS SUMMARY | 2025-05-30 10:58 | XMS_ITS | Clinical Summary ---
Author Organization [employer] Address [address] [facility] [address] [place] [address] Care Team Providers Care Systems Security Analyst Name Role Phone Unavailable Primary Care Provider [...]
--- OUTSIDE RECORDS SUMMARY | 2025-05-30 10:58 | XMS_ITS | Encounter Summary ---
Author Organization [facility] Address [address] [place] [address] Phone Care Team Providers Care Laundry Superintendent Name Role Phone Maria Teresa Montano MD Primary Care Provider [phone] Encounter Details Date Type Department Care Team (Late st Contact Info) Description 05/16/2010 Documentation EM Family Medicine [address] [place] [address] Family Medicine, Physician [address] [place], [place] [phone] Social History Tobacco Use Types Packs/Day Years [...] on filedocumented in this encounter Care Teams Laundry Superintendent Relationship Specialty Start Date End Date Maria Teresa Montano MD [address] [place] [address] PCP - General 05/08/17 03/24/23 documented as of this encounter
--- OUTSIDE RECORDS SUMMARY | 2025-05-30 10:58 | XMS_ITS | Encounter Summary ---
Author Organization [facility] Address [address] [place] [address] Phone Care Team Providers Care Certified Public Accountant Name Role Phone Maria Teresa Montano MD Primary Care Provider [phone] Encounter Details Date Type Department Care Team (Late st Contact Info) Description 06/16/2016 Documentation EM Family Medicine [address] [place] [address] Family Medicine, Physician [address] [place], [place] [phone] Social History Tobacco Use Types Packs/Day Years [...] on filedocumented in this encounter Care Teams Certified Public Accountant Relationship Specialty Start Date End Date Maria Teresa Montano MD [address] [place] [address] [place] [address] PCP - General 05/08/17 03/24/23 documented as of this encounter
--- OUTSIDE RECORDS SUMMARY | 2025-05-30 10:58 | XMS_ITS | Encounter Summary ---
Author Organization [facility] Address [address] [place] [address] Phone Care Team Providers Care Vp Product Name Role Phone Maria Teresa Montano MD Primary Care Provider [phone] Encounter Details Date Type Department Care Team (Late st Contact Info) Description 05/16/2010 Documentation EM Family Medicine [address] [place] [address] Family Medicine, Physician [address] [place], [place] [phone] Social History Tobacco Use Types Packs/Day Years [...] on filedocumented in this encounter Care Teams Vp Product Relationship Specialty Start Date End Date Maria Teresa Montano MD [address] [place] [address] PCP - General 05/08/17 03/24/23 documented as of this encounter
--- OUTSIDE RECORDS SUMMARY | 2025-05-30 10:58 | XMS_ITS | Encounter Summary ---
Author Organization [facility] Address [address] [place] [address] Phone Care Team Providers Care Bead Forming Machine Set Up Operator Name Role Phone Maria Teresa Montano MD Primary Care Provider [phone] Encounter Details Date Type Department Care Team (Late st Contact Info) Description 05/16/2010 Documentation EM Family Medicine [address] [place] [address] Family Medicine, Physician [address] [place], [place] [phone] Social History Tobacco Use Types Packs/Day Years [...] on filedocumented in this encounter Care Teams Bead Forming Machine Set Up Operator Relationship Specialty Start Date End Date Maria Teresa Montano MD [address] [place] [address] PCP - General 05/08/17 03/24/23 documented as of this encounter
--- OUTSIDE RECORDS SUMMARY | 2025-05-30 10:58 | XMS_ITS | Encounter Summary ---
Author Organization [facility] Address [address] [place] [address] Phone Care Team Providers Care Civilian Jail Officer Name Role Phone Maria Teresa Montano MD Primary Care Provider [phone] Encounter Details Date Type Department Care Team (Late st Contact Info) Description 12/28/2015 Documentation EM Family Medicine [address] [place] [address] Family Medicine, Physician [address] [place], [place] [phone] Social History Tobacco Use Types Packs/Day Years [...] on filedocumented in this encounter Care Teams Civilian Jail Officer Relationship Specialty Start Date End Date Maria Teresa Montano MD [address] [place] [address] PCP - General 05/08/17 03/24/23 documented as of this encounter
--- OUTSIDE RECORDS SUMMARY | 2025-05-30 10:58 | XMS_ITS | Encounter Summary ---
Author Organization [employer] Address [address] [facility] [address] [place] [address] Care Team Providers Care Dive Superintendent Name Role Phone Unavailable Primary Care Provider Unavailabl e Encounter Details Date Type Department Care Team (Latest Contact Info) Description 06/22/[address] [facility] CONVERSIONS Dental, Provider, DDS Social History [...]
--- OUTSIDE RECORDS SUMMARY | 2025-05-30 10:58 | XMS_ITS | Encounter Summary ---
Author Organization [facility] Address [address] [place] [address] Phone Care Team Providers Care Forest Fire Control Officer Name Role Phone Maria Teresa Montano MD Primary Care Provider [phone] Encounter Details Date Type Department Care Team (Late st Contact Info) Description 05/21/2016 Documentation EM Family Medicine [address] [place] [address] Family Medicine, Physician [address] [place], [place] [phone] Social History Tobacco Use Types Packs/Day Years [...] on filedocumented in this encounter Care Teams Forest Fire Control Officer Relationship Specialty Start Date End Date Maria Teresa Montano MD [address] [place] [address] [place] [address] PCP - General 05/08/17 03/24/23 documented as of this encounter
--- OUTSIDE RECORDS SUMMARY | 2025-05-30 10:59 | XMS_ITS | Clinical Summary ---
Author Organization [facility] Address [address] [place] [address] Phone Care Team Providers Care Open Developer Operator Name Role Phone Unavailable Primary Care [...] series) 05/23/1996 03/28/1996, 1995 Influenza Vaccines (#1) 2025 05/29/20 16, 06/13/2015, 06/29/2014, Additional history exists COVID-19 Vaccine ( season) 2025 DTaP,Tdap,and Td Vaccines (8 - Td or [...]
--- OUTSIDE RECORDS SUMMARY | 2025-05-30 10:59 | XMS_ITS | Encounter Summary ---
Author Organization [facility] Address [address] [place] [address] Phone Care Team Providers Care Hot Metal Charger Name Role Phone Maria Teresa Montano MD Primary Care Provider [phone] Encounter Details Date Type Department Care Team (Late st Contact Info) Description 05/14/2017 Conversion Encounter [facility] [place] [address] [place] [address] Social History Tobacco Use Types Packs/Day Years [...] on filedocumented in this encounter Care Teams Hot Metal Charger Relationship Specialty Start Date End Date Maria Teresa Mnotano MD [address] [place] [address] PCP - General 05/08/17 03/24/23 documented as of this encounter
--- OUTSIDE RECORDS SUMMARY | 2025-05-30 10:59 | XMS_ITS | Encounter Summary ---
Author Organization [facility] Address [address] [place] [address] Phone Care Team Providers Care Bookstore Clerk Name Role Phone Maria Teresa Montano MD Primary Care Provider [phone] Encounter Details Date Type Department Care Team (Late st Contact Info) Description 10/27/2011 Documentation EM Family Medicine [address] [place] [address] Family Medicine, Physician [address] [place], [place] [phone] Social History Tobacco Use Types Packs/Day Years [...] on filedocumented in this encounter Care Teams Bookstore Clerk Relationship Specialty Start Date End Date Maria Teresa Montano MD [address] [place] [address] PCP - General 05/08/17 03/24/23 documented as of this encounter
--- OUTSIDE RECORDS SUMMARY | 2025-05-30 10:59 | XMS_ITS | Encounter Summary ---
Author Organization [facility] Address [address] [place] [address] Phone Care Team Providers Care Centrifugal Extractor Operator Name Role Phone Maria Teresa Montano MD Primary Care Provider [phone] Encounter Details Date Type Department Care Team (Late st Contact Info) Description 06/27/2015 Documentation EM Family Medicine [address] [place] [address] Family Medicine, Physician [address] [place], [place] [phone] Social History Tobacco Use Types Packs/Day Years [...] on filedocumented in this encounter Care Teams Centrifugal Extractor Operator Relationship Specialty Start Date End Date Maria Teresa Montano MD [address] [place] [address] PCP - General 05/08/17 03/24/23 documented as of this encounter
== END 2025-05-26 09:48 | disposition home or self-care (01) ==
LOC: HO.HOSX 09:47
PROVIDERS: Visit Provider Physician Assistant
DX: S42.032D Displaced fracture of lateral end of left clavicle, subsequent encounter for fracture with routine healing (principal); M89.8X1 Other specified disorders of bone, shoulder; Z96.7 Presence of other bone and tendon implants
CPT/HCPCS: 73000

== ENCOUNTER 2025-05-26 11:31 | Outpatient (AMB) | payer OTHER, SELFPAY ==
--- NOTE | 2025-05-26 11:39 | A.OFFVIS_ITS ---
Vital Signs 05/26/25 11:43 Height 5 ft 8 in Weight 160 lb BMI 24.3 Intake Visit Reasons: PO LT clavicle SPENCER 05/16/25 NE Intake Note: Cooper is a 30 year old right hand dominant male who presents today for a post operative appointment status post left clavicle SPENCER 05/16/25 NE. Patient reports recovery is going well and has no concerns at this time . He states he would lik e to discuss when he can return to normal activities with out restricitons. Allergies peanut (PEANUT) Allergy (Severe, Verified 05/26/25 11:42) ANAPHYLAXIS levofloxacin Allergy (Verified 05/26/25 11:42) dizzy, anxious could not sleep, heart racing, headaches doxycycline Adverse Reaction (Verified 05/26/25 11:42) stomach aches Pumpkin Seed Allergy (Unknown, Uncoded 05/17/25 11:05) hives HPI HPI PO LT clavicle SPENCER 05/16/25 NE: Details: Mr. Castro is a 30-year-old male who presents to the office today status post left clavicle removal of hardware performed on 05/16/[address] Kasper. Patient states he has no pain at this time. No complaints and no concerns. [facility] Medical History Hx of fracture of clavicle (06/2024) Elevated LFTs COVID-19 virus infection Generalized anxiety disorder Epididymitis History of COVID-19 Epididymal congestion pain Learning disability Environmental and seasonal allergies Acne vulgaris Chronic GERD Mild intermittent asthma in adult without complication Surgical History History of surgery (06/2024) History of esophagogastroduodenoscopy (EGD) (2020) Family History Father No problems noted. Mother No problems noted. Social History Household Members: Family Housing: House Are you a primary rental boats caretaker to a significant other at home: No Do you presently have visiting nurse or other home services: No Alcohol intake: current Alcohol intake frequency: holidays/special occasions only Alcohol type: beer Patient Tobacco Use Status: Never used Tobacco e-Cigarette/Vaping Use: Never Used Second Hand Smoke Exposure: No service: No Current occupational status: employed Current occupation: [employer] Current occupational exposures/hazards: No Sexual orientation: Straight/Heterosexual Cognitive needs: No Hearing needs: No Vision needs: No Review of Systems Const All systems reviewed & are unremarkable except as noted in HPI and below Physical Exam Vital Signs: BMI result Body Mass Index 24.3 Const General: cooperative, healthy appearing and no acute distress Resp Effort & Inspection: normal respiratory effort and able to speak in complete sentences Extrem Other: Left clavicle incision site is clean dry and intact. Steri-Strips intact. No surrounding erythema or drainage. No signs of infection. Full shoulder range of motion all planes. NVI. Psych Appearance: grossly normal Mental Status: mental status grossly normal Attitude: cooperative Assessment & Plan Assessment & Plan (1) Closed left clavicular fracture: Code(s): S42.002A - Fracture of unspecified part of left clavicle, initial encounter for closed fracture Category: Medical Qualifiers: Clavicle location: lateral end Encounter type: subsequent encounter Fracture alignment: displaced Fracture healing: with routine healing Qualified Code(s): S42.032D - Displaced fracture of lateral end of left clavicle, subsequent encounter for fracture with routine healing (2) Retained orthopedic hardware: Code(s): Z96.9 - Presence of functional implant, unspecified Category: Medical Plan The bandage was removed while in the office today and the incision site is clean dry and intact. There is no signs of infection at this time. I instructed the patient that the Steri-Strips should remain on for an additional week and then he may remove. When he is showering I directed him to have the incision site away from being under direct water. He should wash the area with soap and water and then pat dry. Patient understands that he should limit his activity for the next 4 weeks as instructed by Dr. Kasper preoperatively. Patient was given the hardware while in the office today. He will follow up PRN, sooner if needed. X-rays of the left clavicle which were obtained while in the office today and were reviewed by me, Nathalie Aguilar PA-C, revealed successful removal of hardware. Orders: Orders XR clavicle LT Today M89.8X1 - Other specified disorders of bone, shoulder Coding Level of Care Code Global (55085) Diagnoses Closed displaced fracture of acromial end of left clavicle with routine healing, subsequent encounter S42.032D Clavicle location: lateral end Encounter type: subsequent encounter Fracture alignment: displaced Fracture healing: with routine healing Retained orthopedic hardware Z96.9
[2025-05-26 11:43] VITALS: BMI 24.3
--- OUTSIDE RECORDS SUMMARY | 2025-05-26 12:30 | XMS_ITS | Encounter Summary ---
Author Organization [facility] Address [address] [place] [address] Phone Care Team Providers Care Bait Maker Name Role Phone Maria Teresa Montano MD Primary Care Provider [phone] Encounter Details Date Type Department Care Team (Late st Contact Info) Description 07/27/2012 Documentation EM Family Medicine [address] [place] [address] Family Medicine, Physician [address] [place], [place] [phone] Social History Tobacco Use Types Packs/Day Years [...] on filedocumented in this encounter Care Teams Bait Maker Relationship Specialty Start Date End Date Maria Teresa Montano MD [address] [place] [phone] PCP - General 05/08/17 03/24/23 documented as of this encounter
--- OUTSIDE RECORDS SUMMARY | 2025-05-26 12:31 | XMS_ITS | Encounter Summary ---
Author Organization [facility] Address [address] [place] [address] Phone Care Team Providers Care Staffing Clerk Name Role Phone Maria Teresa Montano MD Primary Care Provider [phone] Encounter Details Date Type Department Care Team (Late st Contact Info) Description 05/21/2016 Documentation EM Family Medicine [address] [place] [address] Family Medicine, Physician [address] [place], [place] [phone] Social History Tobacco Use Types Packs/Day Years [...] on filedocumented in this encounter Care Teams Staffing Clerk Relationship Specialty Start Date End Date Maria Teresa Montano MD [address] [place] [address] [place] [address] PCP - General 05/08/17 03/24/23 documented as of this encounter
--- OUTSIDE RECORDS SUMMARY | 2025-05-26 12:31 | XMS_ITS | Encounter Summary ---
Author Organization [facility] Address [address] [place] [address] Phone Care Team Providers Care Beef Splitter Name Role Phone Maria Teresa Montano MD Primary Care Provider [phone] Encounter Details Date Type Department Care Team (Late st Contact Info) Description 12/28/2015 Documentation EM Family Medicine [address] [place] [address] Family Medicine, Physician [address] [place], [place] [phone] Social History Tobacco Use Types Packs/Day Years [...] on filedocumented in this encounter Care Teams Beef Splitter Relationship Specialty Start Date End Date Maria Teresa Montano MD [address] [place] [address] PCP - General 05/08/17 03/24/23 documented as of this encounter
--- OUTSIDE RECORDS SUMMARY | 2025-05-26 12:31 | XMS_ITS | Encounter Summary ---
Author Organization [facility] Address [address] [place] [phone] Phone Care Team Providers Care Hotel Maintenance Worker Name Role Phone Maria Teresa Montano MD Primary Care Provider [phone] Encounter Details Date Type Department Care Team (Late st Contact Info) Description 10/27/2011 Documentation EM Family Medicine [address] [place] [address] Family Medicine, Physician [address] [place], [place] [phone] Social History Tobacco Use Types Packs/Day Years [...] on filedocumented in this encounter Care Teams Hotel Maintenance Worker Relationship Specialty Start Date End Date Maria Teresa Montano MD [address] [place] [address] PCP - General 05/08/17 03/24/23 documented as of this encounter
--- OUTSIDE RECORDS SUMMARY | 2025-05-26 12:31 | XMS_ITS | Encounter Summary ---
Author Organization [facility] Address [address] [place] [address] Phone Care Team Providers Care Machinist Brake Name Role Phone Maria Teresa Montano MD Primary Care Provider [phone] Encounter Details Date Type Department Care Team (Late st Contact Info) Description 05/16/2010 Documentation EM Family Medicine [address] [place] [address] Family Medicine, Physician [address] [place], [place] [phone] Social History Tobacco Use Types Packs/Day Years [...] on filedocumented in this encounter Care Teams Machinist Brake Relationship Specialty Start Date End Date Maria Teresa Montano MD [address] [place] [address] PCP - General 05/08/17 03/24/23 documented as of this encounter
--- OUTSIDE RECORDS SUMMARY | 2025-05-26 12:31 | XMS_ITS | Encounter Summary ---
Author Organization [employer] Address [address] [facility] [address] [place] [address] Care Team Providers Care Fish House Worker Name Role Phone Unavailable Primary Care Provider Unavailabl e Encounter Details Date Type Department Care Team (Latest Contact Info) Description 06/22/2019 Abstract [facility] CONVERSIONS Dental, Provider, DDS Social History [...]
--- OUTSIDE RECORDS SUMMARY | 2025-05-26 12:31 | XMS_ITS | Encounter Summary ---
Author Organization [facility] Address [address] [place] [address] Phone Care Team Providers Care Folder Tier Name Role Phone Maria Teresa Montano MD Primary Care Provider [phone] Encounter Details Date Type Department Care Team (Late st Contact Info) Description 06/27/2015 Documentation EM Family Medicine [address] [place] [address] Family Medicine, Physician [address] [place], [place] [phone] Social History Tobacco Use Types Packs/Day Years [...] on filedocumented in this encounter Care Teams Folder Tier Relationship Specialty Start Date End Date Maria Teresa Montano MD [address] [place] [address] PCP - General 05/08/17 03/24/23 documented as of this encounter
--- OUTSIDE RECORDS SUMMARY | 2025-05-26 12:31 | XMS_ITS | Encounter Summary ---
Author Organization [facility] Address [address] [place] [phone] Phone Care Team Providers Care Test Designer Name Role Phone Maria Teresa Montano MD Primary Care Provider [phone] Encounter Details Date Type Department Care Team (Late st Contact Info) Description 05/16/2010 Documentation EM Family Medicine [address] [place] [address] Family Medicine, Physician [address] [place], [place] [phone] Social History Tobacco Use Types Packs/Day Years [...] on filedocumented in this encounter Care Teams Test Designer Relationship Specialty Start Date End Date Maria Teresa Montano MD [address] [place] [phone] PCP - General 05/08/17 03/24/23 documented as of this encounter
--- OUTSIDE RECORDS SUMMARY | 2025-05-26 12:31 | XMS_ITS | Clinical Summary ---
Author Organization [employer] Address [address] [facility] [address] [place] [address] Care Team Providers Care Order Desk Caller Name Role Phone Unavailable Primary Care Provider [...] Date Last Done Comments Depression Screening 1995 Disability Screening 1995 Alcohol/Substance Use Screening 2007 Tobacco Screening 2007 Family Planning (PISQ) 2010 HPV Vaccines (1 - Male 3-dos e series) 2010 DTaP/Tdap/Td Vaccines (1 - Tdap) 2014 Hepatitis B Vaccines (1 of 3 - 19+ 3-dose series) 2014 COVID-19 Vaccine (1 - 2023-2 5 season) 2024 Influenza Vaccine (#1) 2025 Zoster Vaccines (1 of 2) 2045 RSV [...] patient's age to complete this topic Meningococcal B Vaccine Aged Out No l onger eligible based on patient's age to complete this topic Meningococcal Vaccine Aged Out No eloise dwight eligible based on patient's age to complete this topic Pneumococcal Vaccine: Pediat rics (0 to 5 Years) and At-Risk Patients (6 to 49) Years Aged Out No longer eligible b ased on patient's age to complete this topic RSV under 20 months Aged Out No longe r eligible based on patient's age to complete this topic Rotavirus Vaccines Aged Out No longer eligible based on patient's age to complete this topic
--- OUTSIDE RECORDS SUMMARY | 2025-05-26 12:31 | XMS_ITS | Encounter Summary ---
Author Organization [facility] Address [address] [place] [address] Phone Care Team Providers Care Diversified Crops Supervisor Name Role Phone Maria Teresa Montano MD Primary Care Provider [phone] Encounter Details Date Type Department Care Team (Late st Contact Info) Description 05/14/2017 Conversion Encounter [facility] [address] [place] [address] Social History Tobacco Use Types Packs/Day Years [...] on filedocumented in this encounter Care Teams Diversified Crops Supervisor Relationship Specialty Start Date End Date Maria Teresa Montano MD [address] [place] [address] PCP - General 05/08/17 03/24/23 documented as of this encounter
--- OUTSIDE RECORDS SUMMARY | 2025-05-26 12:31 | XMS_ITS | Clinical Summary ---
Author Organization [facility] Address [address] [place] [address] Phone Care Team Providers Care Commercial Underwriter Name Role Phone Unavailable Primary Care Provider [...] 100 05/29/2016 12:00 AM EDT Temperature 37 C (98.6 F) 02/19/2016 12:00 AM EDT Respiratory Rate - [...] 3 - 3-dose series) 05/23/1996 03/28/1996, 1995 COVID-19 Vaccine (2023- season) 2024 Influenza Vaccines (#1) 2025 05/29/20 16, 06/13/2015, 06/29/2014, Additional history exists DTaP,Tdap,and Td Vaccines (8 - Td or [...]
--- OUTSIDE RECORDS SUMMARY | 2025-05-26 12:31 | XMS_ITS | Encounter Summary ---
Author Organization [facility] Address [address] [place] [address] Phone Care Team Providers Care Fish Hatchery Worker Name Role Phone Maria Teresa Montano MD Primary Care Provider [phone] Encounter Details Date Type Department Care Team (Late st Contact Info) Description 06/16/2016 Documentation EM Family Medicine [address] [place] [address] Family Medicine, Physician [address] [place], [place] [phone] Social History Tobacco Use Types Packs/Day Years [...] on filedocumented in this encounter Care Teams Fish Hatchery Worker Relationship Specialty Start Date End Date Maria Teresa Montano MD [address] [place] [address] [place] [address] PCP - General 05/08/17 03/24/23 documented as of this encounter
--- OUTSIDE RECORDS SUMMARY | 2025-05-26 12:31 | XMS_ITS | Encounter Summary ---
Author Organization [facility] Address [address] [place] [address] Phone Care Team Providers Care Safety Equipment Testing Specialist Name Role Phone Maria Teresa Montano MD Primary Care Provider [phone] Encounter Details Date Type Department Care Team (Late st Contact Info) Description 05/16/2010 Documentation EM Family Medicine [address] [place] [address] Family Medicine, Physician [address] [place], [place] [phone] Social History Tobacco Use Types Packs/Day Years [...] on filedocumented in this encounter Care Teams Safety Equipment Testing Specialist Relationship Specialty Start Date End Date Maria Teresa Montano MD [address] [place] [address] PCP - General 05/08/17 03/24/23 documented as of this encounter
--- OUTSIDE RECORDS SUMMARY | 2025-05-26 12:31 | XMS_ITS | Encounter Summary ---
Author Organization [facility] Address [address] [place] [address] Phone Care Team Providers Care Information Assurance Officer Name Role Phone Maria Teresa Montano MD Primary Care Provider [phone] Encounter Details Date Type Department Care Team (Late st Contact Info) Description 05/16/2010 Documentation EM Family Medicine [address] [place] [address] Family Medicine, Physician [address] [place], [place] [phone] Social History Tobacco Use Types Packs/Day Years [...] on filedocumented in this encounter Care Teams Information Assurance Officer Relationship Specialty Start Date End Date Maria Teresa Montano MD [address] [place] [address] PCP - General 05/08/17 03/24/23 documented as of this encounter
== END 2025-05-26 11:53 | disposition home or self-care (01) ==
LOC: HO.HOS 11:32
PROVIDERS: Visit Provider Physician Assistant
DX: S42.032D Displaced fracture of lateral end of left clavicle, subsequent encounter for fracture with routine healing (principal); Z96.9 Presence of functional implant, unspecified
CPT/HCPCS: 99024

== ENCOUNTER → 2025-05-26 11:33 | Outpatient (BNV) | payer OTHER, SELFPAY | PROVIDERS: Visit Provider Radiology Diagnostic Radiology | DX: M89.8X1 Other specified disorders of bone, shoulder (principal); Z47.2 Encounter for removal of internal fixation device | CPT/HCPCS: 73000 ==